=== PATIENT | female | born 1955 | race Two or more races ===

== ENCOUNTER 2019-04-26 08:15 | Inpatient (IN) | payer BC ==
--- NOTE | 2019-04-25 11:30 | Pre-op HX & Phy Repo 2 SIG ---
DATE OF ADMISSION: 04/26/2019 HISTORY OF PRESENT ILLNESS: The patient is a 64-year-old female in overall stable health with a malfunctioning Castro continent ileostomy with incontinence of stool and gas including gross incontinence through her stoma, but no difficulty intubating her pouch. The patient had an original diagnosis of granulomatous colitis and in 1974 underwent proctocolectomy with Sherlyn ileostomy. In 1982, she underwent conversion of her conventional ileostomy to a Castro continent intestinal reservoir type of Kock pouch continent ileostomy. In October 2016 in [place], using what was called an inverted T incision, the patient underwent repair of a fistula involving her Castro pouch to the access segment below the stoma. The patient had been intubating approximately every three hours and for the past six months she has had incontinence of stool and gas through the stoma, sometimes gross incontinence of stool. She says she has no difficulty inserting her intubation catheter. 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 MEDICATIONS: Metoprolol, anastrozole, budesonide 9mg, Cymbalta, levothyroxine, iron, and vitamins. She also has a list of medications she takes on a p.r.n. basis including gabapentin, olanzapine, and other supplements including calcium. She has been having infusions of Entyvio every 8 weeks last taken on 2019 ALLERGIES TO MEDICATIONS: Intravenous dye, Humira, and Remicade. OPERATIONS: In addition to the above, in August 2017, she underwent bilateral mastectomy for breast cancer. She has undergone bilateral total knee replacements. She has undergone lower and upper back spinal fusions and sinus surgery. PHYSICAL EXAMINATION: The patient is 5 feet 8 inches, 215 pounds. [place] and will be examined upon arrival and dictated separately. IMPRESSION: 1. 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 2. History of Crohn's colitis. 3. Status post cervicolumbar spine fusions. 4. Status post bilateral total knee replacement. 5. Status post sinus surgery. 6. Status post bilateral mastectomy for breast cancer in August 2017. 7. STATUS POST MULTIPLE ABDOMINAL OPERATIONS: 7.1. Proctocolectomy and Sherlyn ileostomy in 1974. 7.2. Castro continent ileostomy in 1982. 7.3. Repair of Castro pouch fistula to access segment on 10/27/2016. PLAN: The patient will be admitted and undergo insertion of a dual lumen PICC line, intravenous hydration during her bowel prep, pouch endoscopy, and placement of an indwelling pouch catheter to continuous gravity drainage. She will receive intravenous antibiotics started the night before surgery and continuing postoperatively and preoperative subcutaneous heparin. I have had a full discussion with the patient regarding the nature of her condition and the nature of the surgery including indications, alternatives, options, and risks. The likely operation will be creation of a new valve and stoma preserving her existing pouch, possible relocation of the stoma to the left side. I have described the general risks including bleeding, infection, injury to adjacent structures or organs, hernias, etc. I have discussed the specific risks of Castro pouch revision including recurrent fistula and slipped valve, or other issues with the function or structure of the pouch that could lead to additional revisions. All questions will be answered in person when she arrives from out of state. Santos Marte M.D. DR: NICHOLAS JOB#: [id number] CC: DORENE
[~2019-04-26] VITALS: Ht 172.7 cm; Wt 102.1 kg
[2019-04-26 08:50] VITALS: BP 145/74
[2019-04-26] MEDS ORDERED: Heparin1,000 units/500ml Premix(Conc:2 units/ml) IV PRN (09:15)
[2019-04-26] MEDS ORDERED: Zolpidem 5mg tab ORAL PRN (09:15)
[2019-04-26] MEDS ORDERED: Lidocaine 1% Plain 30 ml INJ PRN (09:15)
[2019-04-26 09:36] LABS: BASOPHILS % (AUTO) 1.2 % (0.0-2.0); EOSINOPHILS % (AUTO) 2.6 % (0.0-3.0); HEMATOCRIT 39.3 % (37.0-47.0); HEMOGLOBIN 13.3 G/DL (12.0-16.0); LYMPHOCYTES % (AUTO) 31.5 % (20.0-45.0); MEAN CORPUSCULAR VOLUME 93 FL (80-99); MONOCYTES % (AUTO) 6.4 % (1.0-10.0); NEUTROPHILS % (AUTO) 58.4 % (45.0-75.0); PLATELET COUNT 267 K/UL (150-450); RED BLOOD COUNT 4.24 M/UL (4.20-5.40); RED CELL DISTRIBUTION WIDTH 13.6 % (11.6-14.8); WHITE BLOOD COUNT 8.4 K/UL (4.8-10.8)
--- NOTE | 2019-04-26 09:41 | Anethesia Preoperative Eval ---
Anesthesia Pre-op PMH/ROS General Date of Evaluation: Apr 26, 2019 Time of Evaluation: 11:02 Anesthesiologist: Shaw ASA Score: ASA 3 Mallampati Score Class I : Soft palate, uvula, fauces, pillars visible Class II: Soft palate, uvula, fauces visible Class III: Soft palate, base of uvula visible Class IV: Only hard plate visible Mallampati Classification: Class II Surgeon: Estuardo Diagnosis: Malfunctioning Castro Continent Ileoostomy Surgical Procedure: Revision Castro Continent Ileoostomy Anesthesia History: none Family History: no anesthesia problems Allergies: Coded Allergies: ADALIMUMAB (Verified Allergy, Intermediate, Body Rashes, Body Aches, ) INFLIXIMAB (Verified Allergy, Intermediate, Body Rash/Body Aches, 04/26/19) Uncoded Allergies: intravenous dye (Allergy, Severe, Respiratory Distress , 04/26/19) Medications: see eMAR Patient NPO?: Yes Past Medical History Cardiovascular: Reports: HTN Gastrointestinal/Genitourinary: Reports: other - Ulcerative Colitis Hematology/Immune: Reports: other - Breast CA Other: obesity - BMI 34 PSxH Narrative: 1. 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 2. History of ulcerative colitis. 3. Status post cervicolumbar spine fusions. 4. Status post bilateral total knee replacement. 5. Status post sinus surgery. 6. Status post bilateral mastectomy for breast cancer in August 2017. 7. STATUS POST MULTIPLE ABDOMINAL OPERATIONS: 7.1. Proctocolectomy and Sherlyn ileostomy in 1974. 7.2. Castro continent ileostomy in 1982. 7.3. Repair of Castro pouch fistula to access segment on 10/27/2016. Anesthesia Pre-op Phys. Exam Physician Exam Last Vital Signs Date Time Temp Pulse Resp B/P (MAP) Pulse Ox O2 Delivery O2 Flow Rate FiO2 04/26/19 08:50 97.6 84 16 145/74 (97) 95 Constitutional: NAD Neurologic: CN 2-12 intact Cardiovascular: RRR Respiratory: CTA Gastrointestinal: S/NT/ND Airway Exam Mallampati Score: Class II MO: full ROM: limited Teeth: missing, intact Anesthesia Pre-op A/P Labs Hematology Test 04/26/19 09:15 White Blood Count 8.4 K/UL (4.8-10.8) Red Blood Count 4.24 M/UL (4.20-5.40) Hemoglobin 13.3 G/DL (12.0-16.0) Hematocrit 39.3 % (37.0-47.0) Mean Corpuscular Volume 93 FL (80-99) Mean Corpuscular Hemoglobin 31.3 PG (27.0-31.0) H Mean Corpuscular Hemoglobin Concent 33.7 G/DL (32.0-36.0) Red Cell Distribution Width 13.6 % (11.6-14.8) Platelet Count 267 K/UL (150-450) Mean Platelet Volume 5.8 FL (6.5-10.1) L Neutrophils (%) (Auto) 58.4 % (45.0-75.0) Lymphocytes (%) (Auto) 31.5 % (20.0-45.0) Monocytes (%) (Auto) 6.4 % (1.0-10.0) Eosinophils (%) (Auto) 2.6 % (0.0-3.0) Basophils (%) (Auto) 1.2 % (0.0-2.0) Coagulation Test 04/26/19 09:15 Prothrombin Time Pending Prothromb Time International Ratio Pending Activated Partial Thromboplast Time Pending Chemistry Test 04/26/19 09:15 Sodium Level Pending Potassium Level Pending Chloride Level Pending Carbon Dioxide Level Pending Blood Urea Nitrogen Pending Creatinine Pending Estimat Glomerular Filtration Rate Pending Glucose Level Pending Calcium Level Pending Total Bilirubin Pending Aspartate Amino Transf (AST/SGOT) Pending Alanine Aminotransferase (ALT/SGPT) Pending Alkaline Phosphatase Pending Total Protein Pending Albumin Pending Globulin Pending Risk Assessment & Plan Assessment: ASA 3 Plan: GA Status Change Before Surgery: No Pre-Antibiotics Drug: Beau Curtis MD Apr 26, 2019 09:41
[2019-04-26 10:05] LABS: INR 0.9 (0.9-1.1)
[2019-04-26 10:06] LABS: ANION GAP 7 mmol/L (5-15); BLOOD UREA NITROGEN 13 mg/dL (7-18); CALCIUM 9.2 MG/DL (8.5-10.1); CARBON DIOXIDE 30 MMOL/L (21-32); CHLORIDE 102 MMOL/L (98-107); POTASSIUM 3.5 MMOL/L (3.5-5.1); SODIUM 139 MMOL/L (136-145)
[2019-04-26 10:12] LABS: ALANINE AMINOTRANSFERASE 40 U/L (12-78); ALBUMIN 3.4 G/DL (3.4-5.0); ALBUMIN/GLOBULIN RATIO 0.8 (1.0-2.7); ALKALINE PHOSPHATASE 90 U/L (46-116); ASPARTATE AMINO TRANSFERASE 24 U/L (15-37); BILIRUBIN,TOTAL 0.4 MG/DL (0.2-1.0)
--- NOTE | 2019-04-26 11:52 | Pre-Procedure Note/Attestation ---
Pre-Procedure Note/Attestation Complete Prior to Procedure Planned Procedure: not applicable Procedure Narrative: Castro continent ileostomy pouch endoscopy Indications for Procedure Pre-Operative Diagnosis: Malfunctioning Castro pouch with incontinence Attestation I attest that I discussed the nature of the procedure; its benefits; risks and complications; and alternatives (and the risks and benefits of such alternatives ), prior to the procedure, with the patient (or the patient's legal manufacturer representative). I attest that, if there was a reasonable possibility of needing a blood transfusion, the patient (or the patient's legal manufacturer representative) was given the [facility] standardized written summary, pursuant to the Scottie [place] Blood Safety Act ([place] Health and Safety Code # 1645, as amended). I attest that I re-evaluated the patient just prior to the surgery and that there has been no change in the patient's H&P, except as documented below: none Santos Marte MD Apr 26, 2019 11:52
[2019-04-26 12:00] VITALS: BP 124/78
--- NOTE | 2019-04-26 12:01 | Diagnostic Imaging Report ---
Indication: Dyspnea Comparison: None A single view chest radiograph was obtained. Findings: Cardiomediastinal appearance is within normal limits for age. The lungs are clear. Pulmonary vascularity is appropriate. The diaphragmatic contour is smooth and costophrenic angles are sharp. No pleural effusions are identified. The bones are unremarkable. Impression: No acute findings
[2019-04-26] MEDS ORDERED: BUDESONIDE ER9 MG PO (12:03)
[2019-04-26] MEDS ORDERED: GABAPENTIN300 MG ORAL (12:03)
[2019-04-26] MEDS ORDERED: OLANZAPINE5 MG ORAL (12:03)
[2019-04-26] MEDS ORDERED: ALOE VERA25 MG PO (12:03)
[2019-04-26] MEDS ORDERED: ARIMIDEX1 MG ORAL (12:03)
[2019-04-26] MEDS ORDERED: OMEGA-3100 M1 PO (12:03)
[2019-04-26] MEDS ORDERED: IRON18 M1 PO (12:03)
[2019-04-26] MEDS ORDERED: VITAMIN D34000 UNIT PO (12:03)
[2019-04-26] MEDS ORDERED: ENTYVIO300 MG IV (12:03)
[2019-04-26] MEDS ORDERED: METOPROLOL SUCC50 MG ORAL (12:03)
[2019-04-26] MEDS ORDERED: B COMPLEX1 EACH ORAL (12:03)
[2019-04-26] MEDS ORDERED: CALCIUM600 M1 PO (12:03)
[2019-04-26] MEDS ORDERED: CYMBALTA60 MG ORAL (12:03)
[2019-04-26] MEDS ORDERED: SYNTHROID100 MCG ORAL (12:03)
[2019-04-26] MEDS: Neomycin Sulfate 500mg Tab ORAL SCH ×3 (12:20→20:43)
[2019-04-26 12:57] LABS: BILIRUBIN, URINE NEGATIVE (NEGATIVE); GLUCOSE, URINE (UA) NEGATIVE (NEGATIVE); KETONES,URINE NEGATIVE (NEGATIVE); LEUKOCYTE ESTERASE ,URINE 1+ (NEGATIVE); NITRITE,URINE NEGATIVE (NEGATIVE); PH,URINE 6 (4.5-8.0); PROTEIN,URINE NEGATIVE (NEGATIVE); UROBILINOGEN,URINE NORMAL MG/DL (0.0-1.0)
[2019-04-26 13:04] LABS: APPEARANCE,URINE SLIGHTLY CLOUDY; COLOR,URINE YELLOW
--- NOTE | 2019-04-26 13:13 | Brief Operative Note ---
Immediate Post Operative Note Operative Note Pre-op Diagnosis: Malfunctioning Castro pouch with incontinence Procedure: Castro continent ileostomy pouch endoscopy Post-op Diagnosis: Castro continent ileostomy fistula to access segment of stoma Post-op Diagnosis: same as pre-op Findings: consistent w/pre-op dx studies Surgeon: dipesh Anesthesia: other - none Specimen: none Complications: none Condition: stable Fluids: none Estimated Blood Loss: none Drains: other - 28 Aguiar to Castro pouch Implant(s) used?: No Santos Marte MD Apr 26, 2019 13:13
--- NOTE | 2019-04-26 13:36 | General Progress Note ---
Progress Note Progress Note H&P dictated. Castro pouch endoscopy reveals fistula opening within stoma access segment. Full discussion with patient and re options of new valve and stoma, possible relocation to left side, new pouch, Sherlyn (she wishes to avoid) Santos Marte MD Apr 26, 2019 13:36
--- NOTE | 2019-04-26 14:20 | Diagnostic Imaging Report ---
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 The left upper extremity was prepped with alcohol. All elements of maximal sterile barrier technique were followed including usage of a cap, mask, sterile gown, sterile gloves, hand hygiene and a large sterile sheet. Sonographic evaluation of the upper extremity was performed demonstrating a patent and compressible basilic vein. Access was obtained under real-time ultrasound guidance (with utilization of sterile gel and sterile probe cover) and digital image was saved and archived. An .018 wire was introduced. Needle exchanged for a 5 Nepali peel-away sheath. Measurements were obtained. A 5 Nepali dual-lumen Power PICC line catheter was cut to 43 cm and introduced over the wire. Peel-away sheath and wire were removed.Catheter was secured to the skin using 2-0 Prolene suture. Both ports aspirate and flush easily. A single fluoroscopic image shows the distal tip in the superior vena cava. Total fluoroscopic time: 9.7 seconds. Impression: Successful placement of an upper extremity PICC line catheter
[2019-04-26] MEDS ORDERED: Vitamin A&D ud Packet TOPIC SCH (14:27)
--- NOTE | 2019-04-26 14:30 | Pre-op HX & Phy Repo 2 SIG ---
DATE OF ADMISSION: 04/26/2019 The patient has now arrived [place] out of state. Please see previously dictated history. PHYSICAL EXAMINATION: GENERAL: She is well developed and well nourished with stable vital signs, 5 feet 8 inches, approximately 215 pounds. HEENT: Within normal limits. LUNGS: Clear. HEART: Regular rhythm. BREASTS: She has undergone bilateral mastectomies for breast cancer in August 2017. ABDOMEN: Soft and flat. It is somewhat obese. There is a long midline incision without any weakness. The stoma of the Castro continent ileostomy is low in the right lower quadrant and small with a small parastomal hernia just superior to it. There is moderate skin irritation from fecal incontinence from her fistula. PELVIC: Per primary care. RECTAL: Status post proctectomy. EXTREMITIES: Without edema. NEUROLOGIC: Physiologic. IMPRESSION: 1. Malfunctioning Castro continent ileostomy with fistula to access segment of the stoma. 2. History of Crohn's colitis. 3. Status post cervical and lumbar spine fusions. 4. Status post bilateral total knee replacements. 5. Status post sinus surgery. 6. Status post bilateral mastectomy for breast cancer August 2017. 7. STATUS POST MULTIPLE ABDOMINAL OPERATIONS: 7.1. Proctocolectomy and Sherlyn ileostomy in 1974. 7.2. Castro continent ileostomy in 1982. 7.3. Repair of Castro continent ileostomy fistula to access segment October 2016. PLAN: I have had a full discussion with the patient and regarding the nature of her condition, the nature of the surgical options including repair of the fistula, which is unlikely to be successful because she also appears to have a partially slipped valve, so the primary option is creation of a new valve and stoma preserving the existing pouch and possible relocation to the left lower quadrant. The other alternatives are to resect this pouch and create a new Castro continent ileostomy if she has completely normal small intestine and adequate amount. Otherwise we will resect this pouch and create a permanent conventional ileostomy, which she hopes to avoid. All questions have been answered. Discussed all options and the general and specific risks of the operation. Santos Marte M.D. DR: ROBERT JOB#: [id number] CC: DORENE
[2019-04-26] MEDS: D5 1/2NS w/KCl 20mEq 1,000 ML IV SCH (15:41)
[2019-04-26 16:00] VITALS: BP 125/60
--- NOTE | 2019-04-26 16:45 | Procedure Note ---
DATE OF PROCEDURE: 04/26/2019 ENDOSCOPY PROCEDURE REPORT DATE OF ENDOSCOPY: 04/26/2019 ENDOSCOPIST: Santos Marte M.D. ANESTHESIA: None. SEDATION: None. PRE-ENDOSCOPY DIAGNOSES: 1. Malfunctioning Castro continent ileostomy with fistula to access segment. 2. History of granulomatous colitis. 3. Status post multiple operations including proctocolectomy followed by Castro continent ileostomy with repair of fistula. Last operation October 2016. POST-ENDOSCOPY DIAGNOSES: 1. Malfunctioning Castro continent ileostomy with fistula to access segment. 2. History of granulomatous colitis. 3. Status post multiple operations including proctocolectomy followed by Castro continent ileostomy with repair of fistula. Last operation October 2016. ENDOSCOPY PERFORMED: Castro continent ileostomy pouch endoscopy. FINDINGS: A fistulous tract opening approximately 2 cm deep to the mucocutaneous junction of the stoma that leads into the pouch. The pouch is normal without any inflammation, but the nipple valve is partially slipped as well. PROCEDURE IN DETAIL: The patient was positioned supine in the GI lab without any anesthesia or sedation given or required. Using a GIF-P140 endoscope, the stoma was entered and the distance to the tip of the valve was 11 centimeters, somewhat redundant. The pouch was distensible and the mucosa appeared normal. There was one extra band of mucosal tissue stretching across the pouch. Retroflexed views revealed a partially slipped valve. Withdrawal views confirmed the fistulous tract adjacent to the main channel leading into the pouch. Following the endoscopy, I was able to insert a 28-Azeri Agiuar catheter into the pouch to decompress it, secured it to the skin with tape, connected to continuous gravity drainage bag with dressing over the stoma. The patient tolerated the endoscopy well and will be prepared for surgery in the morning. Santos Marte M.D. DR: NICHOLAS JOB#: [id number] CC:
[2019-04-26] MEDS: Vitamin A&D ud Packet TOPIC SCH ×2 (16:58→20:43)
[2019-04-26 20:00] VITALS: BP 129/60
[2019-04-26] MEDS: Dyna-Hex 2% Top Sol 2oz TOPIC SCH (20:43)
[2019-04-26] MEDS: Ampicillin/Sulbactam Sod 3 GM in NS 110 ML IV SCH (23:17)
[2019-04-27] VITALS (19 sets, daily range): BP systolic 117–156; BP diastolic 60–78
[2019-04-27] MEDS: D5 1/2NS w/KCl 20mEq 1,000 ML IV SCH (00:54)
[2019-04-27] MEDS: Ampicillin/Sulbactam Sod 3 GM in NS 110 ML IV SCH ×4 (05:00→23:52)
[2019-04-27] MEDS ORDERED: Heparin 5000 units/ml inj SUBQ SCH (05:30)
[2019-04-27] MEDS: Hydrocortisone 100mg Inj IV SCH ×3 (06:34→21:58)
--- NOTE | 2019-04-27 07:00 | Pre-Procedure Note/Attestation ---
Pre-Procedure Note/Attestation Complete Prior to Procedure Planned Procedure: not applicable Procedure Narrative: revision of Castro continent ileostomy, gastrostomy Indications for Procedure Pre-Operative Diagnosis: Malfunctioning Castro pouch with fistula to access segment Attestation I attest that I discussed the nature of the procedure; its benefits; risks and complications; and alternatives (and the risks and benefits of such alternatives ), prior to the procedure, with the patient (or the patient's legal software sales representative). I attest that, if there was a reasonable possibility of needing a blood transfusion, the patient (or the patient's legal software sales representative) was given the [facility] standardized written summary, pursuant to the Scottie [place] Blood Safety Act ([place] Health and Safety Code # 1645, as amended). I attest that I re-evaluated the patient just prior to the surgery and that there has been no change in the patient's H&P, except as documented below: none Santos Marte MD Apr 27, 2019 07:00
[2019-04-27] MEDS ORDERED: Midazolam 2mg/2ml Inj ONE (07:12)
[2019-04-27] MEDS ORDERED: fentaNYL 100 mcg/2 mL IV ONE (07:12)
[2019-04-27] MEDS ORDERED: NeoSporin Gu Irrig 1ml Amp IRRIG ONE (07:17)
[2019-04-27] MEDS ORDERED: Bacitracin 50000 Units Vial ONE (07:17)
[2019-04-27] MEDS ORDERED: Rocuronium Bromide 50mg/5ml Inj IV ONE (07:21)
[2019-04-27] MEDS ORDERED: Succinylcholine 20mg/ml 10ml vial ONE (07:21)
[2019-04-27] MEDS ORDERED: LR 1000ml ONE (07:30)
[2019-04-27] MEDS ORDERED: Labetalol 5mg/ml 20ml vial IV ONE (07:30)
[2019-04-27] MEDS ORDERED: Sterile Water Irrig 1000ml IRRIG ONE (07:30)
[2019-04-27] MEDS ORDERED: NS Irrig 1000ml IRRIG ONE (07:52)
[2019-04-27] MEDS ORDERED: Morphine Sulfate 10mg/ml Inj ONE (08:13)
[2019-04-27] MEDS ORDERED: Ketorolac 30mg Inj ONE (08:14)
[2019-04-27] MEDS ORDERED: Propofol 200mg/20ml IV ONE (08:14)
[2019-04-27] MEDS ORDERED: Glycopyrrolate 0.2mg/ml 1ml Vial ONE (08:14)
[2019-04-27] MEDS ORDERED: Neostigmine 1mg/ml 10ml Inj ONE (08:14)
[2019-04-27] MEDS ORDERED: Sodium Chloride 10ml vial INJ ONE (08:14)
[2019-04-27] MEDS ORDERED: LR 1000ml 1,000 ML IVLG SCH (08:23)
[2019-04-27] MEDS ORDERED: Metoclopramide 10mg/2ml Inj IVP PRN (08:30)
[2019-04-27] MEDS ORDERED: DiphenhydrAMINE 50mg/ml Inj IVP PRN ×2 (08:30→12:00)
[2019-04-27] MEDS ORDERED: Hydromorphone 0.5mg/0.5ml inj IVP PRN (08:30)
[2019-04-27] MEDS ORDERED: Acetaminophen (Non formulary) 100 ML IV ONE (08:30)
[2019-04-27] MEDS: Metoprolol Succinate XL 50mg tab ORAL SCH (09:00)
[2019-04-27] MEDS: Anastrazole 1mg tab ORAL SCH (09:00)
[2019-04-27] MEDS ORDERED: Acetaminophen 650mg/20.3ml NG PRN (12:00)
[2019-04-27] MEDS ORDERED: Naloxone 0.4mg/ml Inj IVP PRN (12:00)
[2019-04-27] MEDS ORDERED: PCA Education Pamphlet MISC ONE (12:00)
[2019-04-27] MEDS ORDERED: Ampicillin/Sulbactam Sod 3 GM in NS 110 ML IV SCH (12:00)
[2019-04-27] MEDS ORDERED: HYDROmorphone 1mg/ml Carpuject SUBQ PRN (12:00)
[2019-04-27] MEDS ORDERED: Rate Change PCA 1 Each MISC PRN (12:00)
[2019-04-27] MEDS ORDERED: LORazepam 1mg tab SL PRN ×2 (12:00)
[2019-04-27] MEDS ORDERED: PCA HYDROmorphone 1mg/ml 30 ML IV PRN ×2 (12:00→17:00)
--- NOTE | 2019-04-27 12:04 | Brief Operative Note ---
Immediate Post Operative Note Operative Note Pre-op Diagnosis: Malfunctioning Castro pouch with fistula to access segment Procedure: Revision of Castro pouch with creation of new valve and stoma Post-op Diagnosis: Castro continent ileostomy fistula to access segment of stoma Post-op Diagnosis: same as pre-op Findings: consistent w/pre-op dx studies Surgeon: dipesh Additional Surgeons: porfirio Anesthesiologist: nesha Anesthesia: general Specimen: yes - bowel segments, stoma Complications: none Condition: stable Fluids: see anesthesia record Estimated Blood Loss: volume - 50 Drains: other - 28 Aguiar to Castro pouch Implant(s) used?: No Santos Marte MD Apr 27, 2019 12:04
--- NOTE | 2019-04-27 12:04 | Immediate Post-Op Evaluation ---
Immediate Post-Op Evalulation Immediate Post-Op Evalulation Procedure: Exploratory laparotomy, lysis of adhesions, revision of continent pouch Date of Evaluation: Apr 27, 2019 Time of Evaluation: 12:03 IV Fluids: 1200 Blood Products: none Estimated Blood Loss: 100 Urinary Output: 1000 Blood Pressure Systolic: 134 Blood Pressure Diastolic: 68 Pulse Rate: 87 Respiratory Rate: 20 O2 Sat by Pulse Oximetry: 99 Temperature (Fahrenheit): 98.6 Pain Score (1-10): 1 Nausea: No Vomiting: No Complications none Patient Status: patent, extubated, none Hydration Status: adequate Royal Larry MD Apr 27, 2019 12:04
--- NOTE | 2019-04-27 13:45 | Operative Note - Dictated ---
DATE OF OPERATION: 04/27/2019 SURGEON: Santos Marte M.D. ADDITIONAL SURGEON: Reggie Ruiz M.D. ANESTHESIOLOGIST: Royal Larry M.D. TYPE OF ANESTHESIA: General endotracheal. PREOPERATIVE DIAGNOSES: 1. 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 History of granulomatous colitis. 3. STATUS POST MULTIPLE ABDOMINAL OPERATIONS: 3.1. Proctocolectomy and Sherlyn ileostomy in 1974. 3.2. Castro continent ileostomy in 1982. 3.3. Repair of Castro continent ileostomy pouch fistula to access segment October 27, 2016. (all these operations were done elsewhere). POSTOPERATIVE DIAGNOSES: 1. 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 History of granulomatous colitis. 3. STATUS POST MULTIPLE ABDOMINAL OPERATIONS: 3.1. Proctocolectomy and Sherlyn ileostomy in 1974. 3.2. Castro continent ileostomy in 1982. 3.3. Repair of Castro continent ileostomy pouch fistula to access segment October 27, 2016. (all these operations were done elsewhere). OPERATION PERFORMED: Complex revision of Castro continent ileostomy with creation of new valve and stoma. DESCRIPTION OF PROCEDURE: The patient was taken to the operating room and under general endotracheal anesthesia with sequential compression device stockings and Aguiar catheter in place having received intravenous antibiotics and subcutaneous heparin, she was prepped and draped in usual fashion with Tegaderm over the stoma in the right lower quadrant. Previous midline incision was reopened and because of extensive adhesions was extended into the lower epigastrium down to the pubis. With a tedious dissection, bowel loops were mobilized and the pouch elevated out of the very deep pelvis. The patient had obviously had total abdominal hysterectomy, but is not clear when that was done from her history, but there was no uterus or adnexa. A transversely oriented elliptical incision was made around the stoma, which was quite lateral in the right lower quadrant and the stoma brought through into the abdomen. This helped to facilitate complete mobilization of the pouch, identifying the afferent bowel. The access segment with the fistula tract at its junction with the pouch was divided with a VIRGEN stapling device and taken as specimen. A pouch enterotomy was created. The afferent bowel was identified. We were able to create a new valve using the afferent bowel measuring 12 cm proximal from the pouch for the valve segment and then additional 5 cm for the access segment and stoma. The bowel was divided at this point and the proximal end was attached to the pouch, medial to the old stoma site with an end-to-side 25 CEEA stapled anastomosis. Prior to doing the anastomosis, a small segment was resected. There was no sign of any Crohn's disease anywhere in the small bowel. The end-to-side anastomosis was created with two intact donuts. Now, the new valve was gradually intussuscepted creating a 5.0 cm long nipple valve. Four rows of leandra were placed using the linear stapler 60 3.5 mm leandra. I then closed the pouch with a continuous 2-0 Vicryl, but it became apparent that the valve was prolapsing. The pouch enterotomy was reopened and the valve stabilized with multiple horizontal mattress 2-0 Prolene sutures from the outer pouch through the valve near the tip, back out of the valve, and through the pouch tying on the outside of the pouch. The 28-Tuvaluan Aguiar then readily went into the pouch without difficulty and there was no further prolapse of the valve. The pouch enterotomy was closed with continuous 2-0 Vicryl, with an outer layer of 3-0 silk. The pelvis in the operative field carefully inspected and irrigated. Hemostasis was secured with cautery. The bladder and ureters were protected throughout the procedure. The stoma was brought through the same site with the access segment in the right lower quadrant.. A 28-Tuvaluan Aguiar was placed into the pouch. The afferent bowel was manually occluded, and the pouch distended with 350 ml of saline. There was no extravasation. Upon removing the catheter , there was no incontinence. The catheter was reintroduced and the pouch decompressed. The stoma and access segment was brought through the prior site and sutured with continuous 2-0 chromic locking suture. The 28-Tuvaluan Aguiar was appropriately positioned in the pouch and sutured to the skin with two sutures of 2-0 silk. It was flushed and connected to a gravity drainage bag. The bowel loops were replaced anatomically. I did not do a catheter gastrostomy because there were extensive upper abdominal adhesions. After ascertaining that hemostasis was secure, the midline incision was closed with continuous #1 looped PDS. Throughout the procedure, antibiotic soaked laps had been used to protect the incision. Additional irrigation performed and the skin was closed with leandra. Dry sterile dressings applied. Final sponge and needle counts were correct. The patient tolerated the procedure well and left the operating room in good condition. Santos Marte M.D. DR: ROBERT JOB#: [id number] CC: DORENE
[2019-04-27] MEDS: D5 1/4NS w/KCl 20mEq 1,000 ML IV SCH (15:43)
[2019-04-27] MEDS: PCA shift volume MISC SCH (19:00)
[2019-04-27] MEDS: Dyna-Hex 2% Top Sol 2oz TOPIC SCH (21:00)
[2019-04-27] MEDS ORDERED: NS 275ml ONE (22:37)
[2019-04-27] MEDS ORDERED: NS Irrig 1000ml ONE (22:37)
[2019-04-27] MEDS ORDERED: Tubing IV Secondary IV ONE (22:37)
[2019-04-28] VITALS: BP 115/69
[2019-04-28] MEDS: D5 1/4NS w/KCl 20mEq 1,000 ML IV SCH ×4 (00:05→23:37)
[2019-04-28 04:00] VITALS: BP 149/78
[2019-04-28] MEDS: Ampicillin/Sulbactam Sod 3 GM in NS 110 ML IV SCH ×4 (06:07→23:36)
[2019-04-28] MEDS: Hydrocortisone 100mg Inj IV SCH ×3 (06:07→21:45)
[2019-04-28 06:13] LABS: BASOPHILS % (AUTO) 0.3 % (0.0-2.0); EOSINOPHILS % (AUTO) 0.1 % (0.0-3.0); HEMATOCRIT 37.3 % (37.0-47.0); LYMPHOCYTES % (AUTO) 24.5 % (20.0-45.0); MEAN CORPUSCULAR VOLUME 92 FL (80-99); NEUTROPHILS % (AUTO) 70.1 % (45.0-75.0); PLATELET COUNT 305 K/UL (150-450); RED BLOOD COUNT 4.06 M/UL (4.20-5.40); RED CELL DISTRIBUTION WIDTH 12.2 % (11.6-14.8); WHITE BLOOD COUNT 15.5 K/UL (4.8-10.8)
[2019-04-28 06:36] LABS: ANION GAP 10 mmol/L (5-15); BLOOD UREA NITROGEN 14 mg/dL (7-18); CALCIUM 9.2 MG/DL (8.5-10.1); CARBON DIOXIDE 29 MMOL/L (21-32); CHLORIDE 105 MMOL/L (98-107); CREATININE 0.9 MG/DL (0.55-1.30); POTASSIUM 3.9 MMOL/L (3.5-5.1); SODIUM 144 MMOL/L (136-145)
[2019-04-28] MEDS: PCA shift volume MISC SCH ×2 (07:00→19:17)
[2019-04-28 08:00] VITALS: BP_SYST 139; BP_SYST 173; BP_DIAS 89
--- NOTE | 2019-04-28 09:08 | 48 Hour Post Anesthesia Eval ---
Post Anesthesia Evaluation Procedure: Exploratory laparotomy, lysis of adhesions, revision of continent pouch Date of Evaluation: Apr 28, 2019 Time of Evaluation: 09:06 Blood Pressure Systolic: 132 0: 76 Pulse Rate: 102 Respiratory Rate: 22 Temperature (Fahrenheit): 97.8 O2 Sat by Pulse Oximetry: 98 Airway: patent Nausea: No Vomiting: No Pain Intensity: 3 Hydration Status: adequate Cardiopulmonary Status: stable Mental Status/LOC: patient returned to baseline Follow-up Care/Observations: n/a Post-Anesthesia Complications: none Follow-up care needed: N/A Royal Larry MD Apr 28, 2019 09:08
[2019-04-28] MEDS ORDERED: PCA HYDROmorphone 1mg/ml 30 ML IV PRN (09:15)
[2019-04-28] MEDS: Anastrazole 1mg tab ORAL SCH (09:16)
[2019-04-28] MEDS: Metoprolol Succinate XL 50mg tab ORAL SCH (09:18)
[2019-04-28] MEDS ORDERED: Naloxone 0.4mg/ml Inj IVP PRN (09:18)
[2019-04-28] MEDS ORDERED: DiphenhydrAMINE 50mg/ml Inj IVP PRN (09:20)
--- NOTE | 2019-04-28 09:24 | General Progress Note ---
Progress Note Progress Note AVSS - c/o pain with mild tachycardia and elevated BP. 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
[2019-04-28] MEDS ORDERED: Rate Change PCA 1 Each MISC PRN (09:30)
[2019-04-28] MEDS ORDERED: NS Irrig 1000ml ONE ×2 (09:32→10:04)
[2019-04-28] MEDS ORDERED: NS 275ml ONE (10:04)
[2019-04-28 12:00] VITALS: BP 138/73
[2019-04-28 16:00] VITALS: BP 154/65
[2019-04-28 20:00] VITALS: BP 139/71
[2019-04-28] MEDS: Dyna-Hex 2% Top Sol 2oz TOPIC SCH (21:45)
[2019-04-29] VITALS: BP 138/71
[2019-04-29] MEDS: D5 1/4NS w/KCl 20mEq 1,000 ML IV SCH ×3 (03:59→20:51)
[2019-04-29 04:00] VITALS: BP 138/69
[2019-04-29] MEDS: Ampicillin/Sulbactam Sod 3 GM in NS 110 ML IV SCH ×4 (05:46→23:47)
[2019-04-29] MEDS: Hydrocortisone 100mg Inj IV SCH ×3 (06:22→21:49)
[2019-04-29 06:55] LABS: BASOPHILS % (AUTO) 0.3 % (0.0-2.0); EOSINOPHILS % (AUTO) 0.1 % (0.0-3.0); HEMATOCRIT 29.4 % (37.0-47.0); HEMOGLOBIN 10.3 G/DL (12.0-16.0); LYMPHOCYTES % (AUTO) 20.4 % (20.0-45.0); MEAN CORPUSCULAR VOLUME 91 FL (80-99); MONOCYTES % (AUTO) 4.9 % (1.0-10.0); NEUTROPHILS % (AUTO) 74.4 % (45.0-75.0); PLATELET COUNT 214 K/UL (150-450); RED BLOOD COUNT 3.23 M/UL (4.20-5.40); WHITE BLOOD COUNT 15.3 K/UL (4.8-10.8)
[2019-04-29] MEDS: PCA shift volume MISC SCH ×3 (07:00→19:22)
[2019-04-29 08:00] VITALS: BP 122/59
[2019-04-29 08:07] LABS: ALANINE AMINOTRANSFERASE 17 U/L (12-78); ALBUMIN 2.3 G/DL (3.4-5.0); ALBUMIN/GLOBULIN RATIO 0.7 (1.0-2.7); ALKALINE PHOSPHATASE 64 U/L (46-116); ANION GAP 6 mmol/L (5-15); ASPARTATE AMINO TRANSFERASE 15 U/L (15-37); BILIRUBIN,TOTAL 0.4 MG/DL (0.2-1.0); BLOOD UREA NITROGEN 8 mg/dL (7-18); CALCIUM 8.7 MG/DL (8.5-10.1); CARBON DIOXIDE 29 MMOL/L (21-32); CHLORIDE 107 MMOL/L (98-107); CREATININE 0.7 MG/DL (0.55-1.30); PHOSPHORUS 2.1 MG/DL (2.5-4.9); POTASSIUM 3.9 MMOL/L (3.5-5.1); SODIUM 142 MMOL/L (136-145)
[2019-04-29] MEDS ORDERED: NS Irrig 1000ml ONE (08:43)
[2019-04-29] MEDS: Anastrazole 1mg tab ORAL SCH (09:12)
[2019-04-29] MEDS: Metoprolol Succinate XL 50mg tab ORAL SCH (09:12)
[2019-04-29] MEDS ORDERED: PCA HYDROmorphone 1mg/ml 30 ML IV PRN ×2 (09:15→09:37)
[2019-04-29] MEDS ORDERED: Rate Change PCA 1 Each MISC PRN (09:38)
--- NOTE | 2019-04-29 09:42 | General Progress Note ---
Progress Note Progress Note AVSS Not responding verbally to questions but is awake and alert. Likely due to dilaudid demand generation manager basal infusion resumed yesterday AM. Ambulated yesterday and was up this AM Abdomen soft, mildly distended, incision clean, stoma pink Urine 2695 BCIR ileo 200cc enteric overnight WBC 15,300 Hgb down 10.3 BUN 8 Cr 0.7 Phos 2.1 Mg 1.7 Imp: Oversedation r/o neurologic change Ileus Plan: d/c dilaudid demand generation manager and change demand dosing infuse Mg and Phos f/u labs; continue Aguiar If not improving will get Neurology consultation continue NPO Santos Marte MD Apr 29, 2019 09:42
[2019-04-29] MEDS ORDERED: Potassium Phosphate 15mm/250ml 250 ML IVPB ONE (10:00)
[2019-04-29 12:00] VITALS: BP 122/59
[2019-04-29 16:00] VITALS: BP 135/65
[2019-04-29 20:00] VITALS: BP 137/67
[2019-04-29] MEDS: Dyna-Hex 2% Top Sol 2oz TOPIC SCH (20:48)
[2019-04-30] VITALS: BP 130/66
[2019-04-30] MEDS: D5 1/4NS w/KCl 20mEq 1,000 ML IV SCH ×4 (03:41→21:41)
[2019-04-30 04:00] VITALS: BP 143/68
[2019-04-30 06:19] LABS: BASOPHILS % (AUTO) 0.3 % (0.0-2.0); EOSINOPHILS % (AUTO) 0.1 % (0.0-3.0); HEMATOCRIT 27.8 % (37.0-47.0); HEMOGLOBIN 9.5 G/DL (12.0-16.0); LYMPHOCYTES % (AUTO) 16.6 % (20.0-45.0); MEAN CORPUSCULAR VOLUME 92 FL (80-99); MONOCYTES % (AUTO) 4.3 % (1.0-10.0); NEUTROPHILS % (AUTO) 78.7 % (45.0-75.0); PLATELET COUNT 209 K/UL (150-450); RED BLOOD COUNT 3.01 M/UL (4.20-5.40); WHITE BLOOD COUNT 12.9 K/UL (4.8-10.8)
[2019-04-30] MEDS: Hydrocortisone 100mg Inj IV SCH ×3 (06:30→21:41)
[2019-04-30] MEDS: Ampicillin/Sulbactam Sod 3 GM in NS 110 ML IV SCH ×4 (06:31→23:20)
[2019-04-30 06:34] LABS: ALANINE AMINOTRANSFERASE 16 U/L (12-78); ALBUMIN 2.1 G/DL (3.4-5.0); ALBUMIN/GLOBULIN RATIO 0.6 (1.0-2.7); ALKALINE PHOSPHATASE 60 U/L (46-116); ANION GAP 6 mmol/L (5-15); ASPARTATE AMINO TRANSFERASE 15 U/L (15-37); BILIRUBIN,TOTAL 0.3 MG/DL (0.2-1.0); BLOOD UREA NITROGEN 8 mg/dL (7-18); CALCIUM 8.6 MG/DL (8.5-10.1); CARBON DIOXIDE 31 MMOL/L (21-32); CHLORIDE 107 MMOL/L (98-107); CREATININE 0.6 MG/DL (0.55-1.30); POTASSIUM 3.6 MMOL/L (3.5-5.1); SODIUM 144 MMOL/L (136-145)
[2019-04-30 07:09] LABS: % IRON SATURATION 12 % (15-50); IRON 24 ug/dL (50-175); TOTAL IRON BINDING CAPACITY 194 ug/dL (250-450)
[2019-04-30] MEDS: PCA shift volume MISC SCH ×2 (07:36→19:00)
[2019-04-30 08:00] VITALS: BP 122/59
[2019-04-30] MEDS: Metoprolol Succinate XL 50mg tab ORAL SCH (09:44)
[2019-04-30] MEDS: Anastrazole 1mg tab ORAL SCH (09:44)
[2019-04-30] MEDS ORDERED: Rate Change PCA 1 Each MISC PRN (10:30)
[2019-04-30] MEDS ORDERED: PCA HYDROmorphone 1mg/ml 30 ML IV PRN (10:31)
--- NOTE | 2019-04-30 10:44 | General Progress Note ---
Progress Note Progress Note Tmax 100.2 completely awake and alert with normal mental status. Has been ambulating Abdomen soft, mildly distended, incision clean, stoma pink Urine 2300 BCIR ileo 365 enteric WBC down 12,900 Hgb down 9.5 chemistries ok Iron 24 B12 390 folic acidk okay Albumin 2.1 Imp:Ileus Plan: TPN, Venofer, B12 x 1 continue npo, continuous drainage of Castro pouch taper Santos Devine MD Apr 30, 2019 10:44
[2019-04-30 12:00] VITALS: BP 130/69
[2019-04-30] MEDS ORDERED: Vitamin B12 1000mcg/ml Inj IM SCH (12:00)
[2019-04-30 16:00] VITALS: BP 141/72
[2019-04-30] MEDS ORDERED: Naloxone 0.4mg/ml Inj IVP PRN (16:30)
[2019-04-30 20:00] VITALS: BP 128/63
[2019-04-30] MEDS ORDERED: Dextrose 10% 1,000 ML IV PRN (20:00)
[2019-04-30] MEDS ORDERED: Fat Emulsion Iv 20% 250 ML IV SCH (21:00)
[2019-04-30] MEDS: Dyna-Hex 2% Top Sol 2oz TOPIC SCH (21:40)
[2019-04-30] MEDS: Iron Sucrose 100 MG in NS 55 ML IV SCH (21:41)
[2019-04-30] MEDS: FAT EMULSION 20% IV SCH (21:43)
[2019-04-30] MEDS: TPN IV SCH (21:43)
[2019-04-30] MEDS: NovoLOG Insulin Flexpen SUBQ SCH (23:19)
[2019-05-01] VITALS: BP 152/78
[2019-05-01 04:00] VITALS: BP 155/74
[2019-05-01] MEDS: Ampicillin/Sulbactam Sod 3 GM in NS 110 ML IV SCH ×3 (05:01→17:54)
[2019-05-01] MEDS: Hydrocortisone 100mg Inj IV SCH ×2 (05:37→21:28)
[2019-05-01] MEDS: NovoLOG Insulin Flexpen SUBQ SCH ×3 (05:37→18:17)
[2019-05-01 06:25] LABS: BASOPHILS % (AUTO) 0.2 % (0.0-2.0); EOSINOPHILS % (AUTO) 0.3 % (0.0-3.0); HEMOGLOBIN 9.9 G/DL (12.0-16.0); LYMPHOCYTES % (AUTO) 19.4 % (20.0-45.0); MEAN CORPUSCULAR VOLUME 92 FL (80-99); MONOCYTES % (AUTO) 4.8 % (1.0-10.0); NEUTROPHILS % (AUTO) 75.3 % (45.0-75.0); PLATELET COUNT 236 K/UL (150-450); RED BLOOD COUNT 3.05 M/UL (4.20-5.40); RED CELL DISTRIBUTION WIDTH 11.9 % (11.6-14.8); WHITE BLOOD COUNT 9.4 K/UL (4.8-10.8)
[2019-05-01 06:47] LABS: ALANINE AMINOTRANSFERASE 23 U/L (12-78); ALBUMIN 2.1 G/DL (3.4-5.0); ALBUMIN/GLOBULIN RATIO 0.5 (1.0-2.7); ALKALINE PHOSPHATASE 68 U/L (46-116); ANION GAP 9 mmol/L (5-15); ASPARTATE AMINO TRANSFERASE 18 U/L (15-37); BILIRUBIN,TOTAL 0.3 MG/DL (0.2-1.0); BLOOD UREA NITROGEN 9 mg/dL (7-18); CALCIUM 8.6 MG/DL (8.5-10.1); CARBON DIOXIDE 28 MMOL/L (21-32); CHLORIDE 106 MMOL/L (98-107); CREATININE 0.7 MG/DL (0.55-1.30); PHOSPHORUS 2.9 MG/DL (2.5-4.9); POTASSIUM 3.6 MMOL/L (3.5-5.1); SODIUM 143 MMOL/L (136-145)
[2019-05-01] MEDS: PCA shift volume MISC SCH ×2 (07:25→19:27)
[2019-05-01 08:00] VITALS: BP_SYST 150; BP_SYST 154; BP_DIAS 77
[2019-05-01] MEDS: Anastrazole 1mg tab ORAL SCH (08:45)
[2019-05-01] MEDS: Metoprolol Succinate XL 50mg tab ORAL SCH (08:45)
[2019-05-01 12:00] VITALS: BP_SYST 134; BP_DIAS 74; BP_DIAS 76
[2019-05-01] MEDS ORDERED: Naloxone 0.4mg/ml Inj IVP PRN (13:52)
[2019-05-01] MEDS ORDERED: Rate Change PCA 1 Each MISC PRN (14:00)
--- NOTE | 2019-05-01 14:02 | General Progress Note ---
Progress Note Progress Note AVSS Ambulating better Abdomen soft, mild distention, healing nicely Urine 1999 BCIR ileo 110 WBC down 9400 Hgb up 9.9 (Venofer) albumin 2.1 Imp: persistent ileus Plan: continue npo, TPN, Venofer hopefully can d/c urinary Aguiar in AM continue IV antibiotics f/u labs Santos Marte MD May 01, 2019 14:02
[2019-05-01] MEDS ORDERED: NS Irrig 1000ml ONE (15:43)
[2019-05-01] MEDS ORDERED: Tubing IV Secondary IV ONE (15:43)
[2019-05-01 16:00] VITALS: BP_SYST 140; BP_SYST 141; BP_DIAS 76
[2019-05-01 20:00] VITALS: BP 160/85
[2019-05-01] MEDS: D5 1/4NS w/KCl 20mEq 1,000 ML IV SCH (20:00)
[2019-05-01] MEDS: Dyna-Hex 2% Top Sol 2oz TOPIC SCH (20:00)
[2019-05-01] MEDS: Iron Sucrose 100 MG in NS 55 ML IV SCH (21:28)
[2019-05-01] MEDS: TPN IV SCH (21:29)
[2019-05-01] MEDS: FAT EMULSION 20% IV SCH (21:29)
[2019-05-02] VITALS: BP 147/80
[2019-05-02] MEDS: Ampicillin/Sulbactam Sod 3 GM in NS 110 ML IV SCH ×5 (00:19→23:49)
[2019-05-02] MEDS: NovoLOG Insulin Flexpen SUBQ SCH ×5 (00:32→23:57)
[2019-05-02 04:00] VITALS: BP 152/82
[2019-05-02 05:26] LABS: BASOPHILS % (AUTO) 0.7 % (0.0-2.0); EOSINOPHILS % (AUTO) 1.2 % (0.0-3.0); HEMOGLOBIN 10.7 G/DL (12.0-16.0); LYMPHOCYTES % (AUTO) 19.2 % (20.0-45.0); MEAN CORPUSCULAR VOLUME 92 FL (80-99); MONOCYTES % (AUTO) 4.6 % (1.0-10.0); NEUTROPHILS % (AUTO) 74.3 % (45.0-75.0); PLATELET COUNT 245 K/UL (150-450); RED BLOOD COUNT 3.39 M/UL (4.20-5.40); RED CELL DISTRIBUTION WIDTH 12.2 % (11.6-14.8); WHITE BLOOD COUNT 10.4 K/UL (4.8-10.8)
[2019-05-02 05:47] LABS: ALANINE AMINOTRANSFERASE 20 U/L (12-78); ALBUMIN 2.1 G/DL (3.4-5.0); ALBUMIN/GLOBULIN RATIO 0.5 (1.0-2.7); ALKALINE PHOSPHATASE 67 U/L (46-116); ANION GAP 6 mmol/L (5-15); ASPARTATE AMINO TRANSFERASE 22 U/L (15-37); BILIRUBIN,TOTAL 0.2 MG/DL (0.2-1.0); BLOOD UREA NITROGEN 9 mg/dL (7-18); CALCIUM 8.8 MG/DL (8.5-10.1); CARBON DIOXIDE 30 MMOL/L (21-32); CHLORIDE 107 MMOL/L (98-107); CREATININE 0.6 MG/DL (0.55-1.30); POTASSIUM 3.8 MMOL/L (3.5-5.1); SODIUM 143 MMOL/L (136-145)
[2019-05-02] MEDS: Hydrocortisone 100mg Inj IV SCH ×3 (06:17→21:03)
[2019-05-02] MEDS: PCA shift volume MISC SCH ×2 (07:24→19:11)
[2019-05-02 08:00] VITALS: BP 168/83
[2019-05-02] MEDS: Anastrazole 1mg tab ORAL SCH (09:02)
[2019-05-02] MEDS: Metoprolol Succinate XL 50mg tab ORAL SCH (09:03)
[2019-05-02] MEDS ORDERED: PCA HYDROmorphone 1mg/ml 30 ML IV PRN ×2 (10:31→10:45)
[2019-05-02] MEDS ORDERED: Naloxone 0.4mg/ml Inj IVP PRN (10:35)
[2019-05-02] MEDS ORDERED: Rate Change PCA 1 Each MISC PRN (10:45)
[2019-05-02] MEDS ORDERED: LORazepam 1mg tab SL PRN ×2 (10:45→11:00)
--- NOTE | 2019-05-02 10:47 | General Progress Note ---
Progress Note Progress Note AVSS Ambulating well Abdomen still mildly distended, incision clean, stoma pink Urine 4350 BCIR ileo only 40cc enteric WBC 10,400 Hgb up 10.7 albumin 2.1 Imp: prolonged ileus Plan: continue npo, TPN d/c urinary Aguiar Santos Marte MD May 02, 2019 10:47
[2019-05-02] MEDS: D5 1/4NS w/KCl 20mEq 1,000 ML IV SCH (10:59)
[2019-05-02] MEDS ORDERED: HYDROmorphone 1mg/ml Carpuject SUBQ PRN (11:00)
[2019-05-02 12:00] VITALS: BP 140/84
[2019-05-02 16:00] VITALS: BP 154/83
[2019-05-02 20:00] VITALS: BP 147/79
[2019-05-02] MEDS: Dyna-Hex 2% Top Sol 2oz TOPIC SCH (20:33)
[2019-05-02] MEDS: FAT EMULSION 20% IV SCH (20:37)
[2019-05-02] MEDS: TPN IV SCH (20:37)
[2019-05-02] MEDS: Iron Sucrose 100 MG in NS 55 ML IV SCH (20:42)
[2019-05-03] VITALS: BP 160/80
[2019-05-03 04:00] VITALS: BP 160/75
[2019-05-03] MEDS: Ampicillin/Sulbactam Sod 3 GM in NS 110 ML IV SCH ×3 (05:01→16:53)
[2019-05-03] MEDS: Hydrocortisone 100mg Inj IV SCH ×3 (05:01→21:04)
[2019-05-03] MEDS: NovoLOG Insulin Flexpen SUBQ SCH ×3 (05:16→17:12)
[2019-05-03 06:35] LABS: BASOPHILS % (AUTO) 0.4 % (0.0-2.0); EOSINOPHILS % (AUTO) 0.3 % (0.0-3.0); HEMATOCRIT 31.3 % (37.0-47.0); HEMOGLOBIN 11.2 G/DL (12.0-16.0); LYMPHOCYTES % (AUTO) 19.2 % (20.0-45.0); MEAN CORPUSCULAR VOLUME 90 FL (80-99); MONOCYTES % (AUTO) 5.1 % (1.0-10.0); PLATELET COUNT 297 K/UL (150-450); RED BLOOD COUNT 3.47 M/UL (4.20-5.40); RED CELL DISTRIBUTION WIDTH 11.6 % (11.6-14.8); WHITE BLOOD COUNT 12.5 K/UL (4.8-10.8)
[2019-05-03 06:49] LABS: ALANINE AMINOTRANSFERASE 21 U/L (12-78); ALBUMIN 2.3 G/DL (3.4-5.0); ALBUMIN/GLOBULIN RATIO 0.6 (1.0-2.7); ALKALINE PHOSPHATASE 75 U/L (46-116); ANION GAP 5 mmol/L (5-15); ASPARTATE AMINO TRANSFERASE 24 U/L (15-37); BILIRUBIN,TOTAL 0.3 MG/DL (0.2-1.0); BLOOD UREA NITROGEN 9 mg/dL (7-18); CALCIUM 8.9 MG/DL (8.5-10.1); CARBON DIOXIDE 36 MMOL/L (21-32); CHLORIDE 101 MMOL/L (98-107); CREATININE 0.5 MG/DL (0.55-1.30); POTASSIUM 2.8 MMOL/L (3.5-5.1); SODIUM 141 MMOL/L (136-145)
[2019-05-03] MEDS: PCA shift volume MISC SCH ×2 (07:00→19:00)
[2019-05-03 08:00] VITALS: BP 137/81
[2019-05-03] MEDS: Anastrazole 1mg tab ORAL SCH (08:53)
[2019-05-03] MEDS: Metoprolol Succinate XL 50mg tab ORAL SCH (08:53)
[2019-05-03] MEDS: D5 1/4NS w/KCl 20mEq 1,000 ML IV SCH (11:23)
[2019-05-03 12:00] VITALS: BP 140/81
--- NOTE | 2019-05-03 12:17 | General Progress Note ---
Progress Note Progress Note AVSS Feels fine Abdomen soft, slight distention, non-tender, healing well Urine 4150 BCIR ileo only 70cc WBC up 12,500 Hgb 11.2 K 2.8 albumin 2.3 Imp: slowly resolving ileus Plan: clear liquid diet as tolerated K infusions f/u labs continue TPN, continuous drainage of Castro pouch Santos Marte MD May 03, 2019 12:17
[2019-05-03] MEDS ORDERED: Rate Change PCA 1 Each MISC PRN (12:30)
[2019-05-03] MEDS ORDERED: PCA HYDROmorphone 1mg/ml 30 ML IV PRN (12:30)
[2019-05-03] MEDS ORDERED: Naloxone 0.4mg/ml Inj IVP PRN (12:30)
[2019-05-03] MEDS ORDERED: Tubing IV Secondary IV ONE ×2 (13:03→20:37)
[2019-05-03] MEDS ORDERED: NS 275ml ONE (13:03)
[2019-05-03 14:44] LABS: APPEARANCE,URINE CLEAR; BILIRUBIN, URINE NEGATIVE (NEGATIVE); COLOR,URINE PALE YELLOW; GLUCOSE, URINE (UA) NEGATIVE (NEGATIVE); KETONES,URINE NEGATIVE (NEGATIVE); LEUKOCYTE ESTERASE ,URINE 2+ (NEGATIVE); NITRITE,URINE NEGATIVE (NEGATIVE); PH,URINE 8 (4.5-8.0); PROTEIN,URINE NEGATIVE (NEGATIVE); UROBILINOGEN,URINE NORMAL MG/DL (0.0-1.0)
[2019-05-03 16:00] VITALS: BP 161/74
[2019-05-03 20:00] VITALS: BP 168/82
[2019-05-03] MEDS: TPN IV SCH (20:21)
[2019-05-03] MEDS: Dyna-Hex 2% Top Sol 2oz TOPIC SCH (20:21)
[2019-05-03] MEDS: FAT EMULSION 20% IV SCH (20:21)
[2019-05-03] MEDS ORDERED: NS Irrig 1000ml ONE (20:37)
[2019-05-03] MEDS: Iron Sucrose 100 MG in NS 55 ML IV SCH (21:04)
[2019-05-04] VITALS: BP 164/87
[2019-05-04 04:00] VITALS: BP 151/85
[2019-05-04 06:21] LABS: BASOPHILS % (AUTO) 0.3 % (0.0-2.0); EOSINOPHILS % (AUTO) 0.5 % (0.0-3.0); HEMATOCRIT 31.9 % (37.0-47.0); HEMOGLOBIN 11.3 G/DL (12.0-16.0); MEAN CORPUSCULAR VOLUME 92 FL (80-99); MONOCYTES % (AUTO) 5.7 % (1.0-10.0); NEUTROPHILS % (AUTO) 73.5 % (45.0-75.0); PLATELET COUNT 313 K/UL (150-450); RED BLOOD COUNT 3.48 M/UL (4.20-5.40); RED CELL DISTRIBUTION WIDTH 12.6 % (11.6-14.8); WHITE BLOOD COUNT 12.3 K/UL (4.8-10.8)
[2019-05-04] MEDS: Ampicillin/Sulbactam Sod 3 GM in NS 110 ML IV SCH ×3 (06:23)
[2019-05-04] MEDS: Hydrocortisone 100mg Inj IV SCH ×3 (06:23→23:12)
[2019-05-04] MEDS: NovoLOG Insulin Flexpen SUBQ SCH ×4 (06:36→18:14)
[2019-05-04 06:45] LABS: ALANINE AMINOTRANSFERASE 25 U/L (12-78); ALBUMIN 2.4 G/DL (3.4-5.0); ALBUMIN/GLOBULIN RATIO 0.6 (1.0-2.7); ALKALINE PHOSPHATASE 84 U/L (46-116); ANION GAP 5 mmol/L (5-15); ASPARTATE AMINO TRANSFERASE 27 U/L (15-37); BILIRUBIN,TOTAL 0.2 MG/DL (0.2-1.0); BLOOD UREA NITROGEN 12 mg/dL (7-18); CALCIUM 8.7 MG/DL (8.5-10.1); CARBON DIOXIDE 37 MMOL/L (21-32); CHLORIDE 102 MMOL/L (98-107); CREATININE 0.6 MG/DL (0.55-1.30); POTASSIUM 3.2 MMOL/L (3.5-5.1); SODIUM 143 MMOL/L (136-145)
[2019-05-04] MEDS: PCA shift volume MISC SCH (07:13)
[2019-05-04 08:00] VITALS: BP 156/75
--- NOTE | 2019-05-04 08:53 | General Progress Note ---
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
[2019-05-04] MEDS: Anastrazole 1mg tab ORAL SCH (08:54)
[2019-05-04] MEDS: Metoprolol Succinate XL 50mg tab ORAL SCH (08:54)
[2019-05-04 12:00] VITALS: BP 138/78
[2019-05-04 16:00] VITALS: BP 151/89
[2019-05-04 20:00] VITALS: BP 167/81
[2019-05-04] MEDS: Iron Sucrose 100 MG in NS 55 ML IV SCH (20:21)
[2019-05-04] MEDS: TPN IV SCH (20:21)
[2019-05-04] MEDS: FAT EMULSION 20% IV SCH (20:21)
[2019-05-04] MEDS: Dyna-Hex 2% Top Sol 2oz TOPIC SCH (20:21)
[2019-05-05] VITALS: BP 168/90
[2019-05-05 04:00] VITALS: BP 157/80
[2019-05-05 05:04] LABS: BASOPHILS % (AUTO) 0.3 % (0.0-2.0); EOSINOPHILS % (AUTO) 0.7 % (0.0-3.0); HEMATOCRIT 32.7 % (37.0-47.0); HEMOGLOBIN 11.5 G/DL (12.0-16.0); LYMPHOCYTES % (AUTO) 18.8 % (20.0-45.0); MEAN CORPUSCULAR VOLUME 91 FL (80-99); MONOCYTES % (AUTO) 4.1 % (1.0-10.0); NEUTROPHILS % (AUTO) 76.1 % (45.0-75.0); PLATELET COUNT 337 K/UL (150-450); RED CELL DISTRIBUTION WIDTH 12.7 % (11.6-14.8); WHITE BLOOD COUNT 10.5 K/UL (4.8-10.8)
[2019-05-05 05:05] LABS: ALANINE AMINOTRANSFERASE 34 U/L (12-78); ALBUMIN 2.4 G/DL (3.4-5.0); ALBUMIN/GLOBULIN RATIO 0.6 (1.0-2.7); ALKALINE PHOSPHATASE 89 U/L (46-116); ANION GAP 2 mmol/L (5-15); ASPARTATE AMINO TRANSFERASE 35 U/L (15-37); BILIRUBIN,TOTAL 0.2 MG/DL (0.2-1.0); BLOOD UREA NITROGEN 13 mg/dL (7-18); CALCIUM 8.6 MG/DL (8.5-10.1); CARBON DIOXIDE 37 MMOL/L (21-32); CHLORIDE 102 MMOL/L (98-107); CREATININE 0.7 MG/DL (0.55-1.30); POTASSIUM 3.3 MMOL/L (3.5-5.1); SODIUM 141 MMOL/L (136-145)
[2019-05-05] MEDS: Hydrocortisone 100mg Inj IV SCH ×3 (05:28→21:07)
[2019-05-05] MEDS: NovoLOG Insulin Flexpen SUBQ SCH ×5 (05:37→23:44)
[2019-05-05 08:00] VITALS: BP 147/78
[2019-05-05] MEDS: Anastrazole 1mg tab ORAL SCH (09:15)
[2019-05-05] MEDS: Metoprolol Succinate XL 50mg tab ORAL SCH (09:15)
--- NOTE | 2019-05-05 10:24 | General Progress Note ---
Progress Note Progress Note AVSS Tolerating clear liquids Abdomen soft, non-distended, healing Urine 3475 BCIR ileo 190cc (took only 800cc po) WBC now normal 10,500 Urine c&s no growth so far K 3.3 Imp: Improving Plan: Full liquid diet decrease solucortef to 50mg IV q8h infuse K f/u labs maintain continuous drainage of Castro pouch Santos Marte MD May 05, 2019 10:24
[2019-05-05 12:00] VITALS: BP 156/71
[2019-05-05 16:00] VITALS: BP 111/74
[2019-05-05 20:00] VITALS: BP 162/79
[2019-05-05] MEDS: TPN IV SCH (20:05)
[2019-05-05] MEDS: FAT EMULSION 20% IV SCH (20:05)
[2019-05-05] MEDS: Dyna-Hex 2% Top Sol 2oz TOPIC SCH (20:08)
[2019-05-06] VITALS: BP 154/73
[2019-05-06 04:00] VITALS: BP 147/70
[2019-05-06] MEDS: Hydrocortisone 100mg Inj IV SCH ×3 (05:04→21:05)
[2019-05-06] MEDS: NovoLOG Insulin Flexpen SUBQ SCH ×3 (05:47→17:46)
[2019-05-06 07:17] LABS: ALANINE AMINOTRANSFERASE 78 U/L (12-78); ALBUMIN 2.5 G/DL (3.4-5.0); ALBUMIN/GLOBULIN RATIO 0.6 (1.0-2.7); ALKALINE PHOSPHATASE 128 U/L (46-116); ANION GAP 8 mmol/L (5-15); ASPARTATE AMINO TRANSFERASE 67 U/L (15-37); BILIRUBIN,TOTAL 0.2 MG/DL (0.2-1.0); BLOOD UREA NITROGEN 13 mg/dL (7-18); CALCIUM 8.8 MG/DL (8.5-10.1); CARBON DIOXIDE 32 MMOL/L (21-32); CHLORIDE 105 MMOL/L (98-107); CREATININE 0.6 MG/DL (0.55-1.30); POTASSIUM 3.4 MMOL/L (3.5-5.1); SODIUM 145 MMOL/L (136-145)
[2019-05-06 07:26] LABS: BASOPHILS % (AUTO) 0.4 % (0.0-2.0); EOSINOPHILS % (AUTO) 1.3 % (0.0-3.0); HEMATOCRIT 33.9 % (37.0-47.0); MEAN CORPUSCULAR VOLUME 92 FL (80-99); MONOCYTES % (AUTO) 6.3 % (1.0-10.0); PLATELET COUNT 345 K/UL (150-450); RED BLOOD COUNT 3.69 M/UL (4.20-5.40); RED CELL DISTRIBUTION WIDTH 13.5 % (11.6-14.8); WHITE BLOOD COUNT 9.9 K/UL (4.8-10.8)
[2019-05-06 08:00] VITALS: BP 155/69
[2019-05-06] MEDS: Metoprolol Succinate XL 50mg tab ORAL SCH (08:46)
[2019-05-06] MEDS: Anastrazole 1mg tab ORAL SCH (08:46)
[2019-05-06] MEDS ORDERED: NS Irrig 1000ml ONE (10:13)
[2019-05-06] MEDS ORDERED: Ascorbic Acid 500mg tab ORAL PRN (11:30)
--- NOTE | 2019-05-06 11:39 | General Progress Note ---
Progress Note Progress Note AVSS Tolerating full liquid diet Abdomen soft, 1/3 leandra removed urine 2750 BCIR ileo 355cc WBC 9900 Hgb 12 K 3.4 sl up lfts albumin 2.5 Imp: improving Plan: BCIR diet taper and d/c TPN maintain continuous drainage of Castro pouch Santos Marte MD May 06, 2019 11:39
[2019-05-06 12:00] VITALS: BP 132/68
[2019-05-06 16:00] VITALS: BP 132/66
[2019-05-06] MEDS: Dyna-Hex 2% Top Sol 2oz TOPIC SCH (19:42)
[2019-05-06 20:00] VITALS: BP 153/75
[2019-05-07] VITALS: BP 134/73
[2019-05-07 04:00] VITALS: BP 142/69
[2019-05-07] MEDS: Hydrocortisone 100mg Inj IV SCH ×3 (05:14→21:19)
[2019-05-07 05:52] LABS: BASOPHILS % (AUTO) 0.3 % (0.0-2.0); EOSINOPHILS % (AUTO) 0.7 % (0.0-3.0); HEMATOCRIT 33.7 % (37.0-47.0); HEMOGLOBIN 11.9 G/DL (12.0-16.0); LYMPHOCYTES % (AUTO) 23.3 % (20.0-45.0); MEAN CORPUSCULAR VOLUME 92 FL (80-99); MONOCYTES % (AUTO) 5.5 % (1.0-10.0); NEUTROPHILS % (AUTO) 70.1 % (45.0-75.0); PLATELET COUNT 333 K/UL (150-450); RED BLOOD COUNT 3.66 M/UL (4.20-5.40); RED CELL DISTRIBUTION WIDTH 13.6 % (11.6-14.8); WHITE BLOOD COUNT 12.2 K/UL (4.8-10.8)
[2019-05-07 06:32] LABS: ALANINE AMINOTRANSFERASE 79 U/L (12-78); ALBUMIN 2.7 G/DL (3.4-5.0); ALBUMIN/GLOBULIN RATIO 0.7 (1.0-2.7); ALKALINE PHOSPHATASE 130 U/L (46-116); ANION GAP 12 mmol/L (5-15); ASPARTATE AMINO TRANSFERASE 42 U/L (15-37); BILIRUBIN,TOTAL 0.3 MG/DL (0.2-1.0); BLOOD UREA NITROGEN 15 mg/dL (7-18); CALCIUM 8.9 MG/DL (8.5-10.1); CARBON DIOXIDE 29 MMOL/L (21-32); CHLORIDE 103 MMOL/L (98-107); CREATININE 0.7 MG/DL (0.55-1.30); PHOSPHORUS 3.7 MG/DL (2.5-4.9); POTASSIUM 3.1 MMOL/L (3.5-5.1); SODIUM 144 MMOL/L (136-145)
[2019-05-07 08:00] VITALS: BP 137/67
[2019-05-07] MEDS: Anastrazole 1mg tab ORAL SCH (09:07)
[2019-05-07] MEDS: Metoprolol Succinate XL 50mg tab ORAL SCH (09:07)
--- NOTE | 2019-05-07 11:15 | General Progress Note ---
Progress Note Progress Note AVSS Tolerating BCIR diet Abdomen soft, healing nicely Urine 2500 BCIR ileo 470 WBC up 12,200 K 3.1 Imp: Leukocytosis Plan; continue BCIR diet and maintain indwelling Castro pouch catheter to continuous drainage U/A and urine C&S f/u labs - may need CT scan Santos Marte MD May 07, 2019 11:15
[2019-05-07 12:00] VITALS: BP 169/81
[2019-05-07 12:58] LABS: APPEARANCE,URINE CLEAR; BILIRUBIN, URINE NEGATIVE (NEGATIVE); COLOR,URINE PALE YELLOW; GLUCOSE, URINE (UA) NEGATIVE (NEGATIVE); KETONES,URINE NEGATIVE (NEGATIVE); LEUKOCYTE ESTERASE ,URINE 1+ (NEGATIVE); NITRITE,URINE NEGATIVE (NEGATIVE); PH,URINE 7 (4.5-8.0); PROTEIN,URINE NEGATIVE (NEGATIVE); UROBILINOGEN,URINE NORMAL MG/DL (0.0-1.0)
[2019-05-07 16:00] VITALS: BP 146/70
[2019-05-07 20:00] VITALS: BP 120/58
[2019-05-07] MEDS: Dyna-Hex 2% Top Sol 2oz TOPIC SCH (20:17)
[2019-05-08] VITALS: BP 132/64
[2019-05-08 04:00] VITALS: BP 125/62
[2019-05-08 05:42] LABS: BASOPHILS % (AUTO) 0.2 % (0.0-2.0); EOSINOPHILS % (AUTO) 0.9 % (0.0-3.0); HEMATOCRIT 32.7 % (37.0-47.0); HEMOGLOBIN 11.3 G/DL (12.0-16.0); LYMPHOCYTES % (AUTO) 23.3 % (20.0-45.0); MEAN CORPUSCULAR VOLUME 93 FL (80-99); MONOCYTES % (AUTO) 5.7 % (1.0-10.0); NEUTROPHILS % (AUTO) 69.9 % (45.0-75.0); PLATELET COUNT 326 K/UL (150-450); RED BLOOD COUNT 3.52 M/UL (4.20-5.40); RED CELL DISTRIBUTION WIDTH 14.2 % (11.6-14.8); WHITE BLOOD COUNT 11.2 K/UL (4.8-10.8)
[2019-05-08] MEDS: Hydrocortisone 100mg Inj IV SCH ×3 (05:47→20:33)
[2019-05-08 05:51] LABS: ALANINE AMINOTRANSFERASE 52 U/L (12-78); ALBUMIN 2.6 G/DL (3.4-5.0); ALBUMIN/GLOBULIN RATIO 0.7 (1.0-2.7); ALKALINE PHOSPHATASE 109 U/L (46-116); ANION GAP 6 mmol/L (5-15); ASPARTATE AMINO TRANSFERASE 25 U/L (15-37); BILIRUBIN,TOTAL 0.3 MG/DL (0.2-1.0); BLOOD UREA NITROGEN 17 mg/dL (7-18); CALCIUM 8.4 MG/DL (8.5-10.1); CARBON DIOXIDE 33 MMOL/L (21-32); CHLORIDE 103 MMOL/L (98-107); CREATININE 0.6 MG/DL (0.55-1.30); POTASSIUM 3.4 MMOL/L (3.5-5.1); SODIUM 142 MMOL/L (136-145)
[2019-05-08 08:00] VITALS: BP 146/75
--- NOTE | 2019-05-08 08:43 | General Progress Note ---
Progress Note Progress Note AVSS Tolerating BCIR diet. Abdomen soft. leandra removed and steristrips applied Urine 1600 BCIR ileo 665 WBC 11,200 K 3.4 Albumin 2.6 U/A neg Imp: Persistent leukocytosis, improved Plan: Maintain indwelling Castro pouch catheter to continuous drainage f/u labs - may need CT scan abd+pelvis if leukocytosis persists Santos Marte MD May 08, 2019 08:42
[2019-05-08] MEDS: Metoprolol Succinate XL 50mg tab ORAL SCH (09:50)
[2019-05-08] MEDS: Anastrazole 1mg tab ORAL SCH (09:50)
[2019-05-08 12:00] VITALS: BP 148/75
[2019-05-08 16:00] VITALS: BP 138/73
[2019-05-08 20:00] VITALS: BP 131/72
[2019-05-08] MEDS: Dyna-Hex 2% Top Sol 2oz TOPIC SCH (20:33)
[2019-05-09] VITALS: BP 127/67
[2019-05-09 04:00] VITALS: BP 129/70
[2019-05-09 07:01] LABS: BASOPHILS % (AUTO) 0.3 % (0.0-2.0); HEMATOCRIT 34.7 % (37.0-47.0); HEMOGLOBIN 11.7 G/DL (12.0-16.0); LYMPHOCYTES % (AUTO) 20.5 % (20.0-45.0); MEAN CORPUSCULAR VOLUME 94 FL (80-99); MONOCYTES % (AUTO) 4.7 % (1.0-10.0); NEUTROPHILS % (AUTO) 73.5 % (45.0-75.0); PLATELET COUNT 317 K/UL (150-450); RED BLOOD COUNT 3.69 M/UL (4.20-5.40); RED CELL DISTRIBUTION WIDTH 13.9 % (11.6-14.8); WHITE BLOOD COUNT 13.4 K/UL (4.8-10.8)
[2019-05-09 07:08] LABS: ALANINE AMINOTRANSFERASE 52 U/L (12-78); ALBUMIN 2.7 G/DL (3.4-5.0); ALBUMIN/GLOBULIN RATIO 0.7 (1.0-2.7); ALKALINE PHOSPHATASE 99 U/L (46-116); ANION GAP 9 mmol/L (5-15); ASPARTATE AMINO TRANSFERASE 22 U/L (15-37); BILIRUBIN,TOTAL 0.3 MG/DL (0.2-1.0); BLOOD UREA NITROGEN 13 mg/dL (7-18); CALCIUM 8.6 MG/DL (8.5-10.1); CARBON DIOXIDE 31 MMOL/L (21-32); CHLORIDE 106 MMOL/L (98-107); CREATININE 0.7 MG/DL (0.55-1.30); POTASSIUM 3.4 MMOL/L (3.5-5.1); SODIUM 146 MMOL/L (136-145)
[2019-05-09] MEDS ORDERED: LORazepam 1mg tab SL PRN ×2 (07:30→11:00)
[2019-05-09 08:00] VITALS: BP 167/93
[2019-05-09] MEDS: Hydrocortisone 100mg Inj IV SCH ×2 (09:17→20:36)
[2019-05-09] MEDS: Anastrazole 1mg tab ORAL SCH (09:17)
[2019-05-09] MEDS: Metoprolol Succinate XL 50mg tab ORAL SCH (09:18)
[2019-05-09] MEDS ORDERED: HYDROmorphone 1mg/ml Carpuject SUBQ PRN (11:00)
--- NOTE | 2019-05-09 11:11 | Diagnostic Imaging Report ---
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 Patient ingested oral contrast. No IV contrast utilized, per referring physician request.. Multiplanar reconstructions were generated. Total dose length product 694 mGycm. CTDIvol(s) 13 mGy. Dose reduction achieved using automated exposure control Comparison: None Findings: There is a right lower quadrant continent ileostomy. This contains a Aguiar catheter which extends to the deepest portion of the ileostomy pouch. Ingested contrast is seen in the distal small bowel leading into the pouch and within the lumen of the drainage catheter. A drainage catheter appears to largely be emptying the pouch of contrast, with only minimal contrast seen within the deep this portion of the pouch. The remainder of the pouch is mildly distended, gas-filled. The small bowel is nondilated, and there is no small bowel wall thickening demonstrated. There is a gas collection with a small air-fluid level which is contiguous with the inferior aspect of the pouch. This extends anteriorly, medially, and superiorly. Most of the dependent contents are slightly higher than normal fluid attenuation, measuring approximately 23 Hounsfield units, so uncertain as to whether this represents soft tissue or high attenuation fluid . Dimensions are approximately 5 x 4 x 8 cm. The most anterior superior portion is immediately adjacent to the rectus abdominis tendon. There is soft tissue thickening in the rectal resection bed extending into the presacral fat without definite discrete fluid collection. Inflammatory changes of the pelvic mesenteric fat are noted. There is mild circumferential soft tissue thickening surrounding the stoma. There is a small sliding-type hiatal hernia. The distal esophagus, stomach, duodenum are otherwise unremarkable. Lack of IV contrast limits assessment of the solid organs. The liver, gallbladder, bile ducts, pancreas, spleen, adrenals are all unremarkable. There is a 4 mm calculus in the lower pole of the right renal collecting system and a 6 mm calculus in the upper pole of the right renal collecting system. No left renal calculi. Bilaterally, no ureteral calculi. No hydronephrosis or hydroureter. The uterus is absent. No pelvic mass or adenopathy Atelectatic changes are seen at both lung bases. The bones demonstrate spinal fusion hardware fusing L4 and L5. 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 There are degenerative changes of the lumbosacral junction. Impression: Postsurgical changes, as described, status post continent ileostomy. There is no evidence of bowel obstruction. Gas, fluid, and soft tissue collection adjacent to the inferior border the pouch and extending to the anterior peritoneal surface, measures approximately 5 x 4.8 cm. This could represent a routine postoperative fluid and gas collection, or could represent an abscess plus/minus area of phlegmon. Pelvic inflammatory changes, most likely related to the prior surgery Nonobstructive right renal calculi Evidence of prior lumbar spine surgery Small hiatal hernia incidentally noted Findings discussed by phone with Dr. Marte at the time of interpretation The CT scanner at [facility] is accredited by the [employer] and the scans are performed using protocols designed to limit radiation exposure to as low as reasonably achievable to attain images of sufficient resolution adequate for diagnostic evaluation.
[2019-05-09 12:00] VITALS: BP 116/57
--- NOTE | 2019-05-09 12:35 | General Progress Note ---
Progress Note Progress Note AVSS and feels okay eating 60% of BCIR diet but WBC elevated 13,400 ABdomen soft, non-tender, well healed Urine 2059 BCIR ileo 380 WBC up 13,400 K 3.4 on po KCL albumin up 2.7 CT abd+pelvis: lower abdominal fluid and air collection ? post-op vs. abscess per Radiologist amenable to CT guided aspiration Imp: R/O intra-abdominal abscess High dose steroids (pre-admission) now solucortef 50mg IV q12h Plan: ID consultation CT guided aspiration/drainage of abdominal fluid collection in AM npo after midnight f/u labs Santos Marte MD May 09, 2019 12:35
--- NOTE | 2019-05-09 14:32 | Infectious Diseases Prog Note ---
Assessment/Plan Assessment/Plan Full consult dictated: A) 1) possible intra-abdominal abscess 2) elevated wbc 3) steroids 4) s/p Castro continent ileostomy revision 5) allergies - noted, no pcn allergy P) 1) zosyn 2) for aspiration/drainage 3) f/u on cultures 4) thank you Subjective Allergies: Coded Allergies: ADALIMUMAB (Verified Allergy, Intermediate, Body Rashes, Body Aches, ) INFLIXIMAB (Verified Allergy, Intermediate, Body Rash/Body Aches, 04/26/19) Uncoded Allergies: intravenous dye (Allergy, Severe, Respiratory Distress , 04/26/19) Objective Vital Signs Last 24 Hour Vital Signs Date Time Temp Pulse Resp B/P (MAP) Pulse Ox O2 Delivery O2 Flow Rate FiO2 05/09/19 12:00 98.3 96 18 116/57 (76) 99 05/09/19 09:18 96 167/93 05/09/19 09:00 Room Air 05/09/19 08:00 98.4 96 16 167/93 (117) 95 05/09/19 04:00 97.7 75 18 129/70 (89) 96 05/09/19 00:00 98.1 77 16 127/67 (87) 96 05/08/19 21:00 Room Air 05/08/19 20:00 97.9 74 18 131/72 (91) 96 05/08/19 16:00 98.5 76 19 138/73 (94) 96 Height (Feet): 5 Height (Inches): 8.00 Weight (Pounds): 195 Microbiology Date/Time Source Procedure Growth Status 05/07/19 12:00 Urine,Clean Catch Urine Culture - Preliminary Gram Negative Bacillus 1 Resulted Laboratory Tests Test 05/09/19 05:38 White Blood Count 13.4 K/UL (4.8-10.8) H Red Blood Count 3.69 M/UL (4.20-5.40) L Hemoglobin 11.7 G/DL (12.0-16.0) L Hematocrit 34.7 % (37.0-47.0) L Mean Corpuscular Volume 94 FL (80-99) Mean Corpuscular Hemoglobin 31.7 PG (27.0-31.0) H Mean Corpuscular Hemoglobin Concent 33.8 G/DL (32.0-36.0) Red Cell Distribution Width 13.9 % (11.6-14.8) Platelet Count 317 K/UL (150-450) Mean Platelet Volume 5.1 FL (6.5-10.1) L Neutrophils (%) (Auto) 73.5 % (45.0-75.0) Lymphocytes (%) (Auto) 20.5 % (20.0-45.0) Monocytes (%) (Auto) 4.7 % (1.0-10.0) Eosinophils (%) (Auto) 1.0 % (0.0-3.0) Basophils (%) (Auto) 0.3 % (0.0-2.0) Sodium Level 146 MMOL/L (136-145) H Potassium Level 3.4 MMOL/L (3.5-5.1) L Chloride Level 106 MMOL/L (98-107) Carbon Dioxide Level 31 MMOL/L (21-32) Anion Gap 9 mmol/L (5-15) Blood Urea Nitrogen 13 mg/dL (7-18) Creatinine 0.7 MG/DL (0.55-1.30) Estimat Glomerular Filtration Rate > 60 mL/min (>60) Glucose Level 103 MG/DL (74-106) Calcium Level 8.6 MG/DL (8.5-10.1) Total Bilirubin 0.3 MG/DL (0.2-1.0) Aspartate Amino Transf (AST/SGOT) 22 U/L (15-37) Alanine Aminotransferase (ALT/SGPT) 52 U/L (12-78) Alkaline Phosphatase 99 U/L (46-116) Total Protein 6.4 G/DL (6.4-8.2) Albumin 2.7 G/DL (3.4-5.0) L Globulin 3.7 g/dL Albumin/Globulin Ratio 0.7 (1.0-2.7) L Current Medications Medications (Trade) Dose Ordered Sig/Sheng Route PRN Reason Start Time Stop Time Status Last Admin Dose Admin Acetaminophen (Tylenol) 650 mg Q4H PRN NG temp>100.2 or headache 04/27/19 12:00 05/27/19 11:59 Anastrozole (Arimidex) 1 mg DAILY ORAL 04/27/19 09:00 05/27/19 08:59 05/09/19 09:17 Ascorbic Acid (Vitamin C) 500 mg NEEDED PRN ORAL Constipation 05/06/19 11:30 06/05/19 11:29 Barium Sulfate (Readi-Cat 2) 450 ml NOW PRN ORAL Radiology Procedure 05/09/19 07:30 05/11/19 07:25 Chlorhexidine Gluconate (Anya-Hex 2%) 1 applic DAILY@2000 TOPIC 04/26/19 20:00 07/25/19 19:59 05/08/19 20:33 Duloxetine HCl (Cymbalta) 60 mg BID ORAL 04/26/19 18:00 07/25/19 17:59 05/09/19 09:18 Hydrocortisone (Solu-CORTEF) 50 mg EVERY 12 HOURS IV 05/08/19 09:00 07/26/19 06:59 05/09/19 09:17 Hydromorphone HCl (Dilaudid) 1 mg Q4H PRN SUBQ Severe Breakthru Pain (>7) 05/09/19 11:00 05/16/19 10:59 Levothyroxine Sodium (Synthroid) 100 mcg DAILY@0630 ORAL 04/27/19 06:30 05/27/19 06:29 05/09/19 06:00 Lorazepam (Ativan) 1 mg HSPRN PRN SL Sleep 05/09/19 07:30 05/16/19 07:29 Lorazepam (Ativan) 1 mg Q4H PRN SL Muscle Spasm 05/09/19 11:00 05/16/19 10:59 Metoprolol Succinate (Toprol XL) 50 mg DAILY ORAL 04/27/19 09:00 07/26/19 08:59 05/09/19 09:18 Ondansetron HCl (Zofran) 4 mg Q4H PRN IVP Nausea & Vomiting 04/27/19 12:00 05/27/19 11:59 Piperacillin Sod/ Tazobactam Sod 3.375 gm/Dextrose 110 ml @ 27.5 mls/hr EVERY 8 HOURS IVPB 05/09/19 22:00 05/14/19 21:59 Potassium Chloride (K-Dur) 40 meq TWICE A DAY ORAL 05/07/19 11:00 08/05/19 10:59 05/09/19 09:18 Darleen Perez MD May 09, 2019 14:32
[2019-05-09 16:00] VITALS: BP 99/66
[2019-05-09 20:00] VITALS: BP 126/47
[2019-05-09] MEDS: Dyna-Hex 2% Top Sol 2oz TOPIC SCH (20:15)
[2019-05-09] MEDS: Piperacillin/Tazobactam 3.375 GM in D5W 110 ML IVPB SCH (21:08)
[2019-05-10] VITALS (12 sets, daily range): BP systolic 110–149; BP diastolic 59–82
[2019-05-10] MEDS: Piperacillin/Tazobactam 3.375 GM in D5W 110 ML IVPB SCH ×3 (06:02→21:07)
[2019-05-10 06:42] LABS: BASOPHILS % (AUTO) 0.3 % (0.0-2.0); EOSINOPHILS % (AUTO) 1.1 % (0.0-3.0); HEMATOCRIT 33.8 % (37.0-47.0); HEMOGLOBIN 11.5 G/DL (12.0-16.0); MEAN CORPUSCULAR VOLUME 93 FL (80-99); MONOCYTES % (AUTO) 5.7 % (1.0-10.0); NEUTROPHILS % (AUTO) 68.9 % (45.0-75.0); PLATELET COUNT 314 K/UL (150-450); RED BLOOD COUNT 3.62 M/UL (4.20-5.40); RED CELL DISTRIBUTION WIDTH 13.8 % (11.6-14.8); WHITE BLOOD COUNT 10.1 K/UL (4.8-10.8)
[2019-05-10 07:13] LABS: ALANINE AMINOTRANSFERASE 40 U/L (12-78); ALBUMIN 2.6 G/DL (3.4-5.0); ALBUMIN/GLOBULIN RATIO 0.7 (1.0-2.7); ALKALINE PHOSPHATASE 94 U/L (46-116); ANION GAP 7 mmol/L (5-15); ASPARTATE AMINO TRANSFERASE 19 U/L (15-37); BILIRUBIN,TOTAL 0.4 MG/DL (0.2-1.0); BLOOD UREA NITROGEN 14 mg/dL (7-18); CALCIUM 8.9 MG/DL (8.5-10.1); CARBON DIOXIDE 31 MMOL/L (21-32); CHLORIDE 104 MMOL/L (98-107); CREATININE 0.7 MG/DL (0.55-1.30); POTASSIUM 3.5 MMOL/L (3.5-5.1); SODIUM 142 MMOL/L (136-145)
[2019-05-10] MEDS: Hydrocortisone 100mg Inj IV SCH ×2 (08:41→20:45)
[2019-05-10] MEDS: Anastrazole 1mg tab ORAL SCH (08:41)
[2019-05-10] MEDS: Metoprolol Succinate XL 50mg tab ORAL SCH (08:42)
--- NOTE | 2019-05-10 08:58 | General Progress Note ---
Progress Note Progress Note AVSS No abdominal pain. Still on solucortef 50mg iv Q12H. Seen by Dr. Perez and started on Zosyn. Abdomen soft, well healed Urine 1400 BCIr ileo 890 (included CT contrast) WBC down 10,100 Albumin 2.6 Imp: Intra-abdominal collection Plan: CT guided aspiration/drainage f/u labs maintain indwelling Castro pouch catheter to drainage Santos Marte MD May 10, 2019 08:58
[2019-05-10 11:25] LABS: INR 0.9 (0.9-1.1)
[2019-05-10] MEDS ORDERED: Midazolam 2mg/2ml Inj ONE (13:18)
[2019-05-10] MEDS ORDERED: fentaNYL 100 mcg/2 mL IV ONE (13:18)
[2019-05-10] MEDS ORDERED: Lidocaine 1% Plain 30 ml INJ SCH (13:30)
[2019-05-10] MEDS ORDERED: NS Irrig 1000ml ONE (14:20)
[2019-05-10] MEDS ORDERED: D5 1/2NS 1000ml IV ONE (14:22)
--- NOTE | 2019-05-10 16:13 | Diagnostic Imaging Report ---
Indication: Pelvic Abscess Technique: All preceding relevant cross sectional images were reviewed prior to the procedure. Continuous helical transaxial imaging of the region of interest was then obtained. No IV contrast given. Coronal 2-D reformats were also obtained. Study obtained in a Siemens sensation [address] Total Dose length Product (DLP): 1396.[address] Dose Index Volume (CTDIvol): 129.6 mGy Comparison: None Procedure: After review of the relevant cross-sectional images, the most feasible and safest percutaneous trajectory and approach was chosen. The skin was then sterilely prepped and draped. 1% lidocaine was administered for local anesthesia. Dermatotomy was made. AccuStick needle was then advanced in the direction of the collection. Adjustments were made until CT confirmed good positioning of the needle tip within the collection. Aspiration performed. A 0.018 wire was advanced after the stylette was removed. Needle removed and exchanged for a catheter. Aspiration performed. Exchange was then made for 0.035 wire, over which a multipurpose pigtail drainage catheter was advanced. Wire removed. More aspiration performed. Pigtail formed. CT images show good positioning of the catheter within the cavity. Findings: Noncontrast images once again demonstrate an ill-defined fluid collection versus phlegmon just below the continent ileostomy pouch in the right hemipelvis. Initial aspiration of this collection yielded about 20 cc of beatrice purulent material, tannish and color with specks of blood. After successful placement of a multipurpose drainage catheter within the abscess, additional purulent material was obtained. Final CT images demonstrate good positioning of the catheter within the abscess pocket. Patient tolerated procedure well. There were no complications. Impression: Successful aspiration approximately 40 cc of purulent material and placement of an 8 Nepali pigtail drainage catheter within the abscess in the right hemipelvis. Recommend 10 cc normal saline injection of the catheter 2 times a day. Follow-up CT is recommended in 3-4 days. Findings discussed with Dr. Santos Marte via telephone. The CT scanner at [facility] is accredited by the [employer] and the scans are performed using dose optimization techniques as appropriate to a performed exam including Automatic Exposure control.
--- NOTE | 2019-05-10 19:11 | Infectious Diseases Prog Note ---
Assessment/Plan Assessment/Plan Full consult dictated: A) 1) possible intra-abdominal abscess - s/p drain 2) ? e.coli uti 3) elevated wbc, steroids 4) s/p Castro continent ileostomy revision 5) allergies - noted, no pcn allergy P) 1) zosyn 2) for aspiration/drainage 3) f/u on cultures 4) will f/u Subjective Constitutional: Denies: fever Respiratory: Denies: shortness of breath Cardiovascular: Denies: chest pain Gastrointestinal/Abdominal: Denies: nausea, vomiting Allergies: Coded Allergies: ADALIMUMAB (Verified Allergy, Intermediate, Body Rashes, Body Aches, ) INFLIXIMAB (Verified Allergy, Intermediate, Body Rash/Body Aches, 04/26/19) Uncoded Allergies: intravenous dye (Allergy, Severe, Respiratory Distress , 04/26/19) Objective Vital Signs Last 24 Hour Vital Signs Date Time Temp Pulse Resp B/P (MAP) Pulse Ox O2 Delivery O2 Flow Rate FiO2 05/10/19 16:00 97.9 68 18 132/72 (92) 96 05/10/19 14:00 73 18 136/64 (88) 100 05/10/19 13:55 72 18 135/61 (85) 98 05/10/19 13:50 72 18 144/65 (91) 98 05/10/19 13:45 72 18 144/64 (90) 99 05/10/19 13:40 73 18 149/64 (92) 98 05/10/19 13:25 75 18 2.0 05/10/19 12:00 98.6 86 18 110/59 (76) 96 05/10/19 08:42 87 131/60 05/10/19 08:00 98.7 87 18 131/60 (83) 97 05/10/19 04:00 97.8 86 18 140/60 (86) 97 05/10/19 00:00 97.6 80 18 115/65 (82) 95 05/09/19 21:00 Room Air 05/09/19 20:00 98.2 75 16 126/47 (73) 97 Height (Feet): 5 Height (Inches): 8.00 Weight (Pounds): 195 General Appearance: no acute distress HEENT: normocephalic, atraumatic, anicteric Respiratory/Chest: lungs clear, normal breath sounds, no respiratory distress Cardiovascular: normal rate, regular rhythm Laboratory Tests Test 05/10/19 05:15 05/10/19 10:45 White Blood Count 10.1 K/UL (4.8-10.8) Red Blood Count 3.62 M/UL (4.20-5.40) L Hemoglobin 11.5 G/DL (12.0-16.0) L Hematocrit 33.8 % (37.0-47.0) L Mean Corpuscular Volume 93 FL (80-99) Mean Corpuscular Hemoglobin 31.9 PG (27.0-31.0) H Mean Corpuscular Hemoglobin Concent 34.1 G/DL (32.0-36.0) Red Cell Distribution Width 13.8 % (11.6-14.8) Platelet Count 314 K/UL (150-450) Mean Platelet Volume 5.1 FL (6.5-10.1) L Neutrophils (%) (Auto) 68.9 % (45.0-75.0) Lymphocytes (%) (Auto) 24.0 % (20.0-45.0) Monocytes (%) (Auto) 5.7 % (1.0-10.0) Eosinophils (%) (Auto) 1.1 % (0.0-3.0) Basophils (%) (Auto) 0.3 % (0.0-2.0) Sodium Level 142 MMOL/L (136-145) Potassium Level 3.5 MMOL/L (3.5-5.1) Chloride Level 104 MMOL/L (98-107) Carbon Dioxide Level 31 MMOL/L (21-32) Anion Gap 7 mmol/L (5-15) Blood Urea Nitrogen 14 mg/dL (7-18) Creatinine 0.7 MG/DL (0.55-1.30) Estimat Glomerular Filtration Rate > 60 mL/min (>60) Glucose Level 104 MG/DL (74-106) Calcium Level 8.9 MG/DL (8.5-10.1) Total Bilirubin 0.4 MG/DL (0.2-1.0) Aspartate Amino Transf (AST/SGOT) 19 U/L (15-37) Alanine Aminotransferase (ALT/SGPT) 40 U/L (12-78) Alkaline Phosphatase 94 U/L (46-116) Total Protein 6.4 G/DL (6.4-8.2) Albumin 2.6 G/DL (3.4-5.0) L Globulin 3.8 g/dL Albumin/Globulin Ratio 0.7 (1.0-2.7) L Prothrombin Time 9.9 SEC (9.30-11.50) Prothromb Time International Ratio 0.9 (0.9-1.1) Activated Partial Thromboplast Time 24 SEC (23-33) Current Medications Medications (Trade) Dose Ordered Sig/Sheng Route PRN Reason Start Time Stop Time Status Last Admin Dose Admin Acetaminophen (Tylenol) 650 mg Q4H PRN NG temp>100.2 or headache 04/27/19 12:00 05/27/19 11:59 Anastrozole (Arimidex) 1 mg DAILY ORAL 04/27/19 09:00 05/27/19 08:59 05/10/19 08:41 Ascorbic Acid (Vitamin C) 500 mg NEEDED PRN ORAL Constipation 05/06/19 11:30 06/05/19 11:29 Barium Sulfate (Readi-Cat 2) 450 ml NOW PRN ORAL Radiology Procedure 05/09/19 07:30 05/11/19 07:25 Chlorhexidine Gluconate (Anya-Hex 2%) 1 applic DAILY@1999 TOPIC 04/26/19 20:00 07/25/19 19:59 05/09/19 20:15 Duloxetine HCl (Cymbalta) 60 mg BID ORAL 04/26/19 18:00 07/25/19 17:59 05/10/19 18:17 Hydrocortisone (Solu-CORTEF) 50 mg EVERY 12 HOURS IV 05/08/19 09:00 07/26/19 06:59 05/10/19 08:41 Hydromorphone HCl (Dilaudid) 1 mg Q4H PRN SUBQ Severe Breakthru Pain (>7) 05/09/19 11:00 05/16/19 10:59 Levothyroxine Sodium (Synthroid) 100 mcg DAILY@0630 ORAL 04/27/19 06:30 05/27/19 06:29 05/10/19 06:01 Lorazepam (Ativan) 1 mg HSPRN PRN SL Sleep 05/09/19 07:30 05/16/19 07:29 Lorazepam (Ativan) 1 mg Q4H PRN SL Muscle Spasm 05/09/19 11:00 05/16/19 10:59 Metoprolol Succinate (Toprol XL) 50 mg DAILY ORAL 04/27/19 09:00 07/26/19 08:59 05/10/19 08:42 Ondansetron HCl (Zofran) 4 mg Q4H PRN IVP Nausea & Vomiting 04/27/19 12:00 05/27/19 11:59 Piperacillin Sod/ Tazobactam Sod 3.375 gm/Dextrose 110 ml @ 27.5 mls/hr EVERY 8 HOURS IVPB 05/09/19 22:00 05/14/19 21:59 05/10/19 14:43 Potassium Chloride (K-Dur) 40 meq TWICE A DAY ORAL 05/07/19 11:00 08/05/19 10:59 05/10/19 18:17 Darleen Perez MD May 10, 2019 19:10
[2019-05-10] MEDS: Dyna-Hex 2% Top Sol 2oz TOPIC SCH (20:45)
--- NOTE | 2019-05-10 22:30 | Consultation ---
DATE OF CONSULTATION: 05/10/2019 INFECTIOUS DISEASE CONSULTATION CONSULTING PHYSICIAN: Darleen Perez M.D. ATTENDING PHYSICIAN: Santos Marte M.D. REFERRING PHYSICIAN: Santos Marte M.D. REASON FOR CONSULTATION: Possible intra-abdominal abscess and E. coli urinary tract infection and leukocytosis, possible sepsis. CHIEF COMPLAINT: The patient's chief complaint coming in to the hospital was malfunctioning Castro continent ileostomy with fistula. 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 The patient is status post Castro continent ileostomy revision. The patient had an elevated white count. A CT scan of the abdomen and pelvis showed postsurgical changes but gas fluid and soft tissue collection adjacent to the inferior border of the pouch, it could be some type of postoperative fluid collection or gas collection or could be abscess plus or minus phlegmon. Infectious Disease consultation is requested. I saw the patient yesterday and put her on Zosyn. There was question if the patient also had E. coli urinary tract infection. The patient is status post drainage procedure today and cultures from that are pending. The patient will be continued on Zosyn for now. Case discussed with Dr. Santos Marte. REVIEW OF SYSTEMS: CONSTITUTIONAL: Main issue is some abdominal discomfort postoperatively. She currently has no fever or chills. CARDIAC: No chest pain. GASTROINTESTINAL: No nausea or vomiting currently. GENITOURINARY: She has no Aguiar. PULMONARY: No shortness breath. SKIN: No rash. EXTREMITIES: No pain. NEUROLOGIC: No seizures. PAST MEDICAL HISTORY: The patient's past medical history includes the following. The patient has a past medical history of Crohn's colitis, malfunctioning Castro continent ileostomy. She has a history of proctocolectomy and Sherlyn ileostomy in the past, multiple abdominal surgeries, history of Kock pouch in the past, and history of knee replacement. She has hypothyroidism. ALLERGIES: Include adalimumab and infliximab and also intravenous dye. SOCIAL HISTORY: Negative for smoking, alcohol, or drug abuse. FAMILY HISTORY: Noncontributory. MEDICATIONS: Upon reviewing the MAR, she is on the following medications. She is currently on Zosyn, hydromorphone, Dilaudid, lorazepam, hydrocortisone, Solu-Cortef, ascorbic acid, potassium, acetaminophen, Zofran, Arimidex, metoprolol, levothyroxine, chlorhexidine washes, and duloxetine or Cymbalta. Outside medications were noted and reconciliated. PHYSICAL EXAMINATION: VITAL SIGNS: Temperature 97.9, pulse rate 68, respiratory rate 18, blood pressure 132/72, and saturation 96%. GENERAL: Alert and responsive, in no acute distress. HEAD AND NECK: Oral exam, no thrush. Eye exam, no icterus. Normocephalic. HEART: Regular. No gallop or murmur. ABDOMEN: Soft. Positive bowel sounds. Some discomfort. LUNGS: Clear bilaterally. No rhonchi or rales. SKIN: No rash. MUSCULOSKELETAL: No effusion. Legs without cellulitis. PERIPHERAL VASCULAR: No cyanosis or gangrene. NEUROLOGIC: Intact. She is alert and oriented x3. LINE SITES: Without phlebitis. GENITOURINARY: No Aguiar. She has a fluid collection drain at this time. LABORATORY DATA: Laboratory data is as follows. White count 10.2 and hemoglobin 11.5. White count yesterday was 13.4. Creatinine is 0.7. UA was fairly unremarkable. Previous UA had 5 to 10 white blood cells. New UA 2 to 4 white cells. Urine culture grew out E. coli around 10,000 to 20,000. IMAGING STUDIES: A CT scan of the abdomen and pelvis showed the following. Yesterday, CT scan of the abdomen and pelvis showed the fluid collection as described adjacent to the border of the pouch. CT scan drainage today showed purulent drainage from the fluid collection. ASSESSMENT AND PLAN: 1. The patient has likely intra-abdominal abscess and possible E. coli urinary tract infection with elevated white count, questionable sepsis and leukocytosis. At this time, we will continue with Zosyn for gram-negative anaerobic coverage. Follow up on cultures from the fluid drainage. Continue drain at this time. Continue Zosyn for now pending workup for again intra-abdominal abscess and possibly for urinary tract infection. Leukocytosis has improved. 2. The patient has history of hypothyroidism. Continue thyroid supplementation. 3. The patient has history of Crohn's colitis. 4. The patient has a history of Castro ileostomy status post revision. 5. The patient has history of knee replacement. 6. 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 7. History of proctocolectomy. 8. The patient is anemic. 9. Allergies to adalimumab and also infliximab and intravenous dye. 10. Social history is negative. 11. Family history is noncontributory. 12. MAR is noted. 13. Case was discussed with RN. 14. Case was discussed with Dr. Marte. 15. Case was discussed with the patient. Darleen Perez M.D. DR: BHAVESH JOB#: [id number] CC: DORENE
[2019-05-11] VITALS: BP 137/79
[2019-05-11 04:00] VITALS: BP 141/64
[2019-05-11] MEDS: Piperacillin/Tazobactam 3.375 GM in D5W 110 ML IVPB SCH ×3 (05:19→21:09)
[2019-05-11 06:34] LABS: BASOPHILS % (AUTO) 0.5 % (0.0-2.0); EOSINOPHILS % (AUTO) 0.8 % (0.0-3.0); HEMATOCRIT 34.2 % (37.0-47.0); HEMOGLOBIN 11.6 G/DL (12.0-16.0); LYMPHOCYTES % (AUTO) 15.7 % (20.0-45.0); MEAN CORPUSCULAR VOLUME 94 FL (80-99); MONOCYTES % (AUTO) 6.9 % (1.0-10.0); NEUTROPHILS % (AUTO) 76.1 % (45.0-75.0); PLATELET COUNT 303 K/UL (150-450); RED BLOOD COUNT 3.65 M/UL (4.20-5.40); RED CELL DISTRIBUTION WIDTH 13.6 % (11.6-14.8); WHITE BLOOD COUNT 12.4 K/UL (4.8-10.8)
[2019-05-11 07:06] LABS: ALANINE AMINOTRANSFERASE 41 U/L (12-78); ALBUMIN 2.7 G/DL (3.4-5.0); ALBUMIN/GLOBULIN RATIO 0.7 (1.0-2.7); ALKALINE PHOSPHATASE 94 U/L (46-116); ANION GAP 10 mmol/L (5-15); ASPARTATE AMINO TRANSFERASE 23 U/L (15-37); BILIRUBIN,TOTAL 0.6 MG/DL (0.2-1.0); BLOOD UREA NITROGEN 13 mg/dL (7-18); CARBON DIOXIDE 28 MMOL/L (21-32); CHLORIDE 106 MMOL/L (98-107); CREATININE 0.7 MG/DL (0.55-1.30); PHOSPHORUS 3.5 MG/DL (2.5-4.9); POTASSIUM 3.7 MMOL/L (3.5-5.1); SODIUM 144 MMOL/L (136-145)
[2019-05-11 08:00] VITALS: BP 135/61
[2019-05-11] MEDS: Hydrocortisone 100mg Inj IV SCH (08:35)
[2019-05-11] MEDS: Anastrazole 1mg tab ORAL SCH (08:35)
[2019-05-11] MEDS: Metoprolol Succinate XL 50mg tab ORAL SCH (08:35)
--- NOTE | 2019-05-11 09:35 | General Progress Note ---
Progress Note Progress Note AVSS Underwent CT guided drainage of pelvic/abdominal abscess with 115cc output total to this am. Denies pain, eating BCIR diet okay Abdomen soft, incision healed, stoma pink, drain just inferior to stoma area Urine 1050 BCIR ileo 240 green enteric Drain - brownish non-enteric fluid WBC up 12,400 chem okay albumin up 2.7 Imp: Intra-abdominal abscess History of high dose steroids + Entyvio pre-admission Plan; Antibiotics per ID 0- on Zosyn Maintain indwelling Castro pouch catheter to drainage Decrease steroids to Prednisone 20mg po daily and D/C IV solucortef f/u labs; continue ambulation Santos Marte MD May 11, 2019 09:35
[2019-05-11 12:00] VITALS: BP 130/68
[2019-05-11 16:00] VITALS: BP 133/61
[2019-05-11 20:00] VITALS: BP 115/63
[2019-05-11] MEDS: Dyna-Hex 2% Top Sol 2oz TOPIC SCH (21:09)
[2019-05-12] VITALS: BP 158/68
[2019-05-12 04:00] VITALS: BP 113/71
[2019-05-12 05:29] LABS: BASOPHILS % (AUTO) 0.7 % (0.0-2.0); EOSINOPHILS % (AUTO) 2.2 % (0.0-3.0); HEMATOCRIT 33.4 % (37.0-47.0); HEMOGLOBIN 11.4 G/DL (12.0-16.0); MEAN CORPUSCULAR VOLUME 93 FL (80-99); MONOCYTES % (AUTO) 10.1 % (1.0-10.0); PLATELET COUNT 307 K/UL (150-450); RED BLOOD COUNT 3.58 M/UL (4.20-5.40); RED CELL DISTRIBUTION WIDTH 13.1 % (11.6-14.8); WHITE BLOOD COUNT 6.8 K/UL (4.8-10.8)
[2019-05-12 05:39] LABS: ANION GAP 8 mmol/L (5-15); BLOOD UREA NITROGEN 14 mg/dL (7-18); CALCIUM 8.9 MG/DL (8.5-10.1); CARBON DIOXIDE 29 MMOL/L (21-32); CHLORIDE 104 MMOL/L (98-107); CREATININE 0.6 MG/DL (0.55-1.30); POTASSIUM 3.8 MMOL/L (3.5-5.1); SODIUM 141 MMOL/L (136-145)
[2019-05-12] MEDS: Piperacillin/Tazobactam 3.375 GM in D5W 110 ML IVPB SCH (06:04)
[2019-05-12 08:00] VITALS: BP 128/69
[2019-05-12] MEDS: Metoprolol Succinate XL 50mg tab ORAL SCH (08:31)
[2019-05-12] MEDS: Anastrazole 1mg tab ORAL SCH (08:31)
[2019-05-12] MEDS ORDERED: Tubing IV Secondary IV ONE ×2 (09:34→10:18)
[2019-05-12] MEDS ORDERED: NS Irrig 1000ml ONE ×2 (09:34→10:18)
--- NOTE | 2019-05-12 10:05 | General Progress Note ---
Progress Note Progress Note AVSS Eating BCIR diet and ambulating Abdomen soft. Urine 1920 BCIr ileo 495 Abscess cavity drain: 60cc WBC down 6800 culture Klebsiella - discussed with ID and d/c Royal, start rocephin + flagyl IV Plan: maintain continuous drainage of Castro pouch Santos Marte MD May 12, 2019 10:05
[2019-05-12] MEDS ORDERED: NS 275ml ONE (10:18)
[2019-05-12] MEDS ORDERED: cefTRIAXone 1 GM in D5W 55 ML IVPB SCH (11:00)
[2019-05-12 12:00] VITALS: BP 120/56
--- NOTE | 2019-05-12 15:01 | Infectious Diseases Prog Note ---
Assessment/Plan Assessment/Plan ASSESSMENT AND PLAN: 1. klebsiella intra-abdominal abscess, e.coli uti, leukocytosis - levofloxacin and flagyl - monitor labs - d/w Dr. Marte - d/w RN - d/w patient and 2. The patient has history of hypothyroidism. Continue thyroid supplementation. 3. The patient has history of Crohn's colitis. 4. The patient has a history of Castro ileostomy status post revision. 5. The patient has history of knee replacement. 6. 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 7. History of proctocolectomy. 8. The patient is anemic. 9. Allergies to adalimumab and also infliximab and intravenous dye. 10. Social history is negative. 11. Family history is noncontributory. 12. MAR is noted. 13. Case was discussed with RN. 14. Case was discussed with Dr. Marte. 15. Case was discussed with the patie Subjective Constitutional: Denies: fever HEENT: Denies: congestion Respiratory: Denies: shortness of breath Cardiovascular: Denies: chest pain Gastrointestinal/Abdominal: Denies: nausea, vomiting, diarrhea Genitourinary: Reports: dysuria, other - no ramachandran Neurologic: Denies: headache Psychiatric: Denies: depression Skin: Denies: rash Hematologic: Denies: bleeding Musculoskeletal: Denies: pain Allergies: Coded Allergies: ADALIMUMAB (Verified Allergy, Intermediate, Body Rashes, Body Aches, ) INFLIXIMAB (Verified Allergy, Intermediate, Body Rash/Body Aches, 04/26/19) Uncoded Allergies: intravenous dye (Allergy, Severe, Respiratory Distress , 04/26/19) Objective Vital Signs Last 24 Hour Vital Signs Date Time Temp Pulse Resp B/P (MAP) Pulse Ox O2 Delivery O2 Flow Rate FiO2 05/12/19 12:00 98.9 89 16 120/56 (77) 94 05/12/19 08:31 95 128/69 05/12/19 08:00 97.7 95 18 128/69 (88) 96 05/12/19 04:00 97.7 81 18 113/71 (85) 96 05/12/19 00:00 96.7 80 18 158/68 (98) 96 05/11/19 21:00 Room Air 05/11/19 20:00 97.4 86 16 115/63 (80) 94 05/11/19 16:00 97.6 74 16 133/61 (85) 96 Height (Feet): 5 Height (Inches): 8.00 Weight (Pounds): 195 General Appearance: no acute distress HEENT: normocephalic, atraumatic, anicteric, mucous membranes moist Respiratory/Chest: lungs clear, normal breath sounds, no respiratory distress, no accessory muscle use Cardiovascular: normal rate, regular rhythm, no gallop/murmur, no JVD Abdomen: normal bowel sounds, soft, non tender, no organomegaly, non distended Genitourinary: other - no ramachandran Extremities: no cyanosis Skin: no rash Neurologic/Psychiatric: job developer II-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 There is no evidence of bowel obstruction. Gas, fluid, and soft tissue collection adjacent to the inferior border the pouch and extending to the anterior peritoneal surface, measures approximately 5 x 4.8 cm. This could represent a routine postoperative fluid and gas collection, or could represent an abscess plus/minus area of phlegmon. Pelvic inflammatory changes, most likely related to the prior surgery Nonobstructive right renal calculi Evidence of prior lumbar spine surgery Small hiatal hernia incidentally noted Microbiology Date/Time Source Procedure Growth Status 05/10/19 15:15 Abdominal Fluid Gram Stain - Final Resulted 05/10/19 15:15 Body Fluid Culture - Preliminary Klebsiella Pneumoniae Resulted 05/10/19 15:15 Abdominal Abscess Anaerobic Culture - Preliminary Resulted Laboratory Tests Test 05/12/19 05:00 White Blood Count 6.8 K/UL (4.8-10.8) Red Blood Count 3.58 M/UL (4.20-5.40) L Hemoglobin 11.4 G/DL (12.0-16.0) L Hematocrit 33.4 % (37.0-47.0) L Mean Corpuscular Volume 93 FL (80-99) Mean Corpuscular Hemoglobin 31.9 PG (27.0-31.0) H Mean Corpuscular Hemoglobin Concent 34.2 G/DL (32.0-36.0) Red Cell Distribution Width 13.1 % (11.6-14.8) Platelet Count 307 K/UL (150-450) Mean Platelet Volume 5.3 FL (6.5-10.1) L Neutrophils (%) (Auto) 54.0 % (45.0-75.0) Lymphocytes (%) (Auto) 33.0 % (20.0-45.0) Monocytes (%) (Auto) 10.1 % (1.0-10.0) H Eosinophils (%) (Auto) 2.2 % (0.0-3.0) Basophils (%) (Auto) 0.7 % (0.0-2.0) Sodium Level 141 MMOL/L (136-145) Potassium Level 3.8 MMOL/L (3.5-5.1) Chloride Level 104 MMOL/L (98-107) Carbon Dioxide Level 29 MMOL/L (21-32) Anion Gap 8 mmol/L (5-15) Blood Urea Nitrogen 14 mg/dL (7-18) Creatinine 0.6 MG/DL (0.55-1.30) Estimat Glomerular Filtration Rate > 60 mL/min (>60) Glucose Level 107 MG/DL (74-106) H Calcium Level 8.9 MG/DL (8.5-10.1) Current Medications Medications (Trade) Dose Ordered Sig/Sheng Route PRN Reason Start Time Stop Time Status Last Admin Dose Admin Acetaminophen (Tylenol) 650 mg Q4H PRN NG temp>100.2 or headache 04/27/19 12:00 05/27/19 11:59 Anastrozole (Arimidex) 1 mg DAILY ORAL 04/27/19 09:00 05/27/19 08:59 05/12/19 08:31 Ascorbic Acid (Vitamin C) 500 mg NEEDED PRN ORAL Constipation 05/06/19 11:30 06/05/19 11:29 05/11/19 08:54 Chlorhexidine Gluconate (Anya-Hex 2%) 1 applic DAILY@1999 TOPIC 04/26/19 20:00 07/25/19 19:59 05/11/19 21:09 Duloxetine HCl (Cymbalta) 60 mg BID ORAL 04/26/19 18:00 07/25/19 17:59 05/12/19 08:30 Hydromorphone HCl (Dilaudid) 1 mg Q4H PRN SUBQ Severe Breakthru Pain (>7) 05/09/19 11:00 05/16/19 10:59 Levofloxacin 150 ml @ 100 mls/hr Q24H IVPB 05/12/19 16:00 05/19/19 15:59 Levothyroxine Sodium (Synthroid) 100 mcg DAILY@0630 ORAL 04/27/19 06:30 05/27/19 06:29 05/12/19 06:04 Lorazepam (Ativan) 1 mg HSPRN PRN SL Sleep 05/09/19 07:30 05/16/19 07:29 Lorazepam (Ativan) 1 mg Q4H PRN SL Muscle Spasm 05/09/19 11:00 05/16/19 10:59 05/10/19 21:47 Metoprolol Succinate (Toprol XL) 50 mg DAILY ORAL 04/27/19 09:00 07/26/19 08:59 05/12/19 08:31 Metronidazole 100 ml @ 100 mls/hr Q8HR IVPB 05/12/19 14:00 05/19/19 13:59 05/12/19 14:31 Ondansetron HCl (Zofran) 4 mg Q4H PRN IVP Nausea & Vomiting 04/27/19 12:00 05/27/19 11:59 Potassium Chloride (K-Dur) 40 meq TWICE A DAY ORAL 05/07/19 11:00 08/05/19 10:59 05/12/19 08:31 Prednisone (predniSONE) 20 mg DAILY ORAL 05/12/19 09:00 06/11/19 08:59 05/12/19 08:31 Darleen Perez MD May 12, 2019 15:01
[2019-05-12 16:00] VITALS: BP 120/57
[2019-05-12 20:00] VITALS: BP 119/62
[2019-05-12] MEDS: Dyna-Hex 2% Top Sol 2oz TOPIC SCH (20:01)
[2019-05-13] VITALS: BP 127/55
[2019-05-13 04:00] VITALS: BP 126/55
[2019-05-13 06:35] LABS: BASOPHILS % (AUTO) 0.5 % (0.0-2.0); EOSINOPHILS % (AUTO) 3.4 % (0.0-3.0); HEMATOCRIT 36.6 % (37.0-47.0); HEMOGLOBIN 12.2 G/DL (12.0-16.0); LYMPHOCYTES % (AUTO) 38.2 % (20.0-45.0); MEAN CORPUSCULAR VOLUME 94 FL (80-99); MONOCYTES % (AUTO) 9.2 % (1.0-10.0); NEUTROPHILS % (AUTO) 48.7 % (45.0-75.0); PLATELET COUNT 313 K/UL (150-450); RED BLOOD COUNT 3.91 M/UL (4.20-5.40); RED CELL DISTRIBUTION WIDTH 13.6 % (11.6-14.8); WHITE BLOOD COUNT 6.8 K/UL (4.8-10.8)
[2019-05-13 06:52] LABS: ANION GAP 8 mmol/L (5-15); BLOOD UREA NITROGEN 9 mg/dL (7-18); CALCIUM 9.2 MG/DL (8.5-10.1); CARBON DIOXIDE 30 MMOL/L (21-32); CHLORIDE 104 MMOL/L (98-107); CREATININE 0.7 MG/DL (0.55-1.30); POTASSIUM 3.5 MMOL/L (3.5-5.1); SODIUM 142 MMOL/L (136-145)
[2019-05-13 08:00] VITALS: BP 133/68
[2019-05-13] MEDS: Anastrazole 1mg tab ORAL SCH (09:14)
[2019-05-13] MEDS: Metoprolol Succinate XL 50mg tab ORAL SCH (09:14)
--- NOTE | 2019-05-13 09:50 | General Progress Note ---
Progress Note Progress Note AVSS denies pain and tolerating BCIR diet. On Levaquin and flagyl Abdomen soft Urine 2100 BCIR ileo 890 Abscess drain 120 - may be enteric but not identical to Castro pouch effluent CBC and BMP stable/wnl Imp: R/O enterocutaneous fistula Plan: NPO except po meds IV fluids May need fistulagram in AM Santos Marte MD May 13, 2019 09:50
[2019-05-13] MEDS: 1/2NS w/KCl 20mEq 1000ml 1,000 ML IV SCH ×2 (11:30→20:24)
[2019-05-13 12:00] VITALS: BP 120/63
[2019-05-13 16:00] VITALS: BP 133/70
[2019-05-13 20:00] VITALS: BP 126/64
[2019-05-13] MEDS: Dyna-Hex 2% Top Sol 2oz TOPIC SCH (20:23)
[2019-05-14] VITALS: BP 137/67
[2019-05-14 04:00] VITALS: BP 139/71
[2019-05-14] MEDS: 1/2NS w/KCl 20mEq 1000ml 1,000 ML IV SCH ×2 (04:10→20:03)
[2019-05-14 06:05] LABS: BASOPHILS % (AUTO) 0.5 % (0.0-2.0); HEMATOCRIT 36.9 % (37.0-47.0); HEMOGLOBIN 12.5 G/DL (12.0-16.0); LYMPHOCYTES % (AUTO) 32.3 % (20.0-45.0); MEAN CORPUSCULAR VOLUME 93 FL (80-99); MONOCYTES % (AUTO) 9.3 % (1.0-10.0); NEUTROPHILS % (AUTO) 54.9 % (45.0-75.0); PLATELET COUNT 328 K/UL (150-450); RED BLOOD COUNT 3.95 M/UL (4.20-5.40); RED CELL DISTRIBUTION WIDTH 13.4 % (11.6-14.8); WHITE BLOOD COUNT 6.8 K/UL (4.8-10.8)
[2019-05-14 06:35] LABS: ALANINE AMINOTRANSFERASE 38 U/L (12-78); ALBUMIN 2.9 G/DL (3.4-5.0); ALBUMIN/GLOBULIN RATIO 0.7 (1.0-2.7); ALKALINE PHOSPHATASE 90 U/L (46-116); ANION GAP 13 mmol/L (5-15); ASPARTATE AMINO TRANSFERASE 19 U/L (15-37); BILIRUBIN,TOTAL 0.4 MG/DL (0.2-1.0); BLOOD UREA NITROGEN 7 mg/dL (7-18); CALCIUM 9.3 MG/DL (8.5-10.1); CARBON DIOXIDE 25 MMOL/L (21-32); CHLORIDE 103 MMOL/L (98-107); CREATININE 0.7 MG/DL (0.55-1.30); PHOSPHORUS 3.7 MG/DL (2.5-4.9); POTASSIUM 3.8 MMOL/L (3.5-5.1); SODIUM 141 MMOL/L (136-145)
[2019-05-14 08:00] VITALS: BP 136/71
[2019-05-14] MEDS ORDERED: LORazepam 1mg tab SL PRN ×2 (09:15→11:00)
--- NOTE | 2019-05-14 09:23 | General Progress Note ---
Progress Note Progress Note AVSS No pain - tolerating npo status except po meds. On Levaquin + flagy. Abdomen soft, BCIR ileo output 190cc Abscess drain 190cc now looks enteric WBC 6800 albumin up but still low 2.9 Mg 1.7 Imp: Intra-abdominal abscess post-op revision Castro continent ileostomy pouch , now likely a fistula Plan; Fistulogram XRay Resume NPO except po meds; start TPN Mg infusion f/u labs discussed with patient and Santos Marte MD May 14, 2019 09:23
[2019-05-14] MEDS: Metoprolol Succinate XL 50mg tab ORAL SCH (09:24)
[2019-05-14] MEDS: Anastrazole 1mg tab ORAL SCH (09:24)
[2019-05-14] MEDS ORDERED: HYDROmorphone 1mg/ml Carpuject SUBQ PRN (11:00)
[2019-05-14] MEDS ORDERED: 1/2NS w/KCl 20mEq 1000ml 1,000 ML IV SCH (11:00)
[2019-05-14 11:33] VITALS: BP 130/53
--- NOTE | 2019-05-14 13:23 | Diagnostic Imaging Report ---
INDICATION: History of continent ileostomy. Patient status post drainage of anterior upper pelvic abscess TECHNIQUE: Hand injection of water-soluble contrast into the pre-existing abscess drainage catheter under direct fluoroscopic supervision. Serial digital spot images were obtained in multiple obliquities. Fluoroscopy time: 27.2 seconds Total dose: 0.13565 mGym2 Total number of images: 10 COMPARISON: There is made to CT scans dated 05/10/2019, 05/09/2019 FINDINGS: With injection of contrast, there is filling of the abscess cavity. After only a small amount of contrast was injected, contrast is seen moving cephalad and filling the continent ileostomy pouch. Ultimately, contrast is seen in the apex of the pouch and surrounds the Aguiar catheter draining the pouch. 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 Marte
[2019-05-14 16:00] VITALS: BP 127/58
--- NOTE | 2019-05-14 19:47 | Infectious Diseases Prog Note ---
Assessment/Plan Assessment/Plan ASSESSMENT AND PLAN: 1. klebsiella intra-abdominal abscess, e.coli uti, leukocytosis - levofloxacin and flagyl - day # 3 combination - s/p drain - monitor labs - leukocytosis resolved - d/w patient and 2. The patient has history of hypothyroidism. Continue thyroid supplementation. 3. The patient has history of Crohn's colitis. 4. The patient has a history of Castro ileostomy status post revision. 5. The patient has history of knee replacement. 6. 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 7. History of proctocolectomy. 8. The patient is anemic. 9. Allergies to adalimumab and also infliximab and intravenous dye. 10. Social history is negative. 11. Family history is noncontributory. 12. MAR is noted. 13. Case was discussed with RN. 14. Case was discussed with Dr. Marte. 15. Case was discussed with the patie Subjective Constitutional: Denies: fever HEENT: Denies: congestion Respiratory: Denies: shortness of breath Cardiovascular: Denies: chest pain Gastrointestinal/Abdominal: Denies: nausea, vomiting, diarrhea Genitourinary: Reports: other - no ramachandran Neurologic: Denies: headache Psychiatric: Denies: depression Skin: Denies: rash Hematologic: Denies: bleeding Musculoskeletal: Denies: pain Allergies: Coded Allergies: ADALIMUMAB (Verified Allergy, Intermediate, Body Rashes, Body Aches, ) INFLIXIMAB (Verified Allergy, Intermediate, Body Rash/Body Aches, 04/26/19) Uncoded Allergies: intravenous dye (Allergy, Severe, Respiratory Distress , 04/26/19) Objective Vital Signs Last 24 Hour Vital Signs Date Time Temp Pulse Resp B/P (MAP) Pulse Ox O2 Delivery O2 Flow Rate FiO2 05/14/19 16:00 97.6 77 18 127/58 (81) 95 05/14/19 11:33 98.1 88 18 130/53 (78) 99 05/14/19 09:24 91 136/71 05/14/19 09:00 Room Air 05/14/19 08:00 98.2 91 15 136/71 (92) 96 05/14/19 04:00 97.8 92 18 139/71 (93) 97 05/14/19 00:00 97.6 72 18 137/67 (90) 96 05/13/19 21:00 Room Air 05/13/19 20:00 97.6 73 16 126/64 (84) 96 Height (Feet): 5 Height (Inches): 8.00 Weight (Pounds): 195 General Appearance: no acute distress HEENT: normocephalic, atraumatic, anicteric, mucous membranes moist Respiratory/Chest: lungs clear, normal breath sounds, no respiratory distress, no accessory muscle use Cardiovascular: normal rate, regular rhythm, no gallop/murmur, no JVD Abdomen: normal bowel sounds, soft, non tender, no organomegaly, non distended Genitourinary: other - no ramachandran Extremities: no cyanosis Skin: no rash Neurologic/Psychiatric: chief engineer II-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 There is no evidence of bowel obstruction. Gas, fluid, and soft tissue collection adjacent to the inferior border the pouch and extending to the anterior peritoneal surface, measures approximately 5 x 4.8 cm. This could represent a routine postoperative fluid and gas collection, or could represent an abscess plus/minus area of phlegmon. Pelvic inflammatory changes, most likely related to the prior surgery Nonobstructive right renal calculi Evidence of prior lumbar spine surgery Small hiatal hernia incidentally noted Microbiology Date/Time Source Procedure Growth Status 05/07/19 12:00 Urine,Clean Catch Urine Culture - Final Escherichia Coli Complete 05/10/19 15:15 Abdominal Fluid Gram Stain - Final Complete 05/10/19 15:15 Body Fluid Culture - Final Klebsiella Pneumoniae Klebsiella Pneumoniae#2 Complete Laboratory Tests Test 05/14/19 05:15 White Blood Count 6.8 K/UL (4.8-10.8) Red Blood Count 3.95 M/UL (4.20-5.40) L Hemoglobin 12.5 G/DL (12.0-16.0) Hematocrit 36.9 % (37.0-47.0) L Mean Corpuscular Volume 93 FL (80-99) Mean Corpuscular Hemoglobin 31.5 PG (27.0-31.0) H Mean Corpuscular Hemoglobin Concent 33.8 G/DL (32.0-36.0) Red Cell Distribution Width 13.4 % (11.6-14.8) Platelet Count 328 K/UL (150-450) Mean Platelet Volume 5.1 FL (6.5-10.1) L Neutrophils (%) (Auto) 54.9 % (45.0-75.0) Lymphocytes (%) (Auto) 32.3 % (20.0-45.0) Monocytes (%) (Auto) 9.3 % (1.0-10.0) Eosinophils (%) (Auto) 3.0 % (0.0-3.0) Basophils (%) (Auto) 0.5 % (0.0-2.0) Sodium Level 141 MMOL/L (136-145) Potassium Level 3.8 MMOL/L (3.5-5.1) Chloride Level 103 MMOL/L (98-107) Carbon Dioxide Level 25 MMOL/L (21-32) Anion Gap 13 mmol/L (5-15) Blood Urea Nitrogen 7 mg/dL (7-18) Creatinine 0.7 MG/DL (0.55-1.30) Estimat Glomerular Filtration Rate > 60 mL/min (>60) Glucose Level 102 MG/DL (74-106) Calcium Level 9.3 MG/DL (8.5-10.1) Phosphorus Level 3.7 MG/DL (2.5-4.9) Magnesium Level 1.7 MG/DL (1.8-2.4) L Total Bilirubin 0.4 MG/DL (0.2-1.0) Aspartate Amino Transf (AST/SGOT) 19 U/L (15-37) Alanine Aminotransferase (ALT/SGPT) 38 U/L (12-78) Alkaline Phosphatase 90 U/L (46-116) Total Protein 6.9 G/DL (6.4-8.2) Albumin 2.9 G/DL (3.4-5.0) L Globulin 4.0 g/dL Albumin/Globulin Ratio 0.7 (1.0-2.7) L Current Medications Medications (Trade) Dose Ordered Sig/Sheng Route PRN Reason Start Time Stop Time Status Last Admin Dose Admin Acetaminophen (Tylenol) 650 mg Q4H PRN NG temp>100.2 or headache 04/27/19 12:00 05/27/19 11:59 Anastrozole (Arimidex) 1 mg DAILY ORAL 04/27/19 09:00 05/27/19 08:59 05/14/19 09:24 Ascorbic Acid (Vitamin C) 500 mg NEEDED PRN ORAL Constipation 05/06/19 11:30 06/05/19 11:29 05/11/19 08:54 Chlorhexidine Gluconate (Anya-Hex 2%) 1 applic DAILY@2000 TOPIC 04/26/19 20:00 07/25/19 19:59 05/13/19 20:23 Dextrose 1,000 ml @ 0 mls/hr Q24H PRN IV PN interrupted or unavailable 05/14/19 20:00 06/13/19 19:59 Dextrose (Dextrose 50%) 25 ml Q30M PRN IV Hypoglycemia 05/14/19 20:30 08/12/19 20:29 Dextrose (Dextrose 50%) 50 ml Q30M PRN IV Hypoglycemia 05/14/19 20:30 08/12/19 20:29 Duloxetine HCl (Cymbalta) 60 mg BID ORAL 04/26/19 18:00 07/25/19 17:59 05/14/19 18:08 Fat Emulsion Intravenous 216 ml/Amino Acids/ Electrolytes/ Dextrose 2,040 ml @ 85 mls/hr Q24H IV 05/14/19 20:00 08/12/19 19:59 Hydromorphone HCl (Dilaudid) 1 mg Q4H PRN SUBQ Severe Breakthru Pain (>7) 05/14/19 11:00 05/21/19 10:59 Insulin Aspart (NovoLOG) Q6HR SUBQ 05/15/19 00:00 08/13/19 00:00 Levofloxacin 150 ml @ 100 mls/hr Q24H IVPB 05/12/19 16:00 05/19/19 15:59 05/14/19 16:21 Levothyroxine Sodium (Synthroid) 100 mcg DAILY@0630 ORAL 04/27/19 06:30 05/27/19 06:29 05/14/19 05:34 Lorazepam (Ativan) 1 mg HSPRN PRN SL Sleep 05/14/19 09:15 05/21/19 09:14 Lorazepam (Ativan) 1 mg Q4H PRN SL Muscle Spasm 05/14/19 11:00 05/21/19 10:59 Metoprolol Succinate (Toprol XL) 50 mg DAILY ORAL 04/27/19 09:00 07/26/19 08:59 05/14/19 09:24 Metronidazole 100 ml @ 100 mls/hr Q8HR IVPB 05/12/19 14:00 05/19/19 13:59 05/14/19 14:29 Ondansetron HCl (Zofran) 4 mg Q4H PRN IVP Nausea & Vomiting 04/27/19 12:00 05/27/19 11:59 Prednisone (predniSONE) 15 mg DAILY ORAL 05/15/19 09:00 06/14/19 08:59 Sodium 1,000 ml @ 25 mls/hr Q24H IV 05/14/19 20:00 06/13/19 19:59 Sodium 1,000 ml @ 100 mls/hr Q10H IV 05/14/19 11:00 05/14/19 19:59 05/14/19 11:05 Darleen Perez MD May 14, 2019 19:47
[2019-05-14 20:00] VITALS: BP 132/59
[2019-05-14] MEDS ORDERED: Dextrose 10% 1,000 ML IV PRN (20:00)
[2019-05-14] MEDS: TPN IV SCH (20:02)
[2019-05-14] MEDS: FAT EMULSION 20% IV SCH (20:02)
[2019-05-14] MEDS: Dyna-Hex 2% Top Sol 2oz TOPIC SCH (20:02)
[2019-05-14] MEDS ORDERED: Fat Emulsion Iv 20% 250 ML IV SCH (21:00)
[2019-05-14] MEDS: NovoLOG Insulin Flexpen SUBQ SCH (23:37)
[2019-05-15] VITALS: BP 136/65
[2019-05-15 04:00] VITALS: BP 144/59
[2019-05-15] MEDS: NovoLOG Insulin Flexpen SUBQ SCH ×4 (05:14→23:50)
[2019-05-15 06:31] LABS: BASOPHILS % (AUTO) 0.5 % (0.0-2.0); EOSINOPHILS % (AUTO) 3.4 % (0.0-3.0); HEMATOCRIT 38.4 % (37.0-47.0); LYMPHOCYTES % (AUTO) 23.6 % (20.0-45.0); MEAN CORPUSCULAR VOLUME 93 FL (80-99); MONOCYTES % (AUTO) 7.5 % (1.0-10.0); NEUTROPHILS % (AUTO) 65.1 % (45.0-75.0); PLATELET COUNT 338 K/UL (150-450); RED BLOOD COUNT 4.14 M/UL (4.20-5.40); RED CELL DISTRIBUTION WIDTH 13.2 % (11.6-14.8); WHITE BLOOD COUNT 7.1 K/UL (4.8-10.8)
[2019-05-15 06:59] LABS: ALANINE AMINOTRANSFERASE 37 U/L (12-78); ALBUMIN 2.9 G/DL (3.4-5.0); ALBUMIN/GLOBULIN RATIO 0.7 (1.0-2.7); ALKALINE PHOSPHATASE 87 U/L (46-116); ANION GAP 10 mmol/L (5-15); ASPARTATE AMINO TRANSFERASE 22 U/L (15-37); BILIRUBIN,TOTAL 0.3 MG/DL (0.2-1.0); BLOOD UREA NITROGEN 8 mg/dL (7-18); CALCIUM 9.1 MG/DL (8.5-10.1); CARBON DIOXIDE 27 MMOL/L (21-32); CHLORIDE 102 MMOL/L (98-107); CREATININE 0.8 MG/DL (0.55-1.30); POTASSIUM 4.1 MMOL/L (3.5-5.1); SODIUM 139 MMOL/L (136-145)
[2019-05-15 08:00] VITALS: BP 130/58
[2019-05-15] MEDS: Anastrazole 1mg tab ORAL SCH (09:35)
[2019-05-15] MEDS: Metoprolol Succinate XL 50mg tab ORAL SCH (09:36)
--- NOTE | 2019-05-15 11:48 | General Progress Note ---
Progress Note Progress Note AVSS Denies pain. On levaquin and flagyl, now on TPN and NPO except po meds Abdomen soft Urine 3620 now on TPN BCIR ileo catheter to suction 220cc Fistula drain 50cc overnight 12 hours labs all okay except albumin 2.9 Mg up 2.1 Imp: early post-operative Castro pouch fistula with intra-abdominal abscess, drained by Interventional Radiology Plan: continue npo, TPN, Castro pouch catheter to suction if high output fistula may need return to surgery Santos Marte MD May 15, 2019 11:48
[2019-05-15 12:40] VITALS: BP 146/65
[2019-05-15 15:55] VITALS: BP 136/68
[2019-05-15 19:47] VITALS: BP 138/68
[2019-05-15] MEDS: FAT EMULSION 20% IV SCH (19:56)
[2019-05-15] MEDS: TPN IV SCH (19:56)
[2019-05-15] MEDS: Dyna-Hex 2% Top Sol 2oz TOPIC SCH (19:58)
[2019-05-15] MEDS: 1/2NS w/KCl 20mEq 1000ml 1,000 ML IV SCH (20:00)
[2019-05-16 03:58] VITALS: BP 133/71
[2019-05-16 05:24] LABS: BASOPHILS % (AUTO) 0.4 % (0.0-2.0); HEMATOCRIT 39.5 % (37.0-47.0); HEMOGLOBIN 13.7 G/DL (12.0-16.0); LYMPHOCYTES % (AUTO) 25.1 % (20.0-45.0); MEAN CORPUSCULAR VOLUME 93 FL (80-99); MONOCYTES % (AUTO) 9.6 % (1.0-10.0); NEUTROPHILS % (AUTO) 61.9 % (45.0-75.0); PLATELET COUNT 343 K/UL (150-450); RED BLOOD COUNT 4.26 M/UL (4.20-5.40); RED CELL DISTRIBUTION WIDTH 12.8 % (11.6-14.8); WHITE BLOOD COUNT 9.4 K/UL (4.8-10.8)
[2019-05-16] MEDS: NovoLOG Insulin Flexpen SUBQ SCH ×4 (05:24→23:33)
[2019-05-16 05:44] LABS: ALANINE AMINOTRANSFERASE 26 U/L (12-78); ALBUMIN/GLOBULIN RATIO 0.7 (1.0-2.7); ALKALINE PHOSPHATASE 82 U/L (46-116); ANION GAP 6 mmol/L (5-15); ASPARTATE AMINO TRANSFERASE 16 U/L (15-37); BILIRUBIN,TOTAL 0.3 MG/DL (0.2-1.0); BLOOD UREA NITROGEN 8 mg/dL (7-18); CALCIUM 9.2 MG/DL (8.5-10.1); CARBON DIOXIDE 31 MMOL/L (21-32); CHLORIDE 104 MMOL/L (98-107); CREATININE 0.7 MG/DL (0.55-1.30); POTASSIUM 4.4 MMOL/L (3.5-5.1); SODIUM 141 MMOL/L (136-145)
[2019-05-16 08:32] VITALS: BP 142/66
[2019-05-16] MEDS: Anastrazole 1mg tab ORAL SCH (09:06)
[2019-05-16] MEDS: Metoprolol Succinate XL 50mg tab ORAL SCH (09:07)
--- NOTE | 2019-05-16 10:03 | General Progress Note ---
Progress Note Progress Note AVSS Feels well and no abd bloating or pains. tolerating NPO and TPN Abdomen soft, flat, incision and stoma healed Urine 2220 BCIR ileo 80cc total Drain 50cc (down from 225cc yesterday) Imp: Castro pouch-cutaneous fistula with abscess, improved with drainage and Levaquin + flagyl Plan: Portable KUB in view of very low pouch output r/o dilated bowel loops Santos Marte MD May 16, 2019 10:03
[2019-05-16 11:47] VITALS: BP 114/61
--- NOTE | 2019-05-16 11:50 | Diagnostic Imaging Report ---
Indication: Abdominal pain Technique: Supine view of the abdomen Comparison: No direct comparison studies. Reference is made to recent abscessogram dated 05/14/2019, CT scan dated 05/08 and 05/10/2019 Findings: Gas pattern is unremarkable. Surgical leandra and a stoma are seen in the right lower quadrant consistent with known continent ileostomy. There are midline transverse skin leandra. There is a pigtail drainage catheter in the right mid pelvis. Surgical clips are seen scattered across the upper abdomen. Bowel gas pattern is unremarkable. No masses or unusual calcifications. There is lumbar spine fusion hardware Impression: Findings as noted. No acute process
--- NOTE | 2019-05-16 15:43 | Infectious Diseases Prog Note ---
Assessment/Plan Assessment/Plan ASSESSMENT AND PLAN: 1. klebsiella intra-abdominal abscess, e.coli uti, leukocytosis - levofloxacin and flagyl - day # 5 combination - s/p drain - monitor labs - leukocytosis resolved - d/w patient and 2. The patient has history of hypothyroidism. Continue thyroid supplementation. 3. The patient has history of Crohn's colitis. 4. The patient has a history of Castro ileostomy status post revision. 5. The patient has history of knee replacement. 6. 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 7. History of proctocolectomy. 8. The patient is anemic. 9. Allergies to adalimumab and also infliximab and intravenous dye. 10. Social history is negative. 11. Family history is noncontributory. 12. MAR is noted. 13. Case was discussed with RN. 14. Case was discussed with Dr. Marte. 15. Case was discussed with the patie Subjective Constitutional: Denies: fever HEENT: Denies: congestion Respiratory: Denies: shortness of breath Cardiovascular: Denies: chest pain Gastrointestinal/Abdominal: Denies: nausea, vomiting Genitourinary: Reports: other - no ramachandran Neurologic: Denies: headache Psychiatric: Denies: depression Skin: Denies: rash Hematologic: Denies: bleeding Musculoskeletal: Denies: pain Allergies: Coded Allergies: ADALIMUMAB (Verified Allergy, Intermediate, Body Rashes, Body Aches, ) INFLIXIMAB (Verified Allergy, Intermediate, Body Rash/Body Aches, 04/26/19) Uncoded Allergies: intravenous dye (Allergy, Severe, Respiratory Distress , 04/26/19) Objective Vital Signs Last 24 Hour Vital Signs Date Time Temp Pulse Resp B/P (MAP) Pulse Ox O2 Delivery O2 Flow Rate FiO2 05/16/19 11:47 98.4 79 18 114/61 (78) 96 05/16/19 09:07 88 142/66 05/16/19 09:00 Room Air 05/16/19 08:32 98.3 88 18 142/66 (91) 95 05/16/19 03:58 98.0 77 18 133/71 (91) 97 05/15/19 20:35 Room Air 05/15/19 19:47 97.4 71 18 138/68 (91) 96 05/15/19 15:55 98.0 86 18 136/68 (90) 95 Height (Feet): 5 Height (Inches): 8.00 Weight (Pounds): 196 General Appearance: no acute distress HEENT: normocephalic, atraumatic, anicteric, mucous membranes moist Respiratory/Chest: lungs clear, normal breath sounds, no respiratory distress, no accessory muscle use Cardiovascular: normal rate, regular rhythm, no gallop/murmur, no JVD Abdomen: normal bowel sounds, soft, non tender, no organomegaly, non distended Genitourinary: other - no ramachandran Extremities: no cyanosis Skin: no rash 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 There is no evidence of bowel obstruction. Gas, fluid, and soft tissue collection adjacent to the inferior border the pouch and extending to the anterior peritoneal surface, measures approximately 5 x 4.8 cm. This could represent a routine postoperative fluid and gas collection, or could represent an abscess plus/minus area of phlegmon. Pelvic inflammatory changes, most likely related to the prior surgery Nonobstructive right renal calculi Evidence of prior lumbar spine surgery Small hiatal hernia incidentally noted Microbiology Date/Time Source Procedure Growth Status 05/07/19 12:00 Urine,Clean Catch Urine Culture - Final Escherichia Coli Complete 05/10/19 15:15 Abdominal Fluid Gram Stain - Final Complete 05/10/19 15:15 Body Fluid Culture - Final Klebsiella Pneumoniae Klebsiella Pneumoniae#2 Complete Laboratory Tests Test 05/16/19 04:50 White Blood Count 9.4 K/UL (4.8-10.8) Red Blood Count 4.26 M/UL (4.20-5.40) Hemoglobin 13.7 G/DL (12.0-16.0) Hematocrit 39.5 % (37.0-47.0) Mean Corpuscular Volume 93 FL (80-99) Mean Corpuscular Hemoglobin 32.2 PG (27.0-31.0) H Mean Corpuscular Hemoglobin Concent 34.7 G/DL (32.0-36.0) Red Cell Distribution Width 12.8 % (11.6-14.8) Platelet Count 343 K/UL (150-450) Mean Platelet Volume 5.2 FL (6.5-10.1) L Neutrophils (%) (Auto) 61.9 % (45.0-75.0) Lymphocytes (%) (Auto) 25.1 % (20.0-45.0) Monocytes (%) (Auto) 9.6 % (1.0-10.0) Eosinophils (%) (Auto) 3.0 % (0.0-3.0) Basophils (%) (Auto) 0.4 % (0.0-2.0) Sodium Level 141 MMOL/L (136-145) Potassium Level 4.4 MMOL/L (3.5-5.1) Chloride Level 104 MMOL/L (98-107) Carbon Dioxide Level 31 MMOL/L (21-32) Anion Gap 6 mmol/L (5-15) Blood Urea Nitrogen 8 mg/dL (7-18) Creatinine 0.7 MG/DL (0.55-1.30) Estimat Glomerular Filtration Rate > 60 mL/min (>60) Glucose Level 128 MG/DL (74-106) H Calcium Level 9.2 MG/DL (8.5-10.1) Total Bilirubin 0.3 MG/DL (0.2-1.0) Aspartate Amino Transf (AST/SGOT) 16 U/L (15-37) Alanine Aminotransferase (ALT/SGPT) 26 U/L (12-78) Alkaline Phosphatase 82 U/L (46-116) Total Protein 7.1 G/DL (6.4-8.2) Albumin 3.0 G/DL (3.4-5.0) L Globulin 4.1 g/dL Albumin/Globulin Ratio 0.7 (1.0-2.7) L Current Medications Medications (Trade) Dose Ordered Sig/Sheng Route PRN Reason Start Time Stop Time Status Last Admin Dose Admin Acetaminophen (Tylenol) 650 mg Q4H PRN NG temp>100.2 or headache 04/27/19 12:00 05/27/19 11:59 Anastrozole (Arimidex) 1 mg DAILY ORAL 04/27/19 09:00 05/27/19 08:59 05/16/19 09:06 Ascorbic Acid (Vitamin C) 500 mg NEEDED PRN ORAL Constipation 05/06/19 11:30 06/05/19 11:29 05/11/19 08:54 Chlorhexidine Gluconate (Anya-Hex 2%) 1 applic DAILY@2000 TOPIC 04/26/19 20:00 07/25/19 19:59 05/15/19 19:58 Dextrose 1,000 ml @ 0 mls/hr Q24H PRN IV PN interrupted or unavailable 05/14/19 20:00 06/13/19 19:59 Dextrose (Dextrose 50%) 25 ml Q30M PRN IV Hypoglycemia 05/14/19 20:30 08/12/19 20:29 Dextrose (Dextrose 50%) 50 ml Q30M PRN IV Hypoglycemia 05/14/19 20:30 08/12/19 20:29 Duloxetine HCl (Cymbalta) 60 mg BID ORAL 04/26/19 18:00 07/25/19 17:59 05/16/19 09:07 Fat Emulsion Intravenous 216 ml/Amino Acids/ Electrolytes/ Dextrose 2,040 ml @ 85 mls/hr Q24H IV 05/14/19 20:00 08/12/19 19:59 05/15/19 19:56 Hydromorphone HCl (Dilaudid) 1 mg Q4H PRN SUBQ Severe Breakthru Pain (>7) 05/14/19 11:00 05/21/19 10:59 Insulin Aspart (NovoLOG) Q6HR SUBQ 05/15/19 00:00 08/13/19 00:00 05/16/19 11:43 Levofloxacin 150 ml @ 100 mls/hr Q24H IVPB 05/12/19 16:00 05/19/19 15:59 05/15/19 15:47 Levothyroxine Sodium (Synthroid) 100 mcg DAILY@0630 ORAL 04/27/19 06:30 05/27/19 06:29 05/16/19 05:26 Lorazepam (Ativan) 1 mg HSPRN PRN SL Sleep 05/14/19 09:15 05/21/19 09:14 Lorazepam (Ativan) 1 mg Q4H PRN SL Muscle Spasm 05/14/19 11:00 05/21/19 10:59 Metoprolol Succinate (Toprol XL) 50 mg DAILY ORAL 04/27/19 09:00 07/26/19 08:59 05/16/19 09:07 Metronidazole 100 ml @ 100 mls/hr Q8HR IVPB 05/12/19 14:00 05/19/19 13:59 05/16/19 13:55 Ondansetron HCl (Zofran) 4 mg Q4H PRN IVP Nausea & Vomiting 04/27/19 12:00 05/27/19 11:59 Prednisone (predniSONE) 10 mg DAILY ORAL 05/16/19 09:00 06/14/19 08:59 05/16/19 09:07 Sodium 1,000 ml @ 25 mls/hr Q24H IV 05/14/19 20:00 06/13/19 19:59 05/14/19 20:03 Darleen Perez MD May 16, 2019 15:43
[2019-05-16 16:06] VITALS: BP 120/84
[2019-05-16 20:00] VITALS: BP 135/69
[2019-05-16] MEDS: TPN IV SCH (20:15)
[2019-05-16] MEDS: FAT EMULSION 20% IV SCH (20:15)
[2019-05-16] MEDS: Dyna-Hex 2% Top Sol 2oz TOPIC SCH (20:16)
[2019-05-16] MEDS: 1/2NS w/KCl 20mEq 1000ml 1,000 ML IV SCH (20:16)
[2019-05-16 23:49] VITALS: BP 138/67
[2019-05-17 04:00] VITALS: BP 131/66
[2019-05-17 05:41] LABS: BASOPHILS % (AUTO) 0.6 % (0.0-2.0); EOSINOPHILS % (AUTO) 3.7 % (0.0-3.0); HEMATOCRIT 39.1 % (37.0-47.0); HEMOGLOBIN 13.4 G/DL (12.0-16.0); LYMPHOCYTES % (AUTO) 22.9 % (20.0-45.0); MEAN CORPUSCULAR VOLUME 92 FL (80-99); MONOCYTES % (AUTO) 7.2 % (1.0-10.0); NEUTROPHILS % (AUTO) 65.7 % (45.0-75.0); PLATELET COUNT 303 K/UL (150-450); RED BLOOD COUNT 4.26 M/UL (4.20-5.40); RED CELL DISTRIBUTION WIDTH 12.7 % (11.6-14.8); WHITE BLOOD COUNT 9.8 K/UL (4.8-10.8)
[2019-05-17] MEDS: NovoLOG Insulin Flexpen SUBQ SCH ×3 (05:51→17:59)
[2019-05-17 05:56] LABS: ALANINE AMINOTRANSFERASE 23 U/L (12-78); ALBUMIN 2.9 G/DL (3.4-5.0); ALBUMIN/GLOBULIN RATIO 0.7 (1.0-2.7); ALKALINE PHOSPHATASE 75 U/L (46-116); ANION GAP 9 mmol/L (5-15); ASPARTATE AMINO TRANSFERASE 16 U/L (15-37); BILIRUBIN,TOTAL 0.2 MG/DL (0.2-1.0); BLOOD UREA NITROGEN 12 mg/dL (7-18); CALCIUM 9.2 MG/DL (8.5-10.1); CARBON DIOXIDE 29 MMOL/L (21-32); CHLORIDE 103 MMOL/L (98-107); CREATININE 0.7 MG/DL (0.55-1.30); POTASSIUM 3.9 MMOL/L (3.5-5.1); SODIUM 141 MMOL/L (136-145)
[2019-05-17 08:34] VITALS: BP 124/63
[2019-05-17] MEDS: Anastrazole 1mg tab ORAL SCH (08:50)
[2019-05-17] MEDS: Metoprolol Succinate XL 50mg tab ORAL SCH (08:50)
--- NOTE | 2019-05-17 08:52 | General Progress Note ---
Progress Note Progress Note Clinically well, AVSS, no GI complaints. Abdomen soft, non-distended KUB XRay neg Urine 2100 BCIR ileo on suction 110cc in 24 hours Fistula/abscess drain 150cc enteric labs all stable but albumin 2.9 on Levaquin + flagyl Imp: early post-op Castro pouch fistula/abscess Plan; May need Pouchogram XRay to better define site of fistula Low volume ileo output - no dilated loops on XRay - catheter elevated 2cm continue TPN, npo Santos Marte MD May 17, 2019 08:52
[2019-05-17] MEDS ORDERED: NS Irrig 1000ml ONE (11:47)
[2019-05-17] MEDS ORDERED: Tubing IV Secondary IV ONE (11:47)
[2019-05-17 12:11] VITALS: BP 138/63
[2019-05-17 16:00] VITALS: BP 127/96
[2019-05-17 20:00] VITALS: BP 122/75
[2019-05-17] MEDS: TPN IV SCH (20:20)
[2019-05-17] MEDS: FAT EMULSION 20% IV SCH (20:20)
[2019-05-17] MEDS: Dyna-Hex 2% Top Sol 2oz TOPIC SCH (20:20)
[2019-05-17] MEDS: 1/2NS w/KCl 20mEq 1000ml 1,000 ML IV SCH (20:20)
[2019-05-18] VITALS: BP 127/61
[2019-05-18 04:00] VITALS: BP 138/65
[2019-05-18] MEDS: NovoLOG Insulin Flexpen SUBQ SCH ×4 (05:38→17:12)
[2019-05-18 06:49] LABS: BASOPHILS % (AUTO) 0.7 % (0.0-2.0); EOSINOPHILS % (AUTO) 3.5 % (0.0-3.0); HEMATOCRIT 41.4 % (37.0-47.0); HEMOGLOBIN 13.9 G/DL (12.0-16.0); LYMPHOCYTES % (AUTO) 21.7 % (20.0-45.0); MEAN CORPUSCULAR VOLUME 94 FL (80-99); MONOCYTES % (AUTO) 7.1 % (1.0-10.0); PLATELET COUNT 278 K/UL (150-450); RED BLOOD COUNT 4.39 M/UL (4.20-5.40); RED CELL DISTRIBUTION WIDTH 13.1 % (11.6-14.8); WHITE BLOOD COUNT 9.4 K/UL (4.8-10.8)
[2019-05-18 07:49] LABS: ALANINE AMINOTRANSFERASE 21 U/L (12-78); ALBUMIN 2.9 G/DL (3.4-5.0); ALBUMIN/GLOBULIN RATIO 0.7 (1.0-2.7); ALKALINE PHOSPHATASE 71 U/L (46-116); ANION GAP 7 mmol/L (5-15); ASPARTATE AMINO TRANSFERASE 24 U/L (15-37); BILIRUBIN,TOTAL 0.3 MG/DL (0.2-1.0); BLOOD UREA NITROGEN 12 mg/dL (7-18); CALCIUM 9.3 MG/DL (8.5-10.1); CARBON DIOXIDE 30 MMOL/L (21-32); CHLORIDE 103 MMOL/L (98-107); CREATININE 0.7 MG/DL (0.55-1.30); POTASSIUM 4.9 MMOL/L (3.5-5.1); SODIUM 140 MMOL/L (136-145)
[2019-05-18 08:00] VITALS: BP 110/63
[2019-05-18] MEDS: Metoprolol Succinate XL 50mg tab ORAL SCH (09:00)
--- NOTE | 2019-05-18 09:14 | General Progress Note ---
Progress Note Progress Note AVSS Condition and exam and labs all stable Albumin 2.9 on TPN, npo Very little BCIR pouch ileo output even for patient who is NPO (50cc/24 hours) Fistula/abscess drain 80cc/24 hours Imp: early post-op fistula malnutrition high dose steroid therapy pre-admission, being weaned Plan: gastrograffin BCIR Pouchogram XRay today re catheter position in pouch ? extruded tip through the pouch Santos Marte MD May 18, 2019 09:14
[2019-05-18] MEDS: Anastrazole 1mg tab ORAL SCH (09:46)
[2019-05-18 12:00] VITALS: BP 136/60
--- NOTE | 2019-05-18 13:51 | Diagnostic Imaging Report ---
INDICATION: History of continent ileostomy, abnormal output, previously documented fistula, pain TECHNIQUE: Contrast was injected into the ileostomy pouch via a pre-existing Aguiar catheter under direct fluoroscopic supervision. Serial digital spot images were obtained Fluoroscopy time: 78.4 seconds Total dose: [id number] mGym2 Total number of images: 12 COMPARISON: Abscessogram dated 05/14/2019, abdomen pelvis CT dated 05/09/2019 FINDINGS: Injected contrast rapidly fills the continent ileostomy pouch. Injected contrast also a fairly quickly enters the extraluminal cavity immediately inferior to it, which is drained by a pigtail catheter. Subsequent images document contrast reflux into the apparent small bowel. IMPRESSION: Apparent satisfactory catheterization and function of continent ileostomy. Note communication of the continent ileostomy pouch with small adjacent abscess via a small fistula tract. This was also demonstrated on earlier abscessogram Dr. Marte was present during the performance of the procedure and is aware of the findings
--- NOTE | 2019-05-18 13:53 | Infectious Diseases Prog Note ---
Assessment/Plan Assessment/Plan ASSESSMENT AND PLAN: 1. klebsiella intra-abdominal abscess, e.coli uti, leukocytosis - levofloxacin and flagyl - day # 7 combination, plan on 2 weeks treatment, can give po if needed - s/p drain - monitor labs - leukocytosis resolved - d/w patient and 2. The patient has history of hypothyroidism. Continue thyroid supplementation. 3. The patient has history of Crohn's colitis. 4. The patient has a history of Castro ileostomy status post revision. 5. The patient has history of knee replacement. 6. 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 7. History of proctocolectomy. 8. The patient is anemic. 9. Allergies to adalimumab and also infliximab and intravenous dye. 10. Social history is negative. 11. Family history is noncontributory. 12. MAR is noted. 13. Case was discussed with RN. 14. Case was discussed with Dr. Marte. 15. Case was discussed with the patie Subjective Constitutional: Reports: fatigue; Denies: fever HEENT: Denies: congestion Respiratory: Denies: shortness of breath Cardiovascular: Denies: chest pain Gastrointestinal/Abdominal: Reports: other - no abdominal pain; Denies: nausea , vomiting Genitourinary: Reports: other - no ramachandran Neurologic: Denies: headache Psychiatric: Denies: depression Skin: Denies: rash Hematologic: Denies: bleeding Musculoskeletal: Denies: pain Allergies: Coded Allergies: ADALIMUMAB (Verified Allergy, Intermediate, Body Rashes, Body Aches, ) INFLIXIMAB (Verified Allergy, Intermediate, Body Rash/Body Aches, 04/26/19) Uncoded Allergies: intravenous dye (Allergy, Severe, Respiratory Distress , 04/26/19) Objective Vital Signs Last 24 Hour Vital Signs Date Time Temp Pulse Resp B/P (MAP) Pulse Ox O2 Delivery O2 Flow Rate FiO2 05/18/19 12:00 97.6 89 18 136/60 (85) 95 05/18/19 09:00 Room Air 05/18/19 09:00 94 110/63 05/18/19 08:00 97.2 94 18 110/63 (79) 97 05/18/19 04:00 97.3 85 18 138/65 (89) 97 05/18/19 00:00 97.1 77 20 127/61 (83) 98 05/17/19 21:00 Room Air 05/17/19 20:00 97.6 79 20 122/75 (91) 97 05/17/19 16:00 99.9 67 20 127/96 (106) 100 Height (Feet): 5 Height (Inches): 8.00 Weight (Pounds): 196 General Appearance: no acute distress HEENT: normocephalic, atraumatic, anicteric, mucous membranes moist Respiratory/Chest: lungs clear, normal breath sounds, no respiratory distress, no accessory muscle use Cardiovascular: normal rate, regular rhythm, no gallop/murmur, no JVD Abdomen: normal bowel sounds, soft, non tender, no organomegaly, non distended Genitourinary: other - no ramachandran Extremities: no cyanosis Skin: no rash 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 There is no evidence of bowel obstruction. Gas, fluid, and soft tissue collection adjacent to the inferior border the pouch and extending to the anterior peritoneal surface, measures approximately 5 x 4.8 cm. This could represent a routine postoperative fluid and gas collection, or could represent an abscess plus/minus area of phlegmon. Pelvic inflammatory changes, most likely related to the prior surgery Nonobstructive right renal calculi Evidence of prior lumbar spine surgery Small hiatal hernia incidentally noted Microbiology Date/Time Source Procedure Growth Status 05/07/19 12:00 Urine,Clean Catch Urine Culture - Final Escherichia Coli Complete 05/10/19 15:15 Abdominal Fluid Gram Stain - Final Complete 05/10/19 15:15 Body Fluid Culture - Final Klebsiella Pneumoniae Klebsiella Pneumoniae#2 Complete Laboratory Tests Test 05/18/19 05:00 White Blood Count 9.4 K/UL (4.8-10.8) Red Blood Count 4.39 M/UL (4.20-5.40) Hemoglobin 13.9 G/DL (12.0-16.0) Hematocrit 41.4 % (37.0-47.0) Mean Corpuscular Volume 94 FL (80-99) Mean Corpuscular Hemoglobin 31.6 PG (27.0-31.0) H Mean Corpuscular Hemoglobin Concent 33.5 G/DL (32.0-36.0) Red Cell Distribution Width 13.1 % (11.6-14.8) Platelet Count 278 K/UL (150-450) Mean Platelet Volume 5.4 FL (6.5-10.1) L Neutrophils (%) (Auto) 67.0 % (45.0-75.0) Lymphocytes (%) (Auto) 21.7 % (20.0-45.0) Monocytes (%) (Auto) 7.1 % (1.0-10.0) Eosinophils (%) (Auto) 3.5 % (0.0-3.0) H Basophils (%) (Auto) 0.7 % (0.0-2.0) Sodium Level 140 MMOL/L (136-145) Potassium Level 4.9 MMOL/L (3.5-5.1) Chloride Level 103 MMOL/L (98-107) Carbon Dioxide Level 30 MMOL/L (21-32) Anion Gap 7 mmol/L (5-15) Blood Urea Nitrogen 12 mg/dL (7-18) Creatinine 0.7 MG/DL (0.55-1.30) Estimat Glomerular Filtration Rate > 60 mL/min (>60) Glucose Level 156 MG/DL (74-106) H Calcium Level 9.3 MG/DL (8.5-10.1) Magnesium Level 1.9 MG/DL (1.8-2.4) Total Bilirubin 0.3 MG/DL (0.2-1.0) Aspartate Amino Transf (AST/SGOT) 24 U/L (15-37) Alanine Aminotransferase (ALT/SGPT) 21 U/L (12-78) Alkaline Phosphatase 71 U/L (46-116) Total Protein 6.8 G/DL (6.4-8.2) Albumin 2.9 G/DL (3.4-5.0) L Globulin 3.9 g/dL Albumin/Globulin Ratio 0.7 (1.0-2.7) L Current Medications Medications (Trade) Dose Ordered Sig/Sheng Route PRN Reason Start Time Stop Time Status Last Admin Dose Admin Acetaminophen (Tylenol) 650 mg Q4H PRN NG temp>100.2 or headache 04/27/19 12:00 05/27/19 11:59 Anastrozole (Arimidex) 1 mg DAILY ORAL 04/27/19 09:00 05/27/19 08:59 05/18/19 09:46 Ascorbic Acid (Vitamin C) 500 mg NEEDED PRN ORAL Constipation 05/06/19 11:30 06/05/19 11:29 05/11/19 08:54 Chlorhexidine Gluconate (Anya-Hex 2%) 1 applic DAILY@2000 TOPIC 04/26/19 20:00 07/25/19 19:59 05/17/19 20:20 Dextrose 1,000 ml @ 0 mls/hr Q24H PRN IV PN interrupted or unavailable 05/14/19 20:00 06/13/19 19:59 Dextrose (Dextrose 50%) 25 ml Q30M PRN IV Hypoglycemia 05/14/19 20:30 08/12/19 20:29 Dextrose (Dextrose 50%) 50 ml Q30M PRN IV Hypoglycemia 05/14/19 20:30 08/12/19 20:29 Duloxetine HCl (Cymbalta) 60 mg BID ORAL 04/26/19 18:00 07/25/19 17:59 05/18/19 09:46 Fat Emulsion Intravenous 216 ml/Amino Acids/ Electrolytes/ Dextrose 2,040 ml @ 85 mls/hr Q24H IV 05/14/19 20:00 08/12/19 19:59 05/17/19 20:20 Hydromorphone HCl (Dilaudid) 1 mg Q4H PRN SUBQ Severe Breakthru Pain (>7) 05/14/19 11:00 05/21/19 10:59 Insulin Aspart (NovoLOG) Q6HR SUBQ 05/15/19 00:00 08/13/19 00:00 05/18/19 12:27 Levofloxacin 150 ml @ 100 mls/hr Q24H IVPB 05/12/19 16:00 05/19/19 15:59 05/17/19 16:10 Levothyroxine Sodium (Synthroid) 100 mcg DAILY@0630 ORAL 04/27/19 06:30 05/27/19 06:29 05/18/19 05:34 Lorazepam (Ativan) 1 mg HSPRN PRN SL Sleep 05/14/19 09:15 05/21/19 09:14 Lorazepam (Ativan) 1 mg Q4H PRN SL Muscle Spasm 05/14/19 11:00 05/21/19 10:59 Metoprolol Succinate (Toprol XL) 50 mg DAILY ORAL 04/27/19 09:00 07/26/19 08:59 05/17/19 08:50 Metronidazole 100 ml @ 100 mls/hr Q8HR IVPB 05/12/19 14:00 05/19/19 13:59 05/18/19 05:34 Ondansetron HCl (Zofran) 4 mg Q4H PRN IVP Nausea & Vomiting 04/27/19 12:00 05/27/19 11:59 Prednisone (predniSONE) 10 mg DAILY ORAL 05/16/19 09:00 06/14/19 08:59 05/18/19 09:46 Sodium 1,000 ml @ 25 mls/hr Q24H IV 05/14/19 20:00 06/13/19 19:59 05/17/19 20:20 Darleen Perez MD May 18, 2019 13:53
[2019-05-18 16:00] VITALS: BP 146/66
[2019-05-18] MEDS: Dyna-Hex 2% Top Sol 2oz TOPIC SCH (19:41)
[2019-05-18] MEDS: FAT EMULSION 20% IV SCH (19:57)
[2019-05-18] MEDS: TPN IV SCH (19:57)
[2019-05-18 20:00] VITALS: BP 139/70
[2019-05-18] MEDS: 1/2NS w/KCl 20mEq 1000ml 1,000 ML IV SCH (20:00)
[2019-05-19] VITALS: BP 122/63
[2019-05-19] MEDS: 1/2NS w/KCl 20mEq 1000ml 1,000 ML IV SCH
[2019-05-19 04:00] VITALS: BP 131/60
[2019-05-19] MEDS: NovoLOG Insulin Flexpen SUBQ SCH ×5 (06:04→23:57)
[2019-05-19 07:05] LABS: BASOPHILS % (AUTO) 0.4 % (0.0-2.0); EOSINOPHILS % (AUTO) 3.2 % (0.0-3.0); HEMATOCRIT 38.6 % (37.0-47.0); HEMOGLOBIN 13.2 G/DL (12.0-16.0); LYMPHOCYTES % (AUTO) 20.1 % (20.0-45.0); MEAN CORPUSCULAR VOLUME 93 FL (80-99); MONOCYTES % (AUTO) 6.5 % (1.0-10.0); NEUTROPHILS % (AUTO) 69.8 % (45.0-75.0); PLATELET COUNT 265 K/UL (150-450); RED BLOOD COUNT 4.15 M/UL (4.20-5.40); RED CELL DISTRIBUTION WIDTH 12.8 % (11.6-14.8); WHITE BLOOD COUNT 8.8 K/UL (4.8-10.8)
[2019-05-19 07:41] LABS: ALANINE AMINOTRANSFERASE 23 U/L (12-78); ALBUMIN 2.9 G/DL (3.4-5.0); ALBUMIN/GLOBULIN RATIO 0.7 (1.0-2.7); ALKALINE PHOSPHATASE 72 U/L (46-116); ANION GAP 10 mmol/L (5-15); ASPARTATE AMINO TRANSFERASE 18 U/L (15-37); BILIRUBIN,TOTAL 0.2 MG/DL (0.2-1.0); BLOOD UREA NITROGEN 13 mg/dL (7-18); CALCIUM 9.3 MG/DL (8.5-10.1); CARBON DIOXIDE 29 MMOL/L (21-32); CHLORIDE 101 MMOL/L (98-107); CREATININE 0.7 MG/DL (0.55-1.30); PHOSPHORUS 3.8 MG/DL (2.5-4.9); SODIUM 140 MMOL/L (136-145)
[2019-05-19 08:00] VITALS: BP 139/58
[2019-05-19] MEDS: Anastrazole 1mg tab ORAL SCH (08:25)
[2019-05-19] MEDS: Metoprolol Succinate XL 50mg tab ORAL SCH (09:00)
[2019-05-19] MEDS ORDERED: LORazepam 1mg tab SL PRN ×2 (10:00→11:00)
--- NOTE | 2019-05-19 10:14 | General Progress Note ---
Progress Note Progress Note AVSS Anxious and depressed and wants removal of BCIR with conventional ileostomy due to fear of recurrent fistula even after repair, in view of her history and age Abdomen soft Urine 2600 BCIR ileo 165 fistula 315 labs all stable albumin 2.9 On levaquin and flagyl Imp: Early post-operative Castro pouch fistula with abscess, improved Plan: surgery 05/19 remove Castro pouch with permanent Sherlyn, vs repair fistula Santos Marte MD May 19, 2019 10:14
[2019-05-19] MEDS: ALPRAZolam 0.25mg tab ORAL PRN ×2 (10:47→16:06)
[2019-05-19] MEDS ORDERED: HYDROmorphone 1mg/ml Carpuject SUBQ PRN (11:00)
[2019-05-19 11:51] VITALS: BP 127/69
[2019-05-19 16:00] VITALS: BP 126/67
[2019-05-19] MEDS ORDERED: Tubing IV Secondary IV ONE ×2 (16:48→16:59)
[2019-05-19] MEDS ORDERED: NS Irrig 1000ml ONE ×2 (16:48→16:59)
[2019-05-19] MEDS: Dyna-Hex 2% Top Sol 2oz TOPIC SCH ×2 (19:52→20:00)
[2019-05-19] MEDS: FAT EMULSION 20% IV SCH (19:53)
[2019-05-19] MEDS: TPN IV SCH (19:53)
[2019-05-19 20:00] VITALS: BP 125/69
[2019-05-20] VITALS: BP 123/65
[2019-05-20 04:00] VITALS: BP 118/61
[2019-05-20] MEDS: ALPRAZolam 0.25mg tab ORAL PRN ×2 (04:31→10:46)
[2019-05-20] MEDS: NovoLOG Insulin Flexpen SUBQ SCH ×4 (05:27→23:58)
[2019-05-20 05:54] LABS: BASOPHILS % (AUTO) 0.7 % (0.0-2.0); EOSINOPHILS % (AUTO) 4.3 % (0.0-3.0); HEMATOCRIT 37.8 % (37.0-47.0); HEMOGLOBIN 12.8 G/DL (12.0-16.0); LYMPHOCYTES % (AUTO) 25.2 % (20.0-45.0); MEAN CORPUSCULAR VOLUME 94 FL (80-99); MONOCYTES % (AUTO) 7.9 % (1.0-10.0); NEUTROPHILS % (AUTO) 61.9 % (45.0-75.0); PLATELET COUNT 225 K/UL (150-450); RED BLOOD COUNT 4.04 M/UL (4.20-5.40); RED CELL DISTRIBUTION WIDTH 12.6 % (11.6-14.8); WHITE BLOOD COUNT 8.2 K/UL (4.8-10.8)
[2019-05-20 06:05] LABS: INR 0.9 (0.9-1.1)
[2019-05-20 06:10] LABS: ALANINE AMINOTRANSFERASE 21 U/L (12-78); ALBUMIN 2.9 G/DL (3.4-5.0); ALBUMIN/GLOBULIN RATIO 0.7 (1.0-2.7); ALKALINE PHOSPHATASE 70 U/L (46-116); ANION GAP 6 mmol/L (5-15); ASPARTATE AMINO TRANSFERASE 18 U/L (15-37); BILIRUBIN,TOTAL 0.2 MG/DL (0.2-1.0); BLOOD UREA NITROGEN 14 mg/dL (7-18); CALCIUM 9.3 MG/DL (8.5-10.1); CARBON DIOXIDE 31 MMOL/L (21-32); CHLORIDE 103 MMOL/L (98-107); CREATININE 0.7 MG/DL (0.55-1.30); POTASSIUM 3.9 MMOL/L (3.5-5.1); SODIUM 140 MMOL/L (136-145)
[2019-05-20 08:00] VITALS: BP 120/58
[2019-05-20] MEDS: Anastrazole 1mg tab ORAL SCH (09:10)
[2019-05-20] MEDS: Metoprolol Succinate XL 50mg tab ORAL SCH (09:11)
--- NOTE | 2019-05-20 09:57 | General Progress Note ---
Progress Note Progress Note AVSS Exam stable Fistula 275cc BCIR pouch ileo 40cc labs all stable Imp: Early post-operative high-volume enterocutaneous fistula Plan: Laparotomy, repair fistula or resect Castro pouch and create permanent Sherlyn ileostomy Full discussion again with patient and re options, risks; they understand and agree to proceed Will give IV solucortef pre-op and SQ heparin pre-op; continue Levaquin and flagyl and TPN, npo Santos Marte MD May 20, 2019 09:57
[2019-05-20 12:00] VITALS: BP 131/88
[2019-05-20 16:00] VITALS: BP 119/57
--- NOTE | 2019-05-20 16:50 | Infectious Diseases Prog Note ---
Assessment/Plan Assessment/Plan ASSESSMENT AND PLAN: 1. klebsiella intra-abdominal abscess, e.coli uti, leukocytosis, fistula - levofloxacin and flagyl - day # 9 combination, plan on 2 weeks treatment, can give po if needed - s/p drain - monitor labs - leukocytosis resolved - d/w patient and - plan on conventional ileostomy per D/w RN and patient 2. The patient has history of hypothyroidism. Continue thyroid supplementation. 3. The patient has history of Crohn's colitis. 4. The patient has a history of Castro ileostomy status post revision. 5. The patient has history of knee replacement. 6. 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 7. History of proctocolectomy. 8. The patient is anemic. 9. Allergies to adalimumab and also infliximab and intravenous dye. 10. Social history is negative. 11. Family history is noncontributory. 12. MAR is noted. 13. Case was discussed with RN. 14. Case was discussed with Dr. Marte. 15. Case was discussed with the patie Subjective Constitutional: Reports: fatigue; Denies: fever HEENT: Denies: congestion Respiratory: Denies: shortness of breath Cardiovascular: Denies: chest pain Gastrointestinal/Abdominal: Denies: nausea, vomiting Neurologic: Denies: headache Psychiatric: Denies: depression Skin: Denies: rash Hematologic: Denies: bleeding Musculoskeletal: Denies: pain Allergies: Coded Allergies: ADALIMUMAB (Verified Allergy, Intermediate, Body Rashes, Body Aches, ) INFLIXIMAB (Verified Allergy, Intermediate, Body Rash/Body Aches, 04/26/19) Uncoded Allergies: intravenous dye (Allergy, Severe, Respiratory Distress , 04/26/19) Objective Vital Signs Last 24 Hour Vital Signs Date Time Temp Pulse Resp B/P (MAP) Pulse Ox O2 Delivery O2 Flow Rate FiO2 05/20/19 12:00 97.7 87 20 131/88 (102) 98 05/20/19 09:11 89 120/58 05/20/19 09:00 Room Air 05/20/19 08:00 98.4 88 20 120/58 (78) 95 05/20/19 04:00 97.7 94 16 118/61 (80) 94 05/20/19 00:00 97.5 82 18 123/65 (84) 96 05/19/19 21:00 Room Air 05/19/19 20:00 97.9 86 16 125/69 (87) 95 Height (Feet): 5 Height (Inches): 8.00 Weight (Pounds): 196 General Appearance: no acute distress HEENT: normocephalic, atraumatic, anicteric, mucous membranes moist Respiratory/Chest: lungs clear, normal breath sounds, no respiratory distress, no accessory muscle use Cardiovascular: normal rate, regular rhythm, no gallop/murmur, no JVD Abdomen: normal bowel sounds, soft, non tender, no organomegaly, non distended Genitourinary: other - no ramachandran Extremities: no cyanosis Skin: no rash 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 There is no evidence of bowel obstruction. Gas, fluid, and soft tissue collection adjacent to the inferior border the pouch and extending to the anterior peritoneal surface, measures approximately 5 x 4.8 cm. This could represent a routine postoperative fluid and gas collection, or could represent an abscess plus/minus area of phlegmon. Pelvic inflammatory changes, most likely related to the prior surgery Nonobstructive right renal calculi Evidence of prior lumbar spine surgery Small hiatal hernia incidentally noted Microbiology Date/Time Source Procedure Growth Status 05/07/19 12:00 Urine,Clean Catch Urine Culture - Final Escherichia Coli Complete 05/10/19 15:15 Abdominal Fluid Gram Stain - Final Complete 05/10/19 15:15 Body Fluid Culture - Final Klebsiella Pneumoniae Klebsiella Pneumoniae#2 Complete Laboratory Tests Test 05/20/19 05:05 White Blood Count 8.2 K/UL (4.8-10.8) Red Blood Count 4.04 M/UL (4.20-5.40) L Hemoglobin 12.8 G/DL (12.0-16.0) Hematocrit 37.8 % (37.0-47.0) Mean Corpuscular Volume 94 FL (80-99) Mean Corpuscular Hemoglobin 31.8 PG (27.0-31.0) H Mean Corpuscular Hemoglobin Concent 34.0 G/DL (32.0-36.0) Red Cell Distribution Width 12.6 % (11.6-14.8) Platelet Count 225 K/UL (150-450) Mean Platelet Volume 5.3 FL (6.5-10.1) L Neutrophils (%) (Auto) 61.9 % (45.0-75.0) Lymphocytes (%) (Auto) 25.2 % (20.0-45.0) Monocytes (%) (Auto) 7.9 % (1.0-10.0) Eosinophils (%) (Auto) 4.3 % (0.0-3.0) H Basophils (%) (Auto) 0.7 % (0.0-2.0) Prothrombin Time 9.6 SEC (9.30-11.50) Prothromb Time International Ratio 0.9 (0.9-1.1) Sodium Level 140 MMOL/L (136-145) Potassium Level 3.9 MMOL/L (3.5-5.1) Chloride Level 103 MMOL/L (98-107) Carbon Dioxide Level 31 MMOL/L (21-32) Anion Gap 6 mmol/L (5-15) Blood Urea Nitrogen 14 mg/dL (7-18) Creatinine 0.7 MG/DL (0.55-1.30) Estimat Glomerular Filtration Rate > 60 mL/min (>60) Glucose Level 144 MG/DL (74-106) H Calcium Level 9.3 MG/DL (8.5-10.1) Total Bilirubin 0.2 MG/DL (0.2-1.0) Aspartate Amino Transf (AST/SGOT) 18 U/L (15-37) Alanine Aminotransferase (ALT/SGPT) 21 U/L (12-78) Alkaline Phosphatase 70 U/L (46-116) Total Protein 6.8 G/DL (6.4-8.2) Albumin 2.9 G/DL (3.4-5.0) L Globulin 3.9 g/dL Albumin/Globulin Ratio 0.7 (1.0-2.7) L Current Medications Medications (Trade) Dose Ordered Sig/Sheng Route PRN Reason Start Time Stop Time Status Last Admin Dose Admin Acetaminophen (Tylenol) 650 mg Q4H PRN NG temp>100.2 or headache 04/27/19 12:00 05/27/19 11:59 Alprazolam (Xanax) 0.25 mg EVERY 4 HOURS PRN ORAL For Anxiety 05/19/19 10:15 05/26/19 10:14 05/20/19 10:46 Anastrozole (Arimidex) 1 mg DAILY ORAL 04/27/19 09:00 05/27/19 08:59 05/20/19 09:10 Ascorbic Acid (Vitamin C) 500 mg NEEDED PRN ORAL Constipation 05/06/19 11:30 06/05/19 11:29 05/11/19 08:54 Chlorhexidine Gluconate (Anya-Hex 2%) 1 applic DAILY@2000 TOPIC 04/26/19 20:00 07/25/19 19:59 05/18/19 19:41 Dextrose 1,000 ml @ 0 mls/hr Q24H PRN IV PN interrupted or unavailable 05/14/19 20:00 06/13/19 19:59 Dextrose (Dextrose 50%) 25 ml Q30M PRN IV Hypoglycemia 05/14/19 20:30 08/12/19 20:29 Dextrose (Dextrose 50%) 50 ml Q30M PRN IV Hypoglycemia 05/14/19 20:30 08/12/19 20:29 Duloxetine HCl (Cymbalta) 60 mg BID ORAL 04/26/19 18:00 07/25/19 17:59 05/20/19 09:10 Fat Emulsion Intravenous 216 ml/Amino Acids/ Electrolytes/ Dextrose 2,040 ml @ 85 mls/hr Q24H IV 05/14/19 20:00 08/12/19 19:59 05/19/19 19:53 Heparin Sodium (Porcine) (Heparin 5000 units/ml) 5,000 units ONCE SUBQ 05/21/19 07:00 05/21/19 08:00 Hydrocortisone (Solu-CORTEF) 50 mg Q8HR IV 05/21/19 08:00 08/19/19 07:59 Hydromorphone HCl (Dilaudid) 1 mg Q4H PRN SUBQ Severe Breakthru Pain (>7) 05/19/19 11:00 05/26/19 10:59 Insulin Aspart (NovoLOG) Q6HR SUBQ 05/15/19 00:00 08/13/19 00:00 05/20/19 13:02 Levofloxacin 150 ml @ 100 mls/hr Q24H IVPB 05/18/19 16:00 05/25/19 15:59 05/20/19 16:26 Levothyroxine Sodium (Synthroid) 100 mcg DAILY@0630 ORAL 04/27/19 06:30 05/27/19 06:29 05/20/19 05:32 Metoprolol Succinate (Toprol XL) 50 mg DAILY ORAL 04/27/19 09:00 07/26/19 08:59 05/20/19 09:11 Metronidazole 100 ml @ 100 mls/hr Q8HR IVPB 05/18/19 14:00 05/25/19 13:59 05/20/19 14:35 Ondansetron HCl (Zofran) 4 mg Q4H PRN IVP Nausea & Vomiting 04/27/19 12:00 05/27/19 11:59 Sodium 1,000 ml @ 25 mls/hr Q24H IV 05/14/19 20:00 06/13/19 19:59 05/19/19 00:00 Temazepam (RestoriL) 7.5 mg HSPRN PRN ORAL Insomnia 05/19/19 10:15 05/26/19 10:14 05/19/19 21:01 Darleen Perez MD May 20, 2019 16:50
[2019-05-20 20:00] VITALS: BP 107/61
[2019-05-20] MEDS: Dyna-Hex 2% Top Sol 2oz TOPIC SCH (20:00)
[2019-05-20] MEDS: 1/2NS w/KCl 20mEq 1000ml 1,000 ML IV SCH (20:59)
[2019-05-20] MEDS: FAT EMULSION 20% IV SCH (21:02)
[2019-05-20] MEDS: TPN IV SCH (21:02)
[2019-05-21] VITALS (19 sets, daily range): BP systolic 101–146; BP diastolic 62–82
[2019-05-21] MEDS: NovoLOG Insulin Flexpen SUBQ SCH ×3 (06:00→17:45)
[2019-05-21 06:51] LABS: ALANINE AMINOTRANSFERASE 21 U/L (12-78); ALBUMIN 2.9 G/DL (3.4-5.0); ALBUMIN/GLOBULIN RATIO 0.8 (1.0-2.7); ALKALINE PHOSPHATASE 70 U/L (46-116); ANION GAP 6 mmol/L (5-15); ASPARTATE AMINO TRANSFERASE 18 U/L (15-37); BILIRUBIN,TOTAL 0.3 MG/DL (0.2-1.0); BLOOD UREA NITROGEN 14 mg/dL (7-18); CALCIUM 9.3 MG/DL (8.5-10.1); CARBON DIOXIDE 32 MMOL/L (21-32); CHLORIDE 103 MMOL/L (98-107); CREATININE 0.8 MG/DL (0.55-1.30); POTASSIUM 4.4 MMOL/L (3.5-5.1); SODIUM 141 MMOL/L (136-145)
[2019-05-21] MEDS ORDERED: Heparin 5000 units/ml inj SUBQ SCH (07:00)
[2019-05-21 07:11] LABS: EOSINOPHILS % (AUTO) 5.9 % (0.0-3.0); HEMATOCRIT 37.8 % (37.0-47.0); HEMOGLOBIN 13.2 G/DL (12.0-16.0); MEAN CORPUSCULAR VOLUME 92 FL (80-99); MONOCYTES % (AUTO) 7.6 % (1.0-10.0); NEUTROPHILS % (AUTO) 63.5 % (45.0-75.0); PLATELET COUNT 213 K/UL (150-450); RED BLOOD COUNT 4.13 M/UL (4.20-5.40); RED CELL DISTRIBUTION WIDTH 13.9 % (11.6-14.8); WHITE BLOOD COUNT 8.1 K/UL (4.8-10.8)
[2019-05-21] MEDS: Hydrocortisone 100mg Inj IV SCH ×3 (07:50→21:32)
[2019-05-21] MEDS: Anastrazole 1mg tab ORAL SCH (07:53)
[2019-05-21] MEDS: Metoprolol Succinate XL 50mg tab ORAL SCH (07:53)
[2019-05-21] MEDS ORDERED: Midazolam 2mg/2ml Inj ONE (08:30)
[2019-05-21] MEDS ORDERED: fentaNYL 100 mcg/2 mL IV ONE (08:30)
[2019-05-21] MEDS ORDERED: Lidocaine 1% MPF 10mg/ml 5ml ONE (08:35)
[2019-05-21] MEDS ORDERED: Propofol 200mg/20ml IV ONE (08:35)
[2019-05-21] MEDS ORDERED: Succinylcholine 20mg/ml 10ml vial ONE (08:40)
[2019-05-21] MEDS ORDERED: Rocuronium Bromide 50mg/5ml Inj IV ONE (08:40)
--- NOTE | 2019-05-21 08:41 | Pre-Procedure Note/Attestation ---
Pre-Procedure Note/Attestation Complete Prior to Procedure Planned Procedure: not applicable Procedure Narrative: repair of enterocutaneous fistula, possible resection Castro continent ileostomy with creation of Sherlyn ileostomy Indications for Procedure Pre-Operative Diagnosis: Enterocutaneous fistula Attestation I attest that I discussed the nature of the procedure; its benefits; risks and complications; and alternatives (and the risks and benefits of such alternatives ), prior to the procedure, with the patient (or the patient's legal medical representative). I attest that, if there was a reasonable possibility of needing a blood transfusion, the patient (or the patient's legal medical representative) was given the [facility] standardized written summary, pursuant to the Scottie Basye Blood Safety Act ([place] Health and Safety Code # 1645, as amended). I attest that I re-evaluated the patient just prior to the surgery and that there has been no change in the patient's H&P, except as documented below: none Santos Marte MD May 21, 2019 08:41
[2019-05-21] MEDS ORDERED: Bacitracin Oint 15gm Tube TOPIC ONE (09:06)
[2019-05-21] MEDS ORDERED: Bacitracin 50000 Units Vial ONE (09:07)
[2019-05-21] MEDS ORDERED: NeoSporin Gu Irrig 1ml Amp IRRIG ONE (09:07)
--- NOTE | 2019-05-21 09:49 | Anethesia Preoperative Eval ---
Anesthesia Pre-op PMH/ROS General Date of Evaluation: May 21, 2019 Time of Evaluation: 08:40 Anesthesiologist: Kendy ASA Score: ASA 3 Mallampati Score Class I : Soft palate, uvula, fauces, pillars visible Class II: Soft palate, uvula, fauces visible Class III: Soft palate, base of uvula visible Class IV: Only hard plate visible Mallampati Classification: Class II Surgeon: Estuardo Diagnosis: Enterocutaneons fistula Surgical Procedure: Ex laparotomy Anesthesia History: none Family History: no anesthesia problems Allergies: Coded Allergies: ADALIMUMAB (Verified Allergy, Intermediate, Body Rashes, Body Aches, ) INFLIXIMAB (Verified Allergy, Intermediate, Body Rash/Body Aches, 04/26/19) Uncoded Allergies: intravenous dye (Allergy, Severe, Respiratory Distress , 04/26/19) Medications: see eMAR Patient NPO?: Yes NPO Date: May 21, 2019 NPO Time: 0000 Past Medical History Cardiovascular: Reports: HTN - stable; Denies: CAD, MD, valve dz, arrhythmia, other Pulmonary: Denies: asthma, COPD, LINDSAY, other Gastrointestinal/Genitourinary: Reports: GERD, other - h/o UC, s/p total colectomy; Denies: CRI, ESRD Neurologic/Psychiatric: Reports: depression/anxiety; Denies: dementia, CVA, TIA, other Endocrine: Reports: DM, hypothyroidism; Denies: steroids, other HEENT: Denies: cataract (L), cataract (R), glaucoma, AGUA CALIENTE (L), AGUA CALIENTE (R), other Hematology/Immune: Reports: anemia - mild; Denies: DVT, bleeding disorder, other Musculoskeletal/Integumentary: Reports: DJD; Denies: OA, RA, DDD, edema, other Other: other - overweight PMH Narrative: as above PSxH Narrative: Multiple intraabdominal Sx, see H&P and bilateral knee replacement, bilateral mastectomy for CA Anesthesia Pre-op Phys. Exam Physician Exam Last Vital Signs Date Time Temp Pulse Resp B/P (MAP) Pulse Ox O2 Delivery O2 Flow Rate FiO2 05/21/19 08:03 Room Air 05/21/19 08:00 97.6 100 20 120/62 (81) 97 Constitutional: NAD Neurologic: CN 2-12 intact Cardiovascular: RRR Respiratory: CTA Gastrointestinal: S/NT/ND Airway Exam Mallampati Score: Class II MO: limited Neck: stiff ROM: limited Teeth: missing Dentures: no upper, no lower Anesthesia Pre-op A/P Labs Hematology Test 05/21/19 04:45 White Blood Count 8.1 K/UL (4.8-10.8) Red Blood Count 4.13 M/UL (4.20-5.40) L Hemoglobin 13.2 G/DL (12.0-16.0) Hematocrit 37.8 % (37.0-47.0) Mean Corpuscular Volume 92 FL (80-99) Mean Corpuscular Hemoglobin 32.0 PG (27.0-31.0) H Mean Corpuscular Hemoglobin Concent 34.9 G/DL (32.0-36.0) Red Cell Distribution Width 13.9 % (11.6-14.8) Platelet Count 213 K/UL (150-450) Mean Platelet Volume 5.7 FL (6.5-10.1) L Neutrophils (%) (Auto) 63.5 % (45.0-75.0) Lymphocytes (%) (Auto) 22.0 % (20.0-45.0) Monocytes (%) (Auto) 7.6 % (1.0-10.0) Eosinophils (%) (Auto) 5.9 % (0.0-3.0) H Basophils (%) (Auto) 1.0 % (0.0-2.0) Chemistry Test 05/21/19 04:45 Sodium Level 141 MMOL/L (136-145) Potassium Level 4.4 MMOL/L (3.5-5.1) Chloride Level 103 MMOL/L (98-107) Carbon Dioxide Level 32 MMOL/L (21-32) Anion Gap 6 mmol/L (5-15) Blood Urea Nitrogen 14 mg/dL (7-18) Creatinine 0.8 MG/DL (0.55-1.30) Estimat Glomerular Filtration Rate > 60 mL/min (>60) Glucose Level 152 MG/DL (74-106) H Calcium Level 9.3 MG/DL (8.5-10.1) Total Bilirubin 0.3 MG/DL (0.2-1.0) Aspartate Amino Transf (AST/SGOT) 18 U/L (15-37) Alanine Aminotransferase (ALT/SGPT) 21 U/L (12-78) Alkaline Phosphatase 70 U/L (46-116) Total Protein 6.7 G/DL (6.4-8.2) Albumin 2.9 G/DL (3.4-5.0) L Globulin 3.8 g/dL Albumin/Globulin Ratio 0.8 (1.0-2.7) L Risk Assessment & Plan Assessment: ASA 3 Plan: GA with ETT Status Change Before Surgery: No Pre-Antibiotics Drug: as scheduled Royal Larry MD May 21, 2019 09:49
[2019-05-21] MEDS ORDERED: LR 1000ml 1,000 ML IVLG SCH (09:52)
[2019-05-21] MEDS ORDERED: Ketorolac 30mg Inj IV PRN (10:00)
[2019-05-21] MEDS ORDERED: DiphenhydrAMINE 50mg/ml Inj IVP PRN ×2 (10:00→10:45)
[2019-05-21] MEDS ORDERED: Acetaminophen (Non formulary) 100 ML IV ONE (10:00)
[2019-05-21] MEDS ORDERED: Metoclopramide 10mg/2ml Inj IVP PRN (10:00)
[2019-05-21] MEDS ORDERED: Hydromorphone 0.5mg/0.5ml inj IVP PRN (10:00)
[2019-05-21] MEDS ORDERED: Glycopyrrolate 0.2mg/ml 1ml Vial ONE (10:17)
[2019-05-21] MEDS ORDERED: LR 1000ml ONE (10:32)
[2019-05-21] MEDS ORDERED: NS Irrig 1000ml ONE (10:32)
[2019-05-21] MEDS ORDERED: PCA Education Pamphlet MISC ONE (10:45)
[2019-05-21] MEDS ORDERED: Rate Change PCA 1 Each MISC PRN (10:45)
[2019-05-21] MEDS ORDERED: PCA HYDROmorphone 1mg/ml 30 ML IV PRN (10:45)
[2019-05-21] MEDS ORDERED: Naloxone 0.4mg/ml Inj IVP PRN (10:45)
--- NOTE | 2019-05-21 10:47 | Immediate Post-Op Evaluation ---
Immediate Post-Op Evalulation Immediate Post-Op Evalulation Procedure: Exploratory laparotomy, lysis of adhesions,hostile abdomen Date of Evaluation: May 21, 2019 Time of Evaluation: 10:46 IV Fluids: 600 Blood Products: none Estimated Blood Loss: 50 Urinary Output: 350 Blood Pressure Systolic: 132 Blood Pressure Diastolic: 68 Pulse Rate: 98 Respiratory Rate: 20 O2 Sat by Pulse Oximetry: 98 Temperature (Fahrenheit): 97.6 Pain Score (1-10): 2 Nausea: No Vomiting: No Complications none Patient Status: reacts, patent, extubated, none Hydration Status: adequate Royal Larry MD May 21, 2019 10:47
--- NOTE | 2019-05-21 10:51 | Brief Operative Note ---
Immediate Post Operative Note Operative Note Pre-op Diagnosis: Enterocutaneous fistula Procedure: Laparotomy with finding of hostile abdomen Post-op Diagnosis: enterocutaneous fistula of Castro continent ileostomy pouch Post-op Diagnosis: same as pre-op Findings: other - hostile abdomen Surgeon: dipesh Additional Surgeons: porfirio Anesthesiologist: nesha Anesthesia: general Specimen: none Complications: none Condition: stable Fluids: see anesthesia record Estimated Blood Loss: minimal Drains: other - 28 Aguiar to Castro pouch Packing: surgicel upper incision Implant(s) used?: Santos Ahn MD May 21, 2019 10:51
[2019-05-21] MEDS ORDERED: PCA HYDROmorphone 1mg/ml 30 ML IV ONE (11:18)
--- NOTE | 2019-05-21 12:55 | 48 Hour Post Anesthesia Eval ---
Post Anesthesia Evaluation Procedure: Exploratory laparotomy, lysis of adhesions,hostile abdomen Date of Evaluation: May 21, 2019 Time of Evaluation: 12:55 Blood Pressure Systolic: 146 0: 70 Pulse Rate: 91 Respiratory Rate: 18 Temperature (Fahrenheit): 97.7 O2 Sat by Pulse Oximetry: 99 Airway: patent Nausea: No Vomiting: No Pain Intensity: 2 Hydration Status: adequate Cardiopulmonary Status: Stable Mental Status/LOC: patient returned to baseline Follow-up Care/Observations: 0 Post-Anesthesia Complications: 0 Follow-up care needed: N/A Beau Squires MD May 21, 2019 12:55
[2019-05-21] MEDS: 1/2NS w/KCl 20mEq 1000ml 1,000 ML IV SCH ×2 (13:20→20:06)
--- NOTE | 2019-05-21 16:15 | Operative Note - Dictated ---
DATE OF OPERATION: 05/21/2019 SURGEON: Santos Marte MD. ADDITIONAL SURGEON: Reggie Ruiz MD. ANESTHESIOLOGIST: Royal Larry MD. TYPE OF ANESTHESIA: General endotracheal. PREOPERATIVE DIAGNOSES: 1. 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 2. History of Crohn's colitis. 3. STATUS POST MULTIPLE ABDOMINAL OPERATIONS: 3.1. Proctocolectomy and Sherlyn ileostomy in 1974. 3.2. Castro continent ileostomy in 1982. 3.3. Repair of Castro continent ileostomy pouch fistula to access segment October 2016 performed in [place]. 3.4. Laparotomy with creation of new valve and stoma and resection of Castro access segment fistula April 27, 2019. POSTOPERATIVE DIAGNOSES: 1. 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 2. History of Crohn's colitis. 3. STATUS POST MULTIPLE ABDOMINAL OPERATIONS: 3.1. Proctocolectomy and Sherlyn ileostomy in 1974. 3.2. Castro continent ileostomy in 1982. 3.3. Repair of Castro continent ileostomy pouch fistula to access segment October 2016 performed in [place]. 3.4. Laparotomy with creation of new valve and stoma and resection of Castro access segment fistula April 27, 2019. OPERATION PERFORMED: Attempted exploratory laparotomy with finding of hostile abdomen. FINDINGS: At the patient's operation 24 days ago, she was found to have extensive severe adhesions during the procedure to revise her Kock pouch because of her fistula. She developed a postoperative intra-abdominal abscess with placement of a drain by Interventional Radiology, which began draining stool. At this operation, the abdomen was sealed with adhesions and I felt that proceeding would be exceedingly dangerous. The abscess-fistula drain had been left in place and a new Castro pouch catheter inserted. DESCRIPTION OF PROCEDURE: The patient was taken to the operating room and under general anesthesia with sequential compression device stockings in place and having received preoperative subcutaneous heparin and intravenous antibiotics, the patient was prepped and draped in usual fashion. Before prepping, I removed the indwelling Castro pouch catheter but deliberately prepped into the field the abscess/fistula catheter placed by Interventional Radiology. Previous midline incision was reopened and going through the fascia it was clear that the patient had an extreme adhesive reaction and that proceeding would likely result in multiple enterotomies and possible multiple resections of segments of small bowel. I felt the risk was too high and there was still an opportunity for this early postoperative pouch fistula to heal with continuous drainage of the pouch and continued nutritional support. After carefully achieving hemostasis and avoiding any injury to the intestine, the fascia was closed with continuous #1 looped PDS. There was some bleeding from the upper pole abdominal wall controlled by cautery and a small piece of Surgicel. This area was carefully observed and hemostasis was secure. The field had been protected with antibiotic soaked laps during the procedure. A 28-[place] Aguiar catheter was positioned in the pouch confirmed by irrigation and sutured to the skin with two sutures of 2-0 silk and flushed and connected to a gravity drainage bag. The abscess-fistula drain was sutured with two sutures of 3-0 silk and left in situ to closed suction. Final sponge and needle counts were correct. Dry sterile dressings were applied. The patient tolerated the procedure well and left the operating room in stable condition. Santos Marte M.D. DR: Giselle JOB#: [id number] CC: DORENE
[2019-05-21] MEDS ORDERED: Tubing IV Secondary IV ONE (17:30)
[2019-05-21] MEDS: PCA shift volume MISC SCH (19:10)
[2019-05-21] MEDS: Dyna-Hex 2% Top Sol 2oz TOPIC SCH (20:00)
[2019-05-21] MEDS: TPN IV SCH (20:08)
[2019-05-21] MEDS: FAT EMULSION 20% IV SCH (20:08)
[2019-05-22] VITALS: BP 106/71
[2019-05-22] MEDS: NovoLOG Insulin Flexpen SUBQ SCH ×5 (00:05→23:28)
[2019-05-22 04:00] VITALS: BP 116/69
[2019-05-22] MEDS: Hydrocortisone 100mg Inj IV SCH ×3 (05:56→21:19)
[2019-05-22] MEDS: PCA shift volume MISC SCH ×2 (07:29→19:08)
[2019-05-22 08:00] VITALS: BP 141/62
[2019-05-22] MEDS: Anastrazole 1mg tab ORAL SCH (09:15)
[2019-05-22] MEDS: Metoprolol Succinate XL 50mg tab ORAL SCH (09:16)
[2019-05-22] MEDS ORDERED: PCA HYDROmorphone 1mg/ml 30 ML IV PRN (10:45)
[2019-05-22] MEDS ORDERED: Naloxone 0.4mg/ml Inj IVP PRN (10:59)
[2019-05-22] MEDS ORDERED: DiphenhydrAMINE 50mg/ml Inj IVP PRN (11:00)
[2019-05-22] MEDS ORDERED: Rate Change PCA 1 Each MISC PRN (11:00)
--- NOTE | 2019-05-22 11:03 | General Progress Note ---
Progress Note Progress Note AVSS Comfortable with low dose demand only dilaudid COOK PICKLED MEAT. Full discussion again with patient and regarding finding of hostile (frozen) abdomen, and the fistula is low volume. If it does not close spontaneously I would delay reoperation for at least 6 months in view of her adhesive reaction (severe adhesions with original surgery 04/26 Abdomen soft, mild distention, incision clean Urine 2225 BCIR ileo scant enteric Fistula/abscess drain 20cc overnight 12 hours Labs pending Imp: Ileus Plan: Continue npo, TPN, Aguiar, antibiotics Mobilize f/u labs Santos Marte MD May 22, 2019 11:03
[2019-05-22 11:17] LABS: ANION GAP 7 mmol/L (5-15); BLOOD UREA NITROGEN 12 mg/dL (7-18); CALCIUM 8.8 MG/DL (8.5-10.1); CARBON DIOXIDE 30 MMOL/L (21-32); CHLORIDE 103 MMOL/L (98-107); CREATININE 0.8 MG/DL (0.55-1.30); POTASSIUM 4.1 MMOL/L (3.5-5.1); SODIUM 140 MMOL/L (136-145)
[2019-05-22 11:21] LABS: BASOPHILS % (AUTO) 0.3 % (0.0-2.0); EOSINOPHILS % (AUTO) 0.5 % (0.0-3.0); HEMATOCRIT 34.2 % (37.0-47.0); HEMOGLOBIN 12.2 G/DL (12.0-16.0); LYMPHOCYTES % (AUTO) 13.1 % (20.0-45.0); MEAN CORPUSCULAR VOLUME 91 FL (80-99); MONOCYTES % (AUTO) 3.1 % (1.0-10.0); PLATELET COUNT 202 K/UL (150-450); RED BLOOD COUNT 3.77 M/UL (4.20-5.40); RED CELL DISTRIBUTION WIDTH 12.3 % (11.6-14.8); WHITE BLOOD COUNT 10.4 K/UL (4.8-10.8)
[2019-05-22 11:22] LABS: ALANINE AMINOTRANSFERASE 19 U/L (12-78); ALBUMIN 2.7 G/DL (3.4-5.0); ALBUMIN/GLOBULIN RATIO 0.8 (1.0-2.7); ALKALINE PHOSPHATASE 68 U/L (46-116); ASPARTATE AMINO TRANSFERASE 17 U/L (15-37); BILIRUBIN,TOTAL 0.2 MG/DL (0.2-1.0)
--- NOTE | 2019-05-22 11:30 | 48 Hour Post Anesthesia Eval ---
Post Anesthesia Evaluation Procedure: Exploratory laparotomy, lysis of adhesions,hostile abdomen Date of Evaluation: May 22, 2019 Time of Evaluation: 11:29 Blood Pressure Systolic: 142 0: 56 Pulse Rate: 72 Respiratory Rate: 20 Temperature (Fahrenheit): 97.6 O2 Sat by Pulse Oximetry: 98 Airway: patent Nausea: No Vomiting: No Pain Intensity: 2 Hydration Status: adequate Cardiopulmonary Status: STABLE Mental Status/LOC: patient returned to baseline Follow-up Care/Observations: n/a Post-Anesthesia Complications: none Follow-up care needed: N/A Royal Larry MD May 22, 2019 11:30
[2019-05-22 12:00] VITALS: BP 134/62
[2019-05-22 16:00] VITALS: BP 125/58
--- NOTE | 2019-05-22 17:46 | Infectious Diseases Prog Note ---
Assessment/Plan Assessment/Plan ASSESSMENT AND PLAN: 1. klebsiella intra-abdominal abscess, e.coli uti, leukocytosis, fistula - levofloxacin and flagyl - day # 11 - s/p attempted exploratory lap with hostile abdomen - monitor labs - leukocytosis resolved - d/w RN and patient 2. The patient has history of hypothyroidism. Continue thyroid supplementation. 3. The patient has history of Crohn's colitis. 4. The patient has a history of Castro ileostomy status post revision. 5. The patient has history of knee replacement. 6. 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 7. History of proctocolectomy. 8. The patient is anemic. 9. Allergies to adalimumab and also infliximab and intravenous dye. 10. Social history is negative. 11. Family history is noncontributory. 12. MAR is noted. 13. Case was discussed with RN. 14. Case was discussed with Dr. Marte. 15. Case was discussed with the patie Subjective Constitutional: Denies: fever HEENT: Denies: congestion Respiratory: Denies: shortness of breath Cardiovascular: Denies: chest pain Gastrointestinal/Abdominal: Denies: nausea, vomiting, diarrhea Genitourinary: Reports: other - + ramachandran Neurologic: Denies: headache Psychiatric: Denies: depression Skin: Denies: rash Hematologic: Denies: bleeding Musculoskeletal: Denies: pain Allergies: Coded Allergies: ADALIMUMAB (Verified Allergy, Intermediate, Body Rashes, Body Aches, ) INFLIXIMAB (Verified Allergy, Intermediate, Body Rash/Body Aches, 04/26/19) Uncoded Allergies: intravenous dye (Allergy, Severe, Respiratory Distress , 04/26/19) Objective Vital Signs Last 24 Hour Vital Signs Date Time Temp Pulse Resp B/P (MAP) Pulse Ox O2 Delivery O2 Flow Rate FiO2 05/22/19 16:00 16 05/22/19 16:00 97.9 72 16 125/58 (80) 98 05/22/19 12:00 98.3 82 16 134/62 (86) 99 05/22/19 12:00 16 05/22/19 11:30 72 20 98 05/22/19 09:16 80 141/62 05/22/19 09:00 Nasal Cannula 2.0 05/22/19 08:00 98.3 80 16 141/62 (88) 100 05/22/19 08:00 16 05/22/19 04:00 81 18 100 05/22/19 04:00 97.6 81 18 116/69 (85) 100 05/22/19 00:00 71 19 99 05/22/19 00:00 97.6 73 19 106/71 (83) 99 05/21/19 21:00 Room Air 05/21/19 20:00 73 19 98 05/21/19 20:00 97.4 73 19 101/72 (82) 98 Height (Feet): 5 Height (Inches): 8.00 Weight (Pounds): 196 General Appearance: no acute distress HEENT: normocephalic, atraumatic, anicteric, mucous membranes moist Respiratory/Chest: lungs clear, normal breath sounds, no respiratory distress, no accessory muscle use Cardiovascular: normal rate, regular rhythm, no gallop/murmur, no JVD Abdomen: normal bowel sounds, soft, non tender, no organomegaly, non distended Genitourinary: other - no ramachandran Extremities: no cyanosis Skin: no rash Neurologic/Psychiatric: 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 There is no evidence of bowel obstruction. Gas, fluid, and soft tissue collection adjacent to the inferior border the pouch and extending to the anterior peritoneal surface, measures approximately 5 x 4.8 cm. This could represent a routine postoperative fluid and gas collection, or could represent an abscess plus/minus area of phlegmon. Pelvic inflammatory changes, most likely related to the prior surgery Nonobstructive right renal calculi Evidence of prior lumbar spine surgery Small hiatal hernia incidentally noted Microbiology Date/Time Source Procedure Growth Status 05/07/19 12:00 Urine,Clean Catch Urine Culture - Final Escherichia Coli Complete 05/10/19 15:15 Abdominal Fluid Gram Stain - Final Complete 05/10/19 15:15 Body Fluid Culture - Final Klebsiella Pneumoniae Klebsiella Pneumoniae#2 Complete Laboratory Tests Test 05/22/19 11:00 White Blood Count 10.4 K/UL (4.8-10.8) Red Blood Count 3.77 M/UL (4.20-5.40) L Hemoglobin 12.2 G/DL (12.0-16.0) Hematocrit 34.2 % (37.0-47.0) L Mean Corpuscular Volume 91 FL (80-99) Mean Corpuscular Hemoglobin 32.2 PG (27.0-31.0) H Mean Corpuscular Hemoglobin Concent 35.6 G/DL (32.0-36.0) Red Cell Distribution Width 12.3 % (11.6-14.8) Platelet Count 202 K/UL (150-450) Mean Platelet Volume 5.3 FL (6.5-10.1) L Neutrophils (%) (Auto) 83.0 % (45.0-75.0) H Lymphocytes (%) (Auto) 13.1 % (20.0-45.0) L Monocytes (%) (Auto) 3.1 % (1.0-10.0) Eosinophils (%) (Auto) 0.5 % (0.0-3.0) Basophils (%) (Auto) 0.3 % (0.0-2.0) Sodium Level 140 MMOL/L (136-145) Potassium Level 4.1 MMOL/L (3.5-5.1) Chloride Level 103 MMOL/L (98-107) Carbon Dioxide Level 30 MMOL/L (21-32) Anion Gap 7 mmol/L (5-15) Blood Urea Nitrogen 12 mg/dL (7-18) Creatinine 0.8 MG/DL (0.55-1.30) Estimat Glomerular Filtration Rate > 60 mL/min (>60) Glucose Level 205 MG/DL (74-106) H Calcium Level 8.8 MG/DL (8.5-10.1) Total Bilirubin 0.2 MG/DL (0.2-1.0) Aspartate Amino Transf (AST/SGOT) 17 U/L (15-37) Alanine Aminotransferase (ALT/SGPT) 19 U/L (12-78) Alkaline Phosphatase 68 U/L (46-116) Total Protein 6.3 G/DL (6.4-8.2) L Albumin 2.7 G/DL (3.4-5.0) L Globulin 3.6 g/dL Albumin/Globulin Ratio 0.8 (1.0-2.7) L Current Medications Medications (Trade) Dose Ordered Sig/Sheng Route PRN Reason Start Time Stop Time Status Last Admin Dose Admin Acetaminophen (Tylenol) 650 mg Q4H PRN NG temp>100.2 or headache 04/27/19 12:00 05/27/19 11:59 Alprazolam (Xanax) 0.25 mg EVERY 4 HOURS PRN ORAL For Anxiety 05/19/19 10:15 05/26/19 10:14 05/20/19 10:46 Anastrozole (Arimidex) 1 mg DAILY ORAL 04/27/19 09:00 05/27/19 08:59 05/22/19 09:15 Ascorbic Acid (Vitamin C) 500 mg NEEDED PRN ORAL Constipation 05/06/19 11:30 06/05/19 11:29 05/11/19 08:54 Chlorhexidine Gluconate (Anya-Hex 2%) 1 applic DAILY@2000 TOPIC 04/26/19 20:00 07/25/19 19:59 05/18/19 19:41 Dextrose 1,000 ml @ 0 mls/hr Q24H PRN IV PN interrupted or unavailable 05/14/19 20:00 06/13/19 19:59 Dextrose (Dextrose 50%) 25 ml Q30M PRN IV Hypoglycemia 05/14/19 20:30 08/12/19 20:29 Dextrose (Dextrose 50%) 50 ml Q30M PRN IV Hypoglycemia 05/14/19 20:30 08/12/19 20:29 Diphenhydramine HCl (Benadryl) 25 mg Q6H PRN IVP Itching/Pruritis 05/22/19 11:00 05/24/19 10:59 Duloxetine HCl (Cymbalta) 60 mg BID ORAL 04/26/19 18:00 07/25/19 17:59 05/22/19 09:15 Fat Emulsion Intravenous 216 ml/Amino Acids/ Electrolytes/ Dextrose 2,040 ml @ 85 mls/hr Q24H IV 05/14/19 20:00 08/12/19 19:59 05/21/19 20:08 Hydrocortisone (Solu-CORTEF) 50 mg Q8HR IV 05/21/19 08:00 08/19/19 07:59 05/22/19 14:01 Hydromorphone HCl 30 ml @ 0 mls/hr Q24H PRN IV For Pain 05/22/19 10:45 05/24/19 10:44 Hydromorphone HCl (Dilaudid) 1 mg Q4H PRN SUBQ Severe Breakthru Pain (>7) 05/19/19 11:00 05/26/19 10:59 Insulin Aspart (NovoLOG) Q6HR SUBQ 05/15/19 00:00 08/13/19 00:00 05/22/19 12:01 Levofloxacin 150 ml @ 100 mls/hr Q24H IVPB 05/18/19 16:00 05/25/19 15:59 05/22/19 16:18 Levothyroxine Sodium (Synthroid) 100 mcg DAILY@0630 ORAL 04/27/19 06:30 05/27/19 06:29 05/22/19 05:56 Metoprolol Succinate (Toprol XL) 50 mg DAILY ORAL 04/27/19 09:00 07/26/19 08:59 05/22/19 09:16 Metronidazole 100 ml @ 100 mls/hr Q8HR IVPB 05/18/19 14:00 05/25/19 13:59 05/22/19 14:01 Miscellaneous Medication (RN FLIGHT Rate Change) 1 ea DAILY PRN MISC rate change 05/22/19 11:00 05/24/19 10:59 Miscellaneous Medication (RN FLIGHT shift volume) 1 ea Q12HR@0700,1900 MISC 05/22/19 19:00 05/24/19 18:59 Naloxone HCl (Narcan) 0.1 mg Q1M PRN IVP RR<10/min OR SBP<90 mmHg 05/22/19 10:59 05/24/19 10:57 Ondansetron HCl (Zofran) 4 mg Q4H PRN IVP Nausea & Vomiting 04/27/19 12:00 05/27/19 11:59 Sodium 1,000 ml @ 25 mls/hr Q24H IV 05/14/19 20:00 06/13/19 19:59 05/21/19 20:06 Temazepam (RestoriL) 7.5 mg HSPRN PRN ORAL Insomnia 05/19/19 10:15 05/26/19 10:14 05/22/19 01:09 Darleen Perez MD May 22, 2019 17:46
[2019-05-22 20:00] VITALS: BP 125/59
[2019-05-22] MEDS: Dyna-Hex 2% Top Sol 2oz TOPIC SCH (20:00)
[2019-05-22] MEDS: FAT EMULSION 20% IV SCH (20:07)
[2019-05-22] MEDS: TPN IV SCH (20:07)
[2019-05-22] MEDS: 1/2NS w/KCl 20mEq 1000ml 1,000 ML IV SCH (20:08)
[2019-05-23] VITALS: BP 122/60
[2019-05-23 04:00] VITALS: BP 140/85
[2019-05-23] MEDS: NovoLOG Insulin Flexpen SUBQ SCH ×4 (05:33→23:03)
[2019-05-23] MEDS: Hydrocortisone 100mg Inj IV SCH ×2 (05:35→20:21)
[2019-05-23 06:31] LABS: BASOPHILS % (AUTO) 0.4 % (0.0-2.0); EOSINOPHILS % (AUTO) 1.3 % (0.0-3.0); HEMATOCRIT 34.5 % (37.0-47.0); HEMOGLOBIN 12.1 G/DL (12.0-16.0); LYMPHOCYTES % (AUTO) 21.2 % (20.0-45.0); MEAN CORPUSCULAR VOLUME 92 FL (80-99); MONOCYTES % (AUTO) 5.6 % (1.0-10.0); NEUTROPHILS % (AUTO) 71.6 % (45.0-75.0); PLATELET COUNT 191 K/UL (150-450); RED BLOOD COUNT 3.73 M/UL (4.20-5.40); RED CELL DISTRIBUTION WIDTH 12.1 % (11.6-14.8); WHITE BLOOD COUNT 8.4 K/UL (4.8-10.8)
[2019-05-23 06:56] LABS: ALANINE AMINOTRANSFERASE 23 U/L (12-78); ALBUMIN 2.6 G/DL (3.4-5.0); ALBUMIN/GLOBULIN RATIO 0.7 (1.0-2.7); ALKALINE PHOSPHATASE 66 U/L (46-116); ANION GAP 8 mmol/L (5-15); ASPARTATE AMINO TRANSFERASE 17 U/L (15-37); BILIRUBIN,TOTAL 0.2 MG/DL (0.2-1.0); BLOOD UREA NITROGEN 14 mg/dL (7-18); CALCIUM 8.9 MG/DL (8.5-10.1); CARBON DIOXIDE 31 MMOL/L (21-32); CHLORIDE 104 MMOL/L (98-107); CREATININE 0.7 MG/DL (0.55-1.30); PHOSPHORUS 3.3 MG/DL (2.5-4.9); SODIUM 143 MMOL/L (136-145)
[2019-05-23] MEDS: PCA shift volume MISC SCH ×2 (07:00→19:08)
[2019-05-23 08:00] VITALS: BP 141/83
[2019-05-23] MEDS: Anastrazole 1mg tab ORAL SCH (09:13)
[2019-05-23] MEDS: Metoprolol Succinate XL 50mg tab ORAL SCH (09:13)
--- NOTE | 2019-05-23 09:25 | General Progress Note ---
Progress Note Progress Note AVSS Ambulated this AM already. Comfortable with dilaudid demand dosing only BIOPHYSICS PROFESSOR Abdomen mild soft distention, incision clean, stoma pink Urine 1575 BCIR ileo 20cc enteric Fistula drain 130cc enteric WBC 8400 Hgb 12.1 Chemistries ok Albumin 2.6 Imp: ileus Castro pouch cutaneous fistula, controlled with drain Plan: Continue npo, TPN, Aguiar, antibiotics, BIOPHYSICS PROFESSOR Santos Marte MD May 23, 2019 09:25
[2019-05-23] MEDS ORDERED: PCA HYDROmorphone 1mg/ml 30 ML IV PRN (10:00)
[2019-05-23] MEDS ORDERED: Naloxone 0.4mg/ml Inj IVP PRN (10:00)
[2019-05-23] MEDS ORDERED: Rate Change PCA 1 Each MISC PRN (10:00)
[2019-05-23] MEDS ORDERED: DiphenhydrAMINE 50mg/ml Inj IVP PRN (10:00)
[2019-05-23 12:00] VITALS: BP 131/59
[2019-05-23 16:00] VITALS: BP 123/64
[2019-05-23 20:00] VITALS: BP 117/60
[2019-05-23] MEDS: 1/2NS w/KCl 20mEq 1000ml 1,000 ML IV SCH (20:21)
[2019-05-23] MEDS: Dyna-Hex 2% Top Sol 2oz TOPIC SCH (20:21)
[2019-05-23] MEDS: FAT EMULSION 20% IV SCH (20:23)
[2019-05-23] MEDS: TPN IV SCH (20:23)
[2019-05-24] VITALS: BP 106/59
[2019-05-24 04:00] VITALS: BP 114/61
[2019-05-24] MEDS: NovoLOG Insulin Flexpen SUBQ SCH ×3 (05:54→18:26)
[2019-05-24 06:34] LABS: BASOPHILS % (AUTO) 0.5 % (0.0-2.0); EOSINOPHILS % (AUTO) 2.3 % (0.0-3.0); HEMATOCRIT 34.2 % (37.0-47.0); HEMOGLOBIN 11.7 G/DL (12.0-16.0); LYMPHOCYTES % (AUTO) 24.1 % (20.0-45.0); MEAN CORPUSCULAR VOLUME 93 FL (80-99); MONOCYTES % (AUTO) 6.4 % (1.0-10.0); NEUTROPHILS % (AUTO) 66.7 % (45.0-75.0); PLATELET COUNT 187 K/UL (150-450); RED BLOOD COUNT 3.68 M/UL (4.20-5.40); RED CELL DISTRIBUTION WIDTH 12.3 % (11.6-14.8); WHITE BLOOD COUNT 7.6 K/UL (4.8-10.8)
[2019-05-24 07:00] LABS: ALANINE AMINOTRANSFERASE 26 U/L (12-78); ALBUMIN 2.7 G/DL (3.4-5.0); ALBUMIN/GLOBULIN RATIO 0.7 (1.0-2.7); ALKALINE PHOSPHATASE 67 U/L (46-116); ANION GAP 7 mmol/L (5-15); ASPARTATE AMINO TRANSFERASE 22 U/L (15-37); BILIRUBIN,TOTAL 0.2 MG/DL (0.2-1.0); BLOOD UREA NITROGEN 13 mg/dL (7-18); CALCIUM 8.8 MG/DL (8.5-10.1); CARBON DIOXIDE 33 MMOL/L (21-32); CHLORIDE 105 MMOL/L (98-107); CREATININE 0.7 MG/DL (0.55-1.30); POTASSIUM 3.9 MMOL/L (3.5-5.1); SODIUM 145 MMOL/L (136-145)
[2019-05-24] MEDS: PCA shift volume MISC SCH ×2 (07:27→19:16)
[2019-05-24 08:00] VITALS: BP 137/65
[2019-05-24] MEDS: Metoprolol Succinate XL 50mg tab ORAL SCH (08:54)
[2019-05-24] MEDS: Anastrazole 1mg tab ORAL SCH (08:54)
[2019-05-24] MEDS: Hydrocortisone 100mg Inj IV SCH ×2 (08:54→20:21)
[2019-05-24] MEDS ORDERED: PCA HYDROmorphone 1mg/ml 30 ML IV PRN (10:00)
[2019-05-24] MEDS ORDERED: Naloxone 0.4mg/ml Inj IVP PRN (10:18)
--- NOTE | 2019-05-24 10:29 | General Progress Note ---
Progress Note Progress Note AVSS Has pain along the incision only. Abdomen soft, slight distention, incision clean with small amount serous drainage lower pole, leandra intact Urine 2700 BCIR ileo 40cc enteric Fistula drain 100cc enteric labs all stable Imp: Slowly resolving post-op ileus BCIR pouch-cutaneous fistula, low output, controlled Plan: continue npo, TPN d/c urinary Aguiar early AM tomorrow hopefully can start clear liquids in AM Santos Marte MD May 24, 2019 10:29
[2019-05-24] MEDS ORDERED: DiphenhydrAMINE 50mg/ml Inj IVP PRN (10:30)
[2019-05-24] MEDS ORDERED: Rate Change PCA 1 Each MISC PRN (10:30)
[2019-05-24] MEDS ORDERED: HYDROmorphone 1mg/ml Carpuject SUBQ PRN (11:00)
[2019-05-24 12:00] VITALS: BP 138/68
[2019-05-24 16:00] VITALS: BP 113/58
--- NOTE | 2019-05-24 17:58 | Infectious Diseases Prog Note ---
Assessment/Plan Assessment/Plan ASSESSMENT AND PLAN: 1. klebsiella intra-abdominal abscess, e.coli uti, leukocytosis, Castro ileostomy, fistula - levofloxacin and flagyl - day # 13, plan on 14 days treatment - s/p attempted exploratory lap with hostile abdomen - monitor labs - leukocytosis resolved - d/w RN and patient 2. The patient has history of hypothyroidism. Continue thyroid supplementation. 3. The patient has history of Crohn's colitis. 4. The patient has a history of Castro ileostomy status post revision. 5. The patient has history of knee replacement. 6. 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 7. History of proctocolectomy. 8. The patient is anemic. 9. Allergies to adalimumab and also infliximab and intravenous dye. 10. Social history is negative. 11. Family history is noncontributory. 12. MAR is noted. 13. Case was discussed with RN. 14. Case was discussed with Dr. Marte. 15. Case was discussed with the patie Subjective Constitutional: Denies: fever HEENT: Denies: congestion Respiratory: Denies: shortness of breath Cardiovascular: Denies: chest pain Gastrointestinal/Abdominal: Denies: nausea, vomiting, diarrhea Genitourinary: Denies: other Neurologic: Denies: headache Psychiatric: Denies: depression Skin: Denies: rash Hematologic: Denies: bleeding Musculoskeletal: Denies: pain Allergies: Coded Allergies: ADALIMUMAB (Verified Allergy, Intermediate, Body Rashes, Body Aches, ) INFLIXIMAB (Verified Allergy, Intermediate, Body Rash/Body Aches, 04/26/19) Uncoded Allergies: intravenous dye (Allergy, Severe, Respiratory Distress , 04/26/19) Objective Vital Signs Last 24 Hour Vital Signs Date Time Temp Pulse Resp B/P (MAP) Pulse Ox O2 Delivery O2 Flow Rate FiO2 05/24/19 16:00 97.9 77 16 113/58 (76) 95 05/24/19 16:00 16 05/24/19 12:00 15 05/24/19 12:00 98.4 81 15 138/68 (91) 94 05/24/19 09:00 Room Air 05/24/19 08:54 87 137/65 05/24/19 08:00 15 05/24/19 08:00 98.3 87 15 137/65 (89) 96 05/24/19 04:00 15 05/24/19 04:00 98.6 85 15 114/61 (78) 97 05/24/19 00:00 98.3 87 18 106/59 (75) 95 05/24/19 00:00 19 05/23/19 21:00 Room Air 05/23/19 20:00 97.7 75 16 117/60 (79) 94 05/23/19 20:00 16 Height (Feet): 5 Height (Inches): 8.00 Weight (Pounds): 228 General Appearance: no acute distress HEENT: normocephalic, atraumatic, anicteric, mucous membranes moist Respiratory/Chest: lungs clear, normal breath sounds, no respiratory distress, no accessory muscle use Cardiovascular: normal peripheral pulses, normal rate, regular rhythm, regularly irregular Abdomen: soft, non tender, no organomegaly Genitourinary: other - no ramachandran Extremities: no cyanosis Skin: no rash 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 There is no evidence of bowel obstruction. Gas, fluid, and soft tissue collection adjacent to the inferior border the pouch and extending to the anterior peritoneal surface, measures approximately 5 x 4.8 cm. This could represent a routine postoperative fluid and gas collection, or could represent an abscess plus/minus area of phlegmon. Pelvic inflammatory changes, most likely related to the prior surgery Nonobstructive right renal calculi Evidence of prior lumbar spine surgery Small hiatal hernia incidentally noted Microbiology Date/Time Source Procedure Growth Status 05/07/19 12:00 Urine,Clean Catch Urine Culture - Final Escherichia Coli Complete 05/10/19 15:15 Abdominal Fluid Gram Stain - Final Complete 05/10/19 15:15 Body Fluid Culture - Final Klebsiella Pneumoniae Klebsiella Pneumoniae#2 Complete Laboratory Tests Test 05/24/19 04:50 White Blood Count 7.6 K/UL (4.8-10.8) Red Blood Count 3.68 M/UL (4.20-5.40) L Hemoglobin 11.7 G/DL (12.0-16.0) L Hematocrit 34.2 % (37.0-47.0) L Mean Corpuscular Volume 93 FL (80-99) Mean Corpuscular Hemoglobin 31.8 PG (27.0-31.0) H Mean Corpuscular Hemoglobin Concent 34.1 G/DL (32.0-36.0) Red Cell Distribution Width 12.3 % (11.6-14.8) Platelet Count 187 K/UL (150-450) Mean Platelet Volume 5.8 FL (6.5-10.1) L Neutrophils (%) (Auto) 66.7 % (45.0-75.0) Lymphocytes (%) (Auto) 24.1 % (20.0-45.0) Monocytes (%) (Auto) 6.4 % (1.0-10.0) Eosinophils (%) (Auto) 2.3 % (0.0-3.0) Basophils (%) (Auto) 0.5 % (0.0-2.0) Sodium Level 145 MMOL/L (136-145) Potassium Level 3.9 MMOL/L (3.5-5.1) Chloride Level 105 MMOL/L (98-107) Carbon Dioxide Level 33 MMOL/L (21-32) H Anion Gap 7 mmol/L (5-15) Blood Urea Nitrogen 13 mg/dL (7-18) Creatinine 0.7 MG/DL (0.55-1.30) Estimat Glomerular Filtration Rate > 60 mL/min (>60) Glucose Level 149 MG/DL (74-106) H Calcium Level 8.8 MG/DL (8.5-10.1) Total Bilirubin 0.2 MG/DL (0.2-1.0) Aspartate Amino Transf (AST/SGOT) 22 U/L (15-37) Alanine Aminotransferase (ALT/SGPT) 26 U/L (12-78) Alkaline Phosphatase 67 U/L (46-116) Total Protein 6.4 G/DL (6.4-8.2) Albumin 2.7 G/DL (3.4-5.0) L Globulin 3.7 g/dL Albumin/Globulin Ratio 0.7 (1.0-2.7) L Current Medications Medications (Trade) Dose Ordered Sig/Sheng Route PRN Reason Start Time Stop Time Status Last Admin Dose Admin Acetaminophen (Tylenol) 650 mg Q4H PRN NG temp>100.2 or headache 3/20/20 12:00 05/27/19 11:59 Alprazolam (Xanax) 0.25 mg Q4H PRN ORAL For Anxiety 05/24/19 10:30 05/31/19 10:29 Anastrozole (Arimidex) 1 mg DAILY ORAL 04/27/19 09:00 05/27/19 08:59 05/24/19 08:54 Ascorbic Acid (Vitamin C) 500 mg NEEDED PRN ORAL Constipation 05/06/19 11:30 06/05/19 11:29 05/11/19 08:54 Chlorhexidine Gluconate (Anya-Hex 2%) 1 applic DAILY@2000 TOPIC 04/26/19 20:00 07/25/19 19:59 05/23/19 20:21 Dextrose 1,000 ml @ 0 mls/hr Q24H PRN IV PN interrupted or unavailable 05/14/19 20:00 06/13/19 19:59 Dextrose (Dextrose 50%) 25 ml Q30M PRN IV Hypoglycemia 05/14/19 20:30 08/12/19 20:29 Dextrose (Dextrose 50%) 50 ml Q30M PRN IV Hypoglycemia 05/14/19 20:30 08/12/19 20:29 Diphenhydramine HCl (Benadryl) 25 mg Q6H PRN IVP Itching/Pruritis 05/24/19 10:30 05/26/19 10:29 Duloxetine HCl (Cymbalta) 60 mg BID ORAL 04/26/19 18:00 07/25/19 17:59 05/24/19 08:54 Fat Emulsion Intravenous 216 ml/Amino Acids/ Electrolytes/ Dextrose 2,040 ml @ 85 mls/hr Q24H IV 05/23/19 20:00 06/22/19 19:59 05/23/19 20:23 Hydrocortisone (Solu-CORTEF) 50 mg Q12HR IV 05/23/19 21:00 08/19/19 07:59 05/24/19 08:54 Hydromorphone HCl 30 ml @ 0 mls/hr Q24H PRN IV For Pain 05/24/19 10:00 05/26/19 09:59 Hydromorphone HCl (Dilaudid) 1 mg Q4H PRN SUBQ Severe Breakthru Pain (>7) 05/24/19 11:00 05/31/19 10:59 Insulin Aspart (NovoLOG) Q6HR SUBQ 05/15/19 00:00 08/13/19 00:00 05/24/19 12:00 Levofloxacin 150 ml @ 100 mls/hr Q24H IVPB 05/18/19 16:00 05/25/19 15:59 05/24/19 16:25 Levothyroxine Sodium (Synthroid) 100 mcg DAILY@0630 ORAL 04/27/19 06:30 05/27/19 06:29 05/24/19 05:51 Metoprolol Succinate (Toprol XL) 50 mg DAILY ORAL 04/27/19 09:00 07/26/19 08:59 05/24/19 08:54 Metronidazole 100 ml @ 100 mls/hr Q8HR IVPB 05/18/19 14:00 05/25/19 13:59 05/24/19 14:35 Miscellaneous Medication (TINT LAYER Rate Change) 1 ea DAILY PRN MISC rate change 05/24/19 10:30 05/26/19 10:29 Miscellaneous Medication (TINT LAYER shift volume) 1 ea Q12HR@0700,1900 MISC 05/24/19 19:00 05/26/19 18:59 Naloxone HCl (Narcan) 0.1 mg Q1M PRN IVP RR<10/min OR SBP<90 mmHg 05/24/19 10:18 05/26/19 10:16 Ondansetron HCl (Zofran) 4 mg Q4H PRN IVP Nausea & Vomiting 04/27/19 12:00 05/27/19 11:59 Sodium 1,000 ml @ 25 mls/hr Q24H IV 05/14/19 20:00 06/13/19 19:59 05/23/19 20:21 Temazepam (RestoriL) 7.5 mg HSPRN PRN ORAL Insomnia 05/24/19 10:30 05/31/19 10:29 Darleen Perez MD May 24, 2019 17:58
[2019-05-24 20:00] VITALS: BP 123/61
[2019-05-24] MEDS: Dyna-Hex 2% Top Sol 2oz TOPIC SCH (20:00)
[2019-05-24] MEDS: 1/2NS w/KCl 20mEq 1000ml 1,000 ML IV SCH (20:21)
[2019-05-24] MEDS: TPN IV SCH (20:23)
[2019-05-24] MEDS: FAT EMULSION 20% IV SCH (20:23)
[2019-05-25] VITALS: BP 129/64
[2019-05-25] MEDS: NovoLOG Insulin Flexpen SUBQ SCH ×4 (00:19→17:41)
[2019-05-25] MEDS: ALPRAZolam 0.25mg tab ORAL PRN (02:27)
[2019-05-25 03:33] VITALS: BP 120/56
[2019-05-25 06:42] LABS: HEMATOCRIT 33.5 % (37.0-47.0); HEMOGLOBIN 11.5 G/DL (12.0-16.0); MEAN CORPUSCULAR VOLUME 93 FL (80-99); PLATELET COUNT 189 K/UL (150-450); RED BLOOD COUNT 3.61 M/UL (4.20-5.40); RED CELL DISTRIBUTION WIDTH 12.5 % (11.6-14.8); WHITE BLOOD COUNT 7.1 K/UL (4.8-10.8)
[2019-05-25] MEDS: PCA shift volume MISC SCH ×2 (07:00→19:24)
[2019-05-25 07:46] LABS: ALANINE AMINOTRANSFERASE 25 U/L (12-78); ALBUMIN 2.6 G/DL (3.4-5.0); ALBUMIN/GLOBULIN RATIO 0.7 (1.0-2.7); ALKALINE PHOSPHATASE 66 U/L (46-116); ANION GAP 9 mmol/L (5-15); ASPARTATE AMINO TRANSFERASE 23 U/L (15-37); BILIRUBIN,TOTAL 0.2 MG/DL (0.2-1.0); BLOOD UREA NITROGEN 12 mg/dL (7-18); CALCIUM 8.7 MG/DL (8.5-10.1); CARBON DIOXIDE 31 MMOL/L (21-32); CHLORIDE 104 MMOL/L (98-107); CREATININE 0.7 MG/DL (0.55-1.30); POTASSIUM 3.8 MMOL/L (3.5-5.1); SODIUM 144 MMOL/L (136-145)
[2019-05-25 08:00] VITALS: BP 151/87
[2019-05-25] MEDS: Hydrocortisone 100mg Inj IV SCH ×2 (09:27→20:53)
[2019-05-25] MEDS: Anastrazole 1mg tab ORAL SCH (09:27)
[2019-05-25] MEDS: Metoprolol Succinate XL 50mg tab ORAL SCH (09:27)
[2019-05-25] MEDS ORDERED: Rate Change PCA 1 Each MISC PRN (09:30)
[2019-05-25] MEDS ORDERED: Naloxone 0.4mg/ml Inj IVP PRN (09:30)
--- NOTE | 2019-05-25 09:54 | General Progress Note ---
Progress Note Progress Note AVSS Feels less radhika-incisional pain. Scant serous drainage from incision which is clean and dry Abdomen soft, flat, non-tender Urine 3350 BCIR ileo 55cc Fistula drain 40cc labs all stable/satisf. Imp. Resolving ileus Plan; clear liquid diet 1000cc max po today d/c urinary Aguiar clean-catch C&S and U/A f/u labs continue TPN Santos Marte MD May 25, 2019 09:54
[2019-05-25] MEDS: Nystatin Susp 500,000 units/5ml ORAL SCH ×4 (10:13→20:53)
[2019-05-25] MEDS ORDERED: DiphenhydrAMINE 50mg/ml Inj IVP PRN (10:30)
[2019-05-25] MEDS ORDERED: Fluconazole 150mg tab ORAL ONE (11:00)
[2019-05-25 11:38] LABS: APPEARANCE,URINE CLOUDY; BILIRUBIN, URINE NEGATIVE (NEGATIVE); COLOR,URINE PALE YELLOW; GLUCOSE, URINE (UA) NEGATIVE (NEGATIVE); KETONES,URINE NEGATIVE (NEGATIVE); LEUKOCYTE ESTERASE ,URINE NEGATIVE (NEGATIVE); NITRITE,URINE NEGATIVE (NEGATIVE); PH,URINE 7 (4.5-8.0); PROTEIN,URINE NEGATIVE (NEGATIVE); UROBILINOGEN,URINE NORMAL MG/DL (0.0-1.0)
[2019-05-25 12:00] VITALS: BP 140/70
[2019-05-25 16:00] VITALS: BP 143/75
[2019-05-25 20:00] VITALS: BP 146/73
[2019-05-25] MEDS: Dyna-Hex 2% Top Sol 2oz TOPIC SCH (20:00)
[2019-05-25] MEDS: TPN IV SCH (20:05)
[2019-05-25] MEDS: FAT EMULSION 20% IV SCH (20:05)
[2019-05-25] MEDS: 1/2NS w/KCl 20mEq 1000ml 1,000 ML IV SCH (20:06)
[2019-05-26] VITALS: BP 139/66
[2019-05-26] MEDS: NovoLOG Insulin Flexpen SUBQ SCH ×4 (00:05→18:09)
[2019-05-26 04:00] VITALS: BP 146/76
[2019-05-26 06:15] LABS: BASOPHILS % (AUTO) 0.7 % (0.0-2.0); EOSINOPHILS % (AUTO) 3.5 % (0.0-3.0); HEMATOCRIT 34.4 % (37.0-47.0); LYMPHOCYTES % (AUTO) 22.2 % (20.0-45.0); MEAN CORPUSCULAR VOLUME 92 FL (80-99); MONOCYTES % (AUTO) 6.3 % (1.0-10.0); NEUTROPHILS % (AUTO) 67.4 % (45.0-75.0); PLATELET COUNT 202 K/UL (150-450); RED BLOOD COUNT 3.76 M/UL (4.20-5.40); RED CELL DISTRIBUTION WIDTH 12.2 % (11.6-14.8)
[2019-05-26 06:42] LABS: ALANINE AMINOTRANSFERASE 18 U/L (12-78); ALBUMIN 2.7 G/DL (3.4-5.0); ALBUMIN/GLOBULIN RATIO 0.7 (1.0-2.7); ALKALINE PHOSPHATASE 71 U/L (46-116); ANION GAP 4 mmol/L (5-15); ASPARTATE AMINO TRANSFERASE 17 U/L (15-37); BILIRUBIN,TOTAL 0.3 MG/DL (0.2-1.0); BLOOD UREA NITROGEN 11 mg/dL (7-18); CALCIUM 9.1 MG/DL (8.5-10.1); CARBON DIOXIDE 34 MMOL/L (21-32); CHLORIDE 103 MMOL/L (98-107); CREATININE 0.7 MG/DL (0.55-1.30); PHOSPHORUS 3.8 MG/DL (2.5-4.9); POTASSIUM 3.6 MMOL/L (3.5-5.1); SODIUM 141 MMOL/L (136-145)
[2019-05-26] MEDS: PCA shift volume MISC SCH ×2 (07:00→19:06)
[2019-05-26 08:00] VITALS: BP 144/67
[2019-05-26] MEDS: Nystatin Susp 500,000 units/5ml ORAL SCH ×2 (09:00→09:34)
[2019-05-26] MEDS: Hydrocortisone 100mg Inj IV SCH ×2 (09:34→20:08)
[2019-05-26] MEDS: Metoprolol Succinate XL 50mg tab ORAL SCH (09:34)
[2019-05-26] MEDS: Anastrazole 1mg tab ORAL SCH (09:34)
[2019-05-26] MEDS ORDERED: Naloxone 0.4mg/ml Inj IVP PRN (09:48)
[2019-05-26] MEDS ORDERED: Rate Change PCA 1 Each MISC PRN (10:00)
[2019-05-26] MEDS ORDERED: PCA HYDROmorphone 1mg/ml 30 ML IV PRN (10:00)
--- NOTE | 2019-05-26 10:04 | General Progress Note ---
Progress Note Progress Note AVSS Tolerated 980cc clear liquids po Abdomen soft, scant serous discharge lower pole area, healing nicely Urine 2575 voiding BCIR ileo 145 Fistula/abscess drain 24cc Mg 1.9 albumin 2.7 all others stable Imp: Improving Plan; Clear liquid diet ad carlyn continue TPN, drain, indwelling BCIR pouch catheter, ambulation Exchange of abscess/fistula drain with up-sizing on 05/27 - discussed with Santos Peguero MD May 26, 2019 10:04
[2019-05-26] MEDS ORDERED: DiphenhydrAMINE 50mg/ml Inj IVP PRN (10:30)
[2019-05-26 12:00] VITALS: BP 156/84
[2019-05-26] MEDS ORDERED: NS Irrig 1000ml ONE (14:19)
[2019-05-26 16:00] VITALS: BP 142/74
--- NOTE | 2019-05-26 16:33 | Infectious Diseases Prog Note ---
Assessment/Plan Assessment/Plan ASSESSMENT AND PLAN: 1. klebsiella intra-abdominal abscess, e.coli uti, leukocytosis, Castro ileostomy, fistula - levofloxacin and flagyl - day # 15 - s/p attempted exploratory lap with hostile abdomen - monitor labs - leukocytosis resolved - d/w RN and patient - abscess drain - to be changed - d/w Dr. Marte yesterday 2. The patient has history of hypothyroidism. Continue thyroid supplementation. 3. The patient has history of Crohn's colitis. 4. The patient has a history of Castro ileostomy status post revision. 5. The patient has history of knee replacement. 6. 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 7. History of proctocolectomy. 8. The patient is anemic. 9. Allergies to adalimumab and also infliximab and intravenous dye. 10. Social history is negative. 11. Family history is noncontributory. 12. MAR is noted. 13. Case was discussed with RN. 14. Case was discussed with Dr. Marte. 15. Case was discussed with the patie Subjective Constitutional: Reports: fatigue; Denies: fever HEENT: Denies: congestion Respiratory: Denies: shortness of breath Cardiovascular: Denies: chest pain Gastrointestinal/Abdominal: Denies: nausea, vomiting, diarrhea Genitourinary: Reports: other - no ramachandran Neurologic: Denies: headache Psychiatric: Denies: depression Skin: Denies: rash Hematologic: Denies: bleeding Musculoskeletal: Denies: pain Allergies: Coded Allergies: ADALIMUMAB (Verified Allergy, Intermediate, Body Rashes, Body Aches, ) INFLIXIMAB (Verified Allergy, Intermediate, Body Rash/Body Aches, 04/26/19) Uncoded Allergies: intravenous dye (Allergy, Severe, Respiratory Distress , 04/26/19) Objective Vital Signs Last 24 Hour Vital Signs Date Time Temp Pulse Resp B/P (MAP) Pulse Ox O2 Delivery O2 Flow Rate FiO2 05/26/19 12:00 98.2 90 18 156/84 (108) 97 05/26/19 12:00 16 05/26/19 09:34 90 144/67 05/26/19 09:00 Room Air 05/26/19 08:00 16 05/26/19 08:00 98.5 90 18 144/67 (92) 97 05/26/19 06:31 96 Room Air 21 05/26/19 04:00 98.2 87 16 146/76 (99) 96 05/26/19 04:00 16 05/26/19 00:00 17 05/26/19 00:00 98.0 79 17 139/66 (90) 98 05/25/19 21:00 Room Air 05/25/19 20:00 16 05/25/19 20:00 97.6 74 18 146/73 (97) 97 Height (Feet): 5 Height (Inches): 8.00 Weight (Pounds): 228 General Appearance: no acute distress HEENT: normocephalic, atraumatic, anicteric, mucous membranes moist Respiratory/Chest: lungs clear, normal breath sounds, no respiratory distress, no accessory muscle use Cardiovascular: normal rate, regular rhythm, no gallop/murmur, no JVD Abdomen: normal bowel sounds, soft, non tender, no organomegaly Genitourinary: other - no ramachandran Extremities: no cyanosis Skin: no rash Neurologic/Psychiatric: sanitor II-XII grossly normal, alert, oriented x 3, responsive, normal mood/affect Lymphatic: no neck adenopathy Musculoskeletal: no effusion Objective CT abdomen and pelvis: Impression: Postsurgical changes, as described, status post continent ileostomy. There is no evidence of bowel obstruction. Gas, fluid, and soft tissue collection adjacent to the inferior border the pouch and extending to the anterior peritoneal surface, measures approximately 5 x 4.8 cm. This could represent a routine postoperative fluid and gas collection, or could represent an abscess plus/minus area of phlegmon. Pelvic inflammatory changes, most likely related to the prior surgery Nonobstructive right renal calculi Evidence of prior lumbar spine surgery Small hiatal hernia incidentally noted Microbiology Date/Time Source Procedure Growth Status 05/25/19 10:00 Urine,Clean Catch Urine Culture - Preliminary NO GROWTH AFTER 24 HOURS Resulted 05/10/19 15:15 Abdominal Fluid Gram Stain - Final Complete 05/10/19 15:15 Body Fluid Culture - Final Klebsiella Pneumoniae Klebsiella Pneumoniae#2 Complete Microbiology Date/Time Source Procedure Growth Status 05/25/19 10:00 Urine,Clean Catch Urine Culture - Preliminary NO GROWTH AFTER 24 HOURS Resulted Laboratory Tests Test 05/26/19 04:30 White Blood Count 7.0 K/UL (4.8-10.8) Red Blood Count 3.76 M/UL (4.20-5.40) L Hemoglobin 12.0 G/DL (12.0-16.0) Hematocrit 34.4 % (37.0-47.0) L Mean Corpuscular Volume 92 FL (80-99) Mean Corpuscular Hemoglobin 32.0 PG (27.0-31.0) H Mean Corpuscular Hemoglobin Concent 35.0 G/DL (32.0-36.0) Red Cell Distribution Width 12.2 % (11.6-14.8) Platelet Count 202 K/UL (150-450) Mean Platelet Volume 5.6 FL (6.5-10.1) L Neutrophils (%) (Auto) 67.4 % (45.0-75.0) Lymphocytes (%) (Auto) 22.2 % (20.0-45.0) Monocytes (%) (Auto) 6.3 % (1.0-10.0) Eosinophils (%) (Auto) 3.5 % (0.0-3.0) H Basophils (%) (Auto) 0.7 % (0.0-2.0) Sodium Level 141 MMOL/L (136-145) Potassium Level 3.6 MMOL/L (3.5-5.1) Chloride Level 103 MMOL/L (98-107) Carbon Dioxide Level 34 MMOL/L (21-32) H Anion Gap 4 mmol/L (5-15) L Blood Urea Nitrogen 11 mg/dL (7-18) Creatinine 0.7 MG/DL (0.55-1.30) Estimat Glomerular Filtration Rate > 60 mL/min (>60) Glucose Level 149 MG/DL (74-106) H Calcium Level 9.1 MG/DL (8.5-10.1) Phosphorus Level 3.8 MG/DL (2.5-4.9) Magnesium Level 1.9 MG/DL (1.8-2.4) Total Bilirubin 0.3 MG/DL (0.2-1.0) Aspartate Amino Transf (AST/SGOT) 17 U/L (15-37) Alanine Aminotransferase (ALT/SGPT) 18 U/L (12-78) Alkaline Phosphatase 71 U/L (46-116) Total Protein 6.4 G/DL (6.4-8.2) Albumin 2.7 G/DL (3.4-5.0) L Globulin 3.7 g/dL Albumin/Globulin Ratio 0.7 (1.0-2.7) L Current Medications Medications (Trade) Dose Ordered Sig/Sheng Route PRN Reason Start Time Stop Time Status Last Admin Dose Admin Acetaminophen (Tylenol) 650 mg Q4H PRN NG temp>100.2 or headache 05/25/19 12:00 06/24/19 11:59 Alprazolam (Xanax) 0.25 mg Q4H PRN ORAL For Anxiety 05/24/19 10:30 05/31/19 10:29 05/25/19 02:27 Anastrozole (Arimidex) 1 mg DAILY ORAL 05/26/19 09:00 06/25/19 08:59 05/26/19 09:34 Ascorbic Acid (Vitamin C) 500 mg NEEDED PRN ORAL Constipation 05/06/19 11:30 06/05/19 11:29 05/11/19 08:54 Chlorhexidine Gluconate (Anya-Hex 2%) 1 applic DAILY@2000 TOPIC 04/26/19 20:00 07/25/19 19:59 05/23/19 20:21 Dextrose 1,000 ml @ 0 mls/hr Q24H PRN IV PN interrupted or unavailable 05/14/19 20:00 06/13/19 19:59 Dextrose (Dextrose 50%) 25 ml Q30M PRN IV Hypoglycemia 05/14/19 20:30 08/12/19 20:29 Dextrose (Dextrose 50%) 50 ml Q30M PRN IV Hypoglycemia 05/14/19 20:30 08/12/19 20:29 Diphenhydramine HCl (Benadryl) 25 mg Q6H PRN IVP Itching/Pruritis 05/26/19 10:30 05/28/19 10:29 Duloxetine HCl (Cymbalta) 60 mg BID ORAL 04/26/19 18:00 07/25/19 17:59 05/26/19 09:34 Fat Emulsion Intravenous 216 ml/Amino Acids/ Electrolytes/ Dextrose 2,040 ml @ 85 mls/hr Q24H IV 05/23/19 20:00 06/22/19 19:59 05/25/19 20:05 Hydrocortisone (Solu-CORTEF) 50 mg Q12HR IV 05/23/19 21:00 08/19/19 07:59 05/26/19 09:34 Hydromorphone HCl 30 ml @ 0 mls/hr Q24H PRN IV For Pain 05/26/19 10:00 05/28/19 09:59 Hydromorphone HCl (Dilaudid) 1 mg Q4H PRN SUBQ Severe Breakthru Pain (>7) 05/24/19 11:00 05/31/19 10:59 Insulin Aspart (NovoLOG) Q6HR SUBQ 05/15/19 00:00 08/13/19 00:00 05/26/19 12:02 Levothyroxine Sodium (Synthroid) 100 mcg DAILY@0630 ORAL 05/26/19 06:30 06/25/19 06:29 05/26/19 05:43 Lidocaine HCl (Xylocaine 1% 30ml) 30 ml ADJUST PER PROTOCOL PRN INJ CATH PLACEMENT 05/28/19 12:00 05/30/19 11:59 Metoprolol Succinate (Toprol XL) 50 mg DAILY ORAL 04/27/19 09:00 07/26/19 08:59 05/26/19 09:34 Miscellaneous Medication (SENIOR ANDROID DEVELOPER Rate Change) 1 ea DAILY PRN MISC rate change 05/26/19 10:00 05/28/19 09:59 Miscellaneous Medication (SENIOR ANDROID DEVELOPER shift volume) 1 ea Q12HR@0700,1900 MISC 05/26/19 19:00 05/28/19 18:59 Naloxone HCl (Narcan) 0.1 mg Q1M PRN IVP RR<10/min OR SBP<90 mmHg 05/26/19 09:48 05/28/19 09:44 Ondansetron HCl (Zofran) 4 mg Q4H PRN IVP Nausea & Vomiting 05/25/19 12:00 06/24/19 11:59 Sodium 1,000 ml @ 25 mls/hr Q24H IV 05/14/19 20:00 06/13/19 19:59 05/25/19 20:06 Temazepam (RestoriL) 7.5 mg HSPRN PRN ORAL Insomnia 05/24/19 10:30 05/31/19 10:29 Darleen Perez MD May 26, 2019 16:33
[2019-05-26 20:00] VITALS: BP 133/68
[2019-05-26] MEDS: Dyna-Hex 2% Top Sol 2oz TOPIC SCH (20:00)
[2019-05-26] MEDS: 1/2NS w/KCl 20mEq 1000ml 1,000 ML IV SCH (20:08)
[2019-05-26] MEDS: TPN IV SCH (20:08)
[2019-05-26] MEDS: FAT EMULSION 20% IV SCH (20:08)
[2019-05-27] VITALS: BP 137/70
[2019-05-27 04:00] VITALS: BP 151/73
[2019-05-27] MEDS: NovoLOG Insulin Flexpen SUBQ SCH ×4 (05:40→18:24)
[2019-05-27] MEDS: PCA shift volume MISC SCH (07:25)
[2019-05-27 07:58] LABS: BASOPHILS % (AUTO) 0.7 % (0.0-2.0); EOSINOPHILS % (AUTO) 3.1 % (0.0-3.0); HEMATOCRIT 34.2 % (37.0-47.0); HEMOGLOBIN 11.9 G/DL (12.0-16.0); LYMPHOCYTES % (AUTO) 20.7 % (20.0-45.0); MEAN CORPUSCULAR VOLUME 91 FL (80-99); NEUTROPHILS % (AUTO) 68.5 % (45.0-75.0); PLATELET COUNT 212 K/UL (150-450); RED BLOOD COUNT 3.74 M/UL (4.20-5.40); RED CELL DISTRIBUTION WIDTH 12.3 % (11.6-14.8); WHITE BLOOD COUNT 7.1 K/UL (4.8-10.8)
[2019-05-27 08:00] VITALS: BP 148/65
[2019-05-27 08:34] LABS: ALANINE AMINOTRANSFERASE 27 U/L (12-78); ALBUMIN 2.7 G/DL (3.4-5.0); ALBUMIN/GLOBULIN RATIO 0.7 (1.0-2.7); ALKALINE PHOSPHATASE 69 U/L (46-116); ANION GAP 11 mmol/L (5-15); ASPARTATE AMINO TRANSFERASE 15 U/L (15-37); BILIRUBIN,TOTAL 0.3 MG/DL (0.2-1.0); BLOOD UREA NITROGEN 11 mg/dL (7-18); CALCIUM 8.7 MG/DL (8.5-10.1); CARBON DIOXIDE 28 MMOL/L (21-32); CHLORIDE 105 MMOL/L (98-107); CREATININE 0.7 MG/DL (0.55-1.30); POTASSIUM 3.5 MMOL/L (3.5-5.1); SODIUM 144 MMOL/L (136-145)
[2019-05-27] MEDS: Anastrazole 1mg tab ORAL SCH (09:01)
[2019-05-27] MEDS: Hydrocortisone 100mg Inj IV SCH ×2 (09:01→20:46)
[2019-05-27] MEDS: Metoprolol Succinate XL 50mg tab ORAL SCH (09:01)
[2019-05-27] MEDS: ALPRAZolam 0.25mg tab ORAL PRN (09:50)
--- NOTE | 2019-05-27 09:57 | General Progress Note ---
Progress Note Progress Note AVSS Doing well with 1400cc po clear liquids. Pain resolved - not using laundry presser Abdomen soft, healing well, no drainage Urine 3410 BCIR ileo 445 Fistula/abscess catheter only 7cc labs all stable Imp: Improving with increased Castro pouch ileo output and decreased drain output Plan: Full liquid diet continue TPN d/c MEDICAL RADIATION THERAPIST Radiology to replace/exchange fistula/drain catheter in AM Santos Marte MD May 27, 2019 09:57
[2019-05-27] MEDS ORDERED: HYDROcodone/Acetamin 5/325 tab ORAL PRN (10:00)
[2019-05-27] MEDS ORDERED: ALPRAZolam 0.25mg tab ORAL PRN (10:30)
[2019-05-27] MEDS: Fluconazole 100mg tab ORAL SCH (10:45)
[2019-05-27 12:00] VITALS: BP 157/53
[2019-05-27 16:00] VITALS: BP 132/67
[2019-05-27] MEDS: Dyna-Hex 2% Top Sol 2oz TOPIC SCH (20:00)
[2019-05-27 20:12] VITALS: BP 147/74
[2019-05-27] MEDS: TPN IV SCH (20:44)
[2019-05-27] MEDS: FAT EMULSION 20% IV SCH (20:44)
[2019-05-27] MEDS: 1/2NS w/KCl 20mEq 1000ml 1,000 ML IV SCH (20:46)
[2019-05-28] VITALS (14 sets, daily range): BP systolic 135–167; BP diastolic 59–89
[2019-05-28] MEDS: NovoLOG Insulin Flexpen SUBQ SCH ×5 (00:06→23:34)
[2019-05-28 06:55] LABS: INR 0.9 (0.9-1.1)
[2019-05-28 07:13] LABS: BASOPHILS % (AUTO) 0.6 % (0.0-2.0); EOSINOPHILS % (AUTO) 2.9 % (0.0-3.0); HEMATOCRIT 34.4 % (37.0-47.0); HEMOGLOBIN 12.1 G/DL (12.0-16.0); LYMPHOCYTES % (AUTO) 22.3 % (20.0-45.0); MEAN CORPUSCULAR VOLUME 92 FL (80-99); MONOCYTES % (AUTO) 6.5 % (1.0-10.0); NEUTROPHILS % (AUTO) 67.6 % (45.0-75.0); PLATELET COUNT 209 K/UL (150-450); RED BLOOD COUNT 3.76 M/UL (4.20-5.40); RED CELL DISTRIBUTION WIDTH 12.6 % (11.6-14.8); WHITE BLOOD COUNT 7.2 K/UL (4.8-10.8)
[2019-05-28 07:14] LABS: ALANINE AMINOTRANSFERASE 24 U/L (12-78); ALBUMIN 2.6 G/DL (3.4-5.0); ALBUMIN/GLOBULIN RATIO 0.7 (1.0-2.7); ALKALINE PHOSPHATASE 72 U/L (46-116); ANION GAP 10 mmol/L (5-15); ASPARTATE AMINO TRANSFERASE 14 U/L (15-37); BILIRUBIN,TOTAL 0.3 MG/DL (0.2-1.0); BLOOD UREA NITROGEN 11 mg/dL (7-18); CALCIUM 8.5 MG/DL (8.5-10.1); CARBON DIOXIDE 29 MMOL/L (21-32); CHLORIDE 106 MMOL/L (98-107); CREATININE 0.7 MG/DL (0.55-1.30); POTASSIUM 3.8 MMOL/L (3.5-5.1); SODIUM 145 MMOL/L (136-145)
--- NOTE | 2019-05-28 08:33 | General Progress Note ---
Progress Note Progress Note Continues stable tolerated 25% full liquid diet 1500cc po Abdomen soft Urine 2960 BCIR ileo 265 Fistula/abscess drain only 10cc Labs all stable Imp: Improving Plan: Fistula/abscess drain catheter to be exchanged Continue TPN NPO until after procedure completed Santos Marte MD May 28, 2019 08:32
[2019-05-28] MEDS: Metoprolol Succinate XL 50mg tab ORAL SCH (09:45)
[2019-05-28] MEDS: Anastrazole 1mg tab ORAL SCH (09:45)
[2019-05-28] MEDS: Fluconazole 100mg tab ORAL SCH (09:45)
[2019-05-28] MEDS: Hydrocortisone 100mg Inj IV SCH ×2 (09:45→20:18)
[2019-05-28] MEDS ORDERED: Lidocaine 1% Plain 30 ml INJ PRN ×2 (12:00→12:30)
[2019-05-28] MEDS ORDERED: Omnipaque-300 100ml vial INJ PRN (13:00)
--- NOTE | 2019-05-28 15:22 | Pre-Procedure Note/Attestation ---
Pre-Procedure Note/Attestation Complete Prior to Procedure Planned Procedure: not applicable Procedure Narrative: Exchange of drainage catheter Indications for Procedure Pre-Operative Diagnosis: fistula Attestation I attest that I discussed the nature of the procedure; its benefits; risks and complications; and alternatives (and the risks and benefits of such alternatives ), prior to the procedure, with the patient (or the patient's legal call center support representative). I attest that, if there was a reasonable possibility of needing a blood transfusion, the patient (or the patient's legal call center support representative) was given the [facility] standardized written summary, pursuant to the Scottie Susana Blood Safety Act ([place] Health and Safety Code # 1645, as amended). I attest that I re-evaluated the patient just prior to the surgery and that there has been no change in the patient's H&P, except as documented below: Lars Squires MD May 28, 2019 15:22
--- NOTE | 2019-05-28 15:23 | Brief Operative Note ---
Immediate Post Operative Note Operative Note Pre-op Diagnosis: fistula Procedure: drain exchange Post-op Diagnosis: same as pre-op Surgeon: Chase Guerrero Anesthesia: local Specimen: none Complications: none Fluids: none Drains: other - 8.5 F pigtail Implant(s) used?: No Lars Guerrero MD May 28, 2019 15:23
--- NOTE | 2019-05-28 18:18 | Infectious Diseases Prog Note ---
Assessment/Plan Assessment/Plan ASSESSMENT AND PLAN: 1. klebsiella intra-abdominal abscess, e.coli uti, leukocytosis, Castro ileostomy, fistula - levofloxacin and flagyl - day # 17 - s/p attempted exploratory lap with hostile abdomen - monitor labs - leukocytosis resolved - d/w RN and patient - abscess - s/p drain exchange 2. The patient has history of hypothyroidism. Continue thyroid supplementation. 3. The patient has history of Crohn's colitis. 4. The patient has a history of Castro ileostomy status post revision. 5. The patient has history of knee replacement. 6. 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 7. History of proctocolectomy. 8. The patient is anemic. 9. Allergies to adalimumab and also infliximab and intravenous dye. 10. Social history is negative. 11. Family history is noncontributory. 12. MAR is noted. 13. Case was discussed with RN. 14. Case was discussed with Dr. Marte. 15. Case was discussed with the patie Subjective Constitutional: Denies: fever HEENT: Denies: congestion Respiratory: Denies: shortness of breath Cardiovascular: Denies: chest pain Gastrointestinal/Abdominal: Reports: other - no abdominal pain ; Denies: nausea , vomiting Neurologic: Denies: headache Psychiatric: Denies: depression Skin: Denies: rash Hematologic: Denies: bleeding Musculoskeletal: Denies: pain Allergies: Coded Allergies: ADALIMUMAB (Verified Allergy, Intermediate, Body Rashes, Body Aches, ) INFLIXIMAB (Verified Allergy, Intermediate, Body Rash/Body Aches, 04/26/19) Uncoded Allergies: intravenous dye (Allergy, Severe, Respiratory Distress , 04/26/19) Objective Vital Signs Last 24 Hour Vital Signs Date Time Temp Pulse Resp B/P (MAP) Pulse Ox O2 Delivery O2 Flow Rate FiO2 05/28/19 14:20 83 18 164/78 (106) 95 05/28/19 14:15 82 18 149/89 (109) 95 05/28/19 14:10 85 18 162/76 (104) 95 05/28/19 14:05 86 18 161/81 (107) 96 05/28/19 14:00 89 18 160/86 (110) 96 05/28/19 13:55 89 18 154/82 (106) 96 05/28/19 13:50 92 18 156/81 (106) 96 05/28/19 13:46 92 18 05/28/19 12:00 98.2 96 18 138/71 (93) 95 05/28/19 09:45 91 152/78 05/28/19 09:00 Room Air 05/28/19 08:00 98.4 91 20 152/78 (102) 97 05/28/19 04:00 98.5 89 18 150/68 (95) 97 05/28/19 00:00 98.1 82 18 149/68 (95) 97 05/27/19 21:00 Room Air 05/27/19 20:12 97.7 93 17 147/74 (98) 96 05/27/19 20:06 95 Room Air 21 Height (Feet): 5 Height (Inches): 8.00 Weight (Pounds): 228 General Appearance: no acute distress HEENT: normocephalic, atraumatic, anicteric, mucous membranes moist Respiratory/Chest: lungs clear, normal breath sounds, no respiratory distress, no accessory muscle use Cardiovascular: normal rate, regular rhythm, no gallop/murmur, no JVD Abdomen: normal bowel sounds, soft, non tender, no organomegaly, non distended Genitourinary: other - no ramachandran Extremities: no cyanosis Skin: no rash Neurologic/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 There is no evidence of bowel obstruction. Gas, fluid, and soft tissue collection adjacent to the inferior border the pouch and extending to the anterior peritoneal surface, measures approximately 5 x 4.8 cm. This could represent a routine postoperative fluid and gas collection, or could represent an abscess plus/minus area of phlegmon. Pelvic inflammatory changes, most likely related to the prior surgery Nonobstructive right renal calculi Evidence of prior lumbar spine surgery Small hiatal hernia incidentally noted Microbiology Date/Time Source Procedure Growth Status 05/25/19 10:00 Urine,Clean Catch Urine Culture - Final Mixed Gram Positive Organism Complete 05/10/19 15:15 Abdominal Fluid Gram Stain - Final Complete 05/10/19 15:15 Body Fluid Culture - Final Klebsiella Pneumoniae Klebsiella Pneumoniae#2 Complete Laboratory Tests Test 05/28/19 05:20 White Blood Count 7.2 K/UL (4.8-10.8) Red Blood Count 3.76 M/UL (4.20-5.40) L Hemoglobin 12.1 G/DL (12.0-16.0) Hematocrit 34.4 % (37.0-47.0) L Mean Corpuscular Volume 92 FL (80-99) Mean Corpuscular Hemoglobin 32.1 PG (27.0-31.0) H Mean Corpuscular Hemoglobin Concent 35.1 G/DL (32.0-36.0) Red Cell Distribution Width 12.6 % (11.6-14.8) Platelet Count 209 K/UL (150-450) Mean Platelet Volume 5.1 FL (6.5-10.1) L Neutrophils (%) (Auto) 67.6 % (45.0-75.0) Lymphocytes (%) (Auto) 22.3 % (20.0-45.0) Monocytes (%) (Auto) 6.5 % (1.0-10.0) Eosinophils (%) (Auto) 2.9 % (0.0-3.0) Basophils (%) (Auto) 0.6 % (0.0-2.0) Prothrombin Time 9.8 SEC (9.30-11.50) Prothromb Time International Ratio 0.9 (0.9-1.1) Sodium Level 145 MMOL/L (136-145) Potassium Level 3.8 MMOL/L (3.5-5.1) Chloride Level 106 MMOL/L (98-107) Carbon Dioxide Level 29 MMOL/L (21-32) Anion Gap 10 mmol/L (5-15) Blood Urea Nitrogen 11 mg/dL (7-18) Creatinine 0.7 MG/DL (0.55-1.30) Estimat Glomerular Filtration Rate > 60 mL/min (>60) Glucose Level 143 MG/DL (74-106) H Calcium Level 8.5 MG/DL (8.5-10.1) Total Bilirubin 0.3 MG/DL (0.2-1.0) Aspartate Amino Transf (AST/SGOT) 14 U/L (15-37) L Alanine Aminotransferase (ALT/SGPT) 24 U/L (12-78) Alkaline Phosphatase 72 U/L (46-116) Total Protein 6.4 G/DL (6.4-8.2) Albumin 2.6 G/DL (3.4-5.0) L Globulin 3.8 g/dL Albumin/Globulin Ratio 0.7 (1.0-2.7) L Current Medications Medications (Trade) Dose Ordered Sig/Sheng Route PRN Reason Start Time Stop Time Status Last Admin Dose Admin Acetaminophen (Tylenol) 650 mg Q4H PRN NG temp>100.2 or headache 05/25/19 12:00 06/24/19 11:59 Acetaminophen/ Hydrocodone Bitart ([place] 5/325) 1 tab Q4H PRN ORAL Moderate Pain (Pain Scale 4-6) 05/27/19 10:00 06/03/19 09:59 Alprazolam (Xanax) 0.5 mg Q4H PRN ORAL For Anxiety 05/27/19 10:30 05/31/19 10:29 Anastrozole (Arimidex) 1 mg DAILY ORAL 05/26/19 09:00 06/25/19 08:59 05/28/19 09:45 Ascorbic Acid (Vitamin C) 500 mg NEEDED PRN ORAL Constipation 05/06/19 11:30 06/05/19 11:29 05/11/19 08:54 Chlorhexidine Gluconate (Anya-Hex 2%) 1 applic DAILY@2000 TOPIC 04/26/19 20:00 07/25/19 19:59 05/23/19 20:21 Dextrose 1,000 ml @ 0 mls/hr Q24H PRN IV PN interrupted or unavailable 05/14/19 20:00 06/13/19 19:59 Dextrose (Dextrose 50%) 25 ml Q30M PRN IV Hypoglycemia 05/14/19 20:30 08/12/19 20:29 Dextrose (Dextrose 50%) 50 ml Q30M PRN IV Hypoglycemia 05/14/19 20:30 08/12/19 20:29 Duloxetine HCl (Cymbalta) 60 mg BID ORAL 04/26/19 18:00 07/25/19 17:59 05/28/19 17:46 Fat Emulsion Intravenous 216 ml/Amino Acids/ Electrolytes/ Dextrose 2,040 ml @ 85 mls/hr Q24H IV 05/23/19 20:00 06/22/19 19:59 05/27/19 20:44 Fluconazole (Diflucan) 100 mg DAILY ORAL 05/27/19 10:00 06/03/19 09:59 05/28/19 09:45 Hydrocortisone (Solu-CORTEF) 25 mg Q12HR IV 05/27/19 21:00 08/19/19 07:59 05/28/19 09:45 Hydromorphone HCl (Dilaudid) 1 mg Q4H PRN SUBQ Severe Breakthru Pain (>7) 05/24/19 11:00 05/31/19 10:59 Insulin Aspart (NovoLOG) Q6HR SUBQ 05/15/19 00:00 08/13/19 00:00 05/28/19 17:47 Iohexol (OMNIPAQUE-300 100ml) 100 ml ONCE PRN INJ RADIOLOGY PROCEDURE 05/28/19 13:00 05/30/19 12:59 Levofloxacin 150 ml @ 100 mls/hr Q24H IVPB 05/26/19 17:30 06/02/19 17:29 05/28/19 17:46 Levothyroxine Sodium (Synthroid) 100 mcg DAILY@0630 ORAL 05/26/19 06:30 06/25/19 06:29 05/28/19 05:48 Lidocaine HCl (Xylocaine 1% 30ml) 30 ml ADJUST PER PROTOCOL PRN INJ CATH PLACEMENT 05/28/19 12:00 05/30/19 11:59 Lidocaine HCl (Xylocaine 1% 30ml) 30 ml ONCE PRN INJ radiology procedure 05/28/19 12:30 05/30/19 12:29 Metoprolol Succinate (Toprol XL) 50 mg DAILY ORAL 04/27/19 09:00 07/26/19 08:59 05/28/19 09:45 Metronidazole 100 ml @ 100 mls/hr Q8HR IVPB 05/26/19 22:00 06/02/19 21:59 05/28/19 15:00 Ondansetron HCl (Zofran) 4 mg Q4H PRN IVP Nausea & Vomiting 05/25/19 12:00 06/24/19 11:59 Sodium 1,000 ml @ 25 mls/hr Q24H IV 05/14/19 20:00 06/13/19 19:59 05/27/19 20:46 Temazepam (RestoriL) 7.5 mg HSPRN PRN ORAL Insomnia 05/24/19 10:30 05/31/19 10:29 Darleen Perez MD May 28, 2019 18:18
[2019-05-28] MEDS: Dyna-Hex 2% Top Sol 2oz TOPIC SCH (20:17)
[2019-05-28] MEDS: 1/2NS w/KCl 20mEq 1000ml 1,000 ML IV SCH (20:17)
[2019-05-28] MEDS: TPN IV SCH (20:19)
[2019-05-28] MEDS: FAT EMULSION 20% IV SCH (20:19)
[2019-05-29] VITALS: BP 155/72
[2019-05-29 04:00] VITALS: BP 151/78
[2019-05-29] MEDS: NovoLOG Insulin Flexpen SUBQ SCH ×3 (05:30→17:46)
[2019-05-29 08:00] VITALS: BP 143/77
--- NOTE | 2019-05-29 08:39 | General Progress Note ---
Progress Note Progress Note AVSS Underwent fistula/abscess catheter exchange but too small for larger catheter - no drainage at all from drain, and no symptoms Abdomen soft, healing nicely, incision clean Urine 2500 BCIR ileo 370cc Drain - 0 Imp: Improved Plan: BCIR diet Maintain continuous drainage of Castro pouch taper and d/c TPN in AM: Fistulogram XRay - if no communication with bowel, and no cavity , will remove drain Start BCIR self-intubations in AM after fistulogram completed Santos Marte MD May 29, 2019 08:39
--- NOTE | 2019-05-29 09:31 | Diagnostic Imaging Report ---
INDICATION: Status post drainage of pelvic abscess with pigtail catheter. Now needs drainage tube exchange as will need long-term drainage TECHNIQUE: Informed consent obtained prior to commencement of the procedure. Sterile prepping and draping. Prior imaging studies reviewed. Procedural timeout performed. Small amount of contrast injected into previous drainage catheter. A guidewire was passed through the catheter, catheter was removed. Attempts made at inserting a 10 [place] drainage catheter, but this would not track over the guidewire. Subsequently, an 8.5 Mosotho pigtail drainage catheter was inserted over the guidewire into the collection. Contrast injected, confirming satisfactory position. The patient tolerated the procedure well, without immediate complication. Fluoroscopy time: 443 seconds Total dose: 3.2 mGym2 Total number of images: By COMPARISON: None FINDINGS: The completion images document satisfactory position of the exchanged drainage catheter. IMPRESSION: Successful exchange and upsizing of pelvic drainage catheter, as described
[2019-05-29] MEDS: Fluconazole 100mg tab ORAL SCH (09:34)
[2019-05-29] MEDS: ALPRAZolam 0.5mg tab ORAL PRN (09:35)
[2019-05-29] MEDS: Anastrazole 1mg tab ORAL SCH (09:35)
[2019-05-29] MEDS: Metoprolol Succinate XL 50mg tab ORAL SCH (09:35)
[2019-05-29 12:00] VITALS: BP 134/61
[2019-05-29 15:57] VITALS: BP 128/65
[2019-05-29] MEDS: Dyna-Hex 2% Top Sol 2oz TOPIC SCH (19:52)
[2019-05-29 20:00] VITALS: BP 118/58
[2019-05-29] MEDS: 1/2NS w/KCl 20mEq 1000ml 1,000 ML IV SCH (20:17)
[2019-05-30] VITALS: BP 137/71
[2019-05-30 04:00] VITALS: BP 133/66
[2019-05-30 06:12] LABS: BASOPHILS % (AUTO) 0.6 % (0.0-2.0); HEMATOCRIT 34.5 % (37.0-47.0); HEMOGLOBIN 11.8 G/DL (12.0-16.0); LYMPHOCYTES % (AUTO) 22.8 % (20.0-45.0); MEAN CORPUSCULAR VOLUME 93 FL (80-99); MONOCYTES % (AUTO) 7.7 % (1.0-10.0); NEUTROPHILS % (AUTO) 64.9 % (45.0-75.0); PLATELET COUNT 221 K/UL (150-450); RED BLOOD COUNT 3.71 M/UL (4.20-5.40); RED CELL DISTRIBUTION WIDTH 12.7 % (11.6-14.8); WHITE BLOOD COUNT 8.2 K/UL (4.8-10.8)
[2019-05-30 06:17] LABS: ALANINE AMINOTRANSFERASE 15 U/L (12-78); ALBUMIN 2.7 G/DL (3.4-5.0); ALBUMIN/GLOBULIN RATIO 0.7 (1.0-2.7); ALKALINE PHOSPHATASE 78 U/L (46-116); ANION GAP 6 mmol/L (5-15); ASPARTATE AMINO TRANSFERASE 13 U/L (15-37); BILIRUBIN,TOTAL 0.4 MG/DL (0.2-1.0); BLOOD UREA NITROGEN 13 mg/dL (7-18); CALCIUM 9.1 MG/DL (8.5-10.1); CARBON DIOXIDE 31 MMOL/L (21-32); CHLORIDE 105 MMOL/L (98-107); CREATININE 0.8 MG/DL (0.55-1.30); SODIUM 142 MMOL/L (136-145)
[2019-05-30 08:00] VITALS: BP 138/73
[2019-05-30] MEDS: Anastrazole 1mg tab ORAL SCH (08:48)
[2019-05-30] MEDS: Fluconazole 100mg tab ORAL SCH (08:49)
[2019-05-30] MEDS: Metoprolol Succinate XL 50mg tab ORAL SCH (08:49)
--- NOTE | 2019-05-30 09:30 | General Progress Note ---
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 Cancel fistulogram XRay f/u labs in AM Santos Marte MD May 30, 2019 09:30
[2019-05-30] MEDS: D51/2NS 1000ml IV SCH ×3 (09:58→20:05)
[2019-05-30] MEDS: ALPRAZolam 0.5mg tab ORAL PRN (11:27)
[2019-05-30 12:00] VITALS: BP 136/71
[2019-05-30 16:00] VITALS: BP 130/77
--- NOTE | 2019-05-30 19:10 | Infectious Diseases Prog Note ---
Assessment/Plan Assessment/Plan ASSESSMENT AND PLAN: 1. klebsiella intra-abdominal abscess, e.coli uti, leukocytosis, Castro ileostomy, fistula - levofloxacin and flagyl - day # 19 - will change to daily ertapenem - s/p attempted exploratory lap with hostile abdomen - monitor labs - leukocytosis resolved - d/w RN and patient - abscess - s/p drain exchange 2. The patient has history of hypothyroidism. Continue thyroid supplementation. 3. The patient has history of Crohn's colitis. 4. The patient has a history of Castro ileostomy status post revision. 5. The patient has history of knee replacement. 6. 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 7. History of proctocolectomy. 8. The patient is anemic. 9. Allergies to adalimumab and also infliximab and intravenous dye. 10. Social history is negative. 11. Family history is noncontributory. 12. MAR is noted. 13. Case was discussed with RN. 14. Case was discussed with Dr. Marte. 15. Case was discussed with the patie Subjective Constitutional: Reports: fatigue; Denies: fever HEENT: Denies: congestion Respiratory: Denies: shortness of breath Cardiovascular: Denies: chest pain Gastrointestinal/Abdominal: Reports: other - npo; Denies: nausea, vomiting Genitourinary: Denies: hematuria, frequency, other Neurologic: Denies: headache Psychiatric: Reports: no symptoms, other Skin: Denies: rash Hematologic: Denies: bleeding Musculoskeletal: Denies: pain Allergies: Coded Allergies: ADALIMUMAB (Verified Allergy, Intermediate, Body Rashes, Body Aches, ) INFLIXIMAB (Verified Allergy, Intermediate, Body Rash/Body Aches, 04/26/19) Uncoded Allergies: intravenous dye (Allergy, Severe, Respiratory Distress , 04/26/19) Objective Vital Signs Last 24 Hour Vital Signs Date Time Temp Pulse Resp B/P (MAP) Pulse Ox O2 Delivery O2 Flow Rate FiO2 05/30/19 16:00 97.3 78 16 130/77 (94) 95 05/30/19 12:00 98.2 87 16 136/71 (92) 92 05/30/19 09:00 Room Air 05/30/19 08:49 104 138/73 05/30/19 08:00 97.9 104 16 138/73 (94) 96 05/30/19 04:00 98.3 98 16 133/66 (88) 96 05/30/19 00:00 97.8 76 18 137/71 (93) 96 05/29/19 21:00 Room Air 05/29/19 20:00 97.5 79 16 118/58 (78) 97 05/29/19 19:59 94 Room Air 21 Height (Feet): 5 Height (Inches): 8.00 Weight (Pounds): 226 General Appearance: no acute distress HEENT: normocephalic, atraumatic, anicteric Respiratory/Chest: normal breath sounds, no respiratory distress, no accessory muscle use Cardiovascular: normal rate, regular rhythm, no gallop/murmur, no JVD Abdomen: normal bowel sounds, soft, non tender, no organomegaly, non distended Genitourinary: other - no ramachandran Extremities: no cyanosis Skin: no rash Neurologic/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 There is no evidence of bowel obstruction. Gas, fluid, and soft tissue collection adjacent to the inferior border the pouch and extending to the anterior peritoneal surface, measures approximately 5 x 4.8 cm. This could represent a routine postoperative fluid and gas collection, or could represent an abscess plus/minus area of phlegmon. Pelvic inflammatory changes, most likely related to the prior surgery Nonobstructive right renal calculi Evidence of prior lumbar spine surgery Small hiatal hernia incidentally noted Microbiology Date/Time Source Procedure Growth Status 05/25/19 10:00 Urine,Clean Catch Urine Culture - Final Mixed Gram Positive Organism Complete 05/10/19 15:15 Abdominal Fluid Gram Stain - Final Complete 05/10/19 15:15 Body Fluid Culture - Final Klebsiella Pneumoniae Klebsiella Pneumoniae#2 Complete Laboratory Tests Test 05/30/19 04:55 White Blood Count 8.2 K/UL (4.8-10.8) Red Blood Count 3.71 M/UL (4.20-5.40) L Hemoglobin 11.8 G/DL (12.0-16.0) L Hematocrit 34.5 % (37.0-47.0) L Mean Corpuscular Volume 93 FL (80-99) Mean Corpuscular Hemoglobin 31.9 PG (27.0-31.0) H Mean Corpuscular Hemoglobin Concent 34.3 G/DL (32.0-36.0) Red Cell Distribution Width 12.7 % (11.6-14.8) Platelet Count 221 K/UL (150-450) Mean Platelet Volume 5.2 FL (6.5-10.1) L Neutrophils (%) (Auto) 64.9 % (45.0-75.0) Lymphocytes (%) (Auto) 22.8 % (20.0-45.0) Monocytes (%) (Auto) 7.7 % (1.0-10.0) Eosinophils (%) (Auto) 4.0 % (0.0-3.0) H Basophils (%) (Auto) 0.6 % (0.0-2.0) Sodium Level 142 MMOL/L (136-145) Potassium Level 4.0 MMOL/L (3.5-5.1) Chloride Level 105 MMOL/L (98-107) Carbon Dioxide Level 31 MMOL/L (21-32) Anion Gap 6 mmol/L (5-15) Blood Urea Nitrogen 13 mg/dL (7-18) Creatinine 0.8 MG/DL (0.55-1.30) Estimat Glomerular Filtration Rate > 60 mL/min (>60) Glucose Level 118 MG/DL (74-106) H Calcium Level 9.1 MG/DL (8.5-10.1) Total Bilirubin 0.4 MG/DL (0.2-1.0) Aspartate Amino Transf (AST/SGOT) 13 U/L (15-37) L Alanine Aminotransferase (ALT/SGPT) 15 U/L (12-78) Alkaline Phosphatase 78 U/L (46-116) Total Protein 6.6 G/DL (6.4-8.2) Albumin 2.7 G/DL (3.4-5.0) L Globulin 3.9 g/dL Albumin/Globulin Ratio 0.7 (1.0-2.7) L Current Medications Medications (Trade) Dose Ordered Sig/Sheng Route PRN Reason Start Time Stop Time Status Last Admin Dose Admin Acetaminophen (Tylenol) 650 mg Q4H PRN NG temp>100.2 or headache 05/25/19 12:00 06/24/19 11:59 Acetaminophen/ Hydrocodone Bitart ([place] 5/325) 1 tab Q4H PRN ORAL Moderate Pain (Pain Scale 4-6) 05/27/19 10:00 06/03/19 09:59 Alprazolam (Xanax) 0.5 mg Q4H PRN ORAL For Anxiety 05/29/19 08:17 06/05/19 08:16 05/30/19 11:27 Anastrozole (Arimidex) 1 mg DAILY ORAL 05/26/19 09:00 06/25/19 08:59 05/30/19 08:48 Ascorbic Acid (Vitamin C) 500 mg NEEDED PRN ORAL Constipation 05/06/19 11:30 06/05/19 11:29 05/11/19 08:54 Chlorhexidine Gluconate (Anya-Hex 2%) 1 applic DAILY@2000 TOPIC 04/26/19 20:00 07/25/19 19:59 05/28/19 20:17 Dextrose 1,000 ml @ 0 mls/hr Q24H PRN IV PN interrupted or unavailable 05/30/19 20:00 06/29/19 19:59 Dextrose (Dextrose 50%) 25 ml Q30M PRN IV Hypoglycemia 05/30/19 09:30 08/28/19 09:29 Dextrose (Dextrose 50%) 50 ml Q30M PRN IV Hypoglycemia 05/30/19 09:30 08/28/19 09:29 Dextrose/Sodium Chloride 1,000 ml @ 25 mls/hr Q24H IV 05/30/19 20:00 06/29/19 19:59 Dextrose/Sodium Chloride 1,000 ml @ 100 mls/hr Q10H IV 05/30/19 09:30 05/30/19 19:59 05/30/19 09:58 Duloxetine HCl (Cymbalta) 60 mg BID ORAL 04/26/19 18:00 07/25/19 17:59 05/30/19 17:42 Fat Emulsion Intravenous 216 ml/Amino Acids/ Electrolytes/ Dextrose 2,040 ml @ 85 mls/hr Q24H IV 05/30/19 20:00 06/29/19 19:59 Fluconazole (Diflucan) 100 mg DAILY ORAL 05/27/19 10:00 06/03/19 09:59 05/30/19 08:49 Hydromorphone HCl (Dilaudid) 1 mg Q4H PRN SUBQ Severe Breakthru Pain (>7) 05/24/19 11:00 05/31/19 10:59 Insulin Aspart (NovoLOG) Q6HR SUBQ 05/31/19 00:00 08/29/19 00:00 Levofloxacin 150 ml @ 100 mls/hr Q24H IVPB 05/26/19 17:30 06/02/19 17:29 05/30/19 17:42 Levothyroxine Sodium (Synthroid) 100 mcg DAILY@0630 ORAL 05/26/19 06:30 06/25/19 06:29 05/30/19 05:48 Metoprolol Succinate (Toprol XL) 50 mg DAILY ORAL 04/27/19 09:00 07/26/19 08:59 05/30/19 08:49 Metronidazole 100 ml @ 100 mls/hr Q8HR IVPB 05/26/19 22:00 06/02/19 21:59 05/30/19 13:44 Ondansetron HCl (Zofran) 4 mg Q4H PRN IVP Nausea & Vomiting 05/25/19 12:00 06/24/19 11:59 Prednisone (predniSONE) 10 mg DAILY ORAL 05/29/19 09:00 06/28/19 08:59 05/30/19 08:49 Temazepam (RestoriL) 7.5 mg HSPRN PRN ORAL Insomnia 05/24/19 10:30 05/31/19 10:29 Darleen Perez MD May 30, 2019 19:10
[2019-05-30] MEDS: Dyna-Hex 2% Top Sol 2oz TOPIC SCH (19:46)
[2019-05-30] MEDS: FAT EMULSION 20% IV SCH (19:56)
[2019-05-30] MEDS: TPN IV SCH (19:56)
[2019-05-30 20:00] VITALS: BP 134/71
[2019-05-30] MEDS ORDERED: Dextrose 10% 1,000 ML IV PRN (20:00)
[2019-05-31] VITALS: BP 137/73
[2019-05-31] MEDS: NovoLOG Insulin Flexpen SUBQ SCH ×5 (00:17→23:45)
[2019-05-31 04:00] VITALS: BP 150/73
[2019-05-31 06:01] LABS: BASOPHILS % (AUTO) 0.7 % (0.0-2.0); EOSINOPHILS % (AUTO) 4.1 % (0.0-3.0); HEMATOCRIT 34.1 % (37.0-47.0); HEMOGLOBIN 11.7 G/DL (12.0-16.0); LYMPHOCYTES % (AUTO) 19.7 % (20.0-45.0); MEAN CORPUSCULAR VOLUME 93 FL (80-99); NEUTROPHILS % (AUTO) 67.6 % (45.0-75.0); PLATELET COUNT 255 K/UL (150-450); RED BLOOD COUNT 3.68 M/UL (4.20-5.40); RED CELL DISTRIBUTION WIDTH 12.4 % (11.6-14.8); WHITE BLOOD COUNT 7.3 K/UL (4.8-10.8)
[2019-05-31 06:48] LABS: ALANINE AMINOTRANSFERASE 17 U/L (12-78); ALBUMIN 2.6 G/DL (3.4-5.0); ALBUMIN/GLOBULIN RATIO 0.7 (1.0-2.7); ALKALINE PHOSPHATASE 71 U/L (46-116); ANION GAP 6 mmol/L (5-15); ASPARTATE AMINO TRANSFERASE 14 U/L (15-37); BILIRUBIN,TOTAL 0.2 MG/DL (0.2-1.0); BLOOD UREA NITROGEN 11 mg/dL (7-18); CALCIUM 8.9 MG/DL (8.5-10.1); CARBON DIOXIDE 32 MMOL/L (21-32); CHLORIDE 103 MMOL/L (98-107); CREATININE 0.8 MG/DL (0.55-1.30); POTASSIUM 3.8 MMOL/L (3.5-5.1); SODIUM 141 MMOL/L (136-145)
[2019-05-31 08:00] VITALS: BP 149/72
[2019-05-31] MEDS: Metoprolol Succinate XL 50mg tab ORAL SCH (09:44)
[2019-05-31] MEDS: Fluconazole 100mg tab ORAL SCH (09:44)
[2019-05-31] MEDS: Anastrazole 1mg tab ORAL SCH (09:44)
--- NOTE | 2019-05-31 10:32 | General Progress Note ---
Progress Note Progress Note AVSS On Ertapenem now and other antibiotics d/c'd Feels well now. Abdomen soft, healing incision Urine 2550 BCIR ileo 315 Fistula/abscess drain only 18cc since patient made NPO again labs all stable - albumin still low 2.6 Imp: Decreased fistula output Plan: Continue npo, TPN, antibiotics per ID, continuous drainage of Castro Pouch Santos Marte MD May 31, 2019 10:32
[2019-05-31 12:00] VITALS: BP 142/72
[2019-05-31] MEDS: ALPRAZolam 0.5mg tab ORAL PRN (12:50)
[2019-05-31] MEDS ORDERED: NS Irrig 1000ml ONE ×2 (12:56→13:01)
[2019-05-31] MEDS ORDERED: Tubing IV Secondary IV ONE (13:01)
[2019-05-31 16:00] VITALS: BP 136/83
[2019-05-31] MEDS: Acetaminophen 650mg/20.3ml NG PRN (18:51)
[2019-05-31 20:00] VITALS: BP 128/69
[2019-05-31] MEDS: Dyna-Hex 2% Top Sol 2oz TOPIC SCH (20:00)
[2019-05-31] MEDS: D51/2NS 1000ml IV SCH (20:00)
[2019-05-31] MEDS: TPN IV SCH (20:31)
[2019-05-31] MEDS: FAT EMULSION 20% IV SCH (20:31)
[2019-06-01] VITALS: BP 157/80
[2019-06-01 04:00] VITALS: BP 142/82
[2019-06-01] MEDS: NovoLOG Insulin Flexpen SUBQ SCH ×3 (05:40→18:00)
[2019-06-01 05:55] LABS: BASOPHILS % (AUTO) 0.7 % (0.0-2.0); EOSINOPHILS % (AUTO) 4.7 % (0.0-3.0); LYMPHOCYTES % (AUTO) 25.2 % (20.0-45.0); MEAN CORPUSCULAR VOLUME 92 FL (80-99); MONOCYTES % (AUTO) 9.2 % (1.0-10.0); NEUTROPHILS % (AUTO) 60.2 % (45.0-75.0); PLATELET COUNT 269 K/UL (150-450); RED BLOOD COUNT 3.79 M/UL (4.20-5.40); RED CELL DISTRIBUTION WIDTH 12.2 % (11.6-14.8); WHITE BLOOD COUNT 6.7 K/UL (4.8-10.8)
[2019-06-01 06:10] LABS: ALANINE AMINOTRANSFERASE 15 U/L (12-78); ALBUMIN 2.7 G/DL (3.4-5.0); ALBUMIN/GLOBULIN RATIO 0.7 (1.0-2.7); ALKALINE PHOSPHATASE 69 U/L (46-116); ANION GAP 5 mmol/L (5-15); ASPARTATE AMINO TRANSFERASE 12 U/L (15-37); BILIRUBIN,TOTAL 0.2 MG/DL (0.2-1.0); BLOOD UREA NITROGEN 10 mg/dL (7-18); CALCIUM 8.9 MG/DL (8.5-10.1); CARBON DIOXIDE 33 MMOL/L (21-32); CHLORIDE 103 MMOL/L (98-107); CREATININE 0.7 MG/DL (0.55-1.30); POTASSIUM 3.4 MMOL/L (3.5-5.1); SODIUM 141 MMOL/L (136-145)
[2019-06-01 08:00] VITALS: BP 143/78
[2019-06-01] MEDS: Fluconazole 100mg tab ORAL SCH (08:44)
[2019-06-01] MEDS: Metoprolol Succinate XL 50mg tab ORAL SCH (08:44)
[2019-06-01] MEDS: Anastrazole 1mg tab ORAL SCH (08:44)
[2019-06-01 12:00] VITALS: BP 128/72
--- NOTE | 2019-06-01 13:35 | General Progress Note ---
Progress Note Progress Note AVSS Feels okay - depressed re lengthy hospital stay and fistula Abdomen soft; 1/2 leandra removed Urine 2575 BCIR ileo 285 Fistula/abscess drain: 23cc/24 hours K 3.4 Albumin still low 2.7 Imp: Low output continent ileostomy pouch-cutaneous fistula with CT guided drain in place, and hostile frozen abdomen Plan: continue npo, TPN, continuous drainage of Castro pouch and of fistula, IV antibiotics Fistulogram on 04/05 Santos Marte MD Jun 01, 2019 13:35
[2019-06-01] MEDS: D5 1/4NS w/KCl 20mEq 1,000 ML IV SCH (14:29)
[2019-06-01] MEDS ORDERED: NS Irrig 1000ml ONE (15:41)
[2019-06-01] MEDS ORDERED: D5 1/2NS 1000ml IV ONE (15:41)
--- NOTE | 2019-06-01 15:45 | Infectious Diseases Prog Note ---
Assessment/Plan Assessment/Plan ASSESSMENT AND PLAN: 1. klebsiella intra-abdominal abscess, e.coli uti, leukocytosis, Castro ileostomy, fistula - ertapenem - day # 21 abx - s/p attempted exploratory lap with hostile abdomen - monitor labs - leukocytosis resolved - d/w RN and patient - abscess - s/p drain exchange 2. The patient has history of hypothyroidism. Continue thyroid supplementation. 3. The patient has history of Crohn's colitis. 4. The patient has a history of Castro ileostomy status post revision. 5. The patient has history of knee replacement. 6. 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 7. History of proctocolectomy. 8. The patient is anemic. 9. Allergies to adalimumab and also infliximab and intravenous dye. 10. Social history is negative. 11. Family history is noncontributory. 12. MAR is noted. 13. Case was discussed with RN. 14. Case was discussed with Dr. Marte. 15. Case was discussed with the patie Subjective Constitutional: Denies: fever HEENT: Denies: congestion Respiratory: Denies: shortness of breath Cardiovascular: Denies: chest pain Gastrointestinal/Abdominal: Reports: other - no abdominal pain ; Denies: nausea , vomiting Genitourinary: Reports: other - no ramachandran Neurologic: Denies: headache Psychiatric: Denies: depression Skin: Denies: rash Hematologic: Denies: bleeding Musculoskeletal: Denies: pain Allergies: Coded Allergies: ADALIMUMAB (Verified Allergy, Intermediate, Body Rashes, Body Aches, ) INFLIXIMAB (Verified Allergy, Intermediate, Body Rash/Body Aches, 04/26/19) Uncoded Allergies: intravenous dye (Allergy, Severe, Respiratory Distress , 04/26/19) Objective Vital Signs Last 24 Hour Vital Signs Date Time Temp Pulse Resp B/P (MAP) Pulse Ox O2 Delivery O2 Flow Rate FiO2 06/01/19 12:00 98.0 79 18 128/72 (90) 94 06/01/19 08:44 92 143/78 06/01/19 08:17 Room Air 06/01/19 08:00 98.1 92 20 143/78 (99) 94 06/01/19 04:00 97.5 90 19 142/82 (102) 98 06/01/19 00:00 97.5 75 19 157/80 (105) 96 75 05/31/19 21:00 Room Air 05/31/19 20:00 96.6 70 19 128/69 (88) 96 70 05/31/19 20:00 96 Room Air 21 05/31/19 16:00 97.7 74 18 136/83 (100) 96 Height (Feet): 5 Height (Inches): 8.00 Weight (Pounds): 226 General Appearance: no acute distress HEENT: normocephalic, atraumatic, anicteric, mucous membranes moist Respiratory/Chest: lungs clear, normal breath sounds, no respiratory distress, no accessory muscle use Cardiovascular: normal rate, regular rhythm, no gallop/murmur, no JVD Abdomen: normal bowel sounds, soft, non tender, no organomegaly, non distended Genitourinary: other - no ramachandran Extremities: no cyanosis Skin: no rash Neurologic/Psychiatric: 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 There is no evidence of bowel obstruction. Gas, fluid, and soft tissue collection adjacent to the inferior border the pouch and extending to the anterior peritoneal surface, measures approximately 5 x 4.8 cm. This could represent a routine postoperative fluid and gas collection, or could represent an abscess plus/minus area of phlegmon. Pelvic inflammatory changes, most likely related to the prior surgery Nonobstructive right renal calculi Evidence of prior lumbar spine surgery Small hiatal hernia incidentally noted Microbiology Date/Time Source Procedure Growth Status 05/25/19 10:00 Urine,Clean Catch Urine Culture - Final Mixed Gram Positive Organism Complete 05/10/19 15:15 Abdominal Fluid Gram Stain - Final Complete 05/10/19 15:15 Body Fluid Culture - Final Klebsiella Pneumoniae Klebsiella Pneumoniae#2 Complete Laboratory Tests Test 06/01/19 05:10 White Blood Count 6.7 K/UL (4.8-10.8) Red Blood Count 3.79 M/UL (4.20-5.40) L Hemoglobin 12.0 G/DL (12.0-16.0) Hematocrit 35.0 % (37.0-47.0) L Mean Corpuscular Volume 92 FL (80-99) Mean Corpuscular Hemoglobin 31.7 PG (27.0-31.0) H Mean Corpuscular Hemoglobin Concent 34.3 G/DL (32.0-36.0) Red Cell Distribution Width 12.2 % (11.6-14.8) Platelet Count 269 K/UL (150-450) Mean Platelet Volume 5.2 FL (6.5-10.1) L Neutrophils (%) (Auto) 60.2 % (45.0-75.0) Lymphocytes (%) (Auto) 25.2 % (20.0-45.0) Monocytes (%) (Auto) 9.2 % (1.0-10.0) Eosinophils (%) (Auto) 4.7 % (0.0-3.0) H Basophils (%) (Auto) 0.7 % (0.0-2.0) Sodium Level 141 MMOL/L (136-145) Potassium Level 3.4 MMOL/L (3.5-5.1) L Chloride Level 103 MMOL/L (98-107) Carbon Dioxide Level 33 MMOL/L (21-32) H Anion Gap 5 mmol/L (5-15) Blood Urea Nitrogen 10 mg/dL (7-18) Creatinine 0.7 MG/DL (0.55-1.30) Estimat Glomerular Filtration Rate > 60 mL/min (>60) Glucose Level 148 MG/DL (74-106) H Calcium Level 8.9 MG/DL (8.5-10.1) Total Bilirubin 0.2 MG/DL (0.2-1.0) Aspartate Amino Transf (AST/SGOT) 12 U/L (15-37) L Alanine Aminotransferase (ALT/SGPT) 15 U/L (12-78) Alkaline Phosphatase 69 U/L (46-116) Total Protein 6.7 G/DL (6.4-8.2) Albumin 2.7 G/DL (3.4-5.0) L Globulin 4.0 g/dL Albumin/Globulin Ratio 0.7 (1.0-2.7) L Current Medications Medications (Trade) Dose Ordered Sig/Sheng Route PRN Reason Start Time Stop Time Status Last Admin Dose Admin Acetaminophen (Tylenol) 650 mg Q4H PRN NG temp>100.2 or headache 05/25/19 12:00 06/24/19 11:59 05/31/19 18:51 Acetaminophen/ Hydrocodone Bitart ([place] 5/325) 1 tab Q4H PRN ORAL Moderate Pain (Pain Scale 4-6) 05/27/19 10:00 06/03/19 09:59 Alprazolam (Xanax) 0.5 mg Q4H PRN ORAL For Anxiety 05/29/19 08:17 06/05/19 08:16 05/31/19 12:50 Anastrozole (Arimidex) 1 mg DAILY ORAL 05/26/19 09:00 06/25/19 08:59 06/01/19 08:44 Ascorbic Acid (Vitamin C) 500 mg NEEDED PRN ORAL Constipation 05/06/19 11:30 06/05/19 11:29 05/11/19 08:54 Chlorhexidine Gluconate (Anya-Hex 2%) 1 applic DAILY@2000 TOPIC 04/26/19 20:00 07/25/19 19:59 05/28/19 20:17 Dextrose 1,000 ml @ 0 mls/hr Q24H PRN IV PN interrupted or unavailable 05/30/19 20:00 06/29/19 19:59 Dextrose (Dextrose 50%) 25 ml Q30M PRN IV Hypoglycemia 05/30/19 09:30 08/28/19 09:29 Dextrose (Dextrose 50%) 50 ml Q30M PRN IV Hypoglycemia 05/30/19 09:30 08/28/19 09:29 Dextrose/ Electrolytes 1,000 ml @ 25 mls/hr Q24H IV 06/01/19 14:00 07/01/19 13:59 06/01/19 14:29 Duloxetine HCl (Cymbalta) 60 mg BID ORAL 04/26/19 18:00 07/25/19 17:59 06/01/19 08:44 Ertapenem 1 gm/ Sodium Chloride 50 ml @ 100 mls/hr Q24H IVPB 05/30/19 21:00 06/04/19 20:59 05/31/19 20:32 Fat Emulsion Intravenous 216 ml/Amino Acids/ Electrolytes/ Dextrose 2,040 ml @ 85 mls/hr Q24H IV 05/30/19 20:00 06/29/19 19:59 05/31/19 20:31 Fluconazole (Diflucan) 100 mg DAILY ORAL 05/27/19 10:00 06/03/19 09:59 06/01/19 08:44 Insulin Aspart (NovoLOG) Q6HR SUBQ 05/31/19 00:00 08/29/19 00:00 06/01/19 11:40 Levothyroxine Sodium (Synthroid) 100 mcg DAILY@0630 ORAL 05/26/19 06:30 06/25/19 06:29 06/01/19 05:38 Metoprolol Succinate (Toprol XL) 50 mg DAILY ORAL 04/27/19 09:00 07/26/19 08:59 06/01/19 08:44 Ondansetron HCl (Zofran) 4 mg Q4H PRN IVP Nausea & Vomiting 05/25/19 12:00 06/24/19 11:59 Prednisone (predniSONE) 5 mg DAILY ORAL 06/01/19 09:00 06/28/19 08:59 06/01/19 08:44 Temazepam (RestoriL) 7.5 mg HSPRN PRN ORAL Insomnia 05/31/19 10:30 06/07/19 10:29 Darleen Perez MD Jun 01, 2019 15:45
[2019-06-01 16:00] VITALS: BP 151/75
[2019-06-01 20:00] VITALS: BP 133/76
[2019-06-01] MEDS: Dyna-Hex 2% Top Sol 2oz TOPIC SCH (20:00)
[2019-06-01] MEDS: FAT EMULSION 20% IV SCH (20:19)
[2019-06-01] MEDS: TPN IV SCH (20:19)
[2019-06-02] VITALS: BP 140/69
[2019-06-02 04:00] VITALS: BP 150/78
[2019-06-02] MEDS: NovoLOG Insulin Flexpen SUBQ SCH ×4 (06:00→17:49)
[2019-06-02 08:00] VITALS: BP 129/71
[2019-06-02] MEDS: Anastrazole 1mg tab ORAL SCH (08:54)
[2019-06-02] MEDS: Fluconazole 100mg tab ORAL SCH (08:54)
[2019-06-02] MEDS: Metoprolol Succinate XL 50mg tab ORAL SCH (08:59)
[2019-06-02] MEDS ORDERED: HYDROcodone/Acetamin 5/325 tab ORAL PRN (10:00)
--- NOTE | 2019-06-02 10:11 | General Progress Note ---
Progress Note Progress Note AVSS Doing well NPO with TPN. Abdomen soft, additional leandra removed Urine 2024 BCIR ileo 295 Fistula drain 10+2.5=12.5cc/24 hours Imp: Decreasing fistula output without pain or fever Plan: Continue npo, TPN Castro pouch catheter to medium intermittent suction f/u labs in AM Fistulogram XRay 06/03 Santos Marte MD Jun 02, 2019 10:11
[2019-06-02] MEDS: Acetaminophen 650mg/20.3ml NG PRN (10:20)
[2019-06-02 12:00] VITALS: BP 140/74
[2019-06-02] MEDS: ALPRAZolam 0.5mg tab ORAL PRN (12:01)
[2019-06-02] MEDS: D5 1/4NS w/KCl 20mEq 1,000 ML IV SCH (15:31)
[2019-06-02 16:00] VITALS: BP 128/65
[2019-06-02] MEDS: Dyna-Hex 2% Top Sol 2oz TOPIC SCH (19:59)
[2019-06-02 20:00] VITALS: BP 129/65
[2019-06-02] MEDS: TPN IV SCH (20:07)
[2019-06-02] MEDS: FAT EMULSION 20% IV SCH (20:07)
[2019-06-03] VITALS: BP 134/69
[2019-06-03] MEDS: NovoLOG Insulin Flexpen SUBQ SCH ×4 (05:31→17:41)
[2019-06-03 07:21] LABS: BASOPHILS % (AUTO) 0.8 % (0.0-2.0); EOSINOPHILS % (AUTO) 3.9 % (0.0-3.0); HEMATOCRIT 36.7 % (37.0-47.0); HEMOGLOBIN 12.7 G/DL (12.0-16.0); MEAN CORPUSCULAR VOLUME 92 FL (80-99); MONOCYTES % (AUTO) 6.8 % (1.0-10.0); NEUTROPHILS % (AUTO) 64.5 % (45.0-75.0); PLATELET COUNT 287 K/UL (150-450); RED BLOOD COUNT 3.98 M/UL (4.20-5.40); RED CELL DISTRIBUTION WIDTH 12.2 % (11.6-14.8); WHITE BLOOD COUNT 7.2 K/UL (4.8-10.8)
[2019-06-03 07:43] LABS: ALANINE AMINOTRANSFERASE 17 U/L (12-78); ALBUMIN 2.8 G/DL (3.4-5.0); ALBUMIN/GLOBULIN RATIO 0.7 (1.0-2.7); ALKALINE PHOSPHATASE 78 U/L (46-116); ANION GAP 8 mmol/L (5-15); ASPARTATE AMINO TRANSFERASE 19 U/L (15-37); BILIRUBIN,TOTAL 0.2 MG/DL (0.2-1.0); BLOOD UREA NITROGEN 12 mg/dL (7-18); CALCIUM 9.4 MG/DL (8.5-10.1); CARBON DIOXIDE 31 MMOL/L (21-32); CHLORIDE 102 MMOL/L (98-107); CREATININE 0.7 MG/DL (0.55-1.30); POTASSIUM 4.3 MMOL/L (3.5-5.1); SODIUM 141 MMOL/L (136-145)
[2019-06-03 08:00] VITALS: BP 139/69
[2019-06-03] MEDS: Metoprolol Succinate XL 50mg tab ORAL SCH (08:30)
[2019-06-03] MEDS: Fluconazole 100mg tab ORAL SCH (08:30)
[2019-06-03] MEDS: Anastrazole 1mg tab ORAL SCH (08:30)
--- NOTE | 2019-06-03 09:34 | General Progress Note ---
Progress Note Progress Note AVSS Continues stable and asymptomatic. Abdomen soft, remaining leandra removed. 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
[2019-06-03 09:40] LABS: PHOSPHORUS 4.3 MG/DL (2.5-4.9)
[2019-06-03 12:00] VITALS: BP 148/81
[2019-06-03] MEDS: D5 1/4NS w/KCl 20mEq 1,000 ML IV SCH (14:30)
[2019-06-03] MEDS ORDERED: Tubing IV Secondary IV ONE (15:46)
[2019-06-03] MEDS ORDERED: NS Irrig 1000ml ONE (15:46)
[2019-06-03 16:00] VITALS: BP 110/62
--- NOTE | 2019-06-03 17:20 | Infectious Diseases Prog Note ---
Assessment/Plan Assessment/Plan ASSESSMENT AND PLAN: 1. klebsiella intra-abdominal abscess, e.coli uti, leukocytosis, Castro ileostomy, fistula - ertapenem - day # 23 abx - s/p attempted exploratory lap with hostile abdomen - monitor labs - leukocytosis resolved - d/w RN and patient - abscess - s/p drain exchange - fistulogram to evaluate fistula - per Dr. Marte 2. The patient has history of hypothyroidism. Continue thyroid supplementation. 3. The patient has history of Crohn's colitis. 4. The patient has a history of Castro ileostomy status post revision. 5. The patient has history of knee replacement. 6. 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 7. History of proctocolectomy. 8. The patient is anemic. 9. Allergies to adalimumab and also infliximab and intravenous dye. 10. Social history is negative. 11. Family history is noncontributory. 12. MAR is noted. 13. Case was discussed with RN. 14. Case was discussed with Dr. Marte. 15. Case was discussed with the patie Subjective Constitutional: Denies: fever HEENT: Denies: congestion Respiratory: Denies: shortness of breath Cardiovascular: Denies: chest pain Gastrointestinal/Abdominal: Denies: nausea, vomiting Genitourinary: Reports: other - no ramachandran Neurologic: Denies: headache Psychiatric: Denies: depression Skin: Denies: rash Hematologic: Denies: bleeding Musculoskeletal: Denies: pain Allergies: Coded Allergies: ADALIMUMAB (Verified Allergy, Intermediate, Body Rashes, Body Aches, ) INFLIXIMAB (Verified Allergy, Intermediate, Body Rash/Body Aches, 04/26/19) Uncoded Allergies: intravenous dye (Allergy, Severe, Respiratory Distress , 04/26/19) Objective Vital Signs Last 24 Hour Vital Signs Date Time Temp Pulse Resp B/P (MAP) Pulse Ox O2 Delivery O2 Flow Rate FiO2 06/03/19 12:00 99.2 96 20 148/81 (103) 95 96 06/03/19 08:30 102 139/69 06/03/19 08:00 97.3 102 18 139/69 (92) 97 06/03/19 07:30 Room Air 06/03/19 00:00 97.3 78 18 134/69 (90) 95 06/02/19 21:00 Room Air 06/02/19 20:00 97.2 69 16 129/65 (86) 96 Height (Feet): 5 Height (Inches): 8.00 Weight (Pounds): 226 General Appearance: no acute distress HEENT: normocephalic, atraumatic, anicteric Respiratory/Chest: lungs clear, normal breath sounds, no respiratory distress, no accessory muscle use Cardiovascular: normal rate, regular rhythm, no gallop/murmur, no JVD Abdomen: normal bowel sounds, soft, non tender, no organomegaly, non distended Genitourinary: other - no ramachandran Extremities: no cyanosis Skin: no rash 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 There is no evidence of bowel obstruction. Gas, fluid, and soft tissue collection adjacent to the inferior border the pouch and extending to the anterior peritoneal surface, measures approximately 5 x 4.8 cm. This could represent a routine postoperative fluid and gas collection, or could represent an abscess plus/minus area of phlegmon. Pelvic inflammatory changes, most likely related to the prior surgery Nonobstructive right renal calculi Evidence of prior lumbar spine surgery Small hiatal hernia incidentally noted Microbiology Date/Time Source Procedure Growth Status 05/25/19 10:00 Urine,Clean Catch Urine Culture - Final Mixed Gram Positive Organism Complete 05/10/19 15:15 Abdominal Fluid Gram Stain - Final Complete 05/10/19 15:15 Body Fluid Culture - Final Klebsiella Pneumoniae Klebsiella Pneumoniae#2 Complete Laboratory Tests Test 06/03/19 05:15 White Blood Count 7.2 K/UL (4.8-10.8) Red Blood Count 3.98 M/UL (4.20-5.40) L Hemoglobin 12.7 G/DL (12.0-16.0) Hematocrit 36.7 % (37.0-47.0) L Mean Corpuscular Volume 92 FL (80-99) Mean Corpuscular Hemoglobin 31.8 PG (27.0-31.0) H Mean Corpuscular Hemoglobin Concent 34.5 G/DL (32.0-36.0) Red Cell Distribution Width 12.2 % (11.6-14.8) Platelet Count 287 K/UL (150-450) Mean Platelet Volume 5.1 FL (6.5-10.1) L Neutrophils (%) (Auto) 64.5 % (45.0-75.0) Lymphocytes (%) (Auto) 24.0 % (20.0-45.0) Monocytes (%) (Auto) 6.8 % (1.0-10.0) Eosinophils (%) (Auto) 3.9 % (0.0-3.0) H Basophils (%) (Auto) 0.8 % (0.0-2.0) Sodium Level 141 MMOL/L (136-145) Potassium Level 4.3 MMOL/L (3.5-5.1) Chloride Level 102 MMOL/L (98-107) Carbon Dioxide Level 31 MMOL/L (21-32) Anion Gap 8 mmol/L (5-15) Blood Urea Nitrogen 12 mg/dL (7-18) Creatinine 0.7 MG/DL (0.55-1.30) Estimat Glomerular Filtration Rate > 60 mL/min (>60) Glucose Level 137 MG/DL (74-106) H Calcium Level 9.4 MG/DL (8.5-10.1) Phosphorus Level 4.3 MG/DL (2.5-4.9) Magnesium Level 2.0 MG/DL (1.8-2.4) Total Bilirubin 0.2 MG/DL (0.2-1.0) Aspartate Amino Transf (AST/SGOT) 19 U/L (15-37) Alanine Aminotransferase (ALT/SGPT) 17 U/L (12-78) Alkaline Phosphatase 78 U/L (46-116) Total Protein 7.0 G/DL (6.4-8.2) Albumin 2.8 G/DL (3.4-5.0) L Globulin 4.2 g/dL Albumin/Globulin Ratio 0.7 (1.0-2.7) L Current Medications Medications (Trade) Dose Ordered Sig/Sheng Route PRN Reason Start Time Stop Time Status Last Admin Dose Admin Acetaminophen (Tylenol) 650 mg Q4H PRN ORAL Temp >100.2 or headache 06/02/19 20:00 07/02/19 19:59 06/03/19 14:30 Acetaminophen/ Hydrocodone Bitart ([place] 5/325) 1 tab Q4H PRN ORAL Moderate Pain (Pain Scale 4-6) 06/02/19 10:00 06/09/19 09:59 Alprazolam (Xanax) 0.5 mg Q4H PRN ORAL For Anxiety 05/29/19 08:17 06/05/19 08:16 06/02/19 12:01 Anastrozole (Arimidex) 1 mg DAILY ORAL 05/26/19 09:00 06/25/19 08:59 06/03/19 08:30 Ascorbic Acid (Vitamin C) 500 mg NEEDED PRN ORAL Constipation 05/06/19 11:30 06/05/19 11:29 05/11/19 08:54 Chlorhexidine Gluconate (Anya-Hex 2%) 1 applic DAILY@2000 TOPIC 04/26/19 20:00 07/25/19 19:59 05/28/19 20:17 Dextrose 1,000 ml @ 0 mls/hr Q24H PRN IV PN interrupted or unavailable 05/30/19 20:00 06/29/19 19:59 Dextrose (Dextrose 50%) 25 ml Q30M PRN IV Hypoglycemia 05/30/19 09:30 08/28/19 09:29 Dextrose (Dextrose 50%) 50 ml Q30M PRN IV Hypoglycemia 05/30/19 09:30 08/28/19 09:29 Dextrose/ Electrolytes 1,000 ml @ 25 mls/hr Q24H IV 06/01/19 14:00 07/01/19 13:59 06/03/19 14:30 Duloxetine HCl (Cymbalta) 60 mg BID ORAL 04/26/19 18:00 07/25/19 17:59 06/03/19 08:30 Ertapenem 1 gm/ Sodium Chloride 50 ml @ 100 mls/hr Q24H IVPB 05/30/19 21:00 06/04/19 20:59 06/02/19 20:03 Fat Emulsion Intravenous 216 ml/Amino Acids/ Electrolytes/ Dextrose 2,040 ml @ 85 mls/hr Q24H IV 05/30/19 20:00 06/29/19 19:59 06/02/19 20:07 Fluconazole (Diflucan) 100 mg DAILY ORAL 06/03/19 09:00 06/10/19 08:59 06/03/19 08:30 Insulin Aspart (NovoLOG) Q6HR SUBQ 05/31/19 00:00 08/29/19 00:00 06/02/19 12:08 Levothyroxine Sodium (Synthroid) 100 mcg DAILY@0630 ORAL 05/26/19 06:30 06/25/19 06:29 06/03/19 05:31 Metoprolol Succinate (Toprol XL) 50 mg DAILY ORAL 04/27/19 09:00 07/26/19 08:59 06/03/19 08:30 Ondansetron HCl (Zofran) 4 mg Q4H PRN IVP Nausea & Vomiting 05/25/19 12:00 06/24/19 11:59 Temazepam (RestoriL) 7.5 mg HSPRN PRN ORAL Insomnia 05/31/19 10:30 06/07/19 10:29 Darleen Perez MD Jun 03, 2019 17:20
[2019-06-03] MEDS: Dyna-Hex 2% Top Sol 2oz TOPIC SCH (19:23)
[2019-06-03] MEDS: FAT EMULSION 20% IV SCH (19:55)
[2019-06-03] MEDS: TPN IV SCH (19:55)
[2019-06-03 20:00] VITALS: BP 121/62
[2019-06-04] VITALS: BP 124/60
[2019-06-04] MEDS: NovoLOG Insulin Flexpen SUBQ SCH ×4 (05:45→17:19)
[2019-06-04 06:42] LABS: BASOPHILS % (AUTO) 0.6 % (0.0-2.0); HEMATOCRIT 37.1 % (37.0-47.0); HEMOGLOBIN 12.6 G/DL (12.0-16.0); LYMPHOCYTES % (AUTO) 23.5 % (20.0-45.0); MEAN CORPUSCULAR VOLUME 92 FL (80-99); MONOCYTES % (AUTO) 5.4 % (1.0-10.0); NEUTROPHILS % (AUTO) 66.5 % (45.0-75.0); PLATELET COUNT 284 K/UL (150-450); RED BLOOD COUNT 4.04 M/UL (4.20-5.40); RED CELL DISTRIBUTION WIDTH 12.3 % (11.6-14.8); WHITE BLOOD COUNT 6.6 K/UL (4.8-10.8)
[2019-06-04 07:05] LABS: ALANINE AMINOTRANSFERASE 25 U/L (12-78); ALBUMIN 2.8 G/DL (3.4-5.0); ALBUMIN/GLOBULIN RATIO 0.7 (1.0-2.7); ALKALINE PHOSPHATASE 90 U/L (46-116); ANION GAP 9 mmol/L (5-15); ASPARTATE AMINO TRANSFERASE 20 U/L (15-37); BILIRUBIN,TOTAL 0.3 MG/DL (0.2-1.0); BLOOD UREA NITROGEN 11 mg/dL (7-18); CARBON DIOXIDE 31 MMOL/L (21-32); CHLORIDE 103 MMOL/L (98-107); CREATININE 0.7 MG/DL (0.55-1.30); POTASSIUM 4.7 MMOL/L (3.5-5.1); SODIUM 143 MMOL/L (136-145)
[2019-06-04 08:00] VITALS: BP 147/94
[2019-06-04] MEDS: Fluconazole 100mg tab ORAL SCH (08:41)
[2019-06-04] MEDS: Anastrazole 1mg tab ORAL SCH (08:41)
[2019-06-04] MEDS: Metoprolol Succinate XL 50mg tab ORAL SCH (08:41)
[2019-06-04] MEDS ORDERED: ALPRAZolam 0.5mg tab ORAL PRN (09:00)
[2019-06-04] MEDS ORDERED: Ascorbic Acid 500mg tab ORAL PRN (09:00)
--- NOTE | 2019-06-04 09:04 | General Progress Note ---
Progress Note Progress Note Doing well with npo and TPN, continuous drainage of Castro pouch, with fistula output only 5cc/24 hours Abdomen soft, slight serous drainage lower midline incision Urine 2000 BCIR ileo 280 labs all stable On Invanz Imp: Enterocutaneous fistula closing with 5cc output past 24 hours Plan: continue current regimen - antibiotics per ID no need for Fistulogram - cancelled Discussed with patient and Santos Marte MD Jun 04, 2019 09:04
[2019-06-04 12:00] VITALS: BP 131/64
[2019-06-04] MEDS: D5 1/4NS w/KCl 20mEq 1,000 ML IV SCH (14:00)
[2019-06-04 16:00] VITALS: BP 121/58
[2019-06-04 20:00] VITALS: BP 125/59
[2019-06-04] MEDS: Dyna-Hex 2% Top Sol 2oz TOPIC SCH (20:00)
[2019-06-04] MEDS: FAT EMULSION 20% IV SCH (20:09)
[2019-06-04] MEDS: TPN IV SCH (20:09)
[2019-06-05] VITALS: BP 143/56
[2019-06-05 04:00] VITALS: BP 135/63
[2019-06-05] MEDS: D5 1/4NS w/KCl 20mEq 1,000 ML IV SCH (04:45)
[2019-06-05] MEDS: NovoLOG Insulin Flexpen SUBQ SCH ×5 (05:42→23:50)
[2019-06-05 08:00] VITALS: BP 141/66
--- NOTE | 2019-06-05 08:19 | General Progress Note ---
Progress Note Progress Note AVSS Only 3cc fistula output during the day but 17cc overnight. Abdomen soft BCIR ileo catheter only 190cc Urine 2890 Imp: Persistent enterocutaneous fistula, and very low BCIR ileo output Plan: Pouchogram XRay to assess fistula and catheter position BCIR ileo catheter to medium intermittent suction continue npo, TPN Santos Marte MD Jun 05, 2019 08:19
[2019-06-05] MEDS: Metoprolol Succinate XL 50mg tab ORAL SCH (09:04)
[2019-06-05] MEDS: Fluconazole 100mg tab ORAL SCH (09:04)
[2019-06-05] MEDS: Anastrazole 1mg tab ORAL SCH (09:04)
[2019-06-05 12:00] VITALS: BP 127/60
[2019-06-05 16:00] VITALS: BP 120/65
--- NOTE | 2019-06-05 17:31 | Infectious Diseases Prog Note ---
Assessment/Plan Assessment/Plan ASSESSMENT AND PLAN: 1. klebsiella intra-abdominal abscess, e.coli uti, leukocytosis, Castro ileostomy, fistula - ertapenem - day # 27 abx - s/p attempted exploratory lap with hostile abdomen - monitor labs - leukocytosis resolved - d/w RN and patient - abscess - s/p drain exchange, improved - further magt of fistula per Dr. Marte 2. The patient has history of hypothyroidism. Continue thyroid supplementation. 3. The patient has history of Crohn's colitis. 4. The patient has a history of Castro ileostomy status post revision. 5. The patient has history of knee replacement. 6. 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 7. History of proctocolectomy. 8. The patient is anemic. 9. Allergies to adalimumab and also infliximab and intravenous dye. 10. Social history is negative. 11. Family history is noncontributory. 12. MAR is noted. 13. Case was discussed with RN. 14. Case was discussed with Dr. Marte. 15. Case was discussed with the patie Subjective Constitutional: Denies: fever HEENT: Denies: congestion Respiratory: Denies: shortness of breath Cardiovascular: Denies: chest pain Gastrointestinal/Abdominal: Denies: nausea, vomiting, diarrhea Genitourinary: Reports: other - no ramachandran Neurologic: Denies: headache Psychiatric: Denies: depression Skin: Denies: rash Hematologic: Denies: bleeding Musculoskeletal: Denies: pain Allergies: Coded Allergies: ADALIMUMAB (Verified Allergy, Intermediate, Body Rashes, Body Aches, ) INFLIXIMAB (Verified Allergy, Intermediate, Body Rash/Body Aches, 04/26/19) Uncoded Allergies: intravenous dye (Allergy, Severe, Respiratory Distress , 04/26/19) Objective Vital Signs Last 24 Hour Vital Signs Date Time Temp Pulse Resp B/P (MAP) Pulse Ox O2 Delivery O2 Flow Rate FiO2 06/05/19 16:00 97.8 79 20 120/65 (83) 98 06/05/19 12:00 98.1 89 18 127/60 (82) 98 06/05/19 09:04 100 141/66 06/05/19 09:00 Room Air 06/05/19 08:00 98.0 100 20 141/66 (91) 98 06/05/19 04:00 97.6 94 19 135/63 (87) 97 06/05/19 00:00 97.6 82 19 143/56 (85) 95 06/04/19 21:00 Room Air 06/04/19 20:03 96 Room Air 21 06/04/19 20:00 98.2 80 20 125/59 (81) 96 Height (Feet): 5 Height (Inches): 8.00 Weight (Pounds): 226 General Appearance: no acute distress HEENT: normocephalic, atraumatic, anicteric, mucous membranes moist Respiratory/Chest: lungs clear, normal breath sounds, no accessory muscle use, respiratory distress Cardiovascular: normal peripheral pulses, normal rate, regular rhythm, no gallop/murmur, no JVD Abdomen: normal bowel sounds, soft, non tender, no organomegaly, non distended Genitourinary: other - no ramachandran Extremities: no cyanosis Skin: no rash Neurologic/Psychiatric: plant ecologist 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 There is no evidence of bowel obstruction. Gas, fluid, and soft tissue collection adjacent to the inferior border the pouch and extending to the anterior peritoneal surface, measures approximately 5 x 4.8 cm. This could represent a routine postoperative fluid and gas collection, or could represent an abscess plus/minus area of phlegmon. Pelvic inflammatory changes, most likely related to the prior surgery Nonobstructive right renal calculi Evidence of prior lumbar spine surgery Small hiatal hernia incidentally noted Microbiology Date/Time Source Procedure Growth Status 05/25/19 10:00 Urine,Clean Catch Urine Culture - Final Mixed Gram Positive Organism Complete 05/10/19 15:15 Abdominal Fluid Gram Stain - Final Complete 05/10/19 15:15 Body Fluid Culture - Final Klebsiella Pneumoniae Klebsiella Pneumoniae#2 Complete Labs Test 06/03/19 05:15 06/04/19 05:30 White Blood Count 7.2 K/UL (4.8-10.8) 6.6 K/UL (4.8-10.8) Red Blood Count 3.98 M/UL (4.20-5.40) 4.04 M/UL (4.20-5.40) Hemoglobin 12.7 G/DL (12.0-16.0) 12.6 G/DL (12.0-16.0) Hematocrit 36.7 % (37.0-47.0) 37.1 % (37.0-47.0) Mean Corpuscular Volume 92 FL (80-99) 92 FL (80-99) Mean Corpuscular Hemoglobin 31.8 PG (27.0-31.0) 31.2 PG (27.0-31.0) Mean Corpuscular Hemoglobin Concent 34.5 G/DL (32.0-36.0) 33.9 G/DL (32.0-36.0) Red Cell Distribution Width 12.2 % (11.6-14.8) 12.3 % (11.6-14.8) Platelet Count 287 K/UL (150-450) 284 K/UL (150-450) Mean Platelet Volume 5.1 FL (6.5-10.1) 5.3 FL (6.5-10.1) Neutrophils (%) (Auto) 64.5 % (45.0-75.0) 66.5 % (45.0-75.0) Lymphocytes (%) (Auto) 24.0 % (20.0-45.0) 23.5 % (20.0-45.0) Monocytes (%) (Auto) 6.8 % (1.0-10.0) 5.4 % (1.0-10.0) Eosinophils (%) (Auto) 3.9 % (0.0-3.0) 4.0 % (0.0-3.0) Basophils (%) (Auto) 0.8 % (0.0-2.0) 0.6 % (0.0-2.0) Sodium Level 141 MMOL/L (136-145) 143 MMOL/L (136-145) Potassium Level 4.3 MMOL/L (3.5-5.1) 4.7 MMOL/L (3.5-5.1) Chloride Level 102 MMOL/L (98-107) 103 MMOL/L (98-107) Carbon Dioxide Level 31 MMOL/L (21-32) 31 MMOL/L (21-32) Anion Gap 8 mmol/L (5-15) 9 mmol/L (5-15) Blood Urea Nitrogen 12 mg/dL (7-18) 11 mg/dL (7-18) Creatinine 0.7 MG/DL (0.55-1.30) 0.7 MG/DL (0.55-1.30) Estimat Glomerular Filtration Rate > 60 mL/min (>60) > 60 mL/min (>60) Glucose Level 137 MG/DL (74-106) 141 MG/DL (74-106) Calcium Level 9.4 MG/DL (8.5-10.1) 9.0 MG/DL (8.5-10.1) Phosphorus Level 4.3 MG/DL (2.5-4.9) Magnesium Level 2.0 MG/DL (1.8-2.4) Total Bilirubin 0.2 MG/DL (0.2-1.0) 0.3 MG/DL (0.2-1.0) Aspartate Amino Transf (AST/SGOT) 19 U/L (15-37) 20 U/L (15-37) Alanine Aminotransferase (ALT/SGPT) 17 U/L (12-78) 25 U/L (12-78) Alkaline Phosphatase 78 U/L (46-116) 90 U/L (46-116) Total Protein 7.0 G/DL (6.4-8.2) 7.1 G/DL (6.4-8.2) Albumin 2.8 G/DL (3.4-5.0) 2.8 G/DL (3.4-5.0) Globulin 4.2 g/dL 4.3 g/dL Albumin/Globulin Ratio 0.7 (1.0-2.7) 0.7 (1.0-2.7) Current Medications Medications (Trade) Dose Ordered Sig/Sheng Route PRN Reason Start Time Stop Time Status Last Admin Dose Admin Acetaminophen (Tylenol) 650 mg Q4H PRN ORAL Temp >100.2 or headache 06/02/19 20:00 07/02/19 19:59 06/04/19 13:38 Acetaminophen/ Hydrocodone Bitart ([place]incoln 5/325) 1 tab Q4H PRN ORAL Moderate Pain (Pain Scale 4-6) 06/02/19 10:00 06/09/19 09:59 Alprazolam (Xanax) 0.5 mg Q4H PRN ORAL For Anxiety 06/04/19 09:00 06/11/19 08:59 06/04/19 09:47 Anastrozole (Arimidex) 1 mg DAILY ORAL 05/26/19 09:00 06/25/19 08:59 06/05/19 09:04 Ascorbic Acid (Vitamin C) 500 mg NEEDED PRN ORAL Constipation 06/04/19 09:00 07/04/19 08:59 Chlorhexidine Gluconate (Anya-Hex 2%) 1 applic DAILY@2000 TOPIC 04/26/19 20:00 07/25/19 19:59 05/28/19 20:17 Dextrose 1,000 ml @ 0 mls/hr Q24H PRN IV PN interrupted or unavailable 05/30/19 20:00 06/29/19 19:59 Dextrose (Dextrose 50%) 25 ml Q30M PRN IV Hypoglycemia 05/30/19 09:30 08/28/19 09:29 Dextrose (Dextrose 50%) 50 ml Q30M PRN IV Hypoglycemia 05/30/19 09:30 08/28/19 09:29 Dextrose/ Electrolytes 1,000 ml @ 25 mls/hr Q24H IV 06/01/19 14:00 07/01/19 13:59 06/05/19 04:45 Duloxetine HCl (Cymbalta) 60 mg BID ORAL 04/26/19 18:00 07/25/19 17:59 06/05/19 09:04 Ertapenem 1 gm/ Sodium Chloride 50 ml @ 100 mls/hr Q24H IVPB 06/03/19 21:00 06/08/19 20:59 06/04/19 20:09 Fat Emulsion Intravenous 216 ml/Amino Acids/ Electrolytes/ Dextrose 2,040 ml @ 85 mls/hr Q24H IV 05/30/19 20:00 06/29/19 19:59 06/04/19 20:09 Fluconazole (Diflucan) 100 mg DAILY ORAL 06/03/19 09:00 06/10/19 08:59 06/05/19 09:04 Insulin Aspart (NovoLOG) Q6HR SUBQ 05/31/19 00:00 08/29/19 00:00 06/05/19 11:46 Levothyroxine Sodium (Synthroid) 100 mcg DAILY@0630 ORAL 05/26/19 06:30 06/25/19 06:29 06/05/19 05:42 Metoprolol Succinate (Toprol XL) 50 mg DAILY ORAL 04/27/19 09:00 07/26/19 08:59 06/05/19 09:04 Ondansetron HCl (Zofran) 4 mg Q4H PRN IVP Nausea & Vomiting 05/25/19 12:00 06/24/19 11:59 Temazepam (RestoriL) 7.5 mg HSPRN PRN ORAL Insomnia 05/31/19 10:30 06/07/19 10:29 Darleen Perez MD Jun 05, 2019 17:31
[2019-06-05 20:00] VITALS: BP 122/71
[2019-06-05] MEDS: Dyna-Hex 2% Top Sol 2oz TOPIC SCH (20:00)
[2019-06-05] MEDS: FAT EMULSION 20% IV SCH (20:29)
[2019-06-05] MEDS: TPN IV SCH (20:29)
[2019-06-06] VITALS: BP 122/57
[2019-06-06 04:00] VITALS: BP 133/98
[2019-06-06 05:55] LABS: BASOPHILS % (AUTO) 0.8 % (0.0-2.0); EOSINOPHILS % (AUTO) 3.7 % (0.0-3.0); HEMATOCRIT 36.5 % (37.0-47.0); HEMOGLOBIN 12.5 G/DL (12.0-16.0); LYMPHOCYTES % (AUTO) 26.7 % (20.0-45.0); MEAN CORPUSCULAR VOLUME 92 FL (80-99); MONOCYTES % (AUTO) 5.7 % (1.0-10.0); NEUTROPHILS % (AUTO) 63.1 % (45.0-75.0); PLATELET COUNT 281 K/UL (150-450); RED BLOOD COUNT 3.98 M/UL (4.20-5.40); RED CELL DISTRIBUTION WIDTH 12.1 % (11.6-14.8); WHITE BLOOD COUNT 6.5 K/UL (4.8-10.8)
[2019-06-06 06:02] LABS: ALANINE AMINOTRANSFERASE 29 U/L (12-78); ALBUMIN 2.8 G/DL (3.4-5.0); ALBUMIN/GLOBULIN RATIO 0.6 (1.0-2.7); ALKALINE PHOSPHATASE 100 U/L (46-116); ANION GAP 7 mmol/L (5-15); ASPARTATE AMINO TRANSFERASE 22 U/L (15-37); BILIRUBIN,TOTAL 0.5 MG/DL (0.2-1.0); BLOOD UREA NITROGEN 12 mg/dL (7-18); CALCIUM 8.8 MG/DL (8.5-10.1); CARBON DIOXIDE 30 MMOL/L (21-32); CHLORIDE 104 MMOL/L (98-107); CREATININE 0.8 MG/DL (0.55-1.30); POTASSIUM 4.3 MMOL/L (3.5-5.1); SODIUM 141 MMOL/L (136-145)
[2019-06-06] MEDS: NovoLOG Insulin Flexpen SUBQ SCH ×3 (06:03→17:50)
[2019-06-06 08:00] VITALS: BP 133/65
[2019-06-06] MEDS: Metoprolol Succinate XL 50mg tab ORAL SCH (09:08)
[2019-06-06] MEDS: Fluconazole 100mg tab ORAL SCH (09:08)
[2019-06-06] MEDS: Anastrazole 1mg tab ORAL SCH (09:08)
[2019-06-06 12:00] VITALS: BP 137/71
--- NOTE | 2019-06-06 12:44 | General Progress Note ---
Progress Note Progress Note AVSS continues stable with low volume enterocutaneous fistula from Castro pouch 12.5cc in 24 hours with patient NPO and Castro pouch output 270cc labs all stable/satisfactory except low albumin 2.8 Imp: Persistent low volume pouch-cutaneous fistula Plan; Pouchogram XRay GI (Dr. Grove) re possible pouch endoscopy with placement of clip(s) across fistula orifice Continue TPN, pigtail catheter to closed suction drainage Santos Marte MD Jun 06, 2019 12:44
--- NOTE | 2019-06-06 14:21 | Diagnostic Imaging Report ---
INDICATION: History of continent ileostomy, abnormal output, previously documented fistula, abdominal pain. Postop TECHNIQUE: Contrast was injected into the ileostomy pouch via a pre-existing Aguiar catheter under direct fluoroscopic supervision. Serial digital spot images were obtained Fluoroscopy time: 48.4 seconds Total dose: 0.59 and 7 7 mGym2 Total number of images: 13 COMPARISON: Abscessogram dated 05/14/2019, abdomen pelvis CT dated 05/09/2019, Kock pouchogram 05/18/2019, images from catheter exchange for 2019 FINDINGS: Injected contrast rapidly fills the continent ileostomy pouch. Injected contrast also is again noted to enter the extraluminal cavity immediately inferior to it, location of the pigtail drainage catheter. Subsequent images document contrast reflux into the small bowel which is normal in caliber with. IMPRESSION: Persistent communication of the continent ileostomy pouch with small adjacent abscess via a small fistula tract. Similar findings were noted previously. Ordering physician Dr. Marte was present during the performance of the procedure.
--- NOTE | 2019-06-06 14:29 | General Progress Note ---
Assessment/Plan Problem List: (1) SETHI CONTINENT FISTULA Assessment/Plan: enterocutaneous fistula low albumin d/w surg and the patient plan pouchoscopy and possible closure of fistula for tomorrow abx per id TPN will fu Subjective ROS Limited/Unobtainable: Yes Allergies: Coded Allergies: ADALIMUMAB (Verified Allergy, Intermediate, Body Rashes, Body Aches, ) INFLIXIMAB (Verified Allergy, Intermediate, Body Rash/Body Aches, 04/26/19) Uncoded Allergies: intravenous dye (Allergy, Severe, Respiratory Distress , 04/26/19) Objective Last 24 Hour Vital Signs Date Time Temp Pulse Resp B/P (MAP) Pulse Ox O2 Delivery O2 Flow Rate FiO2 06/06/19 12:00 98.0 85 16 137/71 (93) 94 06/06/19 09:08 94 133/65 06/06/19 09:00 Room Air 06/06/19 08:00 98.2 94 16 133/65 (87) 94 06/06/19 04:00 98.3 88 19 133/98 (110) 97 06/06/19 00:00 97.4 84 18 122/57 (78) 97 06/05/19 21:00 Room Air 06/05/19 20:00 97.8 80 18 122/71 (88) 98 06/05/19 16:00 97.8 79 20 120/65 (83) 98 Intake and Output 06/05/19 06/06/19 19:00 07:00 Intake Total 1210 ml 110 ml Output Total 1675 ml 1208 ml Balance -465 ml -1098 ml IV Total 1210 ml 110 ml Output Urine Total 1600 ml 1000 ml Drainage Total 8 ml Other 75 ml 200 ml # Voids 4 Laboratory Tests 06/06/19 04:50: White Blood Count 6.5, Red Blood Count 3.98L, Hemoglobin 12.5, Hematocrit 36.5L , Mean Corpuscular Volume 92, Mean Corpuscular Hemoglobin 31.4H, Mean Corpuscular Hemoglobin Concent 34.3, Red Cell Distribution Width 12.1, Platelet Count 281, Mean Platelet Volume 5.5L, Neutrophils (%) (Auto) 63.1, Lymphocytes ( %) (Auto) 26.7, Monocytes (%) (Auto) 5.7, Eosinophils (%) (Auto) 3.7H, Basophils (%) (Auto) 0.8, Sodium Level 141, Potassium Level 4.3, Chloride Level 104, Carbon Dioxide Level 30, Anion Gap 7, Blood Urea Nitrogen 12, Creatinine 0.8, Estimat Glomerular Filtration Rate > 60, Glucose Level 154H, Calcium Level 8.8, Phosphorus Level 4.0, Magnesium Level 1.8, Total Bilirubin 0.5, Aspartate Amino Transf (AST/SGOT) 22, Alanine Aminotransferase (ALT/SGPT) 29, Alkaline Phosphatase 100, Total Protein 7.2, Albumin 2.8L, Globulin 4.4, Albumin/ Globulin Ratio 0.6L Height (Feet): 5 Height (Inches): 8.00 Weight (Pounds): 225 General Appearance: alert EENT: normal ENT inspection Neck: normal alignment Cardiovascular: normal rate Respiratory/Chest: lungs clear Abdomen: non tender, soft Extremities: non-tender Antolin Grove MD Jun 06, 2019 14:29
[2019-06-06] MEDS: D5 1/4NS w/KCl 20mEq 1,000 ML IV SCH (14:55)
[2019-06-06 16:00] VITALS: BP 139/68
[2019-06-06 20:00] VITALS: BP 133/67
[2019-06-06] MEDS: Dyna-Hex 2% Top Sol 2oz TOPIC SCH (20:40)
[2019-06-06] MEDS: TPN IV SCH (20:42)
[2019-06-06] MEDS: FAT EMULSION 20% IV SCH (20:42)
[2019-06-07] VITALS (11 sets, daily range): BP systolic 114–150; BP diastolic 57–74
[2019-06-07] MEDS: NovoLOG Insulin Flexpen SUBQ SCH ×4 (05:47→18:00)
[2019-06-07 07:06] LABS: ALANINE AMINOTRANSFERASE 31 U/L (12-78); ALBUMIN 2.9 G/DL (3.4-5.0); ALBUMIN/GLOBULIN RATIO 0.7 (1.0-2.7); ALKALINE PHOSPHATASE 109 U/L (46-116); ANION GAP 6 mmol/L (5-15); ASPARTATE AMINO TRANSFERASE 20 U/L (15-37); BILIRUBIN,TOTAL 0.4 MG/DL (0.2-1.0); BLOOD UREA NITROGEN 11 mg/dL (7-18); CARBON DIOXIDE 33 MMOL/L (21-32); CHLORIDE 104 MMOL/L (98-107); CREATININE 0.7 MG/DL (0.55-1.30); POTASSIUM 4.8 MMOL/L (3.5-5.1); SODIUM 143 MMOL/L (136-145)
[2019-06-07 07:12] LABS: BASOPHILS % (AUTO) 0.6 % (0.0-2.0); EOSINOPHILS % (AUTO) 4.2 % (0.0-3.0); HEMATOCRIT 36.6 % (37.0-47.0); HEMOGLOBIN 12.5 G/DL (12.0-16.0); LYMPHOCYTES % (AUTO) 30.7 % (20.0-45.0); MEAN CORPUSCULAR VOLUME 92 FL (80-99); MONOCYTES % (AUTO) 6.6 % (1.0-10.0); NEUTROPHILS % (AUTO) 57.9 % (45.0-75.0); PLATELET COUNT 278 K/UL (150-450); RED BLOOD COUNT 3.97 M/UL (4.20-5.40); RED CELL DISTRIBUTION WIDTH 11.6 % (11.6-14.8); WHITE BLOOD COUNT 6.2 K/UL (4.8-10.8)
[2019-06-07 07:14] LABS: INR 0.9 (0.9-1.1)
[2019-06-07] MEDS: Anastrazole 1mg tab ORAL SCH (09:00)
[2019-06-07] MEDS: Metoprolol Succinate XL 50mg tab ORAL SCH (09:00)
[2019-06-07] MEDS: Fluconazole 100mg tab ORAL SCH (09:00)
--- NOTE | 2019-06-07 09:56 | Pre-Procedure Note/Attestation ---
Pre-Procedure Note/Attestation Complete Prior to Procedure Planned Procedure: not applicable Procedure Narrative: pouchoscopy Indications for Procedure Pre-Operative Diagnosis: fistula Attestation I attest that I discussed the nature of the procedure; its benefits; risks and complications; and alternatives (and the risks and benefits of such alternatives ), prior to the procedure, with the patient (or the patient's legal graphic art sales representative). I attest that, if there was a reasonable possibility of needing a blood transfusion, the patient (or the patient's legal graphic art sales representative) was given the [facility] standardized written summary, pursuant to the Scottie Susana Blood Safety Act ([place] Health and Safety Code # 1645, as amended). I attest that I re-evaluated the patient just prior to the surgery and that there has been no change in the patient's H&P, except as documented below: Antolin Grove MD Jun 07, 2019 09:56
[2019-06-07] MEDS ORDERED: Lidocaine 1% Plain 30 ml INJ ONE (10:04)
[2019-06-07] MEDS ORDERED: LR 1000ml 1,000 ML IVLG SCH (10:19)
[2019-06-07] MEDS ORDERED: Atropine Sulfate 0.4mg/ml inj IVP PRN (10:30)
[2019-06-07] MEDS ORDERED: Labetalol 5mg/ml 20ml vial IV PRN (10:30)
[2019-06-07] MEDS ORDERED: Hydromorphone 0.5mg/0.5ml inj IVP PRN (10:30)
[2019-06-07] MEDS ORDERED: DiphenhydrAMINE 50mg/ml Inj IVP PRN (10:30)
[2019-06-07] MEDS ORDERED: LORazepam Inj 2mg/ml 1ml IV PRN (10:30)
[2019-06-07] MEDS ORDERED: Midazolam 2mg/2ml Inj IVP PRN (10:30)
[2019-06-07] MEDS ORDERED: Ketorolac 30mg Inj IV PRN ×2 (10:30)
--- NOTE | 2019-06-07 10:35 | Anethesia Preoperative Eval ---
Anesthesia Pre-op PMH/ROS General Date of Evaluation: Jun 07, 2019 Time of Evaluation: 09:49 Anesthesiologist: Shaw ASA Score: ASA 3 Mallampati Score Class I : Soft palate, uvula, fauces, pillars visible Class II: Soft palate, uvula, fauces visible Class III: Soft palate, base of uvula visible Class IV: Only hard plate visible Mallampati Classification: Class II Surgeon: Jah Diagnosis: Fistula in Castro Pouch Surgical Procedure: Endo Pouch Repair Family History: no anesthesia problems Allergies: Coded Allergies: ADALIMUMAB (Verified Allergy, Intermediate, Body Rashes, Body Aches, ) INFLIXIMAB (Verified Allergy, Intermediate, Body Rash/Body Aches, 04/26/19) Uncoded Allergies: intravenous dye (Allergy, Severe, Respiratory Distress , 04/26/19) Medications: see eMAR Patient NPO?: Yes NPO Date: May 21, 2019 NPO Time: 0000 Past Medical History Cardiovascular: Reports: HTN Gastrointestinal/Genitourinary: Reports: other - Crohns Endocrine: Reports: hypothyroidism Hematology/Immune: Reports: anemia, other - Breast CA Other: obesity - BMI 37 PSxH Narrative: 1. 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 2. History of Crohn's colitis. 3. Status post cervicolumbar spine fusions. 4. Status post bilateral total knee replacement. 5. Status post sinus surgery. 6. Status post bilateral mastectomy for breast cancer in August 2017. 7. STATUS POST MULTIPLE ABDOMINAL OPERATIONS: 7.1. Proctocolectomy and Sherlyn ileostomy in 1974. 7.2. Castro continent ileostomy in 1982. 7.3. Repair of Castro pouch fistula to access segment on 10/27/2016. Anesthesia Pre-op Phys. Exam Physician Exam Last Vital Signs Date Time Temp Pulse Resp B/P (MAP) Pulse Ox O2 Delivery O2 Flow Rate FiO2 06/07/19 09:00 103 128/72 06/07/19 08:00 97.6 18 96 06/06/19 21:00 Room Air 06/04/19 20:03 21 Constitutional: NAD Neurologic: CN 2-12 intact Cardiovascular: RRR Respiratory: CTA Gastrointestinal: S/NT/ND Airway Exam Mallampati Score: Class II MO: limited ROM: limited Teeth: missing, intact Anesthesia Pre-op A/P Labs Hematology Test 06/07/19 05:10 White Blood Count 6.2 K/UL (4.8-10.8) Red Blood Count 3.97 M/UL (4.20-5.40) L Hemoglobin 12.5 G/DL (12.0-16.0) Hematocrit 36.6 % (37.0-47.0) L Mean Corpuscular Volume 92 FL (80-99) Mean Corpuscular Hemoglobin 31.5 PG (27.0-31.0) H Mean Corpuscular Hemoglobin Concent 34.2 G/DL (32.0-36.0) Red Cell Distribution Width 11.6 % (11.6-14.8) Platelet Count 278 K/UL (150-450) Mean Platelet Volume 5.6 FL (6.5-10.1) L Neutrophils (%) (Auto) 57.9 % (45.0-75.0) Lymphocytes (%) (Auto) 30.7 % (20.0-45.0) Monocytes (%) (Auto) 6.6 % (1.0-10.0) Eosinophils (%) (Auto) 4.2 % (0.0-3.0) H Basophils (%) (Auto) 0.6 % (0.0-2.0) Coagulation Test 06/07/19 05:10 Prothrombin Time 9.8 SEC (9.30-11.50) Prothromb Time International Ratio 0.9 (0.9-1.1) Chemistry Test 06/07/19 05:10 Sodium Level 143 MMOL/L (136-145) Potassium Level 4.8 MMOL/L (3.5-5.1) Chloride Level 104 MMOL/L (98-107) Carbon Dioxide Level 33 MMOL/L (21-32) H Anion Gap 6 mmol/L (5-15) Blood Urea Nitrogen 11 mg/dL (7-18) Creatinine 0.7 MG/DL (0.55-1.30) Estimat Glomerular Filtration Rate > 60 mL/min (>60) Glucose Level 155 MG/DL (74-106) H Calcium Level 9.0 MG/DL (8.5-10.1) Magnesium Level 2.0 MG/DL (1.8-2.4) Total Bilirubin 0.4 MG/DL (0.2-1.0) Aspartate Amino Transf (AST/SGOT) 20 U/L (15-37) Alanine Aminotransferase (ALT/SGPT) 31 U/L (12-78) Alkaline Phosphatase 109 U/L (46-116) Total Protein 7.3 G/DL (6.4-8.2) Albumin 2.9 G/DL (3.4-5.0) L Globulin 4.4 g/dL Albumin/Globulin Ratio 0.7 (1.0-2.7) L Risk Assessment & Plan Assessment: ASA 3 Plan: TIVA Status Change Before Surgery: No Pre-Antibiotics Drug: Been Given Beau Squires MD Jun 07, 2019 10:35
--- NOTE | 2019-06-07 10:44 | Immediate Post-Op Evaluation ---
Immediate Post-Op Evalulation Immediate Post-Op Evalulation Procedure: Endo Pouch Repair Date of Evaluation: Jun 07, 2019 Time of Evaluation: 10:57 IV Fluids: 200 NS Blood Products: 0 Estimated Blood Loss: 2 Urinary Output: 0 Blood Pressure Systolic: 162 Blood Pressure Diastolic: 67 Pulse Rate: 88 Respiratory Rate: 18 O2 Sat by Pulse Oximetry: 100 Temperature (Fahrenheit): 98.3 Pain Score (1-10): 1 Nausea: No Vomiting: No Complications 0 Patient Status: awake, reacts, patent, none Hydration Status: adequate Beau Squires MD Jun 07, 2019 10:44
--- NOTE | 2019-06-07 10:46 | 48 Hour Post Anesthesia Eval ---
Post Anesthesia Evaluation Procedure: Endo Pouch Repair Date of Evaluation: Jun 07, 2019 Time of Evaluation: 13:02 Blood Pressure Systolic: 133 0: 61 Pulse Rate: 82 Respiratory Rate: 18 Temperature (Fahrenheit): 98.4 O2 Sat by Pulse Oximetry: 99 Airway: patent Nausea: No Vomiting: No Pain Intensity: 1 Hydration Status: adequate Cardiopulmonary Status: Stable Mental Status/LOC: patient returned to baseline Follow-up Care/Observations: 0 Post-Anesthesia Complications: 0 Follow-up care needed: N/A Beau Squires MD Jun 07, 2019 10:46
--- NOTE | 2019-06-07 13:20 | General Progress Note ---
Progress Note Progress Note AVSS Only 5.5 cc of fistula output past 24 hours. Pouch endoscopy by Dr. Smith: unable to identify fistula, one abnormal vessel clipped, patch inflammation/granulations. Valve well formed, anastomosis nicely healed labs all stable Imp: Very low output enterocutaneous fistula, drained via pigtail catheter Plan: Carafate suspension into BCIR pouch 3x daily Start BCIR diet in AM Maintain continuous drainage of Castro pouch continue TPN Santos Marte MD Jun 07, 2019 13:20
[2019-06-07] MEDS: Sucralfate 1gm tab PEG SCH ×2 (13:38→18:48)
[2019-06-07] MEDS: D5 1/4NS w/KCl 20mEq 1,000 ML IV SCH (13:45)
--- NOTE | 2019-06-07 18:18 | Infectious Diseases Prog Note ---
Assessment/Plan Assessment/Plan ASSESSMENT AND PLAN: 1. klebsiella intra-abdominal abscess, e.coli uti, leukocytosis, Castro ileostomy, fistula - s/p 28 days abx (levofloxacin/flagyl and ertapenem) - s/p attempted exploratory lap with hostile abdomen - monitor labs - leukocytosis resolved - d/w RN and patient - abscess - s/p drain exchange, improved - further management of fistula per Dr. Marte - TPN 2. The patient has history of hypothyroidism. Continue thyroid supplementation. 3. The patient has history of Crohn's colitis. 4. The patient has a history of Castro ileostomy status post revision. 5. The patient has history of knee replacement. 6. 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 7. History of proctocolectomy. 8. The patient is anemic. 9. Allergies to adalimumab and also infliximab and intravenous dye. 10. Social history is negative. 11. Family history is noncontributory. 12. MAR is noted. 13. Case was discussed with RN. 14. Case was discussed with Dr. Marte. 15. Case was discussed with the patie Subjective Constitutional: Denies: fever HEENT: Denies: congestion Respiratory: Denies: shortness of breath Cardiovascular: Denies: chest pain Gastrointestinal/Abdominal: Reports: other - no abdominal ; Denies: nausea, vomiting Genitourinary: Reports: other - no ramachandran Neurologic: Denies: headache Psychiatric: Denies: depression Skin: Denies: rash Hematologic: Denies: bleeding Musculoskeletal: Denies: pain Allergies: Coded Allergies: ADALIMUMAB (Verified Allergy, Intermediate, Body Rashes, Body Aches, ) INFLIXIMAB (Verified Allergy, Intermediate, Body Rash/Body Aches, 04/26/19) Uncoded Allergies: intravenous dye (Allergy, Severe, Respiratory Distress , 04/26/19) Objective Vital Signs Last 24 Hour Vital Signs Date Time Temp Pulse Resp B/P (MAP) Pulse Ox O2 Delivery O2 Flow Rate FiO2 06/07/19 16:00 97.9 80 20 127/66 (86) 97 06/07/19 11:15 92 18 133/62 94 Room Air 06/07/19 11:10 94 18 129/63 94 Room Air 06/07/19 11:05 97.4 94 18 136/62 95 Room Air 06/07/19 11:00 91 18 129/64 97 Room Air 06/07/19 10:55 90 18 134/62 100 Simple Mask 4 06/07/19 10:50 98.2 90 18 136/65 100 Simple Mask 8 06/07/19 10:46 82 18 99 06/07/19 10:44 88 18 100 06/07/19 09:00 Room Air 06/07/19 09:00 103 128/72 06/07/19 08:00 97.6 103 18 128/72 (90) 96 06/07/19 04:00 98.6 98 18 150/74 (99) 95 06/07/19 00:00 98.0 81 18 114/74 (87) 95 06/06/19 21:00 Room Air 06/06/19 20:00 98.1 84 16 133/67 (89) 96 Height (Feet): 5 Height (Inches): 8.00 Weight (Pounds): 225 General Appearance: no acute distress HEENT: normocephalic, atraumatic, anicteric, mucous membranes moist Respiratory/Chest: lungs clear, normal breath sounds, no respiratory distress, no accessory muscle use Cardiovascular: normal rate, regular rhythm, no gallop/murmur, no JVD Abdomen: normal bowel sounds, soft, non tender, no organomegaly, non distended Genitourinary: other - no ramachandran Extremities: no cyanosis Skin: no rash 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 There is no evidence of bowel obstruction. Gas, fluid, and soft tissue collection adjacent to the inferior border the pouch and extending to the anterior peritoneal surface, measures approximately 5 x 4.8 cm. This could represent a routine postoperative fluid and gas collection, or could represent an abscess plus/minus area of phlegmon. Pelvic inflammatory changes, most likely related to the prior surgery Nonobstructive right renal calculi Evidence of prior lumbar spine surgery Small hiatal hernia incidentally noted Microbiology Date/Time Source Procedure Growth Status 05/25/19 10:00 Urine,Clean Catch Urine Culture - Final Mixed Gram Positive Organism Complete 05/10/19 15:15 Abdominal Fluid Gram Stain - Final Complete 05/10/19 15:15 Body Fluid Culture - Final Klebsiella Pneumoniae Klebsiella Pneumoniae#2 Complete Laboratory Tests Test 06/07/19 05:10 White Blood Count 6.2 K/UL (4.8-10.8) Red Blood Count 3.97 M/UL (4.20-5.40) L Hemoglobin 12.5 G/DL (12.0-16.0) Hematocrit 36.6 % (37.0-47.0) L Mean Corpuscular Volume 92 FL (80-99) Mean Corpuscular Hemoglobin 31.5 PG (27.0-31.0) H Mean Corpuscular Hemoglobin Concent 34.2 G/DL (32.0-36.0) Red Cell Distribution Width 11.6 % (11.6-14.8) Platelet Count 278 K/UL (150-450) Mean Platelet Volume 5.6 FL (6.5-10.1) L Neutrophils (%) (Auto) 57.9 % (45.0-75.0) Lymphocytes (%) (Auto) 30.7 % (20.0-45.0) Monocytes (%) (Auto) 6.6 % (1.0-10.0) Eosinophils (%) (Auto) 4.2 % (0.0-3.0) H Basophils (%) (Auto) 0.6 % (0.0-2.0) Prothrombin Time 9.8 SEC (9.30-11.50) Prothromb Time International Ratio 0.9 (0.9-1.1) Sodium Level 143 MMOL/L (136-145) Potassium Level 4.8 MMOL/L (3.5-5.1) Chloride Level 104 MMOL/L (98-107) Carbon Dioxide Level 33 MMOL/L (21-32) H Anion Gap 6 mmol/L (5-15) Blood Urea Nitrogen 11 mg/dL (7-18) Creatinine 0.7 MG/DL (0.55-1.30) Estimat Glomerular Filtration Rate > 60 mL/min (>60) Glucose Level 155 MG/DL (74-106) H Calcium Level 9.0 MG/DL (8.5-10.1) Magnesium Level 2.0 MG/DL (1.8-2.4) Total Bilirubin 0.4 MG/DL (0.2-1.0) Aspartate Amino Transf (AST/SGOT) 20 U/L (15-37) Alanine Aminotransferase (ALT/SGPT) 31 U/L (12-78) Alkaline Phosphatase 109 U/L (46-116) Total Protein 7.3 G/DL (6.4-8.2) Albumin 2.9 G/DL (3.4-5.0) L Globulin 4.4 g/dL Albumin/Globulin Ratio 0.7 (1.0-2.7) L Current Medications Medications (Trade) Dose Ordered Sig/Sheng Route PRN Reason Start Time Stop Time Status Last Admin Dose Admin Acetaminophen (Tylenol) 650 mg Q4H PRN ORAL Temp >100.2 or headache 06/02/19 20:00 07/02/19 19:59 06/06/19 20:41 Acetaminophen/ Hydrocodone Bitart ([place] 5/325) 1 tab Q4H PRN ORAL Moderate Pain (Pain Scale 4-6) 06/02/19 10:00 06/09/19 09:59 Al Hydroxide/Mg Hydroxide (Mylanta) 15 ml Q1H PRN ORAL gi upset 06/07/19 10:30 06/07/19 23:00 Alprazolam (Xanax) 0.5 mg Q4H PRN ORAL For Anxiety 06/04/19 09:00 06/11/19 08:59 06/04/19 09:47 Anastrozole (Arimidex) 1 mg DAILY ORAL 05/26/19 09:00 06/25/19 08:59 06/07/19 09:00 Ascorbic Acid (Vitamin C) 500 mg NEEDED PRN ORAL Constipation 06/04/19 09:00 07/04/19 08:59 Atropine Sulfate (Atropine 0.4mg/ ml) 0.5 mg Q5M PRN IVP HR<40 06/07/19 10:30 06/07/19 23:00 Chlorhexidine Gluconate (Anya-Hex 2%) 1 applic DAILY@2000 TOPIC 04/26/19 20:00 07/25/19 19:59 06/06/19 20:40 Dextrose 1,000 ml @ 0 mls/hr Q24H PRN IV PN interrupted or unavailable 05/30/19 20:00 06/29/19 19:59 Dextrose (Dextrose 50%) 25 ml Q30M PRN IV Hypoglycemia 05/30/19 09:30 08/28/19 09:29 Dextrose (Dextrose 50%) 50 ml Q30M PRN IV Hypoglycemia 05/30/19 09:30 08/28/19 09:29 Dextrose/ Electrolytes 1,000 ml @ 25 mls/hr Q24H IV 06/01/19 14:00 07/01/19 13:59 06/06/19 14:55 Diphenhydramine HCl (Benadryl) 25 mg Q15M PRN IVP Itching 06/07/19 10:30 06/07/19 23:00 Duloxetine HCl (Cymbalta) 60 mg BID ORAL 04/26/19 18:00 07/25/19 17:59 06/07/19 09:00 Fat Emulsion Intravenous 216 ml/Amino Acids/ Electrolytes/ Dextrose 2,040 ml @ 85 mls/hr Q24H IV 05/30/19 20:00 06/29/19 19:59 06/06/19 20:42 Fluconazole (Diflucan) 100 mg DAILY ORAL 06/03/19 09:00 06/10/19 08:59 06/07/19 09:00 Hydralazine HCl (Apresoline) 5 mg Q30M PRN IV SBP>160 / DBP>90 06/07/19 10:30 06/07/19 23:00 Hydromorphone HCl (Dilaudid) 0.5 mg Q15M PRN IVP Severe Pain (Pain Scale 7-10) 06/07/19 10:30 06/07/19 23:00 Insulin Aspart (NovoLOG) Q6HR SUBQ 05/31/19 00:00 08/29/19 00:00 06/07/19 12:28 Ketorolac Tromethamine (Toradol 30mg) 15 mg Q1H PRN IV Moderate Breakthru Pain (5-7) 06/07/19 10:30 06/07/19 23:00 Ketorolac Tromethamine (Toradol 30mg) 30 mg Q1H PRN IV Severe Breakthru Pain (>7) 06/07/19 10:30 06/07/19 23:00 Labetalol HCl (Normodyne) 5 mg Q10M PRN IV SBP>160 / DBP>90 06/07/19 10:30 06/07/19 23:00 Levothyroxine Sodium (Synthroid) 100 mcg DAILY@0630 ORAL 05/26/19 06:30 06/25/19 06:29 06/07/19 05:55 Lorazepam (Ativan 2mg/ml 1ml) 1 mg Q15M PRN IV For Anxiety 06/07/19 10:30 06/07/19 23:00 Metoprolol Succinate (Toprol XL) 50 mg DAILY ORAL 04/27/19 09:00 07/26/19 08:59 06/07/19 09:00 Midazolam HCl (Versed 2mg/2ml vial) 1 mg Q15M PRN IVP For Anxiety 06/07/19 10:30 06/07/19 23:00 Ondansetron HCl (Zofran) 4 mg Q4H PRN IVP Nausea & Vomiting 05/25/19 12:00 06/24/19 11:59 Sucralfate (Carafate) 1 gm TID@0800,1300,1900 PEG 06/07/19 13:30 09/05/19 13:29 06/07/19 13:38 Darleen Perez MD Jun 07, 2019 18:18
--- NOTE | 2019-06-07 18:30 | Procedure Note ---
DATE OF PROCEDURE: 06/07/2019 SURGEON: Antolin Grove M.D. PROCEDURE: Pouchoscopy with hemostasis. ANESTHESIA: Per Dr. Squires. INSTRUMENT: Olympus pediatric and adult flexible upper endoscope. INDICATION: Enterocutaneous fistula evaluation. REASON FOR PROCEDURE: The procedure, risks, benefits, and possible consequences, including hemorrhage, aspiration, perforation and infection, and alternative treatments, were explained to the patient/legal guardian by Dr. Antolin Grove and the patient/legal guardian understood and accepted these risks. PROCEDURE IN DETAIL: After informed consent was obtained and patient was adequately sedated, first pediatric upper endoscope was advanced into the pouch and retroflexion in the pouch was performed. Patient had a lot of inflammation and granulation at the anastomosis. The anastomosis ring was intact. No obvious leakage of fistula was seen around the anastomosis ring. As I mentioned, there was lots of granulation in that area. We also saw a small visible vessel in one of the granulation areas. Suspicious for a vessel. The scope was advanced into more proximal small bowel. Small bowel looked normal. No obvious bleeding in that area. At this time, we decided to clip that vessel. We changed the scope from pediatric to adult scope. We used a size 16 clip and used 1 clip to perform hemostasis on that vessel. At this time, the scope was retrieved and procedure was terminated. SUMMARY OF FINDINGS: 1. Intact anastomosis ring with no obvious fistula seen at this time. 2. Lots of granulations around the anastomosis area. 3. Visible vessel, status post hemostasis using a clip size 16. RECOMMENDATIONS: Discussed with Dr. Santos Marte, the surgeon. We will start using Carafate suspensions. We will monitor for enterocutaneous drainage. If the drainage rises or increases, we will consider repeat procedure and try to find the fistula at that time. Otherwise, we are going to hopefully resume diet for this patient and monitor. I want to thank, Dr. Santos Marte, for this kind referral. Antolin Grove M.D. DR: CHIQUIS JOB#: [id number] CC: Santos Marte M.D.; Fax#: [phone]
[2019-06-07] MEDS: Dyna-Hex 2% Top Sol 2oz TOPIC SCH (19:58)
[2019-06-07] MEDS: TPN IV SCH (20:05)
[2019-06-07] MEDS: FAT EMULSION 20% IV SCH (20:05)
[2019-06-08] VITALS: BP 128/66
[2019-06-08 04:00] VITALS: BP 127/65
[2019-06-08] MEDS: NovoLOG Insulin Flexpen SUBQ SCH ×4 (05:59→18:00)
[2019-06-08 08:00] VITALS: BP 129/70
[2019-06-08] MEDS: Metoprolol Succinate XL 50mg tab ORAL SCH (08:28)
[2019-06-08] MEDS: Sucralfate 1gm tab PEG SCH ×3 (08:28→18:46)
[2019-06-08] MEDS: Anastrazole 1mg tab ORAL SCH (08:28)
[2019-06-08] MEDS: Fluconazole 100mg tab ORAL SCH (08:28)
[2019-06-08] MEDS: D5 1/4NS w/KCl 20mEq 1,000 ML IV SCH (08:43)
--- NOTE | 2019-06-08 09:49 | General Progress Note ---
Progress Note Progress Note AVSS Receiving carafate suspension into Castro pouch 3x daily Overnight fistula output 60cc Abdomen soft Imp: Persistent Castro pouch-cutaneous fistula Plan; [facility] diet continue TPN, carafate maintain Castro pouch catheter to suction, fistula drain to closed suction Santos Marte MD June 08, 2019 09:49
--- NOTE | 2019-06-08 10:01 | General Progress Note ---
Assessment/Plan Problem List: (1) SETHI CONTINENT FISTULA Assessment/Plan: enterocutaneous fistula low albumin d/w surg and the patient s/p pouchoscopy carafate susp through the pouch monitor for fistula drainage abx per id TPN will fu Subjective ROS Limited/Unobtainable: No Allergies: Coded Allergies: ADALIMUMAB (Verified Allergy, Intermediate, Body Rashes, Body Aches, ) INFLIXIMAB (Verified Allergy, Intermediate, Body Rash/Body Aches, 04/26/19) Uncoded Allergies: intravenous dye (Allergy, Severe, Respiratory Distress , 04/26/19) Objective Last 24 Hour Vital Signs Date Time Temp Pulse Resp B/P (MAP) Pulse Ox O2 Delivery O2 Flow Rate FiO2 06/08/19 08:28 94 129/70 06/08/19 08:00 97.9 94 20 129/70 (89) 94 06/08/19 04:00 98.0 79 16 127/65 (85) 97 06/08/19 00:00 97.9 83 17 128/66 (86) 98 06/07/19 21:00 Room Air 06/07/19 20:00 97.5 82 16 122/57 (78) 98 06/07/19 16:00 97.9 80 20 127/66 (86) 97 06/07/19 11:15 92 18 133/62 94 Room Air 06/07/19 11:10 94 18 129/63 94 Room Air 06/07/19 11:05 97.4 94 18 136/62 95 Room Air 06/07/19 11:00 91 18 129/64 97 Room Air 06/07/19 10:55 90 18 134/62 100 Simple Mask 4 06/07/19 10:50 98.2 90 18 136/65 100 Simple Mask 8 06/07/19 10:46 82 18 99 06/07/19 10:44 88 18 100 Intake and Output 06/07/19 06/08/19 19:00 07:00 Intake Total 1610 ml 1405 ml Output Total 1740 ml 1160 ml Balance -130 ml 245 ml IV Total 1610 ml 1405 ml Output Urine Total 1500 ml 950 ml Drainage Total 20 ml 60 ml Other 220 ml 150 ml # Voids 5 Height (Feet): 5 Height (Inches): 8.00 Weight (Pounds): 225 General Appearance: no apparent distress EENT: normal ENT inspection Neck: supple Cardiovascular: normal rate Respiratory/Chest: decreased breath sounds Abdomen: normal bowel sounds, non tender, soft Extremities: non-tender Antolin Grove MD June 08, 2019 10:01
[2019-06-08 12:00] VITALS: BP 133/76
[2019-06-08] MEDS ORDERED: NS Irrig 1000ml ONE (13:31)
[2019-06-08] MEDS ORDERED: Tubing IV Secondary IV ONE (13:31)
[2019-06-08 16:00] VITALS: BP 135/64
[2019-06-08 20:00] VITALS: BP 122/65
[2019-06-08] MEDS: Dyna-Hex 2% Top Sol 2oz TOPIC SCH ×2 (20:00→20:23)
[2019-06-08] MEDS: FAT EMULSION 20% IV SCH (20:23)
[2019-06-08] MEDS: TPN IV SCH (20:23)
[2019-06-09] VITALS: BP 132/75
[2019-06-09] MEDS: NovoLOG Insulin Flexpen SUBQ SCH ×5 (00:05→23:53)
[2019-06-09 05:30] VITALS: BP 159/88
[2019-06-09 05:47] LABS: HEMATOCRIT 36.1 % (37.0-47.0); HEMOGLOBIN 12.6 G/DL (12.0-16.0); RED BLOOD COUNT 4.03 M/UL (4.20-5.40); WHITE BLOOD COUNT 7.3 K/UL (4.8-10.8)
[2019-06-09 05:48] LABS: EOSINOPHILS % (AUTO) 3.6 % (0.0-3.0); MEAN CORPUSCULAR VOLUME 90 FL (80-99); MONOCYTES % (AUTO) 5.8 % (1.0-10.0); NEUTROPHILS % (AUTO) 58.6 % (45.0-75.0); PLATELET COUNT 273 K/UL (150-450); RED CELL DISTRIBUTION WIDTH 11.8 % (11.6-14.8)
[2019-06-09 05:56] LABS: ALANINE AMINOTRANSFERASE 23 U/L (12-78); ALBUMIN/GLOBULIN RATIO 0.7 (1.0-2.7); ALKALINE PHOSPHATASE 122 U/L (46-116); ANION GAP 7 mmol/L (5-15); ASPARTATE AMINO TRANSFERASE 21 U/L (15-37); BILIRUBIN,TOTAL 0.3 MG/DL (0.2-1.0); BLOOD UREA NITROGEN 12 mg/dL (7-18); CALCIUM 9.4 MG/DL (8.5-10.1); CARBON DIOXIDE 30 MMOL/L (21-32); CHLORIDE 102 MMOL/L (98-107); CREATININE 0.8 MG/DL (0.55-1.30); PHOSPHORUS 4.3 MG/DL (2.5-4.9); SODIUM 139 MMOL/L (136-145)
--- NOTE | 2019-06-09 07:03 | General Progress Note ---
Assessment/Plan Problem List: (1) JOSSIE CONTINENT FISTULA Assessment/Plan: enterocutaneous fistula low albumin d/w surg and the patient s/p pouchoscopy carafate susp through the pouch monitor for fistula drainage>>> 40 cc from 6 pm abx per id TPN and some liquid diet will fu Subjective ROS Limited/Unobtainable: Yes Allergies: Coded Allergies: ADALIMUMAB (Verified Allergy, Intermediate, Body Rashes, Body Aches, ) INFLIXIMAB (Verified Allergy, Intermediate, Body Rash/Body Aches, 04/26/19) Uncoded Allergies: intravenous dye (Allergy, Severe, Respiratory Distress , 04/26/19) Objective Last 24 Hour Vital Signs Date Time Temp Pulse Resp B/P (MAP) Pulse Ox O2 Delivery O2 Flow Rate FiO2 06/09/19 05:30 97.7 99 16 159/88 (111) 94 06/09/19 00:00 97.6 82 16 132/75 (94) 95 06/08/19 21:00 Room Air 06/08/19 20:00 98.3 87 17 122/65 (84) 95 06/08/19 16:00 98.1 78 18 135/64 (87) 94 06/08/19 12:00 97.8 91 20 133/76 (95) 94 06/08/19 09:00 Room Air 06/08/19 08:28 94 129/70 06/08/19 08:00 97.9 94 20 129/70 (89) 94 Intake and Output 06/08/19 06/09/19 19:00 07:00 Intake Total 1921 ml 960 ml Output Total 960 ml 1100 ml Balance 961 ml -140 ml Intake Oral 686 ml 25 ml IV Total 1045 ml 935 ml Other 190 ml Output Urine Total 600 ml 850 ml Drainage Total 40 ml Other 360 ml 210 ml Laboratory Tests 06/09/19 04:35: White Blood Count 7.3, Red Blood Count 4.03L, Hemoglobin 12.6, Hematocrit 36.1L , Mean Corpuscular Volume 90, Mean Corpuscular Hemoglobin 31.2H, Mean Corpuscular Hemoglobin Concent 34.7, Red Cell Distribution Width 11.8, Platelet Count 273, Mean Platelet Volume 5.5L, Neutrophils (%) (Auto) 58.6, Lymphocytes ( %) (Auto) 31.0, Monocytes (%) (Auto) 5.8, Eosinophils (%) (Auto) 3.6H, Basophils (%) (Auto) 1.0, Sodium Level 139, Potassium Level 4.0, Chloride Level 102, Carbon Dioxide Level 30, Anion Gap 7, Blood Urea Nitrogen 12, Creatinine 0.8, Estimat Glomerular Filtration Rate > 60, Glucose Level 169H, Calcium Level 9.4, Phosphorus Level 4.3, Magnesium Level 1.7L, Total Bilirubin 0.3, Aspartate Amino Transf (AST/SGOT) 21, Alanine Aminotransferase (ALT/SGPT) 23, Alkaline Phosphatase 122H, Total Protein 7.3, Albumin 3.0L, Globulin 4.3, Albumin/ Globulin Ratio 0.7L Height (Feet): 5 Height (Inches): 8.00 Weight (Pounds): 225 General Appearance: alert EENT: normal ENT inspection Neck: supple Cardiovascular: normal rate Respiratory/Chest: decreased breath sounds Abdomen: soft, hypoactive bowel sounds Extremities: non-tender Antolin Grove MD June 09, 2019 07:03
[2019-06-09 08:00] VITALS: BP 136/66
[2019-06-09] MEDS: Sucralfate 1gm tab PEG SCH ×3 (09:00→18:34)
[2019-06-09] MEDS: Fluconazole 100mg tab ORAL SCH (09:02)
[2019-06-09] MEDS: Anastrazole 1mg tab ORAL SCH (09:02)
[2019-06-09] MEDS: Metoprolol Succinate XL 50mg tab ORAL SCH (09:03)
--- NOTE | 2019-06-09 09:28 | General Progress Note ---
Progress Note Progress Note AVSS Tolerating BCIR diet. Abdomen soft. Urine 1150 BCIR ileo 570 Fistula drain 165+40= 205cc labs all okay except Mg 1.7 Albumin 3.0 Imp: Enterocutaneous fistula, controlled with drain to suction (Uresil suction changed to HARRISON suction bulb) Mg infusions continue TPN and continuous drainage of Castro pouch, and Carafate into pouch Santos Marte MD June 09, 2019 09:28
[2019-06-09 12:00] VITALS: BP 130/75
[2019-06-09] MEDS ORDERED: ALPRAZolam 0.5mg tab ORAL PRN (13:00)
[2019-06-09] MEDS ORDERED: Tubing IV Secondary IV ONE (15:17)
[2019-06-09] MEDS ORDERED: NS Irrig 1000ml ONE (15:17)
[2019-06-09 16:00] VITALS: BP 145/69
--- NOTE | 2019-06-09 18:42 | Infectious Diseases Prog Note ---
Assessment/Plan Assessment/Plan ASSESSMENT AND PLAN: 1. klebsiella intra-abdominal abscess, e.coli uti, leukocytosis, Castro ileostomy, fistula - s/p 28 days abx (levofloxacin/flagyl and ertapenem) - s/p attempted exploratory lap with hostile abdomen - monitor labs - leukocytosis resolved - d/w RN and patient - abscess - s/p drain exchange, improved - further management of fistula per Dr. Marte - drain in place - TPN 2. The patient has history of hypothyroidism. Continue thyroid supplementation. 3. The patient has history of Crohn's colitis. 4. The patient has a history of Castro ileostomy status post revision. 5. The patient has history of knee replacement. 6. 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 7. History of proctocolectomy. 8. The patient is anemic. 9. Allergies to adalimumab and also infliximab and intravenous dye. 10. Social history is negative. 11. Family history is noncontributory. 12. MAR is noted. 13. Case was discussed with RN. 14. Case was discussed with Dr. Marte. 15. Case was discussed with the patie Subjective Constitutional: Denies: fever HEENT: Denies: congestion Respiratory: Denies: shortness of breath Cardiovascular: Denies: chest pain Gastrointestinal/Abdominal: Reports: other - no abdominal pain ; Denies: nausea , vomiting Neurologic: Denies: headache Psychiatric: Denies: depression Skin: Denies: rash Hematologic: Denies: bleeding Musculoskeletal: Denies: pain Allergies: Coded Allergies: ADALIMUMAB (Verified Allergy, Intermediate, Body Rashes, Body Aches, ) INFLIXIMAB (Verified Allergy, Intermediate, Body Rash/Body Aches, 04/26/19) Uncoded Allergies: intravenous dye (Allergy, Severe, Respiratory Distress , 04/26/19) Objective Vital Signs Last 24 Hour Vital Signs Date Time Temp Pulse Resp B/P (MAP) Pulse Ox O2 Delivery O2 Flow Rate FiO2 06/09/19 16:00 98.5 81 16 145/69 (94) 95 06/09/19 12:00 98.2 91 16 130/75 (93) 94 06/09/19 09:03 103 136/66 06/09/19 09:00 Room Air 06/09/19 08:00 98.4 103 16 136/66 (89) 95 06/09/19 05:30 97.7 99 16 159/88 (111) 94 06/09/19 00:00 97.6 82 16 132/75 (94) 95 06/08/19 21:00 Room Air 06/08/19 20:00 98.3 87 17 122/65 (84) 95 Height (Feet): 5 Height (Inches): 8.00 Weight (Pounds): 225 General Appearance: no acute distress HEENT: normocephalic, atraumatic, anicteric, mucous membranes moist Respiratory/Chest: lungs clear, normal breath sounds, no respiratory distress, no accessory muscle use Cardiovascular: normal rate, regular rhythm, no gallop/murmur, no JVD Abdomen: normal bowel sounds, soft, non tender, no organomegaly, non distended Genitourinary: other - no ramachandran Extremities: no cyanosis Skin: no rash 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 There is no evidence of bowel obstruction. Gas, fluid, and soft tissue collection adjacent to the inferior border the pouch and extending to the anterior peritoneal surface, measures approximately 5 x 4.8 cm. This could represent a routine postoperative fluid and gas collection, or could represent an abscess plus/minus area of phlegmon. Pelvic inflammatory changes, most likely related to the prior surgery Nonobstructive right renal calculi Evidence of prior lumbar spine surgery Small hiatal hernia incidentally noted Microbiology Date/Time Source Procedure Growth Status 05/25/19 10:00 Urine,Clean Catch Urine Culture - Final Mixed Gram Positive Organism Complete 05/10/19 15:15 Abdominal Fluid Gram Stain - Final Complete 05/10/19 15:15 Body Fluid Culture - Final Klebsiella Pneumoniae Klebsiella Pneumoniae#2 Complete Laboratory Tests Test 06/09/19 04:35 White Blood Count 7.3 K/UL (4.8-10.8) Red Blood Count 4.03 M/UL (4.20-5.40) L Hemoglobin 12.6 G/DL (12.0-16.0) Hematocrit 36.1 % (37.0-47.0) L Mean Corpuscular Volume 90 FL (80-99) Mean Corpuscular Hemoglobin 31.2 PG (27.0-31.0) H Mean Corpuscular Hemoglobin Concent 34.7 G/DL (32.0-36.0) Red Cell Distribution Width 11.8 % (11.6-14.8) Platelet Count 273 K/UL (150-450) Mean Platelet Volume 5.5 FL (6.5-10.1) L Neutrophils (%) (Auto) 58.6 % (45.0-75.0) Lymphocytes (%) (Auto) 31.0 % (20.0-45.0) Monocytes (%) (Auto) 5.8 % (1.0-10.0) Eosinophils (%) (Auto) 3.6 % (0.0-3.0) H Basophils (%) (Auto) 1.0 % (0.0-2.0) Sodium Level 139 MMOL/L (136-145) Potassium Level 4.0 MMOL/L (3.5-5.1) Chloride Level 102 MMOL/L (98-107) Carbon Dioxide Level 30 MMOL/L (21-32) Anion Gap 7 mmol/L (5-15) Blood Urea Nitrogen 12 mg/dL (7-18) Creatinine 0.8 MG/DL (0.55-1.30) Estimat Glomerular Filtration Rate > 60 mL/min (>60) Glucose Level 169 MG/DL (74-106) H Calcium Level 9.4 MG/DL (8.5-10.1) Phosphorus Level 4.3 MG/DL (2.5-4.9) Magnesium Level 1.7 MG/DL (1.8-2.4) L Total Bilirubin 0.3 MG/DL (0.2-1.0) Aspartate Amino Transf (AST/SGOT) 21 U/L (15-37) Alanine Aminotransferase (ALT/SGPT) 23 U/L (12-78) Alkaline Phosphatase 122 U/L (46-116) H Total Protein 7.3 G/DL (6.4-8.2) Albumin 3.0 G/DL (3.4-5.0) L Globulin 4.3 g/dL Albumin/Globulin Ratio 0.7 (1.0-2.7) L Current Medications Medications (Trade) Dose Ordered Sig/Sheng Route PRN Reason Start Time Stop Time Status Last Admin Dose Admin Acetaminophen (Tylenol) 650 mg Q4H PRN ORAL Temp >100.2 or headache 06/02/19 20:00 07/02/19 19:59 06/08/19 22:15 Alprazolam (Xanax) 0.5 mg Q4H PRN ORAL For Anxiety 06/09/19 13:00 06/16/19 12:59 Anastrozole (Arimidex) 1 mg DAILY ORAL 05/26/19 09:00 06/25/19 08:59 06/09/19 09:02 Ascorbic Acid (Vitamin C) 500 mg NEEDED PRN ORAL Constipation 06/04/19 09:00 07/04/19 08:59 Chlorhexidine Gluconate (Anya-Hex 2%) 1 applic DAILY@2000 TOPIC 04/26/19 20:00 07/25/19 19:59 06/06/19 20:40 Dextrose 1,000 ml @ 0 mls/hr Q24H PRN IV PN interrupted or unavailable 05/30/19 20:00 06/29/19 19:59 Dextrose (Dextrose 50%) 25 ml Q30M PRN IV Hypoglycemia 05/30/19 09:30 08/28/19 09:29 Dextrose (Dextrose 50%) 50 ml Q30M PRN IV Hypoglycemia 05/30/19 09:30 08/28/19 09:29 Duloxetine HCl (Cymbalta) 60 mg BID ORAL 04/26/19 18:00 07/25/19 17:59 06/09/19 18:34 Fat Emulsion Intravenous 216 ml/Amino Acids/ Electrolytes/ Dextrose 2,040 ml @ 85 mls/hr Q24H IV 05/30/19 20:00 06/29/19 19:59 06/08/19 20:23 Fluconazole (Diflucan) 100 mg DAILY ORAL 06/03/19 09:00 06/10/19 08:59 06/09/19 09:02 Insulin Aspart (NovoLOG) Q6HR SUBQ 05/31/19 00:00 08/29/19 00:00 06/09/19 11:45 Levothyroxine Sodium (Synthroid) 100 mcg DAILY@0630 ORAL 05/26/19 06:30 06/25/19 06:29 06/09/19 05:41 Metoprolol Succinate (Toprol XL) 50 mg DAILY ORAL 04/27/19 09:00 07/26/19 08:59 06/09/19 09:03 Ondansetron HCl (Zofran) 4 mg Q4H PRN IVP Nausea & Vomiting 05/25/19 12:00 06/24/19 11:59 Sucralfate (Carafate) 1 gm TID@0800,1300,1900 PEG 06/07/19 13:30 09/05/19 13:29 06/09/19 18:34 Darleen Perez MD June 09, 2019 18:42
[2019-06-09 20:00] VITALS: BP 118/66
[2019-06-09] MEDS: Dyna-Hex 2% Top Sol 2oz TOPIC SCH (20:00)
[2019-06-09] MEDS: TPN IV SCH (20:30)
[2019-06-09] MEDS: FAT EMULSION 20% IV SCH (20:30)
[2019-06-10] VITALS: BP 121/69
[2019-06-10 04:00] VITALS: BP 132/72
[2019-06-10 05:38] LABS: ALANINE AMINOTRANSFERASE 31 U/L (12-78); ALBUMIN 2.8 G/DL (3.4-5.0); ALBUMIN/GLOBULIN RATIO 0.7 (1.0-2.7); ALKALINE PHOSPHATASE 118 U/L (46-116); ANION GAP 7 mmol/L (5-15); ASPARTATE AMINO TRANSFERASE 21 U/L (15-37); BILIRUBIN,TOTAL 0.3 MG/DL (0.2-1.0); BLOOD UREA NITROGEN 13 mg/dL (7-18); CALCIUM 8.9 MG/DL (8.5-10.1); CARBON DIOXIDE 30 MMOL/L (21-32); CHLORIDE 105 MMOL/L (98-107); CREATININE 0.7 MG/DL (0.55-1.30); POTASSIUM 4.6 MMOL/L (3.5-5.1); SODIUM 142 MMOL/L (136-145)
[2019-06-10 05:40] LABS: BASOPHILS % (AUTO) 0.5 % (0.0-2.0); EOSINOPHILS % (AUTO) 3.3 % (0.0-3.0); HEMATOCRIT 35.1 % (37.0-47.0); HEMOGLOBIN 12.1 G/DL (12.0-16.0); LYMPHOCYTES % (AUTO) 24.9 % (20.0-45.0); MEAN CORPUSCULAR VOLUME 92 FL (80-99); MONOCYTES % (AUTO) 5.7 % (1.0-10.0); NEUTROPHILS % (AUTO) 65.6 % (45.0-75.0); PLATELET COUNT 242 K/UL (150-450); RED BLOOD COUNT 3.83 M/UL (4.20-5.40); RED CELL DISTRIBUTION WIDTH 12.1 % (11.6-14.8); WHITE BLOOD COUNT 8.2 K/UL (4.8-10.8)
[2019-06-10] MEDS: NovoLOG Insulin Flexpen SUBQ SCH ×3 (06:08→18:31)
--- NOTE | 2019-06-10 07:28 | General Progress Note ---
Assessment/Plan Problem List: (1) SETHI CONTINENT FISTULA Assessment/Plan: enterocutaneous fistula low albumin d/w surg and the patient s/p pouchoscopy carafate susp through the pouch monitor for fistula drainage>>> 12 cc abx per id TPN and some liquid diet fu surg recs will fu Subjective ROS Limited/Unobtainable: Yes Allergies: Coded Allergies: ADALIMUMAB (Verified Allergy, Intermediate, Body Rashes, Body Aches, ) INFLIXIMAB (Verified Allergy, Intermediate, Body Rash/Body Aches, 04/26/19) Uncoded Allergies: intravenous dye (Allergy, Severe, Respiratory Distress , 04/26/19) Objective Last 24 Hour Vital Signs Date Time Temp Pulse Resp B/P (MAP) Pulse Ox O2 Delivery O2 Flow Rate FiO2 06/10/19 04:00 98.2 92 18 132/72 (92) 95 06/10/19 00:00 97.4 83 18 121/69 (86) 95 06/09/19 21:00 Room Air 06/09/19 20:00 97.5 83 17 118/66 (83) 95 06/09/19 16:00 98.5 81 16 145/69 (94) 95 06/09/19 12:00 98.2 91 16 130/75 (93) 94 06/09/19 09:03 103 136/66 06/09/19 09:00 Room Air 06/09/19 08:00 98.4 103 16 136/66 (89) 95 Intake and Output 06/09/19 06/10/19 19:00 07:00 Intake Total 2035 ml 1070 ml Output Total 1350 ml 1213 ml Balance 685 ml -143 ml Intake Oral 700 ml 50 ml IV Total 1335 ml 1020 ml Output Urine Total 1000 ml 1030 ml Drainage Total 20 ml 13 ml Other 330 ml 170 ml Laboratory Tests 06/10/19 04:50: White Blood Count 8.2, Red Blood Count 3.83L, Hemoglobin 12.1, Hematocrit 35.1L , Mean Corpuscular Volume 92, Mean Corpuscular Hemoglobin 31.5H, Mean Corpuscular Hemoglobin Concent 34.3, Red Cell Distribution Width 12.1, Platelet Count 242, Mean Platelet Volume 5.6L, Neutrophils (%) (Auto) 65.6, Lymphocytes ( %) (Auto) 24.9, Monocytes (%) (Auto) 5.7, Eosinophils (%) (Auto) 3.3H, Basophils (%) (Auto) 0.5, Sodium Level 142, Potassium Level 4.6, Chloride Level 105, Carbon Dioxide Level 30, Anion Gap 7, Blood Urea Nitrogen 13, Creatinine 0.7, Estimat Glomerular Filtration Rate > 60, Glucose Level 168H, Calcium Level 8.9, Magnesium Level 2.0, Total Bilirubin 0.3, Aspartate Amino Transf (AST/SGOT ) 21, Alanine Aminotransferase (ALT/SGPT) 31, Alkaline Phosphatase 118H, Total Protein 7.1, Albumin 2.8L, Globulin 4.3, Albumin/Globulin Ratio 0.7L Height (Feet): 5 Height (Inches): 8.00 Weight (Pounds): 225 General Appearance: alert EENT: normal ENT inspection Neck: supple Cardiovascular: normal rate Respiratory/Chest: lungs clear Abdomen: non tender, soft Extremities: non-tender Antolin Grove MD June 10, 2019 07:28
[2019-06-10 08:00] VITALS: BP 116/60
[2019-06-10] MEDS: Sucralfate 1gm tab PEG SCH (08:48)
[2019-06-10] MEDS: Metoprolol Succinate XL 50mg tab ORAL SCH (08:48)
[2019-06-10] MEDS: Anastrazole 1mg tab ORAL SCH (08:48)
--- NOTE | 2019-06-10 09:58 | General Progress Note ---
Progress Note Progress Note AVSS Having issues sleeping but feels well otherwise. Tolerating BCIR diet 50% Abdomen soft Urine 2029 BCIR ileo 500 Fistula drain 20+12.5 = 32.5cc labs all stable albumin still low Imp: Stable Plan: Begin RN supervised BCIR self-intubations q3h and prn from awakening to hs , overnight prn taper and d/c TPN today teach patient care of HARRISON fistula drain Restoril prn sleep Santos Marte MD June 10, 2019 09:58
[2019-06-10] MEDS ORDERED: NS Irrig 1000ml ONE (10:00)
[2019-06-10 12:00] VITALS: BP 140/85
[2019-06-10] MEDS: Sucralfate 1gm tab PEG PRN ×2 (12:26→18:16)
[2019-06-10] MEDS ORDERED: Sucralfate 1gm tab PEG SCH (13:00)
[2019-06-10 16:00] VITALS: BP 129/65
[2019-06-10 20:00] VITALS: BP 120/64
[2019-06-10] MEDS: Dyna-Hex 2% Top Sol 2oz TOPIC SCH (20:00)
[2019-06-11 04:00] VITALS: BP 144/86
[2019-06-11 08:00] VITALS: BP 161/79
[2019-06-11] MEDS: Anastrazole 1mg tab ORAL SCH (08:40)
[2019-06-11] MEDS: Metoprolol Succinate XL 50mg tab ORAL SCH (08:40)
[2019-06-11] MEDS: Sucralfate 1gm tab PEG PRN ×3 (08:40→20:46)
--- NOTE | 2019-06-11 09:23 | General Progress Note ---
Progress Note Progress Note AVSS Eating better BCIR diet. Intubating her Castro pouch without difficulty and no incontinence. Abdomen soft, incision healed stoma healed; Fistula drain site clean Urine 2100 BCIR ileo 740 Drain/fistula 30cc + 3cc = 33cc/24 hours Imp: Doing well Plan: remove PICC RN supervised BCIR self-intubations and teaching re HARRISON drain care/ recording output Anticipate discharge in AM if remains stable Santos Marte MD June 11, 2019 09:23
--- NOTE | 2019-06-11 10:05 | General Progress Note ---
Assessment/Plan Problem List: (1) JOSSIE CONTINENT FISTULA Assessment/Plan: enterocutaneous fistula low albumin d/w surg and the patient s/p pouchoscopy carafate susp through the pouch monitor for fistula drainage>>> 33cc abx per id TPN and some liquid diet fu surg recs pending possible dc will fu Subjective ROS Limited/Unobtainable: Yes Allergies: Coded Allergies: ADALIMUMAB (Verified Allergy, Intermediate, Body Rashes, Body Aches, ) INFLIXIMAB (Verified Allergy, Intermediate, Body Rash/Body Aches, 04/26/19) Uncoded Allergies: intravenous dye (Allergy, Severe, Respiratory Distress , 04/26/19) Objective Last 24 Hour Vital Signs Date Time Temp Pulse Resp B/P (MAP) Pulse Ox O2 Delivery O2 Flow Rate FiO2 06/11/19 08:40 108 161/79 06/11/19 08:00 98.3 108 16 161/79 (106) 94 06/11/19 04:00 99.2 95 18 144/86 (105) 95 06/10/19 21:00 Room Air 06/10/19 20:00 97.4 88 16 120/64 (82) 95 06/10/19 16:00 98.0 81 18 129/65 (86) 94 06/10/19 12:00 98.4 106 20 140/85 (103) 96 Intake and Output 06/10/19 06/11/19 19:00 07:00 Intake Total 632 ml 40 ml Output Total 1590 ml 1283 ml Balance -958 ml -1243 ml Intake Oral 632 ml 40 ml Output Urine Total 1200 ml 900 ml Drainage Total 30 ml 3 ml Other 360 ml 380 ml Height (Feet): 5 Height (Inches): 8.00 Weight (Pounds): 225 General Appearance: alert EENT: normal ENT inspection Neck: supple Cardiovascular: normal rate Respiratory/Chest: decreased breath sounds Abdomen: normal bowel sounds, non tender, soft Extremities: non-tender Antolin Grove MD June 11, 2019 10:05
[2019-06-11 12:00] VITALS: BP 134/74
[2019-06-11 16:00] VITALS: BP 129/76
--- NOTE | 2019-06-11 18:02 | Infectious Diseases Prog Note ---
Assessment/Plan Assessment/Plan ASSESSMENT AND PLAN: 1. klebsiella intra-abdominal abscess, e.coli uti, leukocytosis, Castro ileostomy, fistula - s/p 28 days abx (levofloxacin/flagyl and ertapenem) - s/p attempted exploratory lap with hostile abdomen - monitor labs - leukocytosis resolved - d/w RN and patient - abscess - s/p drain exchange, improved - further management of fistula per Dr. Marte - drain in place - TPN - stable from ID standpoint 2. The patient has history of hypothyroidism. Continue thyroid supplementation. 3. The patient has history of Crohn's colitis. 4. The patient has a history of Castro ileostomy status post revision. 5. The patient has history of knee replacement. 6. 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 7. History of proctocolectomy. 8. The patient is anemic. 9. Allergies to adalimumab and also infliximab and intravenous dye. 10. Social history is negative. 11. Family history is noncontributory. 12. MAR is noted. 13. Case was discussed with RN. 14. Case was discussed with Dr. Marte. 15. Case was discussed with the patie Subjective Constitutional: Denies: fever HEENT: Denies: congestion Respiratory: Denies: shortness of breath Cardiovascular: Denies: chest pain Gastrointestinal/Abdominal: Reports: other - no abdominal pain ; Denies: nausea , vomiting Genitourinary: Denies: dysuria, hematuria, frequency Neurologic: Denies: headache, numbness Psychiatric: Denies: depression Skin: Denies: rash Hematologic: Denies: bleeding Musculoskeletal: Denies: pain Allergies: Coded Allergies: ADALIMUMAB (Verified Allergy, Intermediate, Body Rashes, Body Aches, ) INFLIXIMAB (Verified Allergy, Intermediate, Body Rash/Body Aches, 04/26/19) Uncoded Allergies: intravenous dye (Allergy, Severe, Respiratory Distress , 04/26/19) Objective Vital Signs Last 24 Hour Vital Signs Date Time Temp Pulse Resp B/P (MAP) Pulse Ox O2 Delivery O2 Flow Rate FiO2 06/11/19 12:00 97.6 98 16 134/74 (94) 94 06/11/19 09:00 Room Air 06/11/19 08:40 108 161/79 06/11/19 08:00 98.3 108 16 161/79 (106) 94 06/11/19 04:00 99.2 95 18 144/86 (105) 95 06/10/19 21:00 Room Air 06/10/19 20:00 97.4 88 16 120/64 (82) 95 Height (Feet): 5 Height (Inches): 8.00 Weight (Pounds): 225 General Appearance: no acute distress HEENT: normocephalic, atraumatic, anicteric, mucous membranes moist Respiratory/Chest: lungs clear, normal breath sounds, no respiratory distress, no accessory muscle use Cardiovascular: normal rate, regular rhythm, no gallop/murmur, no JVD Abdomen: normal bowel sounds, soft, non tender, no organomegaly, non distended Genitourinary: other - no ramachandran Extremities: no cyanosis Skin: no rash 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 There is no evidence of bowel obstruction. Gas, fluid, and soft tissue collection adjacent to the inferior border the pouch and extending to the anterior peritoneal surface, measures approximately 5 x 4.8 cm. This could represent a routine postoperative fluid and gas collection, or could represent an abscess plus/minus area of phlegmon. Pelvic inflammatory changes, most likely related to the prior surgery Nonobstructive right renal calculi Evidence of prior lumbar spine surgery Small hiatal hernia incidentally noted Microbiology Date/Time Source Procedure Growth Status 05/25/19 10:00 Urine,Clean Catch Urine Culture - Final Mixed Gram Positive Organism Complete 05/10/19 15:15 Abdominal Fluid Gram Stain - Final Complete 05/10/19 15:15 Body Fluid Culture - Final Klebsiella Pneumoniae Klebsiella Pneumoniae#2 Complete Labs Test 06/09/19 04:35 06/10/19 04:50 White Blood Count 7.3 K/UL (4.8-10.8) 8.2 K/UL (4.8-10.8) Red Blood Count 4.03 M/UL (4.20-5.40) 3.83 M/UL (4.20-5.40) Hemoglobin 12.6 G/DL (12.0-16.0) 12.1 G/DL (12.0-16.0) Hematocrit 36.1 % (37.0-47.0) 35.1 % (37.0-47.0) Mean Corpuscular Volume 90 FL (80-99) 92 FL (80-99) Mean Corpuscular Hemoglobin 31.2 PG (27.0-31.0) 31.5 PG (27.0-31.0) Mean Corpuscular Hemoglobin Concent 34.7 G/DL (32.0-36.0) 34.3 G/DL (32.0-36.0) Red Cell Distribution Width 11.8 % (11.6-14.8) 12.1 % (11.6-14.8) Platelet Count 273 K/UL (150-450) 242 K/UL (150-450) Mean Platelet Volume 5.5 FL (6.5-10.1) 5.6 FL (6.5-10.1) Neutrophils (%) (Auto) 58.6 % (45.0-75.0) 65.6 % (45.0-75.0) Lymphocytes (%) (Auto) 31.0 % (20.0-45.0) 24.9 % (20.0-45.0) Monocytes (%) (Auto) 5.8 % (1.0-10.0) 5.7 % (1.0-10.0) Eosinophils (%) (Auto) 3.6 % (0.0-3.0) 3.3 % (0.0-3.0) Basophils (%) (Auto) 1.0 % (0.0-2.0) 0.5 % (0.0-2.0) Sodium Level 139 MMOL/L (136-145) 142 MMOL/L (136-145) Potassium Level 4.0 MMOL/L (3.5-5.1) 4.6 MMOL/L (3.5-5.1) Chloride Level 102 MMOL/L (98-107) 105 MMOL/L (98-107) Carbon Dioxide Level 30 MMOL/L (21-32) 30 MMOL/L (21-32) Anion Gap 7 mmol/L (5-15) 7 mmol/L (5-15) Blood Urea Nitrogen 12 mg/dL (7-18) 13 mg/dL (7-18) Creatinine 0.8 MG/DL (0.55-1.30) 0.7 MG/DL (0.55-1.30) Estimat Glomerular Filtration Rate > 60 mL/min (>60) > 60 mL/min (>60) Glucose Level 169 MG/DL (74-106) 168 MG/DL (74-106) Calcium Level 9.4 MG/DL (8.5-10.1) 8.9 MG/DL (8.5-10.1) Phosphorus Level 4.3 MG/DL (2.5-4.9) Magnesium Level 1.7 MG/DL (1.8-2.4) 2.0 MG/DL (1.8-2.4) Total Bilirubin 0.3 MG/DL (0.2-1.0) 0.3 MG/DL (0.2-1.0) Aspartate Amino Transf (AST/SGOT) 21 U/L (15-37) 21 U/L (15-37) Alanine Aminotransferase (ALT/SGPT) 23 U/L (12-78) 31 U/L (12-78) Alkaline Phosphatase 122 U/L (46-116) 118 U/L (46-116) Total Protein 7.3 G/DL (6.4-8.2) 7.1 G/DL (6.4-8.2) Albumin 3.0 G/DL (3.4-5.0) 2.8 G/DL (3.4-5.0) Globulin 4.3 g/dL 4.3 g/dL Albumin/Globulin Ratio 0.7 (1.0-2.7) 0.7 (1.0-2.7) Current Medications Medications (Trade) Dose Ordered Sig/Sheng Route PRN Reason Start Time Stop Time Status Last Admin Dose Admin Acetaminophen (Tylenol) 650 mg Q4H PRN ORAL Temp >100.2 or headache 06/02/19 20:00 07/02/19 19:59 06/08/19 22:15 Alprazolam (Xanax) 0.5 mg Q4H PRN ORAL For Anxiety 06/09/19 13:00 06/16/19 12:59 Anastrozole (Arimidex) 1 mg DAILY ORAL 05/26/19 09:00 06/25/19 08:59 06/11/19 08:40 Ascorbic Acid (Vitamin C) 500 mg NEEDED PRN ORAL Constipation 06/04/19 09:00 07/04/19 08:59 Chlorhexidine Gluconate (Anya-Hex 2%) 1 applic DAILY@1999 TOPIC 04/26/19 20:00 07/25/19 19:59 06/06/19 20:40 Duloxetine HCl (Cymbalta) 60 mg BID ORAL 04/26/19 18:00 07/25/19 17:59 06/11/19 08:40 Levothyroxine Sodium (Synthroid) 100 mcg DAILY@629 ORAL 05/26/19 06:30 06/25/19 06:29 06/11/19 05:35 Metoprolol Succinate (Toprol XL) 50 mg DAILY ORAL 04/27/19 09:00 07/26/19 08:59 06/11/19 08:40 Ondansetron HCl (Zofran) 4 mg Q4H PRN IVP Nausea & Vomiting 05/25/19 12:00 06/24/19 11:59 Sucralfate (Carafate) 1 gm NEEDED PRN PEG ROUTINELY 06/10/19 10:00 09/08/19 09:59 06/11/19 12:36 Temazepam (RestoriL) 7.5 mg HSPRN PRN ORAL Insomnia 06/10/19 09:45 06/17/19 09:44 06/10/19 22:13 Darleen Perez MD June 11, 2019 18:02
[2019-06-11 20:00] VITALS: BP 113/77
[2019-06-11] MEDS: Dyna-Hex 2% Top Sol 2oz TOPIC SCH (20:00)
[2019-06-12 08:00] VITALS: BP 134/69
--- NOTE | 2019-06-12 08:20 | General Progress Note ---
Progress Note Progress Note AVSS Doing well with BCIR self-intubations. Eating fairly well 50% Abdomen soft, well healed, stoma well healed Urine 700cc BCIR ileo 735 Fistula drain 2cc + 63cc = 65cc/24 hours Imp: Stable for discharge Plan: discharge Full supplies/instructions/limitations provided/discussed They are competent to care for HARRISON fistula drain, record output, keep tegaderm over site, etcl. F/U office 06/14 + prn Intubate q3h am to hs and prn BCIR low residue diet Continue pre-admit meds except for budesonide and entyvio Santos Marte MD June 12, 2019 08:20
[2019-06-12] MEDS ORDERED: HYDROcodone/Acetamin 10/325 tab ORAL SCH (08:22)
[2019-06-12] MEDS: Anastrazole 1mg tab ORAL SCH (09:09)
[2019-06-12 09:10] VITALS: BP 134/69
[2019-06-12] MEDS: Metoprolol Succinate XL 50mg tab ORAL SCH (09:10)
--- NOTE | 2019-06-12 10:54 | General Progress Note ---
Assessment/Plan Problem List: (1) SETHI CONTINENT FISTULA Assessment/Plan: enterocutaneous fistula low albumin s/p pouchoscopy carafate susp through the pouch monitor for fistula drainage>>> 65cc abx per id fu surg recs pending possible dc today will fu Subjective ROS Limited/Unobtainable: Yes Allergies: Coded Allergies: ADALIMUMAB (Verified Allergy, Intermediate, Body Rashes, Body Aches, ) INFLIXIMAB (Verified Allergy, Intermediate, Body Rash/Body Aches, 04/26/19) Uncoded Allergies: intravenous dye (Allergy, Severe, Respiratory Distress , 04/26/19) Objective Last 24 Hour Vital Signs Date Time Temp Pulse Resp B/P (MAP) Pulse Ox O2 Delivery O2 Flow Rate FiO2 06/12/19 09:10 116 134/69 06/12/19 08:00 98.4 116 20 134/69 (90) 94 06/11/19 21:00 Room Air 06/11/19 20:00 98.6 85 17 113/77 (89) 94 06/11/19 16:00 98.0 98 16 129/76 (93) 96 06/11/19 12:00 97.6 98 16 134/74 (94) 94 Intake and Output 06/11/19 06/12/19 19:00 07:00 Intake Total 500 ml 240 ml Output Total 1017 ml 483 ml Balance -517 ml -243 ml Intake Oral 500 ml 240 ml Output Urine Total 450 ml 250 ml Drainage Total 2 ml 63 ml Other 565 ml 170 ml Height (Feet): 5 Height (Inches): 8.00 Weight (Pounds): 225 General Appearance: alert EENT: normal ENT inspection Neck: supple Cardiovascular: normal rate Respiratory/Chest: decreased breath sounds Abdomen: normal bowel sounds, non tender, soft Extremities: non-tender Antolin Grove MD June 12, 2019 10:54
[2019-06-12] MEDS ORDERED: NS Irrig 1000ml ONE (10:59)
--- NOTE | 2019-06-14 13:36 | Discharge Summary ---
Discharge Summary Hospital Course Date of Admission Apr 26, 2019 at 08:15 Date of Discharge June 12, 2019 at 11:00 Admitting Diagnosis malfunctioning Castro continent ileostomy Reason for Hospitalization: elective surgery HPI Rashida Payne is a 64 year old female who was admitted on Apr 26, 2019 at 08:15 for malfunctioning Castro continent ileostomy . 64-year-old female in overall stable health with a malfunctioning Castro continent ileostomy with incontinence of stool and gas, including gross incontinence through her stoma, but no difficulty intubating her pouch. The patient had an original diagnosis of granulomatous colitis , and in 1974 underwent proctocolectomy with Sherlyn ileostomy. In 1982, she underwent conversion of her conventional ileostomy to a Castro continent intestinal reservoir type of Kock pouch continent ileostomy. In October 2016 in [place], using what was called an inverted T incision, the patient underwent repair of a fistula, involving her Castro pouch to the access segment below the stoma. The patient had been intubating approximately every three hours and for the past six months she has had incontinence of stool and gas through the stoma, sometimes gross incontinence of stool. She reported no difficulty inserting her intubation catheter. 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 Consultations ID specialist Dr. Perez GI specialist Dr. Grove Procedures s/p 04/26/[address] Marte s/p Castro continent ileostomy pouch endoscopy. s/p 04/27/[address] Marte Complex revision of Castro continent ileostomy with creation of new valve and stoma s/p 05/09 by Interventional Radiology intraabdominal abscess CT guided drainage and placement of drain s/p 05/21/[address] Marte Attempted exploratory laparotomy with finding of hostile abdomen s/p 05/27 by Interventional Radiology exchange of drainage catheter s/p 06/[address] Grove Pouchoscopy with hemostasis Hospital Course patient admitted patient undergone Castro pouch endoscopy on 04/25 , which revealed fistula opening within stoma upper segment full discussion with patient and regarding options of new valve and stoma, possible relocation to left side , new pouch or Sherlyn (which she wishes to avoid) PICC line was inserted patient subsequently undergone complex revision of Castro continent ileostomy with creation of new valve and stoma 04/26 postoperatively patient was kept n.p.o. pain management was addressed with SHIRRING TENDER Dilaudid with basal infusion patient started on Solu-Cortef IV, since she was on budesonide 9 mg daily preoperatively with further tapering labs and intake and output were closely monitored NG tube was discontinued since patient had some bleeding in the nares preadmission home medication were resumed patient was mobilized as tolerated with the help of physical therapist the next day patient appeared to be oversedated , and basal infusion was stopped patient was left only on demand dosing magnesium and phosphorus were infused n.p.o. status continued mental status back to normal with decreasing oversedation TPN continued patient started on Venofer fair 1 dose of B12 was given due to borderline level of B12 390; folic acid was stable IV antibiotics continued patient remained afebrile Solu-Cortef tapered Aguiar catheter was discontinued on 05/01 patient started on clear liquid diet in small amount as tolerated on potassium was replaced continued drainage of Castro pouch was maintained SHIRRING TENDER was discontinued on KCl was infused patient was continue on clear liquid diet and TPN urine culture on 05/03 revealed no evidence of growth patient started on full liquid diet on on 05/05 patient started on BCIR diet with plan to taper and discontinue TPN soon continued drainage of Castro pouch was maintained noted leukocytosis , urinalysis and urine culture collected urine culture revealed growth of E. coli due to persistent leukocytosis even with some trend down,patient undergone abdominal and pelvic CT scan on 05/08 it revealed fluid collection , measuring approximately 5 x 4.5 cm per radiology this fluid collection was amenable to drainage patient subsequently undergone on 05/09 CT-guided aspiration and drainage of abdominal fluid collection yielding 40 cc of purulent material and placement of 8 gauge Telugu pigtail drainage catheter in the right hemipelvis ID specialist followed antibiotic provided as per ID specialist recommendation IV steroids stopped, and patient started on oral prednisone 20 mg daily culture of intra-abdominal abscess revealed Klebsiella Zosyn was discontinued , and patient started on Rocephin and Flagyl as per ID specialist recommendation abscess drain fluid was not identical to Castro pouch effluent patient subsequently undergone fistulogram on 05/13 which revealed findings consistent with a fistula between previously drained pelvic abscess and adjacent ileostomy pouch patient resumed n.p.o. and started back on TPN magnesium was replaced Castro pouch catheter was placed to medium intermittent suction plan was for surgery if high-output fistula KUB was done to rule out dilated bowel loops due to low volume ileo-output KUB on 05/15 revealed no evidence of acute process, catheter was elevated 2 cm patient subsequently undergone pouchogram x-ray, which revealed apparent satisfactory position and function of continent ileostomy with communication of the continent ileostomy pouch with a small adjacent abscess via a small fistula tract options were discussed with the BCIR and creation of conventional ileostomy due to fear of recurrent fistula patient subsequently undergone on 05/20 attempted exploratory laparotomy with the finding of hostile abdomen surgeon felt that there was a still an opportunity for the early postoperative pouch fistula to heal with continued drainage of the pouch and continued nutritional support 24-gauge Telugu Aguiar catheter was positioned to the pouch , confirmed by irrigation and sutured to the skin the abscess fistula drain was sutured and left in situ to close suction postoperatively n.p.o. status ,TPN, Aguiar catheter and antibiotics continued pain management was addressed with SHIRRING TENDER Dilaudid only with on demand dosing patient was mobilized as tolerated labs, intake and output were closely monitored Aguiar catheter was discontinued on 05/24 ileus was slowly resolving patient started on clear liquid diet ; first day: max 1000cc per day as tolerated on 05/24 patient had thrush on exam and received Diflucan 150 mg p.o. x1 and nystatin swish and swallow 4 times daily urine culture revealed mixed gram-positive organisms on 05/25 patient started on clear liquid diet as tolerated SHIRRING TENDER was discontinued on 05/26 TPN continued patient undergone on 05/29 successful exchange and upsizing of pelvic drainage catheter: 8.5 Telugu pigtail drainage catheter was inserted over the guidewire into the collection of fluid [facility] TPN was tapered and discontinued patient was planned for fistulogram : if no communication within bowel and the cavity , then to remove the drain the next day fistula was activated with enteric fluid of 70 cc , and fistulogram was cancelled patient was back to NPO status and TPN antibiotics continued continued drainage of Castro pouch fistula was maintained output was closely monitored subsequently pouchogram x-ray was planned to assess fistula and catheter position patient was continued to be n.p.o. with TPN fistulogram was planned , but the next morning enterocutaneous fistula was closing with only 5 cc output; no need for fistulogram, and it was canceled patient subsequently undergone on 06/06 pouchogram for enterocutaneous fistula evaluation noted intact intact anastomosis with no obvious fistula at this time, lots of granulation around the anastomosis area , visible vessel status post hemostasis , using a clip size 16 patient started on Carafate suspension GI specialist recommended to monitor for enterocutaneous drainage: if the drainage increase , then consider repeat procedure and try to find fistula; otherwise monitor clinically patient started on BCIR diet , TPN tapered and discontinued intake and output closely monitored enterocutaneous fistula appeared to be controlled with drain to suction ; Uresil suction was changed to HARRISON suction bulb on 06/09 patient started on RN supervised BCIR self intubation every 3 hours from morning to evening and as needed at nighttime patient was instructed on how to care for HARRISON fistula drain PICC line was discontinued patient completed 28 days of antibiotics as per ID recommendation no fevers , no leukocytosis patient continued with RN supervised BCIR self intubation and teaching regarding HARRISON drain care and recording the output patient was doing well with the BCIR self intubation labs , intake and output remained stable full supplies/instructions/limitations provided/discussed patient to follow-up in the office and as needed continue BCIR low residue diet continue self-intubation every 3 hours am to pm and at night as needed patient clinically stabilized and was ready for discharge FINAL DIAGNOSES 1. 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 History of granulomatous colitis. 3. STATUS POST MULTIPLE ABDOMINAL OPERATIONS: 3.1. Proctocolectomy and Sherlyn ileostomy in 1974. 3.2. Castro continent ileostomy in 1982. 3.3. Repair of Castro continent ileostomy pouch fistula to access segment October 27, 2016. (all these operations were done elsewhere). 4. s/p Laparotomy with revision of Castro continent ileostomy with creation of new valve and stoma and resection of Castro access segment fistula April 5. s/p Attempted exploratory laparotomy with finding of hostile abdomen 05/21/19 6. Ileus 7. Electrolyte imbalances ( hypo K, hypo Mg, hypo P) 8. Anemia of iron deficiency 9. E. coli UTI 10. Malnutrition 11. 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 Oral thrush Discharge Medications Continued Medications: Aloe Vera (Aloe Vera) 25 Mg Capsule 5000 MG PO HS for Supplement , CAP (This prescription has been renewed) Anastrozole (Arimidex) 1 Mg Tablet 1 MG ORAL DAILY for Breast CA, TAB (This prescription has been renewed) Calcium Carbonate (Calcium) 600 Mg Tablet 1200 MG PO TWICE A DAY for Supplement , TAB (This prescription has been renewed) Cholecalciferol (Vitamin D3) (Vitamin D3) 4,000 Unit Capsule 5000 UNIT PO TWICE A DAY for Supplement, CAP (This prescription has been renewed ) Duloxetine Hcl* (Cymbalta*) 60 Mg Capsule.dr 60 MG ORAL TWICE A DAY for Depression , CAP (This prescription has been renewed) Gabapentin* (Gabapentin*) 300 Mg Capsule 300 MG ORAL BEDTIME for Neuropathy , CAP (This prescription has been renewed) Iron (Iron) 18 Mg Tablet 65 MG PO DAILY for Supplement , TAB (This prescription has been renewed) Levothyroxine Sodium* (Synthroid*) 100 Mcg Tablet 100 MCG ORAL DAILY for Hypothyroidism, TAB (This prescription has been renewed) Take in the morning on an empty stomach, at least 30 minutes before food. Metoprolol Succinate* (Metoprolol Succinate*) 50 Mg Tab.er.24h 50 MG ORAL DAILY for Hypertension , TAB (This prescription has been renewed) Olanzapine (Olanzapine) 5 Mg Tablet 5 MG ORAL DAILY for Mood Disorder, TAB (This prescription has been renewed) Everson-3 Fatty Acids (Everson-3) 100 Mg Tab.chew 350 MG PO HS for Supplement , TAB (This prescription has been renewed) Vitamin B Complex (B Complex) 1 Each Tablet 1 TAB ORAL DAILY for Supplement , #30 TAB 0 Refills (This prescription has been renewed) Discontinued Medications: Budesonide (Budesonide ER) 9 Mg Tabdr...er 9 MG PO DAILY for Crohns , TAB Vedolizumab (Entyvio) 300 Mg Vial 300 MG IV 8 weeks for Crohns , VIAL Discharge Condition Upon Discharge: stable Discharge Vital Signs Last Vital Signs Date Time Temp Pulse Resp B/P (MAP) Pulse Ox O2 Delivery O2 Flow Rate FiO2 06/12/19 09:10 116 134/69 06/12/19 09:00 Room Air 06/12/19 08:00 98.4 20 94 06/07/19 10:55 4 Discharge Disposition Patient was discharged home Discharge Instructions Discharge Instructions Special Instructions I have been assigned to complete a D/C Summary on this account. I was not involved in the patient management Rachael Douglas NP June 14, 2019 13:36
== END 2019-06-12 11:00 | disposition home or self-care (01) | DRG 329 ==
LOC: 3E 08:15
PROC: B518ZZA Fluoroscopy of Superior Vena Cava, Guidance (ICD-10-PCS; principal; 2019-04-26 12:58)
PROC: 0DJD8ZZ Inspection of Lower Intestinal Tract, Via Natural or Artificial Opening Endoscopic (ICD-10-PCS; principal; 2019-04-26 12:58)
PROC: 02HV33Z Insertion of Infusion Device into Superior Vena Cava, Percutaneous Approach (ICD-10-PCS; principal; 2019-04-26 12:58)
PROC: 0D1B0Z4 Bypass Ileum to Cutaneous, Open Approach (ICD-10-PCS; 2019-04-27)
PROC: 0DBB0ZZ Excision of Ileum, Open Approach (ICD-10-PCS; 2019-04-27)
PROC: 0W9G30Z Drainage of Peritoneal Cavity with Drainage Device, Percutaneous Approach (ICD-10-PCS; 2019-05-10)
PROC: 0W2GX0Z Change Drainage Device in Peritoneal Cavity, External Approach (ICD-10-PCS; 2019-05-28)
PROC: 0DJD8ZZ Inspection of Lower Intestinal Tract, Via Natural or Artificial Opening Endoscopic (ICD-10-PCS; 2019-06-07)
DX: K94.13 Enterostomy malfunction (principal); K65.1 Peritoneal abscess; K63.2 Fistula of intestine; K56.7 Ileus, unspecified; J98.11 Atelectasis; T81.43XA Infection following a procedure, organ and space surgical site, initial encounter; N39.0 Urinary tract infection, site not specified; B37.0 Candidal stomatitis; E46 Unspecified protein-calorie malnutrition; I10 Essential (primary) hypertension; E66.9 Obesity, unspecified; Z68.34 Body mass index [BMI] 34.0-34.9, adult; Z85.3 Personal history of malignant neoplasm of breast; Z90.13 Acquired absence of bilateral breasts and nipples; K43.5 Parastomal hernia without obstruction or gangrene; B96.20 Unspecified Escherichia coli [E. coli] as the cause of diseases classified elsewhere; E03.9 Hypothyroidism, unspecified; R15.9 Full incontinence of feces; D64.9 Anemia, unspecified; D72.829 Elevated white blood cell count, unspecified; E87.6 Hypokalemia; E83.42 Hypomagnesemia; E83.39 Other disorders of phosphorus metabolism
CPT/HCPCS: 20501; 36415; 36569; 71045; 74018; 74176; 74270; 75984; 75989; 76000; 76080; 76937; 80048; 80053; 81001; 81003; 82607; 82746; 82962; 83540; 83550; 83735; 84100; 85007; 85025; 85610; 85730; 86850; 86900; 86901; 87070; 87075; 87086; 87181; 87205; 93005; 94003; 94150; J1815; J2250; J2405; J2710; J8499